=== PATIENT | male | born 1980 | race Caucasian/White ===

== ENCOUNTER 2022-10-13 19:53 | Emergency (ER) | payer MEDICAID, OTHER ==
[2022-10-13 20:06] VITALS: BP 151/95; PULSE 83; RESP 18; TEMP 98
--- NOTE | 2022-10-13 20:46 | XR ---
EXAMINATION TYPE: XR ankle complete RT, XR foot complete RT DATE OF EXAM: 10/13/2022 8:23 PM INDICATION: Patient age:Male; 42 years old; Reason for study: fall; [facility]. COMPARISON: None TECHNIQUE: The right foot and ankle is imaged in frontal, lateral and oblique projections. FINDINGS: Bony fragment off the anterior aspect of the talus best appreciated on lateral. There is soft tissue swelling. Soft tissue swelling. The joint spaces are well-preserved without evidence of subluxation or dislocation. Kager's fat pad i s intact. No radiopaque foreign bodies are identified. IMPRESSION: Osseous fragment off the anterior/dorsal aspect of the right talus. Correlate with point tenderness t o the dorsal aspect of the foot near the ankle joint. No additional fractures identified.
--- NOTE | 2022-10-13 21:39 | ED ---
Lower Extremity Injury HPI - General Chief Complaint: Extremity Injury, Lower Stated Complaint: rt ankle sprain Time Seen by Provider: 10/13/22 20:10 Source: patient Mode of arrival: ambulatory Limitations: no limitations - History of Present Illness Initial Comments: 42-year-old male presents emergency department reporting right ankle pain. States that he was jumping out of his work truck when he rolled his right ankle and began having significant right lateral ankle pain. She did have some associated swelling. He has been able to weight-bear. His work recommended that he be evaluated for his injury. Does admit to previous fracture of this extremity. No additional injuries sustained today. Denies any numbness or tingling into his toes. He does not take any medications prior to coming into the emergency room for pain control. No other alleviating, precipitating or modifying factors - Related Data Previous Rx's Medication Instructions Recorded Erythromycin Ophth Oint [Romycin 1 applic RIGHT EYE TID #1 tube 05/11/15 Ophth Oint] Allergies Allergy/AdvReac Type Severity Reaction Status Date / Time Penicillins Allergy Unknown Verified 10/13/22 20:06 Childhood Review of Systems ROS Statement: Those systems with pertinent positive or pertinent negative responses have been documented in the HPI. ROS Other: All systems not noted in ROS Statement are negative. Past Medical History Past Medical History: No Reported History History of Any Multi-Drug Resistant Organisms: None Reported Past Surgical History: No Surgical Hx Reported Past Psychological History: No Psychological Hx Reported Smoking Status: Never smoker Past Alcohol Use History: Occasional Past Drug Use History: None Reported General Exam Limitations: no limitations General appearance: alert, in no apparent distress Extremities exam: Present: tenderness (right lateral ankle. mild swelling. no dorsal foot tenderness. no obvious deformity), other (2+ DP and PT pulses) Course Vital Signs 10/13/22 20:05 Temperature 98 F Pulse Rate 83 Respiratory 18 Rate Blood Pressure 151/95 O2 Sat by Pulse 99 Oximetry Medical Decision Making - Medical Decision Making Upon arrival patient was placed into room 30. There are history and physical exam was performed. Patient is sent for x-ray of his right foot and ankle. Images are reviewed by myself and read by the radiologist. There is a small bony fragments adjacent to the talus on the anterior/dorsal aspect of the foot. I did correlate this for point tenderness however the patient has not tender over this area. I did discuss diagnosis, treatment options. Patient is placed in a stirrup splint and additionally given an Frankie bandage. Instructed to wear compression to the ankle to prevent any further inversion injury. Alternate taking Motrin, for pain control. Follow-up with the orthopedic office in 7-10 days should his pain persist as he may need repeat imaging and return to the emergency room for any new or worsening symptoms. Patient was agreeable to treatment plan and was discharged home ambulatory in stable condition Disposition Clinical Impression: Right ankle pain, Inversion deformity of right foot Disposition: HOME SELF-CARE Condition: Stable Instructions (If sedation given, give patient instructions): Ankle Sprain (ED) Additional Instructions: Rest, ice and elevate your extremity. Wear the stirrup splint if possible. Wear the Frankie bandage for some stabilization inside your work boot. Follow up with the orthopedic clinic if your pain persists. Is patient prescribed a controlled substance at d/c from ED?: No Referrals: Jalyn Upton MD [Primary Care Provider] - 1-2 days Teresita Vargas DO [Doctor of Osteopathic Medicine] - 1-2 days Time of Disposition: 21:39
== END 2022-10-13 21:45 | disposition home or self-care (01) ==
LOC: SUPCPDRO 19:53 → EC 19:53
DX: M21.6X1 Other acquired deformities of right foot (principal); Z88.0 Allergy status to penicillin
CPT/HCPCS: 73610; 73630; 99283; L4350

== ENCOUNTER 2023-09-24 17:51 | Inpatient (IN) | payer BC ==
[2023-09-24 19:11] LABS: Anisocytosis Slight; MCH 38.3 pg (25.0-35.0); MCHC 35.7 g/dL (31.0-37.0); MCV 107.2 fL (80.0-100.0); Macrocytosis Moderate; Mean Platelet Volume 14.4; RBC 1.47 m/uL (4.30-5.90); RDW 16.6 % (11.5-15.5); WBC 3.1 k/uL (3.8-10.6)
[2023-09-24 19:17] LABS: HCT 15.7 % (39.0-53.0); HGB 5.6 gm/dL (13.0-17.5)
[2023-09-24 19:21] LABS: ALT 15 U/L (4-49); AST 15 U/L (17-59); African American GFR (CKD) >90 (>60 ml/min/1.73 sqM); Albumin 4.5 g/dL (3.5-5.0); Alkaline Phosphatase 52 U/L (38-126); Anion Gap 11 mmol/L; Blood Urea Nitrogen 18 mg/dL (9-20); Calcium 9.4 mg/dL (8.4-10.2); Carbon Dioxide 23 mmol/L (22-30); Chloride 103 mmol/L (98-107); Glucose 126 mg/dL (74-99); Non-African American GFR(CKD) >90 (>60 ml/min/1.73 sqM); Potassium 4.3 mmol/L (3.5-5.1); Sodium 137 mmol/L (137-145); Total Bilirubin 0.4 mg/dL (0.2-1.3); Total Protein 7.7 g/dL (6.3-8.2)
[2023-09-24 19:26] LABS: Partial Thromboplastin Time 22.6 sec (22.0-30.0); Prothrombin Time 11.2 sec (10.0-12.5)
[2023-09-24 20:10] LABS: Neutrophils % (M) 2 %
[2023-09-24 20:19] LABS: Neutrophils # (M) 0.06 k/uL (1.3-7.7); Polychromasia Present
[2023-09-24 20:27] LABS: Platelet Count 35 k/uL (150-450)
[2023-09-24] MEDS ORDERED: ONDANSETRON 4 MG/2 ML VIAL IVP PRN (22:21)
[2023-09-24] MEDS ORDERED: NALOXONE 0.4 MG/ML 1 ML VIAL IV PRN (22:21)
[2023-09-24] MEDS ORDERED: MORPHINE SULFATE 4 MG/ML SYRINGE IV PRN (22:21)
--- NOTE | 2023-09-24 22:30 | ED ---
Recheck HPI - General Chief Complaint: Recheck/Abnormal Lab/Rx Stated Complaint: abnormal labs Time Seen by Provider: 09/24/23 20:31 Source: patient, RN notes reviewed, old records reviewed Mode of arrival: ambulatory Limitations: no limitations - History of Present Illness Initial Comments: This is a 43-year-old male to the ER today. Patient presents today for evaluation. Patient is here for evaluation regards to abnormal lab values low hemoglobin. Patient has been feeling unwell for a few weeks now increasing weakness increasing shortness of breath increasing fatigue and feels like he has been pale. Patient did see his primary care who did lab values and has not sent patient to the emergency department today. He denies any chest pain shortness with abdominal pain no nausea vomiting. No blood in the stool about black stools. Patient has no medical history takes no medication MD Complaint: abnormal lab -: unknown Returns Today for: Called Because of Abnormal Lab/Test, persistent/worsening pain related to initial visit Symptoms Since Prior Visit: worsening pain Context: called for abnormal lab result Associated Symptoms: none - Related Data Home Medications Medication Instructions Recorded Confirmed No Known Home Medications 09/28/23 09/28/23 Allergies Allergy/AdvReac Type Severity Reaction Status Date / Time Penicillins Allergy Unknown Verified 09/24/23 20:59 Childhood Review of Systems ROS Statement: Those systems with pertinent positive or pertinent negative responses have been documented in the HPI. ROS Other: All systems not noted in ROS Statement are negative. Past Medical History Past Medical History: No Reported History History of Any Multi-Drug Resistant Organisms: None Reported Past Surgical History: No Surgical Hx Reported Past Psychological History: No Psychological Hx Reported Smoking Status: Never smoker Past Alcohol Use History: Occasional Past Drug Use History: None Reported - Past Family History Mother Additional Family Medical History / Comment(s): bladder and stomach cancer General Exam Limitations: no limitations General appearance: alert, in no apparent distress Head exam: Present: atraumatic, normocephalic, normal inspection Eye exam: Present: normal appearance, PERRL, EOMI. Absent: scleral icterus, conjunctival injection, periorbital swelling ENT exam: Present: normal exam, mucous membranes moist Neck exam: Present: normal inspection. Absent: tenderness, meningismus, lymph adenopathy Respiratory exam: Present: normal lung sounds bilaterally. Absent: respiratory distress, wheezes, rales, rhonchi, stridor Cardiovascular Exam: Present: regular rate, normal rhythm, normal heart sounds. Absent: systolic murmur, diastolic murmur, rubs, gallop, clicks GI/Abdominal exam: Present: soft, normal bowel sounds. Absent: distended, tenderness, guarding, rebound, rigid Extremities exam: Present: normal inspection, full ROM, normal capillary refill. Absent: tenderness, pedal edema, joint swelling, calf tenderness Back exam: Present: normal inspection Neurological exam: Present: alert, oriented X3, CN II-XII intact Psychiatric exam: Present: normal affect, normal mood Skin exam: Present: warm, dry, intact, normal color. Absent: rash Course Vital Signs 09/24/23 09/24/23 09/24/23 18:41 20:56 23:00 Temperature 98 F Pulse Rate 77 70 74 Respiratory 18 18 20 Rate Blood Pressure 126/66 128/70 119/73 O2 Sat by Pulse 100 100 98 Oximetry 09/25/23 09/25/23 09/25/23 00:00 01:00 02:00 Temperature Pulse Rate 65 63 78 Respiratory 20 16 18 Rate Blood Pressure 130/68 126/64 111/58 O2 Sat by Pulse 98 97 98 Oximetry 09/25/23 09/25/23 09/25/23 03:00 04:00 05:00 Temperature Pulse Rate 82 74 69 Respiratory 20 15 16 Rate Blood Pressure 105/58 109/58 116/56 O2 Sat by Pulse 98 98 99 Oximetry 09/25/23 09/25/23 09/25/23 06:00 07:00 08:00 Temperature Pulse Rate 66 90 85 Respiratory 16 16 18 Rate Blood Pressure 117/61 112/63 120/63 O2 Sat by Pulse 98 98 Oximetry 09/25/23 09/25/23 09/25/23 09:00 10:00 11:00 Temperature Pulse Rate 76 92 71 Respiratory 16 16 18 Rate Blood Pressure 120/62 120/63 122/63 O2 Sat by Pulse 99 99 99 Oximetry 09/25/23 09/25/23 09/25/23 11:30 11:40 12:00 Temperature 98.6 F 98.1 F 98.8 F Pulse Rate 74 71 84 Respiratory 18 18 16 Rate Blood Pressure 117/69 121/65 121/65 O2 Sat by Pulse 99 99 99 Oximetry 09/25/23 09/25/23 09/25/23 12:30 13:00 14:00 Temperature 98.1 F Pulse Rate 76 68 71 Respiratory 18 18 16 Rate Blood Pressure 124/62 115/69 145/64 O2 Sat by Pulse 100 100 98 Oximetry 09/25/23 15:00 Temperature 98.5 F Pulse Rate 78 Respiratory 17 Rate Blood Pressure 119/63 O2 Sat by Pulse 95 Oximetry - Reevaluation(s) Reevaluation #1: 09/24/23 22:25 Medical record is reviewed Reevaluation #2: 09/24/23 22:25 Patient symptoms are unchanged Transfusion be delayed at this time for pathology and oncology to evaluate see and despite treatment Reevaluation #3: 09/24/23 22:25 Patient informed results questions answered Reevaluation #4: 09/24/23 22:25 Was pt. sent in by a medical professional or institution ([facility], [employer], urgent care, hospital, or alf...) When possible be specific @ -no Did you speak to anyone other than the patient for history (EMS, parent, family, police, friend...)? What history was obtained from this source @ -no Did you review nursing and triage notes (agree or disagree)? Why? @ -agree Are old charts reviewed (outside hosp., previous admission, EMS record, old EKG, old radiological studies, urgent care reports/EKG's, alf records)? Report findings @ -yes Differential Diagnosis (chest pain, altered mental status, abdominal pain women, abdominal pain men, vaginal bleeding, weakness, fever, dyspnea, syncope, headache, dizziness, GI bleed, back pain, seizure, CVA, palpatations, mental health, musculoskeletal)? @ -prior EKG interpreted by me (3pts min.). @ -yes X-rays interpreted by me (1pt min.). @ -no CT interpreted by me (1pt min.). @ -no U/S interpreted by me (1pt. min.). @ -no What testing was considered but not performed or refused? (CT, X-rays, U/S, labs)? Why? @ -none What meds were considered but not given or refused? Why? @ -none Did you discuss the management of the patient with other professionals (professionals i.e. [facility], [employer], lab, RT, psych nurse, social media assistant, procedure analyst, teacher, forest officer, case assembler)? Give summary @ -no Was smoking cessation discussed for >3mins.? @ -no Was critical care preformed (if so, how long)? @ -yes31 Were there social determinants of health that impacted care today? How? (Homelessness, low income, unemployed, alcoholism, drug addiction, transportation, low edu. Level, literacy, decrease access to med. care, fci, rehab)? @ -none Was there de-escalation of care discussed even if they declined (Discuss DNR or withdrawal of care, Hospice)? DNR status @ -no What co-morbidities impacted this encounter? (DM, HTN, Smoking, COPD, CAD, Cancer, CVA, ARF, Chemo, Hep., AIDS, mental health diagnosis, sleep apnea, morbid obesity)? @ -none Was patient admitted / discharged? Hospital course, mention meds given and route, prescriptions, significant lab abnormalities, going to OR and other pertinent info. @ - 43 male to the emergency department for evaluation today. Patient presents today for evaluation of low hemoglobin patient found of persistent low hemoglobin although improved from outpatient lab testing. Patient be admitted for pancytopenia evaluation Admitted Undiagnosed new problem with uncertain prognosis? @ -no Drug Therapy requiring intensive monitoring for toxicity (Heparin, Nitro, Insulin, Cardizem)? @ -no Were any procedures done? @ -no Diagnosis/symptom? @ -Pancytopenia, severe anemia Acute, or Chronic, or Acute on Chronic? @ -Acute Uncomplicated (without systemic symptoms) or Complicated (systemic symptoms)? @ -Complicated Side effects of treatment? @ -no Exacerbation, Progression, or Severe Exacerbation? @ -exacerbation Poses a threat to life or bodily function? How? (Chest pain, USA, NE, pneumonia, PE, COPD, DKA, ARF, appy, cholecystitis, CVA, Diverticulitis, Homicidal, Suicidal, threat to staff... and all critical care pts) @ -yes Reevaluation #5: 09/24/23 22:25 Differential Weakness: Hypoglycemia, shock, sepsis, hyponatremia, anemia, infection, NE, ETOH, adverse medicine reaction, overdose, stroke, this is not meant to be an all-inclusive list. - Consultations Consultation #1: Spoke with sound who agrees to admit this patient Medical Decision Making - Medical Decision Making 43 male to the emergency department for evaluation today. Patient presents today for evaluation of low hemoglobin patient found of persistent low hemo globin although improved from outpatient lab testing. Patient be admitted for pancytopenia evaluation - Lab Data Result diagrams: 09/27/23 08:17 09/27/23 08:17 Lab Results 09/24/23 09/24/23 09/24/23 Range/Units 11:05 18:53 18:54 WBC 3.1 L (3.8-10.6) k/uL RBC 1.47 L (4.30-5.90) m/uL Hgb 5.6 L* (13.0-17.5) gm/dL Hct 15.7 L* (39.0-53.0) % MCV 107.2 H (80.0-100.0) fL MCH 38.3 H (25.0-35.0) pg MCHC 35.7 (31.0-37.0) g/dL RDW 16.6 H (11.5-15.5) % Plt Count 35 L (150-450) k/uL MPV 14.4 Neutrophils % (Manual) 2 % Lymphocytes % (Manual) 51 % Monocytes % (Manual) 3 % Blast Cells % 45 H* % Neutrophils # (Manual) 0.06 L* (1.3-7.7) k/uL Lymphocytes # (Manual) 1.58 (1.0-4.8) k/uL Monocytes # (Manual) 0.09 (0-1.0) k/uL Blast Cells # (Man) 1.40 H (0) k/uL Nucleated RBCs 1 H (0-0) /100 WBC Manual Slide Review Performed Pathologist Review See comment A Polychromasia Present Poikilocytosis (manual Present Anisocytosis Slight Macrocytosis Moderate PT (10.0-12.5) sec INR (<1.2) APTT (22.0-30.0) sec Sodium (137-145) mmol/L Potassium (3.5-5.1) mmol/L Chloride (98-107) mmol/L Carbon Dioxide (22-30) mmol/L Anion Gap mmol/L BUN (9-20) mg/dL Creatinine (0.66-1.25) mg/dL Est GFR (CKD-EPI)AfAm (>60 ml/min/1.73 sqM) Est GFR (CKD-EPI)NonAf (>60 ml/min/1.73 sqM) Glucose (74-99) mg/dL Uric Acid (3.5-8.5) mg/dL Calcium (8.4-10.2) mg/dL Iron (65-175) UG/DL TIBC (228-460) UG/DL % Saturation (15.00-50.00) Transferrin (204.0-354.0) mg/dL Ferritin (22.0-322.0) ng/mL Total Bilirubin (0.2-1.3) mg/dL AST (17-59) U/L ALT (4-49) U/L Alkaline Phosphatase (38-126) U/L Lactate Dehydrogenase (120-246) U/L Total Protein (6.3-8.2) g/dL Albumin (3.5-5.0) g/dL Vitamin B12 (200.0-944.0) pg/mL Folate 8.80 (4.40-31.00) ng/mL Stool Occult Blood (Negative) Blood Type A Positive Blood Type Confirm Blood Type Recheck No Previous Record Bld Type Recheck Status CABO Indicated Antibody Screen NEGATIVE Crossmatch See Detail Spec Expiration Date 09/27/2023 - 235209/24/23 09/24/23 09/24/23 Range/Units 18:54 18:54 18:54 WBC (3.8-10.6) k/uL RBC (4.30-5.90) m/uL Hgb (13.0-17.5) gm/dL Hct (39.0-53.0) % MCV (80.0-100.0) fL MCH (25.0-35.0) pg MCHC (31.0-37.0) g/dL RDW (11.5-15.5) % Plt Count (150-450) k/uL MPV Neutrophils % (Manual) % Lymphocytes % (Manual) % Monocytes % (Manual) % Blast Cells % % Neutrophils # (Manual) (1.3-7.7) k/uL Lymphocytes # (Manual) (1.0-4.8) k/uL Monocytes # (Manual) (0-1.0) k/uL Blast Cells # (Man) (0) k/uL Nucleated RBCs (0-0) /100 WBC Manual Slide Review Pathologist Review Polychromasia Poikilocytosis (manual Anisocytosis Macrocytosis PT 11.2 (10.0-12.5) sec INR 1.0 (<1.2) APTT 22.6 (22.0-30.0) sec Sodium 137 (137-145) mmol/L Potassium 4.3 (3.5-5.1) mmol/L Chloride 103 (98-107) mmol/L Carbon Dioxide 23 (22-30) mmol/L Anion Gap 11 mmol/L BUN 18 (9-20) mg/dL Creatinine 0.90 (0.66-1.25) mg/dL Est GFR (CKD-EPI)AfAm >90 (>60 ml/min/1.73 sqM) Est GFR (CKD-EPI)NonAf >90 (>60 ml/min/1.73 sqM) Glucose 126 H (74-99) mg/dL Uric Acid 2.5 L (3.5-8.5) mg/dL Calcium 9.4 (8.4-10.2) mg/dL Iron 213 H (65-175) UG/DL TIBC 246 (228-460) UG/DL % Saturation 86.59 H (15.00-50.00) Transferrin 176.0 L (204.0-354.0) mg/dL Ferritin 1041.0 H (22.0-322.0) ng/mL Total Bilirubin 0.4 (0.2-1.3) mg/dL AST 15 L (17-59) U/L ALT 15 (4-49) U/L Alkaline Phosphatase 52 (38-126) U/L Lactate Dehydrogenase 271 H (120-246) U/L Total Protein 7.7 (6.3-8.2) g/dL Albumin 4.5 (3.5-5.0) g/dL Vitamin B12 502.0 (200.0-944.0) pg/mL Folate (4.40-31.00) ng/mL Stool Occult Blood (Negative) Blood Type Blood Type Confirm Blood Type Recheck Bld Type Recheck Status Antibody Screen Crossmatch Spec Expiration Date 09/24/23 09/24/23 Range/Units 19:33 21:30 WBC (3.8-10.6) k/uL RBC (4.30-5.90) m/uL Hgb (13.0-17.5) gm/dL Hct (39.0-53.0) % MCV (80.0-100.0) fL MCH (25.0-35.0) pg MCHC (31.0-37.0) g/dL RDW (11.5-15.5) % Plt Count (150-450) k/uL MPV Neutrophils % (Manual) % Lymphocytes % (Manual) % Monocytes % (Manual) % Blast Cells % % Neutrophils # (Manual) (1.3-7.7) k/uL Lymphocytes # (Manual) (1.0-4.8) k/uL Monocytes # (Manual) (0-1.0) k/uL Blast Cells # (Man) (0) k/uL Nucleated RBCs (0-0) /100 WBC Manual Slide Review Pathologist Review Polychromasia Poikilocytosis (manual Anisocytosis Macrocytosis PT (10.0-12.5) sec INR (<1.2) APTT (22.0-30.0) sec Sodium (137-145) mmol/L Potassium (3.5-5.1) mmol/L Chloride (98-107) mmol/L Carbon Dioxide (22-30) mmol/L Anion Gap mmol/L BUN (9-20) mg/dL Creatinine (0.66-1.25) mg/dL Est GFR (CKD-EPI)AfAm (>60 ml/min/1.73 sqM) Est GFR (CKD-EPI)NonAf (>60 ml/min/1.73 sqM) Glucose (74-99) mg/dL Uric Acid (3.5-8.5) mg/dL Calcium (8.4-10.2) mg/dL Iron (65-175) UG/DL TIBC (228-460) UG/DL % Saturation (15.00-50.00) Transferrin (204.0-354.0) mg/dL Ferritin (22.0-322.0) ng/mL Total Bilirubin (0.2-1.3) mg/dL AST (17-59) U/L ALT (4-49) U/L Alkaline Phosphatase (38-126) U/L Lactate Dehydrogenase (120-246) U/L Total Protein (6.3-8.2) g/dL Albumin (3.5-5.0) g/dL Vitamin B12 (200.0-944.0) pg/mL Folate (4.40-31.00) ng/mL Stool Occult Blood Negative (Negative) Blood Type Blood Type Confirm A Positive Blood Type Recheck Bld Type Recheck Status Antibody Screen Crossmatch Spec Expiration Date Disposition Clinical Impression: Pancytopenia, Leukopenia, Thrombocytopenia, Anemia Disposition: ADMITTED IP TO THIS HOSP Condition: Stable Is patient prescribed a controlled substance at d/c from ED?: No Time of Disposition: 22:20
[2023-09-24] MEDS: SODIUM CHLORIDE 0.9% 1,000 ML IV SCH (22:52)
--- NOTE | 2023-09-25 06:44 | P.HPIM ---
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 This is completely new to him he has no cardiac history no respiratory illnesses in the past denies any history of COPD or asthma he denies any GI bleeding. He recalls about a month ago he started having some upper respiratory infection symptoms involving his sinuses for which she went to an urgent care he was given some medications 2 weeks later he was not improving went to his primary doctor where he prescribed him some Bactrim and Medrol Dosepak and then started doing some blood work which showed the severe anemia. Patient also has been noticing easy bruising taking longer to heal and fade away, but denies any bleeding tendencies denies any melena or GI bleeding Patient denies any medical issues in the past he denies any family history of hemoglobin disorders. Patient had hepatitis B vaccine done about a month ago which is a job requirement he had 3 doses in his life. Patient denies tobacco smoking illicit drugs or heavy alcohol review of systems Pertinent positives as noted in HPI. All other systems were reviewed and are negative on exam Constitutional: No acute distress, conversant, pleasant Eyes: Anicteric sclerae, moist conjunctiva, Pupils equal round reactive to light ENMT: NC/AT Oropharynx clear, no erythema, or exudates Neck: Supple, no masses, or JVD No carotid bruits No thyromegaly Lungs: Clear to auscultation Clear to percussion Normal respiratory effort, no accessory muscle use Cardiovascular: Heart regular in rate and rhythm, No murmurs, gallops, or rubs No peripheral edema Abdominal: Soft Nontender, no guarding, rebound or rigidity Abdomen moving with respiration Normoactive bowel sounds No hepatomegaly, No splenomegaly No palpable mass No abdominal wall hernia noted Skin: Normal temperature, tone, texture, turgor No induration No subcutaneous nodules No rash, lesions No ulcers Extremities: No digital cyanosis No clubbing Pedal pulses intact and symmetrical Radial pulses intact and symmetrical No calf tenderness Psychiatric: Alert and oriented to person, place and time Appropriate affect fair judgement Neuro Muscles Strength 5/5 in all 4 extremities Sensation to light touch grossly present throughout Cranial nerves II-XII grossly intact Lymphatics: no palpable cervical or supraclavicular lymph nodes Past Medical History Past Medical History: No Reported History History of Any Multi-Drug Resistant Organisms: None Reported Past Surgical History: No Surgical Hx Reported Past Psychological History: No Psychological Hx Reported Smoking Status: Never smoker Past Alcohol Use History: Occasional Past Drug Use History: None Reported Medications and Allergies Home Medications Medication Instructions Recorded Confirmed Type Mupirocin 2% Oint [Bactroban 2% 1 applic TOPICAL TID PRN 09/24/23 09/24/23 History Oint] Sulfamethox-Tmp 800-160Mg [Bactrim 1 tab PO Q12HR 09/24/23 09/24/23 History DS 800-160 mg] methylPREDNISolone [Medrol Dose See Taper PO DIRECTED 09/24/23 09/24/23 H istory Pack] Allergies Allergy/AdvReac Type Severity Reaction Status Date / Time Penicillins Allergy Unknown Verified 09/24/23 20:59 Childhood Physical Exam Vitals: Vital Signs Temp Pulse Resp BP Pulse Ox 09/25/23 06:00 66 16 117/61 98 09/25/23 05:00 69 16 116/56 99 09/25/23 04:00 74 15 109/58 98 09/25/23 03:00 82 20 105/58 98 09/25/23 02:00 78 18 111/58 98 09/25/23 01:00 63 16 126/64 97 09/25/23 00:00 65 20 130/68 98 09/24/23 23:00 74 20 119/73 98 09/24/23 20:56 70 18 128/70 100 09/24/23 18:41 98 F 77 18 126/66 100 Intake and Output 09/24/23 09/24/23 09/25/23 14:59 22:59 06:59 Other: Weight 89.358 kg Results CBC & Chem 7: 09/24/23 18:54 09/24/23 18:54 Labs: Abnormal Lab Results - Last 24 Hours (Table) 09/24/23 09/24/23 Range/Units 18:54 18:54 WBC 3.1 L (3.8-10.6) k/uL RBC 1.47 L (4.30-5.90) m/uL Hgb 5.6 L* (13.0-17.5) gm/dL Hct 15.7 L* (39.0-53.0) % MCV 107.2 H (80.0-100.0) fL MCH 38.3 H (25.0-35.0) pg RDW 16.6 H (11.5-15.5) % Plt Count 35 L (150-450) k/uL Glucose 126 H (74-99) mg/dL AST 15 L (17-59) U/L Assessment and Plan Assessment: 43-year-old male no significant past medical history coming in with one-month history of exertional dyspnea, find doing blood work with his primary care doctor and was found to have severe anemia which prompted to come the hospital for evaluation discussed case with the adductor accepted the admission for pancytopenia suspicious of aplastic anemia for hematology evaluation Pancytopenia suspected aplastic anemia Hematology consult Hemoglobin 5.6, patient currently asymptomatic while resting Blood transfusion was not done waiting for hematology recommendations Check HIV, Parvovirus B19, hepatitis White count is 3.1, platelets 35 Frequent PVCs EKG showed frequent PVCs and T-wave inversion in lead 3 Cardiology consult Renal function unremarkable sodium 137 potassium 4.3 be on 18 creatinine 0.9 full code DVT prophylaxis mechanical secondary to pancytopenia
[2023-09-25 07:54] LABS: Lymphocytes # (M) 1.58 k/uL (1.0-4.8); Monocytes # (M) 0.09 k/uL (0-1.0)
[2023-09-25 07:58] LABS: Nucleated Red Blood Cells 1 /100 WBC (0-0); Total Cells Counted 200
[2023-09-25 08:00] LABS: Poikilocytosis (M) Present
[2023-09-25 09:13] LABS: Anisocytosis Slight; MCH 37.8 pg (25.0-35.0); MCHC 34.8 g/dL (31.0-37.0); MCV 108.7 fL (80.0-100.0); Macrocytosis Marked; Mean Platelet Volume 13.9; RBC 1.39 m/uL (4.30-5.90); WBC 3.4 k/uL (3.8-10.6)
[2023-09-25 09:18] LABS: HCT 15.1 % (39.0-53.0); HGB 5.3 gm/dL (13.0-17.5); Platelet Count 28 k/uL (150-450)
[2023-09-25 09:22] LABS: ALT 16 U/L (4-49); AST 15 U/L (17-59); African American GFR (CKD) >90 (>60 ml/min/1.73 sqM); Alkaline Phosphatase 51 U/L (38-126); Anion Gap 10 mmol/L; Blood Urea Nitrogen 20 mg/dL (9-20); Calcium 8.6 mg/dL (8.4-10.2); Carbon Dioxide 24 mmol/L (22-30); Chloride 105 mmol/L (98-107); Glucose 96 mg/dL (74-99); Non-African American GFR(CKD) >90 (>60 ml/min/1.73 sqM); Phosphorus 4.2 mg/dL (2.5-4.5); Potassium 3.9 mmol/L (3.5-5.1); Sodium 139 mmol/L (137-145); Total Bilirubin 0.3 mg/dL (0.2-1.3); Total Protein 7.2 g/dL (6.3-8.2)
[2023-09-25] MEDS ORDERED: ALPRAZolam 0.5 MG TAB PO PRN (10:06)
[2023-09-25 11:22] LABS: Eosinophils # (M) 0.03 k/uL (0-0.7); Nucleated Red Blood Cells 0 /100 WBC (0-0); Total Cells Counted 200
[2023-09-25 11:26] LABS: Poikilocytosis (M) Present
--- NOTE | 2023-09-25 11:30 | P.CRDCN ---
History of Present Illness History of present illness: HISTORY OF PRESENT ILLNESS: This is a 43-year-old male with no significant past medical history. Patient does not follow with a identity management developer. We have been asked to see the patient in consultation for frequent PVCs and T-wave inversions in lead III. Patient examined at the bedside. Patient has been experiencing shortness of breath for the past 4-6 weeks. He also reports having an upper respiratory infection in which she was placed on doxycycline by urgent care. He states his symptoms were not improving so he went to see his primary care physician who prescribed Bactrim and steroids and ordered blood work. He states he just started this medication on Sunday.Patient was found to be anemic with hemoglobin of 4.6 and he was directed to come to the hospital for further evaluation. He has been seen by oncology with plans for bone marrow biopsy tomorrow. * EKG reveals sinus mechanism with nonspecific ST-T wave changes. PVCs. * Current home cardiac medications include none REVIEW OF SYSTEMS: At the time of my exam: CONSTITUTIONAL: Denies fever or chills. HEENT: Denies blurred vision, vision changes, or eye pain. Denies hemoptysis CARDIOVASCULAR: Denies chest pain. Denies orthopnea. Denies PND. Denies palpitations RESPIRATORY: Denies shortness of breath. GASTROINTESTINAL: Denies abdominal pain. Denies nausea or vomiting. HEMATOLOGIC: Denies bleeding disorders. GENITOURINARY: Denies any blood in urine. SKIN: Denies pruitis. Denies rash. PHYSICAL EXAM: VITAL SIGNS: Reviewed. GENERAL: Well-developed in no acute distress. HEENT: Head is normocephalic. Pupils are equal, round. Sclerae anicteric. Mucous membranes of the mouth are moist. Neck supple. No JVD or thyromegaly LUNGS: Respirations even and unlabored. Lungs essentially clear to auscultation bilaterally. HEART: Regular rate and rhythm. S1 and S2 heard. ABDOMEN: Soft. Nondistended. Nontender. EXTREMITIES: Normal range of motion. No clubbing or cyanosis. Peripheral pulses intact. No lower extremity edema NEUROLOGIC: Awake and alert. Oriented x 3. ASSESSMENT: Pancytopenia Recent upper respiratory infection, started on Bactrim and steroids on Sunday Abnormal EKG with nonspecific ST-T wave changes PLAN: Obtain 2D echo to assess cardiac structure and function Continue telemetry monitoring Patient scheduled for bone marrow biopsy tomorrow with oncology Patient to receive RBC transfusion today Continue to monitor CBC If 2-D echo does not reveal any significant abnormalities, no further inpatient cardiac workup is required Further recommendations pending patient's course Nurse practitioner note has been reviewed by physician. Signing provider agrees with the documented findings, assessment, and plan of care. Past Medical History Past Medical History: No Reported History History of Any Multi-Drug Resistant Organisms: None Reported Past Surgical History: No Surgical Hx Reported Past Psychological History: No Psychological Hx Reported Smoking Status: Never smoker Past Alcohol Use History: Occasional Past Drug Use History: None Reported Medications and Allergies Home Medications Medication Instructions Recorded Confirmed Type Mupirocin 2% Oint [Bactroban 2% 1 applic TOPICAL TID PRN 09/24/23 09/24/23 History Oint] Sulfamethox-Tmp 800-160Mg [Bactrim 1 tab PO Q12HR 09/24/23 09/24/23 History DS 800-160 mg] methylPREDNISolone [Medrol Dose See Taper PO DIRECTED 09/24/23 09/24/23 History Pack] Allergies Allergy/AdvReac Type Severity Reaction Status Date / Time Penicillins Allergy Unknown Verified 09/24/23 20:59 Childhood Physical Exam Vitals: Vital Signs Temp Pulse Resp BP Pulse Ox 09/25/23 06:00 66 16 117/61 98 09/25/23 05:00 69 16 116/56 99 09/25/23 04:00 74 15 109/58 98 09/25/23 03:00 82 20 105/58 98 09/25/23 02:00 78 18 111/58 98 09/25/23 01:00 63 16 126/64 97 09/25/23 00:00 65 20 130/68 98 09/24/23 23:00 74 20 119/73 98 09/24/23 20:56 70 18 128/70 100 09/24/23 18:41 98 F 77 18 126/66 100 Intake and Output 09/24/23 09/25/23 09/25/23 22:59 06:59 14:59 Other: Weight 89.358 kg Results 09/25/23 09:00 09/25/23 09:00 Cardiac Enzymes 09/24/23 Range/Units 18:54 AST 15 L (17-59) U/L Coagulation 10/30/23 Range/Units 18:54 PT 11.2 (10.0-12.5) sec APTT 22.6 (22.0-30.0) sec CBC 09/24/23 Range/Units 18:54 WBC 3.1 L (3.8-10.6) k/uL RBC 1.47 L (4.30-5.90) m/uL Hgb 5.6 L* (13.0-17.5) gm/dL Hct 15.7 L* (39.0-53.0) % Plt Count 35 L (150-450) k/uL Comprehensive Metabolic Panel 09/24/23 Range/Units 18:54 Sodium 137 (137-145) mmol/L Potassium 4.3 (3.5-5.1) mmol/L Chloride 103 (98-107) mmol/L Carbon Dioxide 23 (22-30) mmol/L BUN 18 (9-20) mg/dL Creatinine 0.90 (0.66-1.25) mg/dL Glucose 126 H (74-99) mg/dL Calcium 9.4 (8.4-10.2) mg/dL AST 15 L (17-59) U/L ALT 15 (4-49) U/L Alkaline Phosphatase 52 (38-126) U/L Total Protein 7.7 (6.3-8.2) g/dL Albumin 4.5 (3.5-5.0) g/dL Current Medications Generic Name Dose Route Start Last Admin Trade Name Freq PRN Reason Stop Dose Admin Sodium Chloride 1,000 mls @ 75 mls/hr 09/24/23 22:30 09/24/23 22:52 Saline 0.9% IV 75 mls/hr .[id number] GILLES Administration Morphine Sulfate 4 mg 09/24/23 22:21 Morphine Sulfate 4 Mg/Ml Syringe IV Q4HR PRN Severe Pain (Scale 7 to 10) Naloxone HCl 0.2 mg 09/24/23 22:21 Naloxone 0.4 Mg/Ml 1 Ml Vial IV Q2M PRN Opioid Reversal Ondansetron HCl 4 mg 09/24/23 22:21 Ondansetron 4 Mg/2 Ml Vial IVP Q8HR PRN Nausea And Vomiting Intake and Output 09/24/23 09/25/23 09/25/23 22:59 06:59 14:59 Other: Weight 89.358 kg 09/24/23 18:54 09/24/23 18:54
[2023-09-25 11:42] LABS: Uric Acid 2.5 mg/dL (3.5-8.5)
[2023-09-25 11:56] LABS: Reticulocyte % 1.8 % (0.5-2.0)
--- NOTE | 2023-09-25 13:16 | CA ---
Transthoracic Echo Report Name: Cecilio Rudolph Age: 43 Gender: M : 1980 Exam Date: 09/25/2023 10:41 Exam Location: [facility] Ht (in): 74 Wt (lb): 197 Ordering Physician: April Ho Attending/Referring Phys: [id number], Vic Manager Media Leslie Martin [facility] Procedure CPT: Indications: LV function, BIANCA Cardiac Hx: Technical Quality: Fair Contrast 1: Total Dose (mL): Contrast 2: Total Dose (mL): MEASUREMENTS (Male / Female) Normal Values 2D ECHO LV Diastolic Diameter PLAX 5.3 cm 4.2 - 5.9 / 3.9 - 5.3 cm LV Systolic Diameter PLAX 3.9 cm IVS Diastolic Thickness 0.9 cm 0.6 - 1.0 / 0.6 - 0.9 cm LVPW Diastolic Thickness 0.9 cm 0.6 - 1.0 / 0.6 - 0.9 cm LV Relative Wall Thickness 0.3 LV Diastolic Volume MOD BP 164.7 cm??? 67 - 155 / 56 - 104 cm??? LV Systolic Volume MOD BP 82.7 cm??? 22 - 58 / 19 - 49 cm??? LV Ejection Fraction MOD BP 49.8 % >= 55 % LV Cardiac Index MOD BP 2762.9 cm???/min???m??? LV Diastolic Volume MOD 4C 171.8 cm??? LV Systolic Volume MOD 4C 77.9 cm??? LV Ejection Fraction MOD 4C 54.7 % LV Cardiac Index MOD 4C 3166.2 cm???/min???m??? LV Diastolic Length 4C 10.0 cm LV Systolic Length 4C 8.6 cm LV Diastolic Volume MOD 2C 158.7 cm??? LV Systolic Volume MOD 2C 84.8 cm??? LV Ejection Fraction MOD 2C 46.6 % LV Cardiac Index MOD 2C 2489.6 cm???/min???m??? LV Diastolic Length 2C 10.0 cm LV Systolic Length 2C 9.0 cm Ascending Aorta Diameter 3.2 cm M-MODE Aortic Root Diameter MM 3.0 cm LA Systolic Diameter MM 4.1 cm LA Ao Ratio MM 1.4 AV Cusp Separation MM 2.7 cm DOPPLER AV Peak Velocity 154.0 cm/s AV Peak Gradient 9.5 mmHg AV Mean Velocity 121.1 cm/s AV Mean Gradient 6.4 mmHg AV Velocity Time Integral 30.6 cm LVOT Peak Velocity 152.7 cm/s LVOT Peak Gradient 9.3 mmHg LVOT Velocity Time Integral 30.6 cm Mitral E Point Velocity 111.0 cm/s Mitral A Point Velocity 70.2 cm/s Mitral E to A Ratio 1.6 MV Deceleration Time 174.4 ms LV E' Lateral Velocity 16.0 cm/s Mitral E to LV E' Lateral Ratio 6.9 LV E' Septal Velocity 9.3 cm/s Mitral E to LV E' Septal Ratio 11.9 TR Peak Velocity 246.2 cm/s TR Peak Gradient 24.2 mmHg Right Atrial Pressure 8.0 mmHg Pulmonary Artery Systolic Pressu 32.2 mmHg Right Ventricular Systolic Press 32.2 mmHg FINDINGS Left Ventricle Left ventricular wall thickness normal. Left ventricular cavity size normal. Mildly increased left ventricular diastolic volume. Moderately increased left ventricular systolic volume. Lower normal left ventricular systolic function with no obvious regional wall motion abnormalities. Left ventricular ejection fraction is estimated at 50-55%. Right Ventricle Moderate right ventricular dilatation. Mild pulmonary hypertension. Right Atrium Normal right atrial size. Left Atrium Moderate left atrial dilatation. Mitral Valve Structurally normal mitral valve. Mild mitral regurgitation. Aortic Valve Trileaflet aortic valve. No aortic valve stenosis or regurgitation. Tricuspid Valve Structurally normal tricuspid valve. Trace tricuspid regurgitation. Pulmonic Valve Structurally normal pulmonic valve. Trace to mild pulmonic regurgitation. Pericardium No pericardial effusion. Aorta Normal size aortic root and proximal ascending aorta. CONCLUSIONS 1. Left ventricular systolic function is borderline normal with no segmental wall motion abnormalities 2. Mild mitral regurgitation Previewed by: Dr. Odalys Mackay MD (Electronically Signed) Final Date: 25 September 2023 13:15
[2023-09-25] MEDS: SODIUM CHLORIDE 0.9% 1,000 ML IV SCH ×2 (13:25→22:48)
[2023-09-25 16:19] LABS: % Iron Saturation 86.59 (15.00-50.00)
[2023-09-25 17:15] LABS: INR 1.1 (<1.2); Partial Thromboplastin Time 22.6 sec (22.0-30.0); Prothrombin Time 11.6 sec (10.0-12.5)
[2023-09-25 18:42] LABS: Hepatitis A Antibody IgM Nonreactive; Hepatitis B Core IgM Nonreactive; Hepatitis B Surface Antigen Nonreactive; Hepatitis C IgG Antibody Nonreactive
--- NOTE | 2023-09-25 19:46 | P.CONS ---
History of Present Illness - Reason for Consult Consult date: 09/25/23 pancytopenia Requesting physician: Fabricio Bernal - Chief Complaint abnormal CBC - History of Present Illness Patient is a 43 year old male with no significant medical history. Consult was placed for pancytopenia. Patient was sent to the ER by his PCP for abnormal CBC and hemoglobin of 4.6. Patient reports over the last month he has had mild intermittent shortness of breath. He reports that he has had an a recent sinus infection with and was treated initially with doxycycline and then switched to Bactrim and steroids. Patient is reporting improvement URI symptoms. Patient also received hepatitis B vaccine 1 month ago for work. Otherwise patient has no other reported complaints. Denies unintentional weight loss, but does report approx 30lb weight loss over the last 2 years but states he started a new job that is very physical. Denies night sweats. Denies fever and chills. Denies hx of ETOH abuse and nicotine dependence. Upon admission hemoglobin was noted at 5.6. Platelets 35,000. WBC 3.1. ANC 60. Blast cells 45%. Coags WNL. Stool oc cult negative Review of Systems 10 point ROS is negative except as stated in the HPI Past Medical History Past Medical History: No Reported History History of Any Multi-Drug Resistant Organisms: None Reported Past Surgical History: No Surgical Hx Reported Past Psychological History: No Psychological Hx Reported Smoking Status: Never smoker Past Alcohol Use History: Occasional Past Drug Use History: None Reported - Past Family History Mother Additional Family Medical History / Comment(s): bladder and stomach cancer Medications and Allergies Home Medications Medication Instructions Recorded Confirmed Type Mupirocin 2% Oint [Bactroban 2% 1 applic TOPICAL TID PRN 09/24/23 09/24/23 History Oint] Sulfamethox-Tmp 800-160Mg [Bactrim 1 tab PO Q12HR 09/24/23 09/24/23 History DS 800-160 mg] methylPREDNISolone [Medrol Dose See Taper PO DIRECTED 09/24/23 09/24/23 History Pack] Allergies Allergy/AdvReac Type Severity Reaction Status Date / Time Penicillins Allergy Unknown Verified 09/24/23 20:59 Childhood Physical Exam Vitals: Vital Signs Temp Pulse Resp BP Pulse Ox 09/25/23 08:00 85 18 120/63 09/25/23 07:00 90 16 112/63 98 09/25/23 06:00 66 16 117/61 98 09/25/23 05:00 69 16 116/56 99 09/25/23 04:00 74 15 109/58 98 09/25/23 03:00 82 20 105/58 98 09/25/23 02:00 78 18 111/58 98 09/25/23 01:00 63 16 126/64 97 09/25/23 00:00 65 20 130/68 98 09/24/23 23:00 74 20 119/73 98 09/24/23 20:56 70 18 128/70 100 09/24/23 18:41 98 F 77 18 126/66 100 Intake and Output 09/24/23 09/25/23 09/25/23 22:59 06:59 14:59 Other: Weight 89.358 kg - Constitutional General appearance: average body habitus, no acute distress - EENT Eyes: anicteric sclerae, EOMI ENT: hearing grossly normal - Neck Neck: no lymphadenopathy - Respiratory Respiratory: bilateral: CTA - Cardiovascular Rhythm: regular Heart sounds: normal: S1, S2 Abnormal Heart Sounds: no systolic murmur, no diastolic murmur, no rub, no S3 Gallop, no S4 Gallop, no click, no other leg Peripheral Edema: bilateral: None - Gastrointestinal General gastrointestinal: soft, no tenderness - Integumentary Integumentary: no cyanotic, no jaundiced, no rash - Neurologic grossly intact - Musculoskeletal Musculoskeletal: strength equal bilaterally - Psychiatric Psychiatric: A&O x's 3, appropriate affect Results CBC & Chem 7: 09/25/23 09:00 09/25/23 09:00 Labs: Abnormal Lab Results - Last 24 Hours (Table) 09/24/23 09/24/23 09/24/23 Range/Units 18:53 18:54 18:54 WBC 3.1 L (3.8-10.6) k/uL RBC 1.47 L (4.30-5.90) m/uL Hgb 5.6 L* (13.0-17.5) gm/dL Hct 15.7 L* (39.0-53.0) % MCV 107.2 H (80.0-100.0) fL MCH 38.3 H (25.0-35.0) pg RDW 16.6 H (11.5-15.5) % Plt Count 35 L (150-450) k/uL Blast Cells % 45 H* % Neutrophils # (Manual) 0.06 L* (1.3-7.7) k/uL Blast Cells # (Man) 1.40 H (0) k/uL Nucleated RBCs 1 H (0-0) /100 WBC Pathologist Review See comment A Macrocytosis Glucose 126 H (74-99) mg/dL AST 15 L (17-59) U/L Crossmatch See Detail 09/25/23 09/25/23 Range/Units 09:00 09:00 WBC 3.4 L (3.8-10.6) k/uL RBC 1.39 L (4.30-5.90) m/uL Hgb 5.3 L* (13.0-17.5) gm/dL Hct 15.1 L* (39.0-53.0) % MCV 108.7 H (80.0-100.0) fL MCH 37.8 H (25.0-35.0) pg RDW 17.0 H (11.5-15.5) % Plt Count 28 L (150-450) k/uL Blast Cells % % Neutrophils # (Manual) (1.3-7.7) k/uL Blast Cells # (Man) (0) k/uL Nucleated RBCs (0-0) /100 WBC Pathologist Review Macrocytosis Marked A Glucose (74-99) mg/dL AST 15 L (17-59) U/L Crossmatch Assessment and Plan (1) Pancytopenia Current Visit: Yes Status: Acute Priority: High Code(s): D61.818 - OTHER PANCYTOPENIA SNOMED Code(s): 981858104 Plan: Pancytopenia: -No significant medical history. Was sent to the ER by his PCP for abnormal CBC and hemoglobin of 4.6. -Upon admission hemoglobin was noted at 5.6. Platelets 35,000. WBC 3.1. ANC 60. Blast cells 45%. Coags WNL -Findings are concerning for acute leukemia vs MDS. Differential includes myleo supression from recent illness and current antibiotic treatment - Results and concerns were discussed in detail with patient and spouse. -1 unit PRBCs ordered. Please transfuse for hemoglobin less than 7 or if symptomatic, and transfuse for platelets less than 10,000 or if symptomatic. P lease only use irradiated blood products -HIV, Hepatitis panel ordered -Will obtain further workup for anemia, hemolysis, DIC and tumor lysis syndrome. -CBC daily -Discussed with patient that for confirmative diagnosis a bone marrow biopsy will need to be obtained. Procedure and risks were discussed at bedside today. He was agreeable to proceed with biopsy. Pt will be made NPO at midnight and procedure is scheduled for tomorrow morning with Dr. Marcella Cervantes attests: I have seen and examined patient, performed H&P, developed impression and plan of care. Discussed with dictator. Agree with documentation, dictated as a scribe.
[2023-09-25 20:00] LABS: HIV 2 AB Non-Reactive (Non-Reactive); HIV AB P24 Non-Reactive (Non-Reactive); HIV P24 AG Non-Reactive (Non-Reactive)
[2023-09-26 06:13] LABS: Anisocytosis Slight; MCHC 35.3 g/dL (31.0-37.0); MCV 102.1 fL (80.0-100.0); Macrocytosis Moderate; Mean Platelet Volume 13.2; RBC 1.73 m/uL (4.30-5.90); RDW 19.4 % (11.5-15.5); WBC 3.1 k/uL (3.8-10.6)
[2023-09-26 06:22] LABS: African American GFR (CKD) >90 (>60 ml/min/1.73 sqM); Anion Gap 7 mmol/L; Blood Urea Nitrogen 20 mg/dL (9-20); Calcium 8.8 mg/dL (8.4-10.2); Carbon Dioxide 24 mmol/L (22-30); Chloride 106 mmol/L (98-107); Glucose 104 mg/dL (74-99); Non-African American GFR(CKD) >90 (>60 ml/min/1.73 sqM); Phosphorus 4.2 mg/dL (2.5-4.5); Potassium 4.3 mmol/L (3.5-5.1); Sodium 137 mmol/L (137-145); Uric Acid 2.8 mg/dL (3.5-8.5)
[2023-09-26 06:27] LABS: Prothrombin Time 11.3 sec (10.0-12.5)
[2023-09-26 06:56] LABS: HGB 6.2 gm/dL (13.0-17.5)
[2023-09-26 06:57] LABS: HCT 17.6 % (39.0-53.0); Platelet Count 26 k/uL (150-450)
[2023-09-26] MEDS ORDERED: PROPOFOL 10 MG/ML 20 ML VIAL IV ONE (07:02)
[2023-09-26] MEDS ORDERED: LACTATED RINGERS 1,000 ML IV ONE (07:06)
--- NOTE | 2023-09-26 07:40 | P.PCN ---
Date of Procedure: 09/26/23 Preoperative Diagnosis: Pancytopenia, blasts on peripheral smear Postoperative Diagnosis: Same Procedure(s) Performed: Bone marrow aspiration biopsy Anesthesia: MAC Surgeon: Eusebio Naranjo Computer Forensic Specialist #1: Stated None Pathology: other Condition: stable Disposition: floor Indications for Procedure: Patient presenting with pancytopenia, and blasts on peripheral smear. 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 Informed consent was obtained on the floor. He presented to the outpatient endoscopy suite and was placed in the left lateral decubitus position. Area over both posterior iliac crest was cleaned and prepped with chlorhexidine and sterile draping. IV sedation was then initiated. Local anesthesia was administered with lidocaine to the right posterior iliac crest. A Jamshidi needle was then inserted, and bone marrow aspirate obtained. On the initial status a biopsy sample will not obtain, due to which additional passes were made with adequate biopsy samples being subsequently obtained. On withdrawal of the needle hemostasis was easily achieved. Blood loss was minimal and recovery from sedation was satisfactory. He appeared to have tolerated the procedure well without any obvious, immediate complications.
[2023-09-26] MEDS: SODIUM CHLORIDE 0.9% 1,000 ML IV SCH (08:22)
[2023-09-26 08:24] LABS: Blast Cells # (M) 1.46 k/uL (0); Lymphocytes # (M) 1.64 k/uL (1.0-4.8); Monocytes # (M) 0.03 k/uL (0-1.0); Nucleated Red Blood Cells 0 /100 WBC (0-0); Total Cells Counted 200
--- NOTE | 2023-09-26 11:46 | P.PN ---
Subjective HISTORY OF PRESENT ILLNESS: This is a 43-year-old male with no significant past medical history. 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 We have been asked to see the patient in consultation for frequent PVCs and T-wave inversions in lead III. Patient examined at the bedside. Patient has been experiencing shortness of breath for the past 4-6 weeks. He also reports having an upper respiratory infection in which she was placed on doxycycline by urgent care. He states his symptoms were not improving so he went to see his primary care physician who prescribed Bactrim and steroids and ordered blood work. He states he just started this medication on Sunday.Patient was found to be anemic with hemoglobin of 4.6 and he was directed to come to the hospital for further evaluation. He has been seen by oncology with plans for bone marrow biopsy tomorrow. * EKG reveals sinus mechanism with nonspecific ST-T wave changes. PVCs. * Current home cardiac medications include none 09/26/2023 Patient examined this morning at the bedside. He is status post bone marrow biopsy this morning. Patient denies any chest pain or pressure. He denies any shortness of breath. Echocardiogram completed revealing ejection fraction 50- 55%, mild MR, trace TR PHYSICAL EXAM: VITAL SIGNS: Reviewed. GENERAL: Well-developed in no acute distress. HEENT: Head is normocephalic. Pupils are equal, round. Sclerae anicteric. Mucous membranes of the mouth are moist. Neck supple. No JVD or thyromegaly LUNGS: Respirations even and unlabored. Lungs essentially clear to auscultation bilaterally. HEART: Regular rate and rhythm. S1 and S2 heard. ABDOMEN: Soft. Nondistended. Nontender. EXTREMITIES: Normal range of motion. No clubbing or cyanosis. Peripheral pulses intact. No lower extremity edema NEUROLOGIC: Awake and alert. Oriented x 3. ASSESSMENT: Pancytopenia Recent upper respiratory infection, started on Bactrim and steroids on Sunday Abnormal EKG with nonspecific ST-T wave changes PLAN: Await results of bone marrow biopsy Patient is currently stable from a cardiac standpoint with no further inpatient recommendations We will sign off. Please reconsult if needed. Patient to follow-up in the office with Dr. Guajardo in 6 weeks Nurse practitioner note has been reviewed by physician. Signing provider agrees with the documented findings, assessment, and plan of care. Objective - Vital Signs Vital signs: Vital Signs Temp 98.2 F 09/26/23 10:21 Pulse 76 09/26/23 10:21 Resp 18 09/26/23 10:21 BP 128/69 09/26/23 10:21 Pulse Ox 98 09/26/23 10:01 FiO2 Intake & Output 09/25/23 09/26/23 09/26/23 18:59 06:59 18:59 Intake Total 428 318 Balance 428 318 Weight 89.358 kg Intake: IV 200 Oral 118 118 Blood Product 310 0 Rc Irr As1 Unit 0 [id number] Rc Irr As1 Unit 310 [id number] Other: # Voids 1 - Labs CBC & Chem 7: 09/26/23 05:20 09/26/23 05:20 Labs: Abnormal Lab Results - Last 24 Hours (Table) 09/24/23 09/24/23 09/26/23 Range/Units 18:53 18:54 05:20 WBC 3.1 L (3.8-10.6) k/uL RBC 1.73 L (4.30-5.90) m/uL Hgb 6.2 L* (13.0-17.5) gm/dL Hct 17.6 L* (39.0-53.0) % MCV 102.1 H D (80.0-100.0) fL MCH 36.0 H (25.0-35.0) pg RDW 19.4 H (11.5-15.5) % Plt Count 26 L (150-450) k/uL Blast Cells % 47 H* % Blast Cells # (Man) 1.46 H (0) k/uL Glucose (74-99) mg/dL Uric Acid (3.5-8.5) mg/dL Iron 213 H (65-175) UG/DL % Saturation 86.59 H (15.00-50.00) Transferrin 176.0 L (204.0-354.0) mg/dL Ferritin 1041.0 H (22.0-322.0) ng/mL Crossmatch See Detail 09/26/23 Range/Units 05:20 WBC (3.8-10.6) k/uL RBC (4.30-5.90) m/uL Hgb (13.0-17.5) gm/dL Hct (39.0-53.0) % MCV (80.0-100.0) fL MCH (25.0-35.0) pg RDW (11.5-15.5) % Plt Count (150-450) k/uL Blast Cells % % Blast Cells # (Man) (0) k/uL Glucose 104 H (74-99) mg/dL Uric Acid 2.8 L (3.5-8.5) mg/dL Iron (65-175) UG/DL % Saturation (15.00-50.00) Transferrin (204.0-354.0) mg/dL Ferritin (22.0-322.0) ng/mL Crossmatch
--- NOTE | 2023-09-26 12:09 | P.PN ---
Subjective Progress Note Date: 09/26/23 Principal diagnosis: abnormal CBC At today's visit patient is resting comfortably in bed. S/p bone marrow biopsy this morning, patient tolerated well. Patient is reporting no bleeding or hematoma at site. Patient reports feeling well. Hemoglobin noted at 6.2 today, 1 additional unit of PRBCs was ordered Objective - Vital Signs Vital signs: Vital Signs Temp 98.2 F 09/26/23 10:21 Pulse 76 09/26/23 10:21 Resp 18 09/26/23 10:21 BP 128/69 09/26/23 10:21 Pulse Ox 98 09/26/23 10:01 FiO2 Intake & Output 09/25/23 09/26/23 09/26/23 18:59 06:59 18:59 Intake Total 428 318 Balance 428 318 Weight 89.358 kg Intake: IV 200 Oral 118 118 Blood Product 310 0 Rc Irr As1 Unit 0 [id number] Rc Irr As1 Unit 310 [id number] Other: # Voids 1 - Constitutional General appearance: Present: average body habitus, no acute distress - EENT Eyes: Present: anicteric sclerae, EOMI ENT: Present: hearing grossly normal - Respiratory Details: breathing even and unlabored - Cardiovascular Details: skin warm and dry - Integumentary Integumentary: Absent: cyanotic, jaundiced - Neurologic Neurologic Comment(s): grossly intact - Musculoskeletal Musculoskeletal: Present: strength equal bilaterally - Psychiatric Psychiatric: Present: A&O x's 3, appropriate affect, intact judgment & insight - Labs CBC & Chem 7: 09/26/23 05:20 09/26/23 05:20 Labs: Abnormal Lab Results - Last 24 Hours (Table) 09/24/23 09/24/23 09/26/23 Range/Units 18:53 18:54 05:20 WBC 3.1 L (3.8-10.6) k/uL RBC 1.73 L (4.30-5.90) m/uL Hgb 6.2 L* (13.0-17.5) gm/dL Hct 17.6 L* (39.0-53.0) % MCV 102.1 H D (80.0-100.0) fL MCH 36.0 H (25.0-35.0) pg RDW 19.4 H (11.5-15.5) % Plt Count 26 L (150-450) k/uL Blast Cells % 47 H* % Blast Cells # (Man) 1.46 H (0) k/uL Glucose (74-99) mg/dL Uric Acid (3.5-8.5) mg/dL Iron 213 H (65-175) UG/DL % Saturation 86.59 H (15.00-50.00) Transferrin 176.0 L (204.0-354.0) mg/dL Ferritin 1041.0 H (22.0-322.0) ng/mL Crossmatch See Detail 09/26/23 Range/Units 05:20 WBC (3.8-10.6) k/uL RBC (4.30-5.90) m/uL Hgb (13.0-17.5) gm/dL Hct (39.0-53.0) % MCV (80.0-100.0) fL MCH (25.0-35.0) pg RDW (11.5-15.5) % Plt Count (150-450) k/uL Blast Cells % % Blast Cells # (Man) (0) k/uL Glucose 104 H (74-99) mg/dL Uric Acid 2.8 L (3.5-8.5) mg/dL Iron (65-175) UG/DL % Saturation (15.00-50.00) Transferrin (204.0-354.0) mg/dL Ferritin (22.0-322.0) ng/mL Crossmatch Assessment and Plan (1) Pancytopenia Current Visit: Yes Status: Acute Priority: High Code(s): D61.818 - OTHER PANCYTOPENIA SNOMED Code(s): 369929851 Plan: Pancytopenia: -No significant medical history. Was sent to the ER by his PCP for abnormal CBC and hemoglobin of 4.6. -Upon admission hemoglobin was noted at 5.6. Platelets 35,000. WBC 3.1. ANC 60. Blast cells 45%. Coags WNL -Findings are concerning for acute leukemia vs high grade MDS. Differential includes myleosupression from recent illness and current antibiotic treatment - Results and concerns were discussed in detail with patient and spouse. -S/p 1 unit PRBCs. Hemoglobin today 6.2, additional unit of PRBCs ordered. WBC 3.1, Blast cells 47%, Plt 26,000 - Please transfuse for hemoglobin less than 7 or if symptomatic, and transfuse for platelets less than 10,000 or if symptomatic. Please only use irradiated blood products -HIV, Hepatitis panel negative -Hemolysis, DIC and tumor lysis syndrome workup negative. -CBC daily, will continue to monitor counts closely -S/p bone marrow biopsy this morning. Tolerated procedure well.
[2023-09-26 13:14] LABS: Anisocytosis Moderate; HCT 21.3 % (39.0-53.0); HGB 7.5 gm/dL (13.0-17.5); MCH 34.8 pg (25.0-35.0); MCHC 35.3 g/dL (31.0-37.0); MCV 98.6 fL (80.0-100.0); Macrocytosis Moderate; Mean Platelet Volume 13.4; RBC 2.16 m/uL (4.30-5.90); RDW 20.2 % (11.5-15.5); WBC 3.8 k/uL (3.8-10.6)
[2023-09-26 13:17] LABS: Platelet Count 26 k/uL (150-450)
--- NOTE | 2023-09-26 13:28 | P.PN ---
Subjective Progress Note Date: 09/26/23 Hospital Course: 43-year-old male with no significant past medical history presenting with fatigue and generalized weakness and exertional dyspnea. He presented to his PCP and was found to have hemoglobin of 4.6. Vital signs have been within normal limits. Initial hemoglobin was 5.3, WBC 3.4 with 47% blast cells, CMP unremarkable. EKG concerning for frequent PVCs and T-wave inversions in lead 3. Oncology and Cardiology was also consulted. He had bone marrow biopsy. Echocardiogram showed normal LV systolic function, mild mitral regurgitation. He is status post 2 units of PRBCs. Subjective: She is seen and examined at bedside. No acute events overnight. Pertinent positives and negatives as discussed above, a complete review of systems was performed and all other systems are negative. Vitals Signs Reviewed. General: nontoxic, no distress, appears at stated age Derm: warm, dry Head: atraumatic, normocephalic, symmetric Eyes: EOMI, no lid lag, anicteric sclera Mouth: no lip lesion, mucus membranes moist Cardiovascular: S1S2 reg, no murmur Lungs: CTA bilateral, no rhonchi, no rales , no accessory muscle use Abdominal: soft, nontender to palpation, no guarding, no appreciable organomegaly Ext: no gross muscle atrophy, no edema, no contractures Neuro: CN II-XI grossly intact, no focal neuro deficits Psych: Alert, oriented, appropriate affect Data Reviewed Today: Pertinent Labs: Hemoglobin 6.2, WBC 3.1, 47% blast cells, platelet 26, creatinine 0.74 Imaging: Echocardiogram shows normal LV systolic function, mild mitral regurgitation Assessment and Plan: Pancytopenia with predominantly blast cells status post bone marrow biopsy Symptomatic normocytic anemia status post 2 units of PRBCs T-wave inversion, nonspecific -Hematology oncology note reviewed, findings concerning for acute leukemia versus high-grade MDS -Cardiology note reviewed, stable for discharge from their standpoint, follow-up in 6 weeks -Repeat CBC tomorrow DVT ppx: Not indicated Code status: Full code Anticipated discharge place: Home Anticipated discharge time: Likely tomorrow Objective - Vital Signs Vital signs: Vital Signs Temp 98.2 F 09/26/23 12:06 Pulse 71 09/26/23 12:06 Resp 18 09/26/23 12:25 BP 129/74 09/26/23 12:06 Pulse Ox 98 09/26/23 12:06 FiO2 Intake & Output 09/25/23 09/26/23 09/26/23 18:59 06:59 18:59 Intake Total 428 628 Balance 428 628 Weight 89.358 kg Intake: IV 200 Oral 118 118 Blood Product 310 310 Rc Irr As1 Unit 310 [id number] Rc Irr As1 Unit 310 [id number] Other: # Voids 1 - Labs CBC & Chem 7: 09/26/23 13:01 09/26/23 05:20 Labs: Abnormal Lab Results - Last 24 Hours (Table) 09/24/23 09/24/23 09/26/23 Range/Units 18:53 18:54 05:20 WBC 3.1 L (3.8-10.6) k/uL RBC 1.73 L (4.30-5.90) m/uL Hgb 6.2 L* (13.0-17.5) gm/dL Hct 17.6 L* (39.0-53.0) % MCV 102.1 H D (80.0-100.0) fL MCH 36.0 H (25.0-35.0) pg RDW 19.4 H (11.5-15.5) % Plt Count 26 L (150-450) k/uL Blast Cells % 47 H* % Blast Cells # (Man) 1.46 H (0) k/uL Glucose (74-99) mg/dL Uric Acid (3.5-8.5) mg/dL Iron 213 H (65-175) UG/DL % Saturation 86.59 H (15.00-50.00) Transferrin 176.0 L (204.0-354.0) mg/dL Ferritin 1041.0 H (22.0-322.0) ng/mL Crossmatch See Detail 09/26/23 09/26/23 Range/Units 05:20 13:01 WBC (3.8-10.6) k/uL RBC 2.16 L (4.30-5.90) m/uL Hgb 7.5 L (13.0-17.5) gm/dL Hct 21.3 L (39.0-53.0) % MCV (80.0-100.0) fL MCH (25.0-35.0) pg RDW 20.2 H (11.5-15.5) % Plt Count (150-450) k/uL Blast Cells % % Blast Cells # (Man) (0) k/uL Glucose 104 H (74-99) mg/dL Uric Acid 2.8 L (3.5-8.5) mg/dL Iron (65-175) UG/DL % Saturation (15.00-50.00) Transferrin (204.0-354.0) mg/dL Ferritin (22.0-322.0) ng/mL Crossmatch
[2023-09-26 22:09] LABS: Blast Cells # (M) 1.63 k/uL (0); Lymphocytes # (M) 1.98 k/uL (1.0-4.8); Monocytes # (M) 0.11 k/uL (0-1.0); Neutrophils # (M) 0.08 k/uL (1.3-7.7); Neutrophils % (M) 2 %; Nucleated Red Blood Cells 0 /100 WBC (0-0); Total Cells Counted 200
[2023-09-27 08:34] LABS: Anisocytosis Slight; HGB 7.1 gm/dL (13.0-17.5); MCH 35.5 pg (25.0-35.0); MCHC 35.8 g/dL (31.0-37.0); MCV 99.2 fL (80.0-100.0); Macrocytosis Moderate; Mean Platelet Volume 12.7; RDW 19.7 % (11.5-15.5); WBC 3.2 k/uL (3.8-10.6)
[2023-09-27 08:40] LABS: Partial Thromboplastin Time 23.4 sec (22.0-30.0); Prothrombin Time 11.1 sec (10.0-12.5)
[2023-09-27 08:58] LABS: HCT 19.8 % (39.0-53.0); Platelet Count 27 k/uL (150-450)
[2023-09-27 09:04] LABS: African American GFR (CKD) >90 (>60 ml/min/1.73 sqM); Anion Gap 8 mmol/L; Blood Urea Nitrogen 20 mg/dL (9-20); Calcium 8.6 mg/dL (8.4-10.2); Carbon Dioxide 25 mmol/L (22-30); Chloride 106 mmol/L (98-107); Glucose 140 mg/dL (74-99); Non-African American GFR(CKD) >90 (>60 ml/min/1.73 sqM); Potassium 4.1 mmol/L (3.5-5.1); Sodium 139 mmol/L (137-145); Uric Acid 3.4 mg/dL (3.5-8.5)
[2023-09-27 09:19] LABS: Phosphorus 3.9 mg/dL (2.5-4.5)
[2023-09-27 09:56] VITALS: BP 132/61; PULSE 81; RESP 17; TEMP 97.7
[2023-09-27 10:35] LABS: Band Neutrophils % 1 %; Neutrophils % (M) 2 %
[2023-09-27 10:36] LABS: Nucleated Red Blood Cells 0 /100 WBC (0-0); Promyelocytes # (M) 0.16 k/uL (0); Total Cells Counted 100
[2023-09-27 10:38] LABS: Blast Cells # (M) 1.31 k/uL (0)
[2023-09-27 10:53] LABS: Parvovirus B-19 IgG Antibodies 1.13 INDEX (<=0.90)
--- NOTE | 2023-09-27 11:27 | P.DS ---
Providers Date of admission: 09/24/23 22:21 Expected date of discharge: 09/27/23 Attending physician: Blessing Izquierdo MD Consults: 09/24/23 22:21 Consult Physician Routine Consulting Provider: Eusebio Naranjo Consult Reason/Comments: oncology,pancytopenai Do you want consulting provider notified?: Yes Primary care physician: Caio Vázquez [facility] Course: Discharge Diagnosis: Pancytopenia with predominantly blast cells status post bone marrow biopsy Symptomatic normocytic anemia status post 2 units of PRBCs Hospital Course: 43-year-old male with no significant past medical history presenting with fatigue and generalized weakness and exertional dyspnea. He presented to his PCP and was found to have hemoglobin of 4.6. Vital signs have been within normal limits. Initial hemoglobin was 5.3, WBC 3.4 with 47% blast cells, CMP unremarkable. EKG concerning for frequent PVCs and T-wave inversions in lead 3. Oncology and Cardiology was also consulted. He had bone marrow biopsy. Echocardiogram showed normal LV systolic function, mild mitral regurgitation. He is status post 2 units of PRBCs. Hemoglobin stable at the time of discharge. Follow-up with hematology and cardiology. Patient seen and examined at bedside. Vital signs reviewed and stable. General: nontoxic, no distress, appears at stated age Derm: warm, dry Head: atraumatic, normocephalic, symmetric Eyes: EOMI, no lid lag, anicteric sclera Mouth: no lip lesion, mucus membranes moist Cardiovascular: S1S2 reg, no murmur Lungs: CTA bilateral, no rhonchi, no rales , no accessory muscle use Abdominal: soft, nontender to palpation, no guarding, no appreciable organomegaly Ext: no gross muscle atrophy, no edema, no contractures Neuro: CN II-XI grossly intact, no focal neuro deficits Psych: Alert, oriented, appropriate affect A total of 36 minutes of time were spent preparing this complex discharge summary. Patient was discharged on 09/27/23 at 1110. Patient Condition at Discharge: Stable Plan - Discharge Summary Discharge Rx Participant: No New Discharge Prescriptions: Discontinued Sulfamethox-Tmp 800-160Mg [Bactrim DS 800-160 mg] 1 tab PO Q12HR Mupirocin 2% Oint [Bactroban 2% Oint] 1 applic TOPICAL TID PRN PRN Reason: Skin Irritation methylPREDNISolone [Medrol Dose Pack] See Taper PO DIRECTED Follow up Appointment(s)/Referral(s): Eusebio Naranjo [STAFF PHYSICIAN] - 1 Week Marcelina Guajardo MD [STAFF PHYSICIAN] - 6 Weeks Caio Patel MD [Primary Care Provider] - 1-2 days Patient Instructions/Handouts: Pancytopenia (DC) Activity/Diet/Wound Care/Special Instructions: Please see the oncologist for biopsy results. Please also see cardiology and PCP. Discharge Disposition: HOME SELF-CARE
[2023-09-27 12:55] LABS: Parvovirus B-19 IgM Antibodies 0.39 INDEX (<=0.90)
--- NOTE | 2023-09-27 16:20 | P.PN ---
Subjective Progress Note Date: 09/27/23 Principal diagnosis: abnormal CBC At today's visit patient is resting comfortably in bed. S/p bone marrow biopsy, patient tolerated well. Patient is reporting no bleeding or hematoma at site. Patient reports feeling well. Hemoglobin 7.1 today, S/p 2 units PRBCs. Plts 27,000 Objective - Vital Signs Vital signs: Vital Signs Temp 97.7 F 09/27/23 08:00 Pulse 81 09/27/23 08:00 Resp 17 09/27/23 08:00 BP 132/61 09/27/23 08:00 Pulse Ox 100 09/27/23 08:00 FiO2 Intake & Output 09/26/23 09/27/23 09/27/23 18:59 06:59 18:59 Intake Total 1288 10 Balance 1288 10 Intake: IV 200 10 Invasive Line 1 10 Oral 778 Blood Product 310 Rc Irr As1 Unit 310 [id number] Other: Voiding Method Toilet Toilet # Voids 2 - Constitutional General appearance: Present: no acute distress - EENT Eyes: Present: anicteric sclerae, EOMI ENT: Present: hearing grossly normal - Respiratory Details: breathing is even and unlabored - Cardiovascular Details: skin warm and dry - Integumentary Integumentary: Absent: cyanotic, jaundiced - Neurologic Neurologic: Present: CNII-XII intact - Musculoskeletal Musculoskeletal: Present: strength equal bilaterally - Psychiatric Psychiatric: Present: A&O x's 3, appropriate affect, intact judgment & insight - Labs CBC & Chem 7: 09/27/23 08:17 09/27/23 08:17 Labs: Abnormal Lab Results - Last 24 Hours (Table) 09/25/23 09/26/23 09/27/23 Range/Units 09:00 13:01 08:17 WBC 3.2 L (3.8-10.6) k/uL RBC 2.00 L (4.30-5.90) m/uL Hgb 7.1 L (13.0-17.5) gm/dL Hct 19.8 L* (39.0-53.0) % MCH 35.5 H (25.0-35.0) pg RDW 19.7 H (11.5-15.5) % Plt Count 26 L 27 L (150-450) k/uL Blast Cells % 43 H* 41 H* % Neutrophils # (Manual) 0.08 L* 0.00 L* (1.3-7.7) k/uL Promyelocytes # (Man) 0.16 H (0) k/uL Blast Cells # (Man) 1.63 H 1.31 H (0) k/uL Glucose (74-99) mg/dL Uric Acid (3.5-8.5) mg/dL Parvovirus B19 IgG Ab 1.13 H (<=0.90) INDEX 09/27/23 Range/Units 08:17 WBC (3.8-10.6) k/uL RBC (4.30-5.90) m/uL Hgb (13.0-17.5) gm/dL Hct (39.0-53.0) % MCH (25.0-35.0) pg RDW (11.5-15.5) % Plt Count (150-450) k/uL Blast Cells % % Neutrophils # (Manual) (1.3-7.7) k/uL Promyelocytes # (Man) (0) k/uL Blast Cells # (Man) (0) k/uL Glucose 140 H (74-99) mg/dL Uric Acid 3.4 L (3.5-8.5) mg/dL Parvovirus B19 IgG Ab (<=0.90) INDEX Assessment and Plan (1) Pancytopenia Status: Acute Priority: High Code(s): D61.818 - OTHER PANCYTOPENIA SNOMED Code(s): 605450817 Plan: Pancytopenia: -No significant medical history. Was sent to the ER by his PCP for abnormal CBC and hemoglobin of 4.6. -Upon admission hemoglobin was noted at 5.6. Platelets 35,000. WBC 3.1. ANC 60. Blast cells 45%. Coags WNL -Findings are concerning for acute leukemia vs high grade MDS. Differential includes myleosupression from recent illness and current antibiotic treatment - Results and concerns were discussed in detail with patient and spouse. -S/p 2 unit PRBCs. Hemoglobin today 7.1. WBC 3.2, Blast cells 41%, Plt 26,000 - Please transfuse for hemoglobin less than 7 or if symptomatic, and transfuse for platelets less than 10,000 or if symptomatic. Please only use irradiated blood products -HIV, Hepatitis panel negative -Hemolysis, DIC and tumor lysis syndrome workup negative. -CBC daily, will continue to monitor counts closely -S/p bone marrow biopsy, tolerated procedure well. Results pending -Will schedule clinic f/u for close monitoring of CBC, 3 days a week. Pt has apt for tomorrow morning for repeat CBC. Pt was agreeable with plan Pt is cleared from hem onc standpoint for discharge, once cleared by IM and other consulted medical specialities
== END 2023-09-27 12:15 | disposition home or self-care (01) | DRG 810 ==
LOC: EC 17:51 → 3SCARD 22:21
PROVIDERS: ADMIT Internal Medicine; ATTEND Internal Medicine
PROC: 07DR3ZX Extraction of Iliac Bone Marrow, Percutaneous Approach, Diagnostic (ICD-10-PCS; principal; 2023-09-24)
PROC: 30233N1 Transfusion of Nonautologous Red Blood Cells into Peripheral Vein, Percutaneous Approach (ICD-10-PCS; 2023-09-25)
DX: D61.818 Other pancytopenia (principal); I49.3 Ventricular premature depolarization; R94.31 Abnormal electrocardiogram [ECG] [EKG]; J06.9 Acute upper respiratory infection, unspecified; D69.6 Thrombocytopenia, unspecified; I08.1 Rheumatic disorders of both mitral and tricuspid valves; Z88.0 Allergy status to penicillin
CPT/HCPCS: 36415; 36430; 38222; 80048; 80053; 80074; 82272; 82525; 82607; 82728; 82746; 83010; 83540; 83550; 83615; 83735; 83921; 84100; 84550; 85025; 85045; 85384; 85610; 85730; 86747; 86850; 86900; 86901; 86920; 87390; 93005; 93306; 96360; 96361; 99285

== ENCOUNTER 2023-10-08 08:10 | Inpatient (IN) | payer BC ==
[2023-10-08] MEDS ORDERED: ONDANSETRON 4 MG/2 ML VIAL IVP PRN (09:00)
[2023-10-08 09:45] LABS: ALT 16 U/L (4-49); AST 15 U/L (17-59); African American GFR (CKD) >90 (>60 ml/min/1.73 sqM); Albumin 4.1 g/dL (3.5-5.0); Albumin/Globulin Ratio 1.2; Alkaline Phosphatase 55 U/L (38-126); Anion Gap 10 mmol/L; Blood Urea Nitrogen 13 mg/dL (9-20); Carbon Dioxide 26 mmol/L (22-30); Chloride 102 mmol/L (98-107); Globulin 3.3 g/dL; Glucose 105 mg/dL (74-99); Magnesium 2.1 mg/dL (1.6-2.3); Non-African American GFR(CKD) >90 (>60 ml/min/1.73 sqM); Phosphorus 3.4 mg/dL (2.5-4.5); Potassium 4.2 mmol/L (3.5-5.1); Sodium 138 mmol/L (137-145); Total Bilirubin 0.6 mg/dL (0.2-1.3); Total Protein 7.4 g/dL (6.3-8.2)
[2023-10-08 10:00] LABS: Anisocytosis Slight; HCT 21.6 % (39.0-53.0); HGB 7.7 gm/dL (13.0-17.5); MCH 34.6 pg (25.0-35.0); MCHC 35.7 g/dL (31.0-37.0); MCV 97.1 fL (80.0-100.0); Macrocytosis Slight; Mean Platelet Volume 13.8; RBC 2.22 m/uL (4.30-5.90); RDW 18.1 % (11.5-15.5); WBC 2.8 k/uL (3.8-10.6)
[2023-10-08 10:24] LABS: Neutrophils % (M) 1 %
[2023-10-08 10:27] LABS: Eosinophils # (M) 0.03 k/uL (0-0.7); Lymphocytes # (M) 1.48 k/uL (1.0-4.8); Monocytes # (M) 0.14 k/uL (0-1.0); Neutrophils # (M) 0.03 k/uL (1.3-7.7)
[2023-10-08 10:28] LABS: Blast Cells # (M) 1.18 k/uL (0); Nucleated Red Blood Cells 0 /100 WBC (0-0); Total Cells Counted 200
[2023-10-08 10:30] LABS: Platelet Count 22 k/uL (150-450)
--- NOTE | 2023-10-08 10:37 | CA ---
Transthoracic Echo Report Name: Cecilio Rudolph Age: 43 Gender: M : 1980 Exam Date: 10/08/2023 09:23 Exam Location: [place] [facility] Ht (in): 74 Wt (lb): 195 Ordering Physician: Eusebio Naranjo MD Attending/Referring Phys: Furniture Arranger Tyra Prado RDCS Procedure CPT: Indications: New chemotherapy patient Cardiac Hx: Technical Quality: Good Contrast 1: Total Dose (mL): Contrast 2: Total Dose (mL): MEASUREMENTS (Male / Female) Normal Values 2D ECHO LV Diastolic Diameter PLAX 5.2 cm 4.2 - 5.9 / 3.9 - 5.3 cm LV Systolic Diameter PLAX 4.0 cm IVS Diastolic Thickness 0.9 cm 0.6 - 1.0 / 0.6 - 0.9 cm LVPW Diastolic Thickness 1.0 cm 0.6 - 1.0 / 0.6 - 0.9 cm LV Relative Wall Thickness 0.4 RV Internal Dim ED PLAX 3.5 cm LA Systolic Diameter LX 3.8 cm 3.0 - 4.0 / 2.7 - 3.8 cm LV Diastolic Volume MOD 4C 146.3 cm??? LV Systolic Volume MOD 4C 72.6 cm??? LV Ejection Fraction MOD 4C 50.4 % LV Cardiac Index MOD 4C 2394.4 cm???/min???m??? LV Diastolic Length 4C 8.9 cm LV Systolic Length 4C 7.1 cm LV Diastolic Volume MOD 2C 114.7 cm??? LV Systolic Volume MOD 2C 48.4 cm??? LV Ejection Fraction MOD 2C 57.8 % LV Cardiac Index MOD 2C 2155.0 cm???/min???m??? LV Diastolic Length 2C 9.8 cm LV Systolic Length 2C 7.6 cm LA Volume 70.9 cm??? 18 - 58 / 22 - 52 cm??? LA Volume Index 32.9 cm???/m??? 16 - 28 cm???/m??? M-MODE Aortic Root Diameter MM 3.6 cm MV E Point Septal Separation 0.8 cm AV Cusp Separation MM 2.3 cm DOPPLER AV Peak Velocity 139.6 cm/s AV Peak Gradient 7.8 mmHg MV Area PHT 3.4 cm??? Mitral E Point Velocity 120.5 cm/s Mitral A Point Velocity 90.4 cm/s Mitral E to A Ratio 1.3 MV Deceleration Time 222.6 ms MV E' Velocity 9.0 cm/s Mitral E to MV E' Ratio 13.4 TR Peak Velocity 210.8 cm/s TR Peak Gradient 17.8 mmHg Right Ventricular Systolic Press 21.9 mmHg FINDINGS Left Ventricle Left ventricular ejection fraction is estimated at 55 %. Left ventricular cavity size normal. No obvious regional wall motion abnormalities. Right Ventricle Mild right ventricular dilatation. Right ventricular systolic pressure within normal limits. Right Atrium Normal right atrial size. Left Atrium Mildly increased left atrial volume. Mitral Valve Structurally normal mitral valve. No mitral stenosis, regurgitation or prolapse. Aortic Valve Trileaflet aortic valve. No aortic valve stenosis or regurgitation. Tricuspid Valve Structurally normal tricuspid valve. Mild tricuspid regurgitation. Pulmonic Valve Structurally normal pulmonic valve. Trace pulmonic regurgitation. Pericardium No pericardial effusion. Aorta Normal size aortic root and proximal ascending aorta. CONCLUSIONS Normal LV size and systolic function. Prominent right ventricle, mild mitral and tricuspid regurgitation no significant pulmonary hypertension. No pericardial effusion Previewed by: Dr. Marcelina Guajardo MD (Electronically Signed) Final Date: 08 October 2023 10:36
--- NOTE | 2023-10-08 14:41 | P.HPIM ---
History of Present Illness H&P Date: 10/08/23 Chief Complaint: AML Patient is 43-year-old male, no previous significant past medical history. He was seen at the end of August 2023 for pancytopenia. He was referred by his PCP for an abnormal CBC on routine workup. Hemoglobin was 4.6. Patient noted some mild intermittent shortness of breath when he was active, on reflection he did have a petechial rash on the belt line, at that time thought it was a reaction to a change in laundry detergent. Patient had had a sinus infection and was treated with doxycycline, then Bactrim and steroids. He received hepatitis B vaccine in July for work. Patient had no acute constitutional symptoms, he did have a 30 pound weight loss over 2 years. He received transfusion with stabilization of hemoglobin, platelets 35,000, ANC 60, blast cells 45%, coags were within normal limits, peripheral smear was suspicious. High suspicions for an acute leukemia, bone marrow biopsy done 09/26. He was seen for results 10/[address] Naranjo, unfortunately confirmed acute myeloid leukemia. Prognosis with and without treatment were discussed. Patient and family agreeable to induction chemotherapy. Patient is currently admitted for induction 7+3 regimen. We also reviewed consolidation treatment, versus allogenic stem cell transplant depending on cytogenetics. Cytogenetics are still pending. Patient is admitted to begin treatment. Echo showed LVEF of 55%. Still pending PICC line insertion to begin treatment. Patient denies any fevers, sweats, oral irritation, unusual shortness of breath, chest pain, cough, abdominal pain or cramping, nausea or vomiting, acute changes in bowel or bladder habits, hematuria, hematochezia or melena, swelling in the legs, rashes, pain. WBCs 2.8, hemoglobin 7.7, platelets 22,000. Review of Systems 10 point ROS is neg except as stated in HPI Past Medical History Past Medical History: No Reported History Additional Past Medical History / Comment(s): Acute myeloid leukemia diagnosed in 2022 History of Any Multi-Drug Resistant Organisms: None Reported Past Surgical History: No Surgical Hx Reported Additional Past Surgical History / Comment(s): hernia surgery scheduled with dr solitario in Past Anesthesia/Blood Transfusion Reactions: No Reported Reaction Past Psychological History: No Psychological Hx Reported Smoking Status: Former smoker Past Alcohol Use History: Occasional Past Drug Use History: None Reported - Past Family History Mother Additional Family Medical History / Comment(s): bladder and stomach cancer Medications and Allergies Home Medications Medication Instructions Recorded Confirmed Type No Known Home Medications 09/28/23 10/08/23 History Allergies Allergy/AdvReac Type Severity Reaction Status Date / Time Penicillins Allergy Unknown Verified 10/08/23 10:35 Childhood Physical Exam Vitals: Vital Signs Temp Pulse Resp BP Pulse Ox 10/08/23 08:48 98.8 F 70 17 108/75 97 Intake and Output 10/07/23 10/08/23 10/08/23 22:59 06:59 14:59 Other: Weight 88.723 kg - Constitutional General appearance: average body habitus, cooperative, no acute distress - EENT Eyes: anicteric sclerae, EOMI ENT: hearing grossly normal, normal oropharynx - Neck Neck: no lymphadenopathy - Respiratory Respiratory: bilateral: CTA - Cardiovascular Rhythm: regular Heart sounds: normal: S1, S2 Abnormal Heart Sounds: systolic murmur (Grade 1/6) leg Peripheral Edema: bilateral: None - Gastrointestinal General gastrointestinal: no absent bowel sounds, no decreased bowel sounds, no distended, no hepatomegaly, no hyperactive bowel sounds, normal bowel sounds, no organomegaly, no rigid, no scaphoid, soft, no splenomegaly, no tenderness, no umbilical hernia, no ventral hernia - Integumentary Integumentary: normal - Neurologic Neurologic: CNII-XII intact - Musculoskeletal Musculoskeletal: strength equal bilaterally - Psychiatric Psychiatric: A&O x's 3, appropriate affect, intact judgment & insight Results CBC & Chem 7: 10/08/23 08:59 10/08/23 08:59 Labs: Abnormal Lab Results - Last 24 Hours (Table) 10/08/23 10/08/23 Range/Units 08:59 08:59 WBC 2.8 L (3.8-10.6) k/uL RBC 2.22 L (4.30-5.90) m/uL Hgb 7.7 L (13.0-17.5) gm/dL Hct 21.6 L (39.0-53.0) % RDW 18.1 H (11.5-15.5) % Plt Count 22 L (150-450) k/uL Blast Cells % 42 H* % Neutrophils # (Manual) 0.03 L* (1.3-7.7) k/uL Blast Cells # (Man) 1.18 H (0) k/uL Glucose 105 H (74-99) mg/dL AST 15 L (17-59) U/L Comments: ECHO report reviewed Thrombosis Risk Factor Assmnt - DVT/VTE Prophylaxis DVT/VTE Prophylaxis: Contraindicated - See note (plt <50,000) - Choose All That Apply Any of the Below Risk Factors Present?: Yes Each Factor Represents 1 point: Age 41-60 years, Obesity (BMI >25) Other Risk Factors: Yes Each Risk Factor Represents 2 Points: Malignancy Other congenital or acquired thrombophilia - If yes, enter type in comment: No Thrombosis Risk Factor Assessment Total Risk Factor Score: 4 Thrombosis Risk Factor Assessment Level: Moderate Risk Assessment and Plan (1) Acute myeloid leukemia, without mention of having achieved remission Current Visit: Yes Status: Acute Priority: High Code(s): C92.00 - ACUTE MYELOBLASTIC LEUKEMIA, NOT HAVING ACHIEVED REMISSION SNOMED Code(s): 30304429 (2) Pancytopenia Current Visit: Yes Status: Acute Priority: High Code(s): D61.818 - OTHER PANCYTOPENIA SNOMED Code(s): 109205625 Plan: AML -New diagnosis -Admit for induction chemo 7+3 regimen. Orders reviewed. Proceed with treatment once PICC line is placed -PICC line insertion pending for administration of chemo -Baseline echo for cardiotoxic chemo-LVEF 55% -Supportive meds -Ambulate QID -Vital signs every shift and when necessary -Regular diet -Oral hygiene -TLS labs, CMP, CBC daily -Transfuse with irradiate blood products only. Transfuse for Hgb<7 and plt <10,000 Pancytopenia -Secondary to AML -Transfuse with irradiated blood products only -Transfuse for hemoglobin less than 7 and platelets less than 10,000, unless patient is symptomatic. -No G-CSF, patient is acute leukemic without confirmed remission
[2023-10-08] MEDS: SALT AND SODA MOUTHWASH 1,000 ML PO SCH ×2 (16:22→19:49)
[2023-10-08] MEDS ORDERED: LIDOCAINE 1% INJ 10MG/ML (20 ML MDV) SQ ONE (19:23)
--- NOTE | 2023-10-08 19:41 | P.PCN ---
Date of Procedure: 10/08/23 Preoperative Diagnosis: Acute leukemia Postoperative Diagnosis: Same Procedure(s) Performed: Ultrasound-guided left upper extremity basilic vein dual lumen PICC line placement Anesthesia: local Surgeon: Cachorro Mathew Estimated Blood Loss (ml): 5 Pathology: none sent Disposition: floor Indications for Procedure: 43-year-old gentleman recently diagnosed with acute leukemia requiring a dual- lumen PICC line for his oncologist presents for placement. Description of Procedure: After written and informed consent was obtained the patient and all risks, benefits and competitions were described the patient was brought to the [facility] and laid in a supine position with his left arm outstretched on an armboard. The area of the left arm was prepped and draped in usual sterile fashion. Timeout was performed in normal fashion. Utilizing ultrasound the basilic vein was visualized and shown to be compressible without any visible thrombus. Under ultrasound guidance the basilic vein was then cannulated with a micropuncture needle and wire was placed under direct visualization of fluoroscopy. Introducer sheath was then placed. The catheter was measured and cut to the appropriate length which was 50 cm. The catheter was then guided through the breakaway sheath and the sheath was removed with good positioning was visualized under fluoroscopy. The catheter was pulled and flushed easily. It was then secured in place in normal fashion. Patient tolerated the procedure well was sent back to his room for recovery.
[2023-10-08] MEDS: ONDANSETRON 16 MG in SODIUM CHLORIDE 0.9% 50 ML IVPB SCH (19:47)
[2023-10-08] MEDS: DEXAMETHASONE SOD PHOSPHATE 10 MG/ML 1 ML VIAL IVP SCH (19:48)
[2023-10-08] MEDS: FAMOTIDINE 20 MG/2 ML VIAL IVP SCH (19:49)
[2023-10-08] MEDS: SODIUM CHLORIDE 0.9% 1,000 ML IV SCH ×2 (19:50→20:56)
[2023-10-08] MEDS: IDArubicin HCL 20 MG, IDArubicin HCL 5 MG in EMPTY SYRINGE 1 SYR IV SCH ×2 (20:05)
[2023-10-08] MEDS: SODIUM CHLORIDE 0.9% IV SCH (20:05)
[2023-10-08] MEDS: CYTARABINE IV SCH (20:05)
[2023-10-09] MEDS: SALT AND SODA MOUTHWASH 1,000 ML PO SCH ×5 (00:10→19:26)
[2023-10-09] MEDS: SODIUM CHLORIDE 0.9% 1,000 ML IV SCH ×2 (05:45→23:45)
--- NOTE | 2023-10-09 07:20 | IR ---
EXAMINATION TYPE: IR cvc insert >=5 years DATE OF EXAM: 10/08/2023 COMPARISON: NONE HISTORY: Fluoroscopy time. Fluoroscopy was provided to the referring clinician.
[2023-10-09 07:46] LABS: Anisocytosis Slight; HCT 20.4 % (39.0-53.0); HGB 7.3 gm/dL (13.0-17.5); MCH 34.8 pg (25.0-35.0); MCHC 35.8 g/dL (31.0-37.0); MCV 97.4 fL (80.0-100.0); Macrocytosis Slight; Mean Platelet Volume 15.6; RBC 2.09 m/uL (4.30-5.90); RDW 18.3 % (11.5-15.5)
[2023-10-09 08:04] LABS: ALT 15 U/L (4-49); AST 14 U/L (17-59); African American GFR (CKD) >90 (>60 ml/min/1.73 sqM); Albumin 3.5 g/dL (3.5-5.0); Albumin/Globulin Ratio 1.2; Alkaline Phosphatase 49 U/L (38-126); Anion Gap 8 mmol/L; Blood Urea Nitrogen 13 mg/dL (9-20); Calcium 8.3 mg/dL (8.4-10.2); Carbon Dioxide 25 mmol/L (22-30); Chloride 107 mmol/L (98-107); Globulin 2.9 g/dL; Glucose 178 mg/dL (74-99); Non-African American GFR(CKD) >90 (>60 ml/min/1.73 sqM); Phosphorus 2.9 mg/dL (2.5-4.5); Potassium 4.6 mmol/L (3.5-5.1); Sodium 140 mmol/L (137-145); Total Bilirubin 0.5 mg/dL (0.2-1.3); Total Protein 6.4 g/dL (6.3-8.2)
[2023-10-09 08:25] LABS: Platelet Count 19 k/uL (150-450)
[2023-10-09 10:00] LABS: Neutrophils % (M) 1 %
[2023-10-09 10:01] LABS: Nucleated Red Blood Cells 4 /100 WBC (0-0)
[2023-10-09 10:02] LABS: Lymphocytes # (M) 0.64 k/uL (1.0-4.8)
[2023-10-09 10:04] LABS: Blast Cells # (M) 0.65 k/uL (0); Total Cells Counted 100
[2023-10-09 10:07] LABS: WBC 1.3 k/uL (3.8-10.6)
[2023-10-09 10:09] LABS: Neutrophils # (M) 0.01 k/uL (1.3-7.7)
[2023-10-09] MEDS: FLUCONAZOLE 100 MG TAB PO SCH (11:29)
[2023-10-09] MEDS: CIPROFLOXACIN HCL 500 MG TAB PO SCH ×2 (11:29→20:55)
[2023-10-09] MEDS: ACYCLOVIR 200 MG CAP PO SCH ×2 (11:33→19:24)
--- NOTE | 2023-10-09 14:49 | P.PN ---
Subjective Progress Note Date: 10/09/23 Principal diagnosis: AML Patient seen in follow-up today. Vascular was able to place the PICC line last evening! Patient was started on induction chemotherapy 7+3 regimen last night about 8:30-9:00. Patient is doing well today, denies fevers, chills, sore throat, oral irritation, nausea, vomiting, shortness of breath or cough, abdominal pain or cramping, acute changes in bowel or bladder habits, no swelling, rashes or pain. Patient is ambulatory, he is tolerating oral intake. Objective - Vital Signs Vital signs: Vital Signs Temp 97.9 F 10/09/23 12:00 Pulse 75 10/09/23 12:00 Resp 16 10/09/23 12:00 BP 116/66 10/09/23 12:00 Pulse Ox 100 10/09/23 12:00 FiO2 Intake & Output 10/08/23 10/09/23 10/09/23 18:59 06:59 18:59 Intake Total 1610 Balance 1610 Weight 88.723 kg Intake: Intake, IV Titration 1250 Amount IDArubicin HCL 20 mg 100 IDArubicin HCL 5 mg In Empty Syringe 1 syr @ 100 mls/hr IV DAILY@1500 [facility] Rx#:[id number] Ondansetron 16 mg In 50 Sodium Chloride 0.9% 50 ml @ 232 mls/hr IVPB DAILY@1200 [facility] Rx#: [id number] Sodium Chloride 0.9% 1, 1100 000 ml @ 100 mls/hr IV . Q10H [facility] Rx#:[id number] Oral 360 Other: # Voids 1 2 - Constitutional General appearance: Present: average body habitus, cooperative, no acute distress - EENT Eyes: Present: anicteric sclerae, edentulous ENT: Present: hearing grossly normal, normal oropharynx - Respiratory Respiratory: bilateral: CTA - Cardiovascular Rhythm: regular Heart sounds: normal: S1, S2 Abnormal Heart Sounds: Absent: systolic murmur, diastolic murmur, rub, S3 Gallop, S4 Gallop, click, other - Peripheral edema leg Peripheral Edema: bilateral: None - Gastrointestinal General gastrointestinal: Present: normal bowel sounds, soft - Integumentary Integumentary: Present: normal - Neurologic Neurologic: Present: CNII-XII intact - Musculoskeletal Musculoskeletal: Present: strength equal bilaterally - Psychiatric Psychiatric: Present: A&O x's 3, appropriate affect, intact judgment & insight - Labs CBC & Chem 7: 10/09/23 07:04 10/09/23 07:04 Labs: Abnormal Lab Results - Last 24 Hours (Table) 10/09/23 10/09/23 Range/Units 07:04 07:04 WBC 1.3 L* (3.8-10.6) k/uL RBC 2.09 L (4.30-5.90) m/uL Hgb 7.3 L (13.0-17.5) gm/dL Hct 20.4 L (39.0-53.0) % RDW 18.3 H (11.5-15.5) % Plt Count 19 L* (150-450) k/uL Blast Cells % 50 H* % Neutrophils # (Manual) 0.01 L* (1.3-7.7) k/uL Lymphocytes # (Manual) 0.64 L (1.0-4.8) k/uL Blast Cells # (Man) 0.65 H (0) k/uL Nucleated RBCs 4 H (0-0) /100 WBC Glucose 178 H (74-99) mg/dL Calcium 8.3 L (8.4-10.2) mg/dL AST 14 L (17-59) U/L Assessment and Plan (1) Acute myeloid leukemia, without mention of having achieved remission Current Visit: Yes Status: Acute Priority: High Code(s): C92.00 - ACUTE MYELOBLASTIC LEUKEMIA, NOT HAVING ACHIEVED REMISSION SNOMED Code(s): 57630158 (2) Pancytopenia Current Visit: Yes Status: Acute Priority: High Code(s): D61.818 - OTHER PANCYTOPENIA SNOMED Code(s): 379999128 Plan: AML -New diagnosis -Admit for induction chemo 7+3 regimen. PICC line placed 10/08/23, induction chemotherapy started. Continue as prescribed. -Baseline echo for cardiotoxic chemo-LVEF 55% -Supportive meds ordered -Ambulate QID -Vital signs every shift and when necessary -Regular diet -Oral hygiene -TLS labs, CMP, CBC daily -Transfuse with irradiate blood products only. Transfuse for Hgb<7 and plt <10,000 -Nursing reported irregular Cardiac rhythm, place and placed on telemetry Pancytopenia -Secondary to AML -Transfuse with irradiated blood products only -Transfuse for hemoglobin less than 7 and platelets less than 10,000, unless patient is symptomatic. Hemoglobin 7.3, platelets 19,000. -No G-CSF, patient is acute leukemic without confirmed remission -Patient started on prophylactic antibiotic, antifungal and antiviral for significantly low ANC attests: I have seen and examined patient, performed H&P, developed impression and plan of care. Discussed with dictator. Agree with documentation, dictated as a scribe.
[2023-10-09] MEDS: DEXAMETHASONE SOD PHOSPHATE 10 MG/ML 1 ML VIAL IVP SCH (19:24)
[2023-10-09] MEDS: ONDANSETRON 16 MG in SODIUM CHLORIDE 0.9% 50 ML IVPB SCH (19:24)
[2023-10-09] MEDS: FAMOTIDINE 20 MG/2 ML VIAL IVP SCH (19:24)
[2023-10-09] MEDS: IDArubicin HCL 20 MG, IDArubicin HCL 5 MG in EMPTY SYRINGE 1 SYR IV SCH ×2 (19:25)
[2023-10-09] MEDS: SODIUM CHLORIDE 0.9% IV SCH (19:25)
[2023-10-09] MEDS: CYTARABINE IV SCH (19:25)
[2023-10-10] MEDS: SODIUM CHLORIDE 0.9% 1,000 ML IV SCH ×3 (03:13→21:22)
[2023-10-10] MEDS: SALT AND SODA MOUTHWASH 1,000 ML PO SCH ×5 (03:13→21:21)
[2023-10-10 07:27] LABS: ALT 16 U/L (4-49); AST 15 U/L (17-59); African American GFR (CKD) >90 (>60 ml/min/1.73 sqM); Albumin 3.5 g/dL (3.5-5.0); Albumin/Globulin Ratio 1.2; Alkaline Phosphatase 45 U/L (38-126); Anion Gap 10 mmol/L; Anisocytosis Slight; Blood Urea Nitrogen 13 mg/dL (9-20); Calcium 8.4 mg/dL (8.4-10.2); Carbon Dioxide 22 mmol/L (22-30); Chloride 107 mmol/L (98-107); Glucose 167 mg/dL (74-99); HCT 19.7 % (39.0-53.0); MCH 34.4 pg (25.0-35.0); MCHC 35.3 g/dL (31.0-37.0); MCV 97.5 fL (80.0-100.0); Macrocytosis Slight; Mean Platelet Volume 15.8; Non-African American GFR(CKD) >90 (>60 ml/min/1.73 sqM); Phosphorus 3.9 mg/dL (2.5-4.5); Platelet Count 23 k/uL (150-450); Potassium 4.3 mmol/L (3.5-5.1); RBC 2.02 m/uL (4.30-5.90); Sodium 139 mmol/L (137-145); Total Bilirubin 0.4 mg/dL (0.2-1.3); Total Protein 6.5 g/dL (6.3-8.2); WBC 1.2 k/uL (3.8-10.6)
[2023-10-10] MEDS: CIPROFLOXACIN HCL 500 MG TAB PO SCH ×2 (08:20→21:21)
[2023-10-10] MEDS: FLUCONAZOLE 100 MG TAB PO SCH (08:20)
[2023-10-10] MEDS: ACYCLOVIR 200 MG CAP PO SCH ×2 (08:20→21:21)
[2023-10-10 08:39] LABS: Neutrophils % (M) 1 %
[2023-10-10 08:40] LABS: Blast Cells # (M) 0.64 k/uL (0); Lymphocytes # (M) 0.53 k/uL (1.0-4.8); Monocytes # (M) 0.02 k/uL (0-1.0); Neutrophils # (M) 0.01 k/uL (1.3-7.7); Nucleated Red Blood Cells 1 /100 WBC (0-0); Total Cells Counted 100
--- NOTE | 2023-10-10 16:43 | P.PN ---
Subjective Progress Note Date: 10/10/23 Principal diagnosis: AML, Admit for induction chemotherapy 7+3 regimen Patient was started on induction chemotherapy 7+3 regimen evening of 10/08. Patient reports he is doing well, denies any side effects to this point. No fevers, chills, sore throat, oral irritation, nausea, vomiting, shortness of breath or cough, abdominal pain or cramping, acute changes in bowel or bladder habits, no swelling, rashes or pain. Patient is ambulatory, he is tolerating oral intake. Objective - Vital Signs Vital signs: Vital Signs Temp 98 F 10/10/23 12:45 Pulse 57 L 10/10/23 12:45 Resp 18 10/10/23 12:45 BP 128/75 10/10/23 12:45 Pulse Ox 98 10/10/23 12:45 FiO2 Intake & Output 10/09/23 10/10/23 10/10/23 18:59 06:59 18:59 Intake Total 720 Balance 720 Intake: Oral 720 Other: # Voids 2 - Constitutional General appearance: Present: average body habitus, cooperative, no acute distress - EENT Eyes: Present: anicteric sclerae, EOMI ENT: Present: hearing grossly normal, normal oropharynx - Respiratory Respiratory: bilateral: CTA - Cardiovascular Rhythm: regular Heart sounds: normal: S1, S2 Abnormal Heart Sounds: Present: systolic murmur. Absent: diastolic murmur, rub, S3 Gallop, S4 Gallop, click, other - Peripheral edema leg Peripheral Edema: bilateral: None - Gastrointestinal General gastrointestinal: Present: normal bowel sounds, soft - Integumentary Integumentary: Present: normal - Neurologic Neurologic: Present: CNII-XII intact - Musculoskeletal Musculoskeletal: Present: strength equal bilaterally - Psychiatric Psychiatric: Present: A&O x's 3, appropriate affect, intact judgment & insight - Labs CBC & Chem 7: 10/10/23 06:30 10/10/23 06:30 Labs: Abnormal Lab Results - Last 24 Hours (Table) 10/10/23 10/10/23 Range/Units 06:30 06:30 WBC 1.2 L* (3.8-10.6) k/uL RBC 2.02 L (4.30-5.90) m/uL Hgb 7.0 L (13.0-17.5) gm/dL Hct 19.7 L* (39.0-53.0) % RDW 18.0 H (11.5-15.5) % Plt Count 23 L (150-450) k/uL Blast Cells % 53 H* % Neutrophils # (Manual) 0.01 L* (1.3-7.7) k/uL Lymphocytes # (Manual) 0.53 L (1.0-4.8) k/uL Blast Cells # (Man) 0.64 H (0) k/uL Nucleated RBCs 1 H (0-0) /100 WBC Glucose 167 H (74-99) mg/dL AST 15 L (17-59) U/L Assessment and Plan (1) Acute myeloid leukemia, without mention of having achieved remission Current Visit: Yes Status: Acute Priority: High Code(s): C92.00 - ACUTE MYELOBLASTIC LEUKEMIA, NOT HAVING ACHIEVED REMISSION SNOMED Code(s): 38461946 (2) Pancytopenia Current Visit: Yes Status: Acute Priority: High Code(s): D61.818 - OTHER PANCYTOPENIA SNOMED Code(s): 180871722 Plan: AML -New diagnosis. Pending cytogenetic results-these will impact whether patient goes to transplant immediately or completes treatment with consolidation chemotherapy. -Admit for induction chemo 7+3 regimen. PICC line placed 10/08/23, induction chemotherapy started. Continue as prescribed. -Baseline echo for cardiotoxic chemo-LVEF 55% -Supportive meds -Ambulate QID -Vital signs every shift and when necessary -Regular diet -Oral hygiene -TLS labs, CMP, CBC daily. No evidence of tumor lysis so far. Liver and kidney function stable. Abnormalities in the CBC consistent with disease, treatment of disease, not unexpected. Patient has not required transfusion yet. -Transfuse with irradiate blood products only. Transfuse for Hgb<7 and plt <10,000 -Patient continues on telemetry, no abnormal rhythms reported Pancytopenia -Secondary to AML -Transfuse with irradiated blood products only -Transfuse for hemoglobin less than 7 and platelets less than 10,000, unless patient is symptomatic. Hemoglobin 7, platelets 23,000. -No G-CSF, patient is acute leukemic without confirmed remission -Patient started on prophylactic antibiotic, antifungal and antiviral for significantly low ANC attests: I have seen and examined patient, performed H&P, developed impression and plan of care. Discussed with dictator. Agree with docu mentation, dictated as a scribe.
[2023-10-10] MEDS: ONDANSETRON 16 MG in SODIUM CHLORIDE 0.9% 50 ML IVPB SCH (19:33)
[2023-10-10] MEDS: FAMOTIDINE 20 MG/2 ML VIAL IVP SCH (19:33)
[2023-10-10] MEDS: DEXAMETHASONE SOD PHOSPHATE 10 MG/ML 1 ML VIAL IVP SCH (19:33)
[2023-10-10] MEDS: SODIUM CHLORIDE 0.9% IV SCH (20:08)
[2023-10-10] MEDS: CYTARABINE IV SCH (20:08)
[2023-10-10] MEDS: IDArubicin HCL 20 MG, IDArubicin HCL 5 MG in EMPTY SYRINGE 1 SYR IV SCH ×2 (20:09)
[2023-10-11] MEDS: SALT AND SODA MOUTHWASH 1,000 ML PO SCH ×5 (01:39→20:01)
[2023-10-11] MEDS: SODIUM CHLORIDE 0.9% 1,000 ML IV SCH ×2 (05:10→19:13)
[2023-10-11 08:11] LABS: ALT 15 U/L (4-49); AST 13 U/L (17-59); African American GFR (CKD) >90 (>60 ml/min/1.73 sqM); Albumin 3.3 g/dL (3.5-5.0); Albumin/Globulin Ratio 1.2; Alkaline Phosphatase 41 U/L (38-126); Anion Gap 9 mmol/L; Blood Urea Nitrogen 16 mg/dL (9-20); Calcium 8.5 mg/dL (8.4-10.2); Carbon Dioxide 23 mmol/L (22-30); Chloride 107 mmol/L (98-107); Globulin 2.7 g/dL; Glucose 132 mg/dL (74-99); Non-African American GFR(CKD) >90 (>60 ml/min/1.73 sqM); Potassium 4.2 mmol/L (3.5-5.1); Sodium 139 mmol/L (137-145); Total Bilirubin 0.5 mg/dL (0.2-1.3)
[2023-10-11 08:18] LABS: Anisocytosis Slight; MCH 34.1 pg (25.0-35.0); MCHC 34.8 g/dL (31.0-37.0); MCV 97.8 fL (80.0-100.0); Macrocytosis Slight; Mean Platelet Volume 14.4; RBC 1.89 m/uL (4.30-5.90); RDW 18.3 % (11.5-15.5)
[2023-10-11] MEDS: FLUCONAZOLE 100 MG TAB PO SCH (08:29)
[2023-10-11] MEDS: CIPROFLOXACIN HCL 500 MG TAB PO SCH ×2 (08:29→20:01)
[2023-10-11] MEDS: ACYCLOVIR 200 MG CAP PO SCH ×2 (08:29→20:01)
[2023-10-11 08:43] LABS: Platelet Count 12 k/uL (150-450); WBC 0.7 k/uL (3.8-10.6)
[2023-10-11 08:46] LABS: HCT 18.5 % (39.0-53.0); HGB 6.5 gm/dL (13.0-17.5)
[2023-10-11] MEDS: allopurinoL 300 MG TAB PO SCH (09:38)
--- NOTE | 2023-10-11 12:48 | P.PN ---
Subjective Progress Note Date: 10/11/23 Principal diagnosis: AML, Admit for induction chemotherapy 7+3 regimen Patient was started on induction chemotherapy 7+3 regimen evening of 10/08. Patient reports he cont to do well, denies any side effects to this point. No fevers, chills, sore throat, oral irritation, nausea, vomiting, shortness of breath or cough, abdominal pain or cramping, acute changes in bowel or bladder habits, no swelling, rashes or pain. Patient is ambulatory, he is tolerating oral intake. Objective - Vital Signs Vital signs: Vital Signs Temp 98 F 10/11/23 12:00 Pulse 63 10/11/23 12:00 Resp 16 10/11/23 12:00 BP 120/72 10/11/23 12:00 Pulse Ox 99 10/11/23 12:00 FiO2 Intake & Output 10/10/23 10/11/23 10/11/23 18:59 06:59 18:59 Intake Total 560 Balance 560 Intake: Oral 560 Other: Voiding Method Toilet Toilet # Voids 2 3 - Constitutional General appearance: Present: average body habitus, cooperative, no acute distress - EENT Eyes: Present: anicteric sclerae, EOMI ENT: Present: hearing grossly normal, normal oropharynx - Respiratory Respiratory: bilateral: CTA - Cardiovascular Rhythm: regular Heart sounds: normal: S1, S2 Abnormal Heart Sounds: Absent: systolic murmur, diastolic murmur, rub, S3 Gallop, S4 Gallop, click, other - Peripheral edema leg Peripheral Edema: bilateral: None - Gastrointestinal General gastrointestinal: Present: normal bowel sounds, soft - Integumentary Integumentary: Present: normal - Neurologic Neurologic: Present: CNII-XII intact - Musculoskeletal Musculoskeletal: Present: strength equal bilaterally - Psychiatric Psychiatric: Present: A&O x's 3, appropriate affect, intact judgment & insight - Labs CBC & Chem 7: 10/11/23 06:35 10/11/23 06:35 Labs: Abnormal Lab Results - Last 24 Hours (Table) 10/11/23 10/11/23 10/11/23 Range/Units 06:35 06:35 10:49 WBC 0.7 L* (3.8-10.6) k/uL RBC 1.89 L (4.30-5.90) m/uL Hgb 6.5 L* (13.0-17.5) gm/dL Hct 18.5 L* (39.0-53.0) % RDW 18.3 H (11.5-15.5) % Plt Count 12 L* (150-450) k/uL Glucose 132 H (74-99) mg/dL Uric Acid 3.3 L (3.5-8.5) mg/dL Phosphorus 5.0 H (2.5-4.5) mg/dL AST 13 L (17-59) U/L Total Protein 6.0 L (6.3-8.2) g/dL Albumin 3.3 L (3.5-5.0) g/dL Assessment and Plan (1) Acute myeloid leukemia, without mention of having achieved remission Current Visit: Yes Status: Acute Priority: High Code(s): C92.00 - ACUTE MYELOBLASTIC LEUKEMIA, NOT HAVING ACHIEVED REMISSION SNOMED Code(s): 92802799 (2) Pancytopenia Current Visit: Yes Status: Acute Priority: High Code(s): D61.818 - OTHER PANCYTOPENIA SNOMED Code(s): 041972230 Plan: AML -New diagnosis. Pending cytogenetic results-these will impact whether patient goes to transplant immediately or completes treatment with consolidation chemotherapy. -Admit for induction chemo 7+3 regimen. PICC line placed 10/08/23, induction chemotherapy started. Continue as prescribed. -Baseline echo for cardiotoxic chemo-LVEF 55% -Supportive meds, no changes -Ambulate QID -Vital signs every shift and when necessary -Regular diet -Oral hygiene -TLS labs, CMP, CBC daily. Increased phos level elevated, allopurinol started, stat uric acid came back low. Labs in AM, may adjust dose of allopurinol. Liver and kidney function stable. Abnormalities in the CBC consistent with disease, treatment of disease, not unexpected. -Transfuse with irradiate blood products only. Transfuse for Hgb<7, 1 unit irradiated PRBCs today for Hgb 6.5. Transfuse for plt <10,000 or [place] [id number] today -Patient continues on telemetry, no abnormal rhythms reported Pancytopenia -Secondary to AML -Transfuse with irradiated blood products only -Transfuse for hemoglobin less than 7 and platelets less than 10,000, unless patient is symptomatic. Hemoglobin 6.5, transfuse today. Platelets 12,000. -No G-CSF, patient is acute leukemic without confirmed remission -Patient started on prophylactic antibiotic, antifungal and antiviral for significantly low ANC attests: I have seen and examined patient, performed H&P, developed impre ssion and plan of care. Discussed with dictator. Agree with documentation, dictated as a scribe.
[2023-10-11] MEDS: FAMOTIDINE 20 MG/2 ML VIAL IVP SCH (19:14)
[2023-10-11] MEDS: DEXAMETHASONE SOD PHOSPHATE 10 MG/ML 1 ML VIAL IVP SCH (19:14)
[2023-10-11] MEDS: ONDANSETRON 16 MG in SODIUM CHLORIDE 0.9% 50 ML IVPB SCH (19:22)
[2023-10-11] MEDS: CYTARABINE IV SCH (20:07)
[2023-10-11] MEDS: SODIUM CHLORIDE 0.9% IV SCH (20:07)
[2023-10-12] MEDS: SODIUM CHLORIDE 0.9% 1,000 ML IV SCH ×2 (04:06→21:29)
[2023-10-12] MEDS: SALT AND SODA MOUTHWASH 1,000 ML PO SCH ×5 (05:57→21:13)
[2023-10-12 07:31] LABS: Anisocytosis Slight; HGB 7.3 gm/dL (13.0-17.5); MCHC 36.9 g/dL (31.0-37.0); Macrocytosis Slight; Mean Platelet Volume 9.6; RBC 2.09 m/uL (4.30-5.90); RDW 18.2 % (11.5-15.5)
[2023-10-12 07:32] LABS: HCT 19.9 % (39.0-53.0); WBC 0.7 k/uL (3.8-10.6)
[2023-10-12 07:33] LABS: Platelet Count 10 k/uL (150-450)
[2023-10-12 07:52] LABS: ALT 16 U/L (4-49); AST 12 U/L (17-59); African American GFR (CKD) >90 (>60 ml/min/1.73 sqM); Albumin 3.1 g/dL (3.5-5.0); Albumin/Globulin Ratio 1.1; Alkaline Phosphatase 38 U/L (38-126); Anion Gap 4 mmol/L; Blood Urea Nitrogen 16 mg/dL (9-20); Calcium 8.4 mg/dL (8.4-10.2); Carbon Dioxide 25 mmol/L (22-30); Chloride 107 mmol/L (98-107); Globulin 2.8 g/dL; Glucose 144 mg/dL (74-99); Non-African American GFR(CKD) >90 (>60 ml/min/1.73 sqM); Phosphorus 4.1 mg/dL (2.5-4.5); Potassium 4.1 mmol/L (3.5-5.1); Sodium 136 mmol/L (137-145); Total Bilirubin 0.6 mg/dL (0.2-1.3); Total Protein 5.9 g/dL (6.3-8.2); Uric Acid 2.6 mg/dL (3.5-8.5)
[2023-10-12] MEDS: CIPROFLOXACIN HCL 500 MG TAB PO SCH ×2 (09:32→21:14)
[2023-10-12] MEDS: ACYCLOVIR 200 MG CAP PO SCH ×2 (09:32→21:14)
[2023-10-12] MEDS: allopurinoL 300 MG TAB PO SCH (09:32)
[2023-10-12] MEDS: FLUCONAZOLE 100 MG TAB PO SCH (09:33)
--- NOTE | 2023-10-12 15:28 | P.PN ---
Subjective Progress Note Date: 10/12/23 Principal diagnosis: AML, inpt chemo Patient was started on induction chemotherapy 7+3 regimen evening of 10/08. Patient reports he is continuing to do well, denies any side effects to this point. No fevers, chills, sore throat, oral irritation, nausea, vomiting, shortness of breath or cough, abdominal pain or cramping, acute changes in bowel or bladder habits, no swelling, rashes or pain. Patient is ambulatory, he is tolerating oral intake. Objective - Vital Signs Vital signs: Vital Signs Temp 97.9 F 10/12/23 12:00 Pulse 72 10/12/23 12:00 Resp 16 10/12/23 12:00 BP 135/74 10/12/23 12:00 Pulse Ox 99 10/12/23 12:00 FiO2 Intake & Output 10/11/23 10/12/23 10/12/23 18:59 06:59 18:59 Intake Total 310 2158 Balance 310 2158 Intake: Intake, IV Titration 1440 Amount Cytarabine 420 mg In 240 Sodium Chloride 0.9% 500 ml 500 ml @ 21.708 mls/hr IV Q24H [facility] Rx#: [id number] Sodium Chloride 0.9% 1, 1200 000 ml @ 100 mls/hr IV . Q10H [facility] Rx#:[id number] Oral 718 Blood Product 310 Rc Irr As1 Unit 310 [id number] Other: Voiding Method Toilet Toilet # Voids 3 - Labs CBC & Chem 7: 10/12/23 06:41 10/12/23 06:41 Labs: Abnormal Lab Results - Last 24 Hours (Table) 10/11/23 10/12/23 10/12/23 Range/Units 10:49 06:41 06:41 WBC 0.7 L* (3.8-10.6) k/uL RBC 2.09 L (4.30-5.90) m/uL Hgb 7.3 L (13.0-17.5) gm/dL Hct 19.9 L* (39.0-53.0) % RDW 18.2 H (11.5-15.5) % Plt Count 10 L* (150-450) k/uL Sodium 136 L (137-145) mmol/L Glucose 144 H (74-99) mg/dL Uric Acid 2.6 L (3.5-8.5) mg/dL AST 12 L (17-59) U/L Total Protein 5.9 L (6.3-8.2) g/dL Albumin 3.1 L (3.5-5.0) g/dL Crossmatch See Detail Assessment and Plan (1) Acute myeloid leukemia, without mention of having achieved remission Current Visit: Yes Status: Acute Priority: High Code(s): C92.00 - ACUTE MYELOBLASTIC LEUKEMIA, NOT HAVING ACHIEVED REMISSION SNOMED Code(s): 43111575 (2) Pancytopenia Current Visit: Yes Status: Acute Priority: High Code(s): D61.818 - OTHER PANCYTOPENIA SNOMED Code(s): 516593715 Plan: AML -New diagnosis. Pending cytogenetic results-these will impact whether patient goes to transplant immediately or completes treatment with consolidation deshawn motherapy. -Admit for induction chemo 7+3 regimen. PICC line placed 10/08/23, induction chemotherapy started. Continue as prescribed. -Baseline echo for cardiotoxic chemo-LVEF 55% -Supportive meds, no changes -Ambulate QID -Vital signs every shift and when necessary -Regular diet -Oral hygiene -TLS labs, CMP, CBC daily. TLS labs today negative. Will continue allopurinol. Liver and kidney function stable. Abnormalities in the CBC consistent with disease, treatment of disease, not unexpected. -Transfuse with irradiate blood products only. Transfuse for Hgb<7, and t ransfuse for plt <10,000 or if [place] [id number] today, 1 dose irradiated plts ordered. No acute episodes of bleeding noted -Patient continues on telemetry, no abnormal rhythms reported Pancytopenia -Secondary to AML -Transfuse with irradiated blood products only -Transfuse for hemoglobin less than 7 and platelets less than 10,000, unless patient is symptomatic. Hemoglobin 7.3 today. -No G-CSF, patient is acute leukemic without confirmed remission -Patient started on prophylactic antibiotic, antifungal and antiviral for significantly low ANC *Disability paperwork was reviewed and filled out with patient. Forms will be faxed from clinic Dr. carterests: I have seen and examined patient, performed H&P, developed impression and plan of care. Discussed with dictator. Agree with do cumentation, dictated as a scribe. Time with Patient: Greater than 30
[2023-10-12] MEDS: DEXAMETHASONE SOD PHOSPHATE 10 MG/ML 1 ML VIAL IVP SCH (20:57)
[2023-10-12] MEDS: ONDANSETRON 16 MG in SODIUM CHLORIDE 0.9% 50 ML IVPB SCH (20:58)
[2023-10-12] MEDS: FAMOTIDINE 20 MG/2 ML VIAL IVP SCH (20:58)
[2023-10-12] MEDS: SODIUM CHLORIDE 0.9% IV SCH (21:28)
[2023-10-12] MEDS: CYTARABINE IV SCH (21:28)
[2023-10-13] MEDS: SALT AND SODA MOUTHWASH 1,000 ML PO SCH ×6 (00:18→23:55)
[2023-10-13] MEDS: SODIUM CHLORIDE 0.9% 1,000 ML IV SCH ×3 (00:19→21:25)
[2023-10-13 06:47] LABS: ALT 16 U/L (4-49); AST 12 U/L (17-59); African American GFR (CKD) >90 (>60 ml/min/1.73 sqM); Albumin 3.3 g/dL (3.5-5.0); Albumin/Globulin Ratio 1.2; Alkaline Phosphatase 35 U/L (38-126); Anion Gap 6 mmol/L; Blood Urea Nitrogen 16 mg/dL (9-20); Calcium 8.5 mg/dL (8.4-10.2); Carbon Dioxide 27 mmol/L (22-30); Chloride 105 mmol/L (98-107); Globulin 2.7 g/dL; Glucose 153 mg/dL (74-99); Non-African American GFR(CKD) >90 (>60 ml/min/1.73 sqM); Phosphorus 4.5 mg/dL (2.5-4.5); Potassium 4.7 mmol/L (3.5-5.1); Sodium 138 mmol/L (137-145); Total Bilirubin 0.9 mg/dL (0.2-1.3); Uric Acid 2.4 mg/dL (3.5-8.5)
[2023-10-13 06:58] LABS: Anisocytosis Slight; HCT 20.8 % (39.0-53.0); HGB 7.5 gm/dL (13.0-17.5); MCH 34.6 pg (25.0-35.0); MCHC 36.1 g/dL (31.0-37.0); MCV 95.7 fL (80.0-100.0); Macrocytosis Slight; RBC 2.18 m/uL (4.30-5.90); RDW 17.7 % (11.5-15.5)
[2023-10-13 07:01] LABS: WBC 0.3 k/uL (3.8-10.6)
[2023-10-13 07:02] LABS: Platelet Count 12 k/uL (150-450)
[2023-10-13] MEDS: allopurinoL 300 MG TAB PO SCH (08:41)
[2023-10-13] MEDS: ACYCLOVIR 200 MG CAP PO SCH ×2 (08:41→21:23)
[2023-10-13] MEDS: FLUCONAZOLE 100 MG TAB PO SCH (08:42)
[2023-10-13] MEDS: CIPROFLOXACIN HCL 500 MG TAB PO SCH ×2 (08:42→21:23)
--- NOTE | 2023-10-13 15:32 | P.PN ---
Subjective Progress Note Date: 10/13/23 Principal diagnosis: AML, inpt chemo Patient was started on induction chemotherapy 7+3 regimen evening of 10/08. Patient reports he is continuing to do well, denies any side effects to this point. No fevers, chills, sore throat, oral irritation, nausea, vomiting, shortness of breath or cough, abdominal pain or cramping, acute changes in bowel or bladder habits, no swelling, rashes or pain. Patient is ambulatory, he is tolerating oral intake. Objective - Vital Signs Vital signs: Vital Signs Temp 97.6 F 10/13/23 12:04 Pulse 65 10/13/23 12:04 Resp 20 10/13/23 12:04 BP 124/68 10/13/23 12:04 Pulse Ox 99 10/13/23 12:04 FiO2 Intake & Output 10/12/23 10/13/23 10/13/23 18:59 06:59 18:59 Intake Total 1460.496 783 Balance 1460.496 783 Intake: Intake, IV Titration 1460.496 Amount Cytarabine 420 mg In 260.496 Sodium Chloride 0.9% 500 ml 500 ml @ 21.708 mls/hr IV Q24H [facility] Rx#: [id number] Sodium Chloride 0.9% 1, 1200 000 ml @ 100 mls/hr IV . Q10H [facility] Rx#:[id number] Oral 540 Blood Product 0 243 Platelet Pheresis Pas 0 243 Psoralen Unit [id number] Other: Voiding Method Toilet Toilet # Voids 2 - Constitutional General appearance: Present: no acute distress - EENT Eyes: Present: anicteric sclerae, EOMI ENT: Present: hearing grossly normal - Respiratory Details: breathing is even and unlabored - Cardiovascular Details: skin is warm and dry - Integumentary Integumentary: Absent: cyanotic - Neurologic Neurologic: Present: CNII-XII intact - Musculoskeletal Musculoskeletal: Present: strength equal bilaterally - Psychiatric Psychiatric: Present: A&O x's 3, appropriate affect, intact judgment & insight - Labs CBC & Chem 7: 10/13/23 05:56 10/13/23 05:56 Labs: Abnormal Lab Results - Last 24 Hours (Table) 10/13/23 10/13/23 Range/Units 05:56 05:56 WBC 0.3 L* (3.8-10.6) k/uL RBC 2.18 L (4.30-5.90) m/uL Hgb 7.5 L (13.0-17.5) gm/dL Hct 20.8 L (39.0-53.0) % RDW 17.7 H (11.5-15.5) % Plt Count 12 L* (150-450) k/uL Glucose 153 H (74-99) mg/dL Uric Acid 2.4 L (3.5-8.5) mg/dL AST 12 L (17-59) U/L Alkaline Phosphatase 35 L (38-126) U/L Total Protein 6.0 L (6.3-8.2) g/dL Albumin 3.3 L (3.5-5.0) g/dL Assessment and Plan (1) Acute myeloid leukemia, without mention of having achieved remission Current Visit: Yes Status: Acute Priority: High Code(s): C92.00 - ACUTE MYELOBLASTIC LEUKEMIA, NOT HAVING ACHIEVED REMISSION SNOMED Code(s): 34784943 (2) Pancytopenia Current Visit: Yes Status: Acute Priority: High Code(s): D61.818 - OTHER PANCYTOPENIA SNOMED Code(s): 801763912 Plan: AML -New diagnosis. Pending cytogenetic results-these will impact whether patient goes to transplant immediately or completes treatment with consolidation chemotherapy. -Admit for induction chemo 7+3 regimen. PICC line placed 10/08/23, induction chemotherapy started. Continue as prescribed. -Baseline echo for cardiotoxic chemo-LVEF 55% -Supportive meds, no changes -Ambulate QID -Vital signs every shift and when necessary -Regular diet -Oral hygiene -TLS labs, CMP, CBC daily. TLS labs today negative. Will continue allopurinol. Liver and kidney function stable. Abnormalities in the CBC consistent with disease, treatment of disease, not unexpected. -Transfuse with irradiate blood products only. Transfuse for Hgb<7, and transfuse for plt <10,000 [place] [address] yesterday, 1 dose irradiated plts given, plts 12,000 today. No acute episodes of bleeding noted -Patient continues on telemetry, no abnormal rhythms reported Pancytopenia -Secondary to AML -Transfuse with irradiated blood products only -Transfuse for hemoglobin less than 7 and platelets less than 10,000, unless patient is symptomatic. Hemoglobin 7.5 today. -No G-CSF, patient is acute leukemic without confirmed remission -Patient started on prophylactic antibiotic, antifungal and antiviral for significantly low ANC -Bleeding and neutropenic precautions discussed with patient
[2023-10-13] MEDS: DEXAMETHASONE SOD PHOSPHATE 10 MG/ML 1 ML VIAL IVP SCH (21:02)
[2023-10-13] MEDS: FAMOTIDINE 20 MG/2 ML VIAL IVP SCH (21:02)
[2023-10-13] MEDS: ONDANSETRON 16 MG in SODIUM CHLORIDE 0.9% 50 ML IVPB SCH (21:02)
[2023-10-13] MEDS: SODIUM CHLORIDE 0.9% IV SCH (21:54)
[2023-10-13] MEDS: CYTARABINE IV SCH (21:54)
[2023-10-14] MEDS: SALT AND SODA MOUTHWASH 1,000 ML PO SCH ×5 (04:26→23:59)
[2023-10-14] MEDS: SODIUM CHLORIDE 0.9% 1,000 ML IV SCH ×3 (04:27→23:58)
[2023-10-14] MEDS: FLUCONAZOLE 100 MG TAB PO SCH (08:15)
[2023-10-14] MEDS: CIPROFLOXACIN HCL 500 MG TAB PO SCH ×2 (08:15→21:14)
[2023-10-14] MEDS: allopurinoL 300 MG TAB PO SCH (08:15)
[2023-10-14] MEDS: ACYCLOVIR 200 MG CAP PO SCH ×2 (08:15→21:14)
[2023-10-14 08:20] LABS: Anisocytosis Slight; MCH 34.1 pg (25.0-35.0); MCHC 35.6 g/dL (31.0-37.0); MCV 95.7 fL (80.0-100.0); Macrocytosis Slight; Mean Platelet Volume 12.8; RBC 1.92 m/uL (4.30-5.90); RDW 17.5 % (11.5-15.5)
[2023-10-14 08:31] LABS: ALT 19 U/L (4-49); AST 12 U/L (17-59); African American GFR (CKD) >90 (>60 ml/min/1.73 sqM); Albumin 3.1 g/dL (3.5-5.0); Albumin/Globulin Ratio 1.2; Alkaline Phosphatase 36 U/L (38-126); Anion Gap 5 mmol/L; Blood Urea Nitrogen 16 mg/dL (9-20); Calcium 8.4 mg/dL (8.4-10.2); Carbon Dioxide 25 mmol/L (22-30); Chloride 107 mmol/L (98-107); Globulin 2.6 g/dL; Glucose 144 mg/dL (74-99); Non-African American GFR(CKD) >90 (>60 ml/min/1.73 sqM); Phosphorus 3.9 mg/dL (2.5-4.5); Potassium 4.2 mmol/L (3.5-5.1); Sodium 137 mmol/L (137-145); Total Bilirubin 0.6 mg/dL (0.2-1.3); Total Protein 5.7 g/dL (6.3-8.2); Uric Acid 2.1 mg/dL (3.5-8.5)
[2023-10-14 08:32] LABS: Platelet Count 13 k/uL (150-450)
[2023-10-14 08:33] LABS: HCT 18.4 % (39.0-53.0); HGB 6.5 gm/dL (13.0-17.5)
[2023-10-14 08:34] LABS: WBC 0.3 k/uL (3.8-10.6)
--- NOTE | 2023-10-14 12:42 | P.PN ---
Subjective Progress Note Date: 10/14/23 Principal diagnosis: AML, inpt chemo Patient was started on induction chemotherapy 7+3 regimen evening of 10/08. Patient reports he is continuing to do well, denies any side effects to this point. No fevers, chills, sore throat, oral irritation, nausea, vomiting, shortness of breath or cough, abdominal pain or cramping, acute changes in bowel or bladder habits, no swelling, rashes or pain. Patient is ambulatory, he is tolerating oral intake. Hgb 6.5 today, 1 unit irradiated PRBCs ordered. Plts 13,000, no reported episodes of acute bleeding Objective - Vital Signs Vital signs: Vital Signs Temp 97.4 F L 10/14/23 11:17 Pulse 64 10/14/23 11:17 Resp 20 10/14/23 11:17 BP 113/67 10/14/23 11:17 Pulse Ox 99 10/14/23 11:17 FiO2 Intake & Output 10/13/23 10/14/23 10/14/23 18:59 06:59 18:59 Intake Total 1200 0 Balance 1200 0 Intake: Intake, IV Titration 1200 Amount Sodium Chloride 0.9% 1, 1200 000 ml @ 100 mls/hr IV . Q10H [facility] Rx#:[id number] Blood Product 0 Rc Irr As1 Unit 0 [id number] Other: Voiding Method Toilet Toilet Toilet - Constitutional General appearance: Present: no acute distress - EENT Eyes: Present: anicteric sclerae, EOMI ENT: Present: hearing grossly normal - Respiratory Details: breathing is even and unlabored - Cardiovascular Details: skin warm and dry - Integumentary Integumentary: Present: normal. Absent: cyanotic - Neurologic Neurologic: Present: CNII-XII intact - Musculoskeletal Musculoskeletal: Present: strength equal bilaterally - Psychiatric Psychiatric: Present: A&O x's 3 - Labs CBC & Chem 7: 10/14/23 07:14 10/14/23 07:14 Labs: Abnormal Lab Results - Last 24 Hours (Table) 10/11/23 10/14/23 10/14/23 Range/Units 10:49 07:14 07:14 WBC 0.3 L* (3.8-10.6) k/uL RBC 1.92 L (4.30-5.90) m/uL Hgb 6.5 L* (13.0-17.5) gm/dL Hct 18.4 L* (39.0-53.0) % RDW 17.5 H (11.5-15.5) % Plt Count 13 L* (150-450) k/uL Glucose 144 H (74-99) mg/dL Uric Acid 2.1 L (3.5-8.5) mg/dL AST 12 L (17-59) U/L Alkaline Phosphatase 36 L (38-126) U/L Total Protein 5.7 L (6.3-8.2) g/dL Albumin 3.1 L (3.5-5.0) g/dL Crossmatch See Detail Assessment and Plan (1) Acute myeloid leukemia, without mention of having achieved remission Current Visit: Yes Status: Acute Priority: High Code(s): C92.00 - ACUTE MYELOBLASTIC LEUKEMIA, NOT HAVING ACHIEVED REMISSION SNOMED Code(s): 01466118 (2) Pancytopenia Current Visit: Yes Status: Acute Priority: High Code(s): D61.818 - OTHER PANCYTOPENIA SNOMED Code(s): 194194626 Plan: AML -New diagnosis. Pending cytogenetic results-these will impact whether patient goes to transplant immediately or completes treatment with consolidation chemotherapy. -Admit for induction chemo 7+3 regimen. PICC line placed 10/08/23, induction chemotherapy started. Tolerating treatment well, continue as prescribed. -Baseline echo for cardiotoxic chemo-LVEF 55% -Supportive meds, no changes -Ambulate QID -Vital signs every shift and when necessary -Regular diet -Oral hygiene -TLS labs, CMP, CBC daily. TLS labs negative. Continue allopurinol. Liver and kidney function stable. Abnormalities in the CBC consistent with disease, treatment of disease, not unexpected. -Transfuse with irradiate blood products only. -Patient continues on telemetry, no abnormal rhythms reported Pancytopenia -Secondary to AML -Transfuse with irradiated blood products only -Transfuse for hemoglobin less than 7 and for platelets less than 10,000, or if symptomatic. Plts 13,000, s/p 1 dose platelets. No acute episodes of bleeding noted. Hgb 6.5 today, 1 unit PRBCs ordered -No G-CSF, patient is acute leukemic without confirmed remission -Continues on prophylactic antibiotic, antifungal and antiviral for significantly low ANC -Bleeding and neutropenic precautions discussed with patient
[2023-10-14] MEDS: FAMOTIDINE 20 MG/2 ML VIAL IVP SCH (21:27)
[2023-10-14] MEDS: DEXAMETHASONE SOD PHOSPHATE 10 MG/ML 1 ML VIAL IVP SCH (21:27)
[2023-10-14] MEDS: ONDANSETRON 16 MG in SODIUM CHLORIDE 0.9% 50 ML IVPB SCH (21:28)
[2023-10-14] MEDS: CYTARABINE IV SCH (21:45)
[2023-10-14] MEDS: SODIUM CHLORIDE 0.9% IV SCH (21:45)
[2023-10-15] MEDS: SALT AND SODA MOUTHWASH 1,000 ML PO SCH ×4 (06:02→20:46)
[2023-10-15] MEDS: SODIUM CHLORIDE 0.9% 1,000 ML IV SCH ×2 (06:02→20:46)
[2023-10-15 06:40] LABS: Anisocytosis Slight; HGB 7.1 gm/dL (13.0-17.5); MCH 33.5 pg (25.0-35.0); MCHC 36.6 g/dL (31.0-37.0); MCV 91.6 fL (80.0-100.0); Mean Platelet Volume 8.2; RBC 2.12 m/uL (4.30-5.90)
[2023-10-15 06:42] LABS: ALT 24 U/L (4-49); AST 14 U/L (17-59); African American GFR (CKD) >90 (>60 ml/min/1.73 sqM); Albumin 3.1 g/dL (3.5-5.0); Albumin/Globulin Ratio 1.1; Alkaline Phosphatase 35 U/L (38-126); Anion Gap 7 mmol/L; Blood Urea Nitrogen 17 mg/dL (9-20); Calcium 8.4 mg/dL (8.4-10.2); Carbon Dioxide 24 mmol/L (22-30); Chloride 106 mmol/L (98-107); Globulin 2.7 g/dL; Glucose 150 mg/dL (74-99); Non-African American GFR(CKD) >90 (>60 ml/min/1.73 sqM); Phosphorus 4.5 mg/dL (2.5-4.5); Potassium 4.3 mmol/L (3.5-5.1); Sodium 137 mmol/L (137-145); Total Bilirubin 0.7 mg/dL (0.2-1.3); Total Protein 5.8 g/dL (6.3-8.2); Uric Acid 2.2 mg/dL (3.5-8.5)
[2023-10-15 06:43] LABS: HCT 19.4 % (39.0-53.0); Platelet Count 16 k/uL (150-450); WBC 0.3 k/uL (3.8-10.6)
[2023-10-15] MEDS: allopurinoL 300 MG TAB PO SCH (08:21)
[2023-10-15] MEDS: CIPROFLOXACIN HCL 500 MG TAB PO SCH ×2 (08:21→20:46)
[2023-10-15] MEDS: ACYCLOVIR 200 MG CAP PO SCH ×2 (08:21→20:46)
[2023-10-15] MEDS: FLUCONAZOLE 100 MG TAB PO SCH (08:22)
--- NOTE | 2023-10-15 10:46 | P.PN ---
Subjective Progress Note Date: 10/15/23 Principal diagnosis: AML, Admit for induction chemotherapy 7+3 regimen Patient was started on induction chemotherapy 7+3 regimen evening of 10/08, he will be completing late this evening. Patient cont to do well, denies any side effects to this point. No fevers, chills, sore throat, oral irritation, nausea, vomiting, shortness of breath or cough, abdominal pain or cramping, acute changes in bowel or bladder habits, no swelling, rashes or pain. Patient is ambulatory, he is tolerating oral intake. Objective - Vital Signs Vital signs: Vital Signs Temp 98.1 F 10/15/23 07:27 Pulse 60 10/15/23 07:27 Resp 16 10/15/23 07:27 BP 112/62 10/15/23 07:27 Pulse Ox 98 10/15/23 07:27 FiO2 Intake & Output 10/14/23 10/15/23 10/15/23 18:59 06:59 18:59 Intake Total 1510 2290 Balance 1510 2290 Intake: Intake, IV Titration 1200 1490 Amount Cytarabine 420 mg In 240 Sodium Chloride 0.9% 500 ml 500 ml @ 21.708 mls/hr IV Q24H [facility] Rx#: [id number] Ondansetron 16 mg In 50 Sodium Chloride 0.9% 50 ml @ 232 mls/hr IVPB DAILY@1200 [facility] Rx#: [id number] Sodium Chloride 0.9% 1, 1200 1200 000 ml @ 100 mls/hr IV . Q10H [facility] Rx#:[id number] Oral 800 Blood Product 310 Rc Irr As1 Unit 310 [id number] Other: Voiding Method Toilet Toilet Toilet # Voids 5 - Constitutional General appearance: Present: average body habitus, cooperative, no acute distress - EENT Eyes: Present: anicteric sclerae, EOMI ENT: Present: hearing grossly normal, normal oropharynx - Respiratory Respiratory: bilateral: CTA - Cardiovascular Rhythm: regular Heart sounds: normal: S1, S2 Abnormal Heart Sounds: Absent: systolic murmur, diastolic murmur, rub, S3 Gallop, S4 Gallop, click, other - Peripheral edema leg Peripheral Edema: bilateral: None - Gastrointestinal General gastrointestinal: Present: normal bowel sounds, soft. Absent: absent bowel sounds, decreased bowel sounds, distended, hepatomegaly, hyperactive bowel sounds, organomegaly, rigid, scaphoid, splenomegaly, tenderness, umbilical hernia, ventral hernia - Integumentary Integumentary: Present: normal - Neurologic Neurologic: Present: CNII-XII intact - Musculoskeletal Musculoskeletal: Present: strength equal bilaterally - Psychiatric Psychiatric: Present: A&O x's 3, appropriate affect, intact judgment & insight - Labs CBC & Chem 7: 10/15/23 05:39 10/15/23 05:39 Labs: Abnormal Lab Results - Last 24 Hours (Table) 10/11/23 10/15/23 10/15/23 Range/Units 10:49 05:39 05:39 WBC 0.3 L* (3.8-10.6) k/uL RBC 2.12 L (4.30-5.90) m/uL Hgb 7.1 L (13.0-17.5) gm/dL Hct 19.4 L* (39.0-53.0) % RDW 19.0 H (11.5-15.5) % Plt Count 16 L* (150-450) k/uL Glucose 150 H (74-99) mg/dL Uric Acid 2.2 L (3.5-8.5) mg/dL AST 14 L (17-59) U/L Alkaline Phosphatase 35 L (38-126) U/L Total Protein 5.8 L (6.3-8.2) g/dL Albumin 3.1 L (3.5-5.0) g/dL Crossmatch See Detail Assessment and Plan (1) Acute myeloid leukemia, without mention of having achieved remission Current Visit: Yes Status: Acute Priority: High Code(s): C92.00 - ACUTE MYELOBLASTIC LEUKEMIA, NOT HAVING ACHIEVED REMISSION SNOMED Code(s): 82217222 (2) Pancytopenia Current Visit: Yes Status: Acute Priority: High Code(s): D61.818 - OTHER PANCYTOPENIA SNOMED Code(s): 528919882 Plan: AML -New diagnosis. Pending cytogenetic results-these will impact whether patient goes to transplant immediately or completes treatment with consolidation chemotherapy. -Admit for induction chemo 7+3 regimen. PICC line placed 10/08/23, induction chemotherapy started. Continue as prescribed. Induction treatment should be completing this evening -Baseline echo for cardiotoxic chemo-LVEF 55% -Supportive meds, no changes -Ambulate QID -Vital signs every shift and when necessary -Regular diet -Oral hygiene -TLS labs-uric acid 2.2, phosphorus 4.5, continue on allopurinol for prevention of TLS. -Liver and renal function stable. -CBC showing WBC 0.3, hemoglobin 7.1, hematocrit 19.4, platelets 16,000. No transfusions today. Abnormalities in the CBC consistent with disease, treatment of disease, not unexpected. -Transfuse with irradiate blood products only. Transfuse for Hgb<7. Transfuse for plt <10,000 [place] if [place]t [address] today -Patient continues on telemetry, no abnormal rhythms reported Pancytopenia -Secondary to AML -Transfuse with irradiated blood products only -Transfuse for hemoglobin less than 7 and platelets less than 10,000, unless patient is symptomatic. -No G-CSF, patient is acute leukemic without confirmed remission -Patient started on prophylactic antibiotic, antifungal and antiviral for significantly low ANC, cont. Plans for discharge in the a.m. Prescriptions will be sent to D[facility] Rothman. Orders for lab draws and parameters for transfusion being sent to [facility]. attests: I have seen and examined patient, performed H&P, developed impression and plan of care. Discussed with dictator. Agree with documentation, dictated as a scribe.
[2023-10-15 12:36] VITALS: BMI 25.1
[2023-10-16] MEDS: SALT AND SODA MOUTHWASH 1,000 ML PO SCH ×5 (00:20→20:15)
[2023-10-16] MEDS: allopurinoL 300 MG TAB PO SCH (08:34)
[2023-10-16] MEDS: CIPROFLOXACIN HCL 500 MG TAB PO SCH ×2 (08:35→20:14)
[2023-10-16] MEDS: FLUCONAZOLE 100 MG TAB PO SCH (08:35)
[2023-10-16] MEDS: ACYCLOVIR 200 MG CAP PO SCH ×2 (08:35→20:14)
[2023-10-16 08:55] LABS: Anisocytosis Slight; HCT 22.1 % (39.0-53.0); HGB 7.7 gm/dL (13.0-17.5); MCH 32.3 pg (25.0-35.0); MCV 92.1 fL (80.0-100.0); Mean Platelet Volume 9.2; RDW 18.4 % (11.5-15.5)
[2023-10-16 08:57] LABS: WBC 0.7 k/uL (3.8-10.6)
[2023-10-16 08:58] LABS: ALT 26 U/L (4-49); AST 14 U/L (17-59); African American GFR (CKD) >90 (>60 ml/min/1.73 sqM); Albumin 3.1 g/dL (3.5-5.0); Albumin/Globulin Ratio 1.1; Alkaline Phosphatase 33 U/L (38-126); Anion Gap 6 mmol/L; Blood Urea Nitrogen 20 mg/dL (9-20); Calcium 8.2 mg/dL (8.4-10.2); Carbon Dioxide 24 mmol/L (22-30); Chloride 107 mmol/L (98-107); Globulin 2.8 g/dL; Glucose 95 mg/dL (74-99); Non-African American GFR(CKD) >90 (>60 ml/min/1.73 sqM); Phosphorus 4.2 mg/dL (2.5-4.5); Potassium 3.7 mmol/L (3.5-5.1); Sodium 137 mmol/L (137-145); Total Bilirubin 0.5 mg/dL (0.2-1.3); Total Protein 5.9 g/dL (6.3-8.2); Uric Acid 1.7 mg/dL (3.5-8.5)
[2023-10-16 09:00] LABS: Platelet Count 8 k/uL (150-450)
[2023-10-16] MEDS: SODIUM CHLORIDE 0.9% 1,000 ML IV SCH (11:57)
[2023-10-16] MEDS ORDERED: LOPERAMIDE 2 MG CAP PO STA (12:24)
[2023-10-16 19:10] VITALS: PULSE 82; RESP 18
[2023-10-16 21:16] VITALS: BP 133/68; TEMP 98.6
--- NOTE | 2023-10-16 23:08 | P.DS ---
Providers Date of admission: 10/08/23 08:10 Expected date of discharge: 10/16/23 Attending physician: Eusebio Naranjo Primary care physician: Caio Patel - Discharge Diagnosis(es) (1) Acute myeloid leukemia, without mention of having achieved remission Status: Acute Priority: High (2) Pancytopenia Status: Acute Priority: High Hospital Course: Pt admitted for induction chemotherapy for AML with 7+3 regimen. He tolerated treatment well overall, required 2 units PRBCs and 2 units SDP. He had some diarrhea today but felt might be related to pizza he ate last night. Remained afebrile, no N,V, oral irritation, cough, urine symptoms, rash, swelling, or pain, remained ambulatory and ate overall well. Assessment: WD, WN, NAD, A&Ox4, oral mucosa free of thrush or lesions, BBS CTA, resp effort unlabored, S1S2, abs soft, non-tender, no swelling, neuro deficits. Health Concerns: Reviewed neutropenic precautions, self care, handwashing, temp monitoring Pertinent Studies: none Procedures: PICC line insertion Patient Condition at Discharge: Stable Plan - Discharge Summary Discharge Rx Participant: No New Discharge Prescriptions: New allopurinoL 300 mg PO DAILY #30 tab Ciprofloxacin HCl [Cipro] 500 mg PO Q12HR 1 Days #60 tab Fluconazole [Diflucan] 100 mg PO DAILY #30 tablet Acyclovir [Zovirax] 400 mg PO BID #60 tablet Ondansetron [Ondansetron Odt] 4 mg PO Q4H PRN #45 tab PRN Reason: Nausea Discharge Medication List Acyclovir [Zovirax] 400 mg PO BID #60 tablet 10/15/23 [Rx] Ciprofloxacin HCl [Cipro] 500 mg PO Q12HR 1 Days #60 tab 10/15/23 [Rx] Fluconazole [Diflucan] 100 mg PO DAILY #30 tablet 10/15/23 [Rx] Ondansetron [Ondansetron Odt] 4 mg PO Q4H PRN #45 tab 10/15/23 [Rx] allopurinoL 300 mg PO DAILY #30 tab 10/15/23 [Rx] Follow up Appointment(s)/Referral(s): Eusebio Naranjo [STAFF PHYSICIAN] - 10/17/23 9:00 am (THIS IS FOR CBC. APPT AT THE [facility] ON [facility] ) Patient Instructions/Handouts: Ciprofloxacin (By mouth), Allopurinol (By [facility]), Acyclovir (By mouth), Fluconazole (By mouth), Ondansetron (By mouth), PICC (Peripherally Inserted Central Catheter) (GEN) Activity/Diet/Wound Care/Special Instructions: ACTIVITY TOLERATED DIET TOLERATED. NO UNDERCOOKED MEAT. WASH ALL FRESH FRUITS AND VEG, IF CANNOT WASH ADEQUATELY DO NOT EAT TEMP MONITORING. 100.5F RETURN TO HOSPITAL LIBERAL FLUIDS PICC LINE CARE (DRESSING WILL BE CHANGED AND LINE WILL BE FLUSHED THREE TIMES A WEEK AT [facility]COLOGISTS OFFICE) Discharge Disposition: HOME SELF-CARE Pending Studies Pending Results: none Dr attests: I have seen and examined pt, performed H&P, developed impression and plan of care. Discussed with dictator. Agree with documentation, dictated as a scribe.
== END 2023-10-16 20:50 | disposition home or self-care (01) | DRG 838 ==
LOC: 5NMEDONC 08:10
PROVIDERS: ADMIT Internal Medicine Hematology & Oncology; ATTEND Internal Medicine Hematology & Oncology
PROC: 02HV33Z Insertion of Infusion Device into Superior Vena Cava, Percutaneous Approach (ICD-10-PCS; 2023-10-08)
PROC: 3E04305 Introduction of Other Antineoplastic into Central Vein, Percutaneous Approach (ICD-10-PCS; principal; 2023-10-08 18:00)
PROC: 30243N1 Transfusion of Nonautologous Red Blood Cells into Central Vein, Percutaneous Approach (ICD-10-PCS; 2023-10-11)
PROC: 30243R1 Transfusion of Nonautologous Platelets into Central Vein, Percutaneous Approach (ICD-10-PCS; 2023-10-12)
DX: Z51.11 Encounter for antineoplastic chemotherapy (principal); C92.00 Acute myeloblastic leukemia, not having achieved remission; D61.818 Other pancytopenia; Z80.0 Family history of malignant neoplasm of digestive organs; Z87.891 Personal history of nicotine dependence; Z88.0 Allergy status to penicillin
CPT/HCPCS: 36573; 80053; 83735; 84100; 84550; 85025; 86850; 86900; 86901; 86920; 93306

== ENCOUNTER 2023-10-18 07:09 | Inpatient (IN) | payer BC ==
[2023-10-18] MEDS ORDERED: ACETAMINOPHEN TAB 500 MG TAB PO STA (08:00)
[2023-10-18] MEDS ORDERED: SODIUM CHLORIDE 0.9% 1,000 ML IV STA (08:00)
--- NOTE | 2023-10-18 08:11 | ED ---
General Adult HPI - General Chief complaint: Fever Stated complaint: Fever Time Seen by Provider: 10/18/23 07:44 Source: patient Mode of arrival: ambulatory Limitations: no limitations - History of Present Illness Initial comments: Dictation was produced using [employer] dictation software. please excuse any grammatical, word or spelling errors. Chief Complaint: 43-year-old male presents emergency part for fever History of Present Illness: 43-year-old male with recently diagnosed leukemia presents emergency department for fever since 4 AM this morning. Patient had chemotherapy on Sunday and was instructed to monitor his temperatures. Abdomen is temperature was 101.5. He spoke with his oncologist and was instructed to come to the emergency room. Patient has no localizing symptoms. Otherwise feels at baseline. The ROS documented in this emergency department record has been reviewed and confirmed by me. Those systems with pertinent positive or negative responses have been documented in the HPI. All other systems are other negative and/or noncontributory. - Related Data Previous Rx's Medication Instructions Recorded Acyclovir [Zovirax] 400 mg PO BID #60 tablet 10/15/23 Ciprofloxacin HCl [Cipro] 500 mg PO Q12HR 1 Days #60 tab 10/15/23 Fluconazole [Diflucan] 100 mg PO DAILY #30 tablet 10/15/23 Ondansetron [Ondansetron Odt] 4 mg PO Q4H PRN #45 tab 10/15/23 allopurinoL 300 mg PO DAILY #30 tab 10/15/23 Allergies Allergy/AdvReac Type Severity Reaction Status Date / Time Penicillins Allergy Unknown Verified 10/18/23 07:42 Childhood Review of Systems ROS Statement: Those systems with pertinent positive or pertinent negative responses have been documented in the HPI. ROS Other: All systems not noted in ROS Statement are negative. Past Medical History Past Medical History: No Reported History, Cancer Additional Past Medical History / Comment(s): Acute myeloid leukemia diagnosed in 2022 History of Any Multi-Drug Resistant Organisms: None Reported Past Surgical History: No Surgical Hx Reported Additional Past Surgical History / Comment(s): hernia surgery scheduled with dr solitario in Past Anesthesia/Blood Transfusion Reactions: No Reported Reaction Past Psychological History: No Psychological Hx Reported Smoking Status: Former smoker Past Alcohol Use History: Occasional Past Drug Use History: None Reported - Past Family History Mother Additional Family Medical History / Comment(s): bladder and stomach cancer General Exam - General Exam Comments Initial Comments: PHYSICAL EXAM: General Impression: Alert and oriented x3, not in acute distress HEENT: Normocephalic atraumatic, extra-ocular movements intact, pupils equal and reactive to light bilaterally, mucous membranes moist. Cardiovascular: Heart regular rate and rhythm Chest: Able to complete full sentences, no retractions, no tachypnea Abdomen: abdomen soft, non-tender, non-distended, no organomegaly Musculoskeletal: Pulses present and equal in all extremities, no peripheral edema Motor: no focal deficits noted Neurological: CN II-XII grossly intact, no focal motor or sensory deficits noted Skin: Intact with no visualized rashes, left upper extremity indwelling PICC line Psych: Normal affect and mood Limitations: no limitations Course Vital Signs 10/18/23 10/18/23 10/18/23 07:40 09:33 10:00 Temperature 101 F H 102.6 F H 102.5 F H Pulse Rate 121 H 99 Respiratory 20 18 Rate Blood Pressure 142/70 122/68 O2 Sat by Pulse 100 99 Oximetry EKG Findings - EKG Comments: EKG Findings:: My EKG interpretation: Ventricular rate 87, sinus rhythm,. 148, QRS 84, QTC 373. No MO prolongation, no QTC prolongation, no ST or T-wave changes noted. EKG compared to 09/25/2023 showing no changes. Overall, this EKG is unremarkable Medical Decision Making - Medical Decision Making Was pt. sent in by a medical professional or institution (, PA, RESIDENT MANAGER, urgent care, hospital, or prison...) When possible be specific @ -No Did you speak to anyone other than the patient for history (EMS, parent, family, police, friend...)? What history was obtained from this source @ -No Did you review nursing and triage notes (agree or disagree)? Why? @ -I reviewed and agree with nursing and triage notes Were old charts reviewed (outside hosp., previous admission, EMS record, old EKG, old radiological studies, urgent care reports/EKG's, prison records)? Report findings @ -No old charts were reviewed Differential Diagnosis (chest pain, altered mental status, abdominal pain women, abdominal pain men, vaginal bleeding, musculoskeletal, weakness, fever, dyspnea, syncope, headache, dizziness, GI bleed, back pain, seizure, CVA, palpatations, mental health)? @ -Differential Fever: Pneumonia, viral URI, endocarditis, myocarditis, pericarditis, otitis, sinusitis, peritonsillar Abscess, retropharyngeal Abscess, epiglottitis, peritonitis, appendicitis, Allyson cystitis, diverticulitis, hepatitis, colitis, UTI, PID, TOA, pyelonephritis, prostatitis, epididymitis, meningitis, encephalitis, pulmonary embolism, CVA, thyroid storm, pancreatitis, adrenal crisis, cavernous sinus thrombosis, this is not meant to be an all-inclusive list. EKG interpreted by me (3pts min.). @ -None done X-rays interpreted by me (1pt min.). @ -Chest x-ray is nonacute CT interpreted by me (1pt min.). @ -None done U/S interpreted by me (1pt. min.). @ -None done What testing was considered but not performed or refused? (CT, X-rays, U/S, labs)? Why? @ -None What meds were considered but not given or refused? Why? @ -None Did you discuss the management of the patient with other professionals (pro fessionals i.e. , PA, RESIDENT MANAGER, lab, RT, psych nurse, social work professor, clarity developer, teacher, morale officer, welfare case worker)? Give summary @ -Discussed with hospitalist for admission Was smoking cessation discussed for >3mins.? @ -No Was critical care preformed (if so, how long)? @ -No Were there social determinants of health that impacted care today? How? (Homelessness, low income, unemployed, alcoholism, drug addiction, transportation, low edu. Level, literacy, decrease access to med. care, group home, rehab)? @ -No Was there de-escalation of care discussed even if they declined (Discuss DNR or withdrawal of care, Hospice)? DNR status @ -No What co-morbidities impacted this encounter? (DM, HTN, Smoking, COPD, CAD, Ca ncer, CVA, ARF, Chemo, Hep., AIDS, mental health diagnosis, sleep apnea, morbid obesity)? @ -None Was patient admitted / discharged? Hospital course, mention meds given and route, prescriptions, significant lab abnormalities, going to OR and other pertinent info. @ -3-year-old male presents to the emergency department for fever. 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 Vital signs upon arrival shows temperature 11, heart rate of 121, worse vital signs within acceptable limits. Patient has no localizing symptoms. Patient's leukopenic at 0.1. White count of 9. Metabolic panel is unremarkable. Urinalysis negative. Viral testing negative. Patient admitted breast which metabolic started. Oncology will be consulted. Undiagnosed new problem with uncertain prognosis? @ -No Drug Therapy requiring intensive monitoring for toxicity (Heparin, Nitro, Insulin, Cardizem)? @ -No Were any procedures done? @ -No Diagnosis/symptom? Acute, or Chronic, or Acute on Chronic? Uncomplicated (without systemic symptoms) or Complicated (systemic symptoms)? @ -Neutropenic fever Side effects of treatment? @ -No Exacerbation, Progression, or Severe Exacerbation? @ -No Poses a threat to life or bodily function? How? (Chest pain, [place], [place], pneumonia, PE, COPD, DKA, ARF, appy, cholecystitis, CVA, Diverticulitis, Homicidal, Suicidal, threat to staff... and all critical care pts) @ -yes - Lab Data Result diagrams: 10/18/23 09:11 10/18/23 09:11 Lab Results 10/18/23 10/18/23 10/18/23 Range/Units 09:11 09:11 09:11 WBC 0.1 L* (3.8-10.6) k/uL RBC 2.28 L (4.30-5.90) m/uL Hgb 7.3 L (13.0-17.5) gm/dL Hct 20.7 L (39.0-53.0) % MCV 90.8 (80.0-100.0) fL MCH 31.9 (25.0-35.0) pg MCHC 35.2 (31.0-37.0) g/dL RDW 17.6 H (11.5-15.5) % Plt Count 9 L* (150-450) k/uL MPV 7.9 Neutrophils # RESIDENT MANAGER Differential Comment Manual Slide Review Performed Polychromasia Present Anisocytosis Slight PT 10.7 (10.0-12.5) sec INR 1.0 (<1.2) APTT 24.9 (22.0-30.0) sec Sodium (137-145) mmol/L Potassium (3.5-5.1) mmol/L Chloride (98-107) mmol/L Carbon Dioxide (22-30) mmol/L Anion Gap mmol/L BUN (9-20) mg/dL Creatinine (0.66-1.25) mg/dL Est GFR (CKD-EPI)AfAm (>60 ml/min/1.73 sqM) Est GFR (CKD-EPI)NonAf (>60 ml/min/1.73 sqM) Glucose (74-99) mg/dL Plasma Lactic Acid Antony (0.7-2.0) mmol/L Calcium (8.4-10.2) mg/dL Total Bilirubin (0.2-1.3) mg/dL AST (17-59) U/L ALT (4-49) U/L Alkaline Phosphatase (38-126) U/L Total Protein (6.3-8.2) g/dL Albumin (3.5-5.0) g/dL Urine Color Colorless Urine Appearance Clear (Clear) Urine pH 7.0 (5.0-8.0) Ur Specific [place] 1.018 (1.001-1.035) Urine Protein Negative (Negative) Urine Glucose (UA) Negative (Negative) Urine Ketones Negative (Negative) Urine Blood Negative (Negative) Urine Nitrite Negative (Negative) Urine Bilirubin Negative (Negative) Urine Urobilinogen <2.0 (<2.0) mg/dL Ur Leukocyte Esterase Negative (Negative) Influenza Type A (PCR) (Not Detectd) Influenza Type B (PCR) (Not Detectd) RSV (PCR) (Not Detectd) SARS-CoV-2 (PCR) (Not Detectd) 10/18/23 10/18/23 10/18/23 Range/Units 09:11 09:11 09:11 WBC (3.8-10.6) k/uL RBC (4.30-5.90) m/uL Hgb (13.0-17.5) gm/dL Hct (39.0-53.0) % MCV (80.0-100.0) fL MCH (25.0-35.0) pg MCHC (31.0-37.0) g/dL RDW (11.5-15.5) % Plt Count (150-450) k/uL MPV Neutrophils # Differential Comment Manual Slide Review Polychromasia Anisocytosis PT (10.0-12.5) sec INR (<1.2) APTT (22.0-30.0) sec Sodium 131 L (137-145) mmol/L Potassium 4.1 (3.5-5.1) mmol/L Chloride 98 (98-107) mmol/L Carbon Dioxide 24 (22-30) mmol/L Anion Gap 9 mmol/L BUN 21 H (9-20) mg/dL Creatinine 0.68 (0.66-1.25) mg/dL Est GFR (CKD-EPI)AfAm >90 (>60 ml/min/1.73 sqM) Est GFR (CKD-EPI)NonAf >90 (>60 ml/min/1.73 sqM) Glucose 102 H (74-99) mg/dL Plasma Lactic Acid Antony 0.7 (0.7-2.0) mmol/L Calcium 8.4 (8.4-10.2) mg/dL Total Bilirubin 0.9 (0.2-1.3) mg/dL AST 13 L (17-59) U/L ALT 20 (4-49) U/L Alkaline Phosphatase 38 (38-126) U/L Total Protein 6.1 L (6.3-8.2) g/dL Albumin 3.4 L (3.5-5.0) g/dL Urine Color Urine Appearance (Clear) Urine pH (5.0-8.0) Ur Specific [place] (1.001-1.035) Urine Protein (Negative) Urine Glucose (UA) (Negative) Urine Ketones (Negative) Urine Blood (Negative) Urine Nitrite (Negative) Urine Bilirubin (Negative) Urine Urobilinogen (<2.0) mg/dL Ur Leukocyte Esterase (Negative) Influenza Type A (PCR) Not Detected (Not Detectd) Influenza Type B (PCR) Not Detected (Not Detectd) RSV (PCR) Not Detected (Not Detectd) SARS-CoV-2 (PCR) Not Detected (Not Detectd) Disposition Clinical Impression: Neutropenic fever Disposition: ADMITTED IP TO THIS [facility] Condition: Serious Referrals: Caio Patel MD [Primary Care Provider] - 1-2 days Decision Time: 10:45
[2023-10-18 09:44] LABS: Appearance,Urine Clear (Clear); Bilirubin,Urine Negative (Negative); Blood,Urine Negative (Negative); Color,Urine Colorless; Glucose,Urine (UA) Negative (Negative); Ketones,Urine Negative (Negative); Leukocyte Esterase,Urine Negative (Negative); Nitrite,Urine Negative (Negative); Protein,Urine Negative (Negative); Specific Gravity,Urine 1.018 (1.001-1.035); Urobilinogen,Urine <2.0 mg/dL (<2.0)
[2023-10-18 09:46] LABS: Partial Thromboplastin Time 24.9 sec (22.0-30.0); Prothrombin Time 10.7 sec (10.0-12.5)
[2023-10-18 09:47] LABS: Anisocytosis Slight; HCT 20.7 % (39.0-53.0); HGB 7.3 gm/dL (13.0-17.5); MCH 31.9 pg (25.0-35.0); MCHC 35.2 g/dL (31.0-37.0); MCV 90.8 fL (80.0-100.0); Mean Platelet Volume 7.9; RBC 2.28 m/uL (4.30-5.90); RDW 17.6 % (11.5-15.5)
[2023-10-18 09:52] LABS: WBC 0.1 k/uL (3.8-10.6)
[2023-10-18 09:54] LABS: ALT 20 U/L (4-49); AST 13 U/L (17-59); African American GFR (CKD) >90 (>60 ml/min/1.73 sqM); Albumin 3.4 g/dL (3.5-5.0); Alkaline Phosphatase 38 U/L (38-126); Anion Gap 9 mmol/L; Blood Urea Nitrogen 21 mg/dL (9-20); Calcium 8.4 mg/dL (8.4-10.2); Carbon Dioxide 24 mmol/L (22-30); Chloride 98 mmol/L (98-107); Glucose 102 mg/dL (74-99); Non-African American GFR(CKD) >90 (>60 ml/min/1.73 sqM); Potassium 4.1 mmol/L (3.5-5.1); Sodium 131 mmol/L (137-145); Total Bilirubin 0.9 mg/dL (0.2-1.3); Total Protein 6.1 g/dL (6.3-8.2)
[2023-10-18] MEDS ORDERED: VANCOMYCIN IV PER PHARMACY 1 EACH MISC MISCELLANE PRN (09:56)
[2023-10-18] MEDS ORDERED: CEFEPIME 2 GM in SODIUM CHLORIDE 0.9% 100 ML IVPB STA (09:56)
[2023-10-18] MEDS ORDERED: VANCOMYCIN 1,500 MG in SODIUM CHLORIDE 0.9% 500 ML 500 ML IVPB STA (10:00)
[2023-10-18 10:27] LABS: Polychromasia Present
[2023-10-18] MEDS ORDERED: NALOXONE 0.4 MG/ML 1 ML VIAL IV PRN (10:28)
[2023-10-18 10:29] LABS: Platelet Count 9 k/uL (150-450)
--- NOTE | 2023-10-18 10:30 | XR ---
EXAMINATION TYPE: XR chest 1V portable DATE OF EXAM: 10/18/2023 COMPARISON: NONE HISTORY: Chest pain TECHNIQUE: Single frontal view of the chest is obtained. FINDINGS: There is no focal air space opacity, pleural effusion, or pneumothorax seen. The cardiac silhouette size is within normal limits. The osseous structures are intact. Left-sided PICC line is appropriately placed. IMPRESSION: 1. No acute process.
[2023-10-18] MEDS ORDERED: ACETAMINOPHEN TAB 325 MG TAB PO PRN (10:42)
[2023-10-18] MEDS ORDERED: bisacodyL 5 MG TABLET.DR PO PRN (10:42)
[2023-10-18] MEDS ORDERED: MELATONIN 5 MG TABLET PO PRN (10:42)
[2023-10-18] MEDS: SODIUM CHLORIDE 0.9% 1,000 ML IV SCH ×3 (12:03→21:35)
[2023-10-18] MEDS ORDERED: SODIUM CHLORIDE 0.9% 1,000 ML IV ONE (12:27)
--- NOTE | 2023-10-18 12:39 | P.CONS ---
History of Present Illness - Reason for Consult Consult date: 10/18/23 Neutropenic fever, AML status post induction - History of Present Illness The patient is a 43-year-old otherwise healthy male, with a recent diagnosis of acute myeloid leukemia in 09/17, when he had presented with pancytopenia with blasts on peripheral smear. The patient was admitted to the hospital for induction chemotherapy with the 7+3 regimen on 10/08/23. He tolerated that well, and was discharged home on 10/16/23, on prophylactic antibiotics that his Cipro, Diflucan and acyclovir with scheduling for labs and transfusion support as an outpatient. The patient's called in the early a.m. today, stating that he had a fever of 101+. He was therefore advised to go to the ER. The patient denied any localizing symptoms. In the ER he was again noted to have temperatures in the 101-102 range. He subsequently developed shaking chills. He is therefore being admitted for further management. On admission platelets were 9000, and hemoglobin 7.1. Urine and chest x-ray were negative. Viral serologies were also negative. Review of Systems Constitutional: Reports chills, Reports fatigue, Reports fever Eyes: denies blurred vision, denies pain Ears: deny: decreased hearing, ear discharge, earache, tinnitus Ears, nose, mouth and throat: Denies headache, Denies sore throat Cardiovascular: Reports decreased exercise tolerance Respiratory: Denies cough Gastrointestinal: Denies abdominal pain, Denies diarrhea, Denies nausea, Denies vomiting Genitourinary: Reports as per HPI Musculoskeletal: Denies myalgias Integumentary: Denies pruritus, Denies rash Neurological: Denies numbness, Denies weakness Psychiatric: Denies anxiety, Denies depression Endocrine: Reports fatigue Hematologic/Lymphatic: Reports as per HPI Past Medical History Past Medical History: No Reported History, Cancer Additional Past Medical History / Comment(s): Acute myeloid leukemia diagnosed in 2022 History of Any Multi-Drug Resistant Organisms: None Reported Past Surgical History: No Surgical Hx Reported Additional Past Surgical History / Comment(s): hernia surgery scheduled with dr solitario in Past Anesthesia/Blood Transfusion Reactions: No Reported Reaction Smoking Status: Former smoker - Past Family History Mother Additional Family Medical History / Comment(s): bladder and stomach cancer Medications and Allergies Home Medications Medication Instructions Recorded Confirmed Type Acyclovir [Zovirax] 400 mg PO BID #60 tablet 10/15/23 10/18/23 Rx Ciprofloxacin HCl [Cipro] 500 mg PO Q12HR 1 Days #60 tab 10/15/23 10/18/23 Rx Fluconazole [Diflucan] 100 mg PO DAILY #30 tablet 10/15/23 10/18/23 Rx Ondansetron [Ondansetron Odt] 4 mg PO Q4H PRN #45 tab 10/15/23 10/18/23 Rx allopurinoL 300 mg PO DAILY #30 tab 10/15/23 10/18/23 Rx Allergies Allergy/AdvReac Type Severity Reaction Status Date / Time Penicillins Allergy Unknown Verified 10/18/23 11:31 Childhood Physical Exam Vitals: Vital Signs Temp Pulse Pulse Resp BP BP Pulse Ox 10/18/23 12:25 101.4 F H 120 H 18 93/60 100 10/18/23 11:47 112 H 18 109/43 98 10/18/23 11:24 102.5 F H 10/18/23 10:00 102.5 F H 99 18 122/68 99 10/18/23 09:33 102.6 F H 10/18/23 07:40 101 F H 121 H 20 142/70 100 Intake and Output 10/17/23 10/18/23 10/18/23 22:59 06:59 14:59 Other: Weight 90.718 kg - Constitutional General appearance: no acute distress - EENT Eyes: EOMI, PERRLA ENT: hearing grossly normal, normal oropharynx - Neck Neck: no lymphadenopathy Thyroid: bilateral: normal size - Respiratory Respiratory: bilateral: CTA - Cardiovascular Rhythm: regular Heart sounds: normal: S1, S2 - Gastrointestinal General gastrointestinal: normal bowel sounds, soft - Integumentary Integumentary: normal - Neurologic Neurologic: CNII-XII intact - Musculoskeletal Musculoskeletal: generalized weakness, strength equal bilaterally - Psychiatric Psychiatric: A&O x's 3, appropriate affect Results CBC & Chem 7: 10/18/23 09:11 10/18/23 09:11 Labs: Abnormal Lab Results - Last 24 Hours (Table) 10/18/23 10/18/23 Range/Units 09:11 09:11 WBC 0.1 L* (3.8-10.6) k/uL RBC 2.28 L (4.30-5.90) m/uL Hgb 7.3 L (13.0-17.5) gm/dL Hct 20.7 L (39.0-53.0) % RDW 17.6 H (11.5-15.5) % Plt Count 9 L* (150-450) k/uL Sodium 131 L (137-145) mmol/L BUN 21 H (9-20) mg/dL Glucose 102 H (74-99) mg/dL AST 13 L (17-59) U/L Total Protein 6.1 L (6.3-8.2) g/dL Albumin 3.4 L (3.5-5.0) g/dL Chest x-ray: report reviewed Assessment and Plan (1) Neutropenic fever Narrative/Plan: The patient has just completed induction chemotherapy for acute myeloid leukemia. He is neutropenic, as expected and developed fever with chills. He does not have any localizing signs for infection. - The patient will be admitted with broad-spectrum IV antibiotics. - Chest x-ray and urine were negative. Check blood cultures. - ID consult - Continue Diflucan and acyclovir - Discuss with the patient that in his clinical situation, a definite source of infection can't be localized in 50% of cases. However aggressive treatment for presumed infection in this situation is standard of care. - He also discussed that in most cases such as his, inpatient stay may be required total WBC recovery occurs. Current Visit: Yes Status: Acute Code(s): D70.9 - NEUTROPENIA, UNSPECIFIED; R50.81 - FEVER PRESENTING WITH CONDITIONS CLASSIFIED ELSEWHERE SNOMED Code(s): 224148089 (2) Acute myeloid leukemia, without mention of having achieved remission Narrative/Plan: The patient has just completed induction therapy, and is currently at day 11. Recovery is typically expected to start around day #21. Plan for repeat bone marrow was patient biopsy to evaluate evidence of remission, once marrow recovery occurs and stabilizes - The possibility of severe side effects during the period of performed cytopenias, including progressive sepsis has been discussed with the patient previously, and was again discussed with him and his today. They were advised that in these situations it is very appropriate to utilize the highest levels of aggressive medical care, including intubation and life support, since significant improvement will typically occur even in very critical situations, once marrow starts to recover. - Continue allopurinol while inpatient Current Visit: No Status: Acute Priority: High Code(s): C92.00 - ACUTE MYELOBLASTIC LEUKEMIA, NOT HAVING ACHIEVED REMISSION SNOMED Code(s): 37563301 (3) Pancytopenia Narrative/Plan: Due to AML, and subsequent antineoplastic chemotherapy. Continue to monitor and transfuse to keep hemoglobin greater than 7, and platelets greater than 10. Irradiated blood products only. -1 unit of platelets will be ordered today Current Visit: No Status: Acute Priority: High Code(s): D61.818 - OTHER PANCYTOPENIA SNOMED Code(s): 437895767
[2023-10-18] MEDS: FLUCONAZOLE 100 MG TAB PO SCH ×2 (13:01→13:07)
[2023-10-18] MEDS: allopurinoL 300 MG TAB PO SCH ×2 (13:01→13:07)
[2023-10-18] MEDS: ONDANSETRON 4 MG/2 ML VIAL IVP PRN ×2 (13:01→23:32)
[2023-10-18] MEDS: ACYCLOVIR 200 MG CAP PO SCH ×3 (13:01→20:32)
[2023-10-18] MEDS ORDERED: HYDROcodone/APAP 5-325MG 1 EACH TAB PO PRN (13:16)
[2023-10-18] MEDS ORDERED: CALCIUM CARBONATE 500 MG CHEWABLE PO PRN (13:16)
[2023-10-18] MEDS ORDERED: MELATONIN 3 MG TABLET PO PRN (13:16)
[2023-10-18] MEDS ORDERED: MORPHINE SULFATE 4 MG/ML SYRINGE IVP PRN (13:16)
--- NOTE | 2023-10-18 13:21 | P.HPIM ---
History of Present Illness H&P Date: 10/18/23 (delayed charting seen at 1030) Patient is a 43-year-old male with recently diagnosed AML with hospitalization from 10/08 through 10/16 for induction chemotherapy. He was doing well and had been discharged home on 10/16 with prophylactic Cipro, acyclovir, and Diflucan. He presented to the ER on 10/18 due to fevers up to 101.5 at home. He does report a slight cough. Initial chest x-ray in the ER showed no acute process, initial urinalysis was negative. Blood cultures were obtained. Laboratory analysis included CBC, coags, & CMP which were remarkable for white blood cell count 0.1, hemoglobin 7.3, platelets 9, sodium 131, BUN 21, AST 13, albumin of 3.4. Influenza A/B/RSV/COVID-19 PCR were negative. He was stared on cefepime and vanco and arrangements were made for admission. Patient seen and examined at bedside. He reports that since discharge he did have some cough which she attributed to being dry from the mask. He did have some fatigue and slept a lot. He has no other complaints currently. At home his fever was up to 101.5. He has been taking his Cipro, Diflucan, acyclovir, and allopurinol at home. He called Dr. Naranjo this morning who told him to proceed to the emergency department. He has no other complaints currently. Vital signs reviewed General: nontoxic, no distress, appears at stated age Derm: warm, dry, area around PICC line without warmth or erythema, mild drooping left arm Eyes: EOMI, no lid lag, anicteric sclera, pupils equal round reactive to light ENT: Nose and ears atraumatic, no thrush, no pharyngeal erythema Cardiovascular: S1S2 reg, no murmur, positive posterior tibial pulse bilateral, no edema Lungs: clear to auscultation bilateral, no rhonchi, no rales, no wheeze, no accessory muscle use Abdominal: soft, nontender to palpation, no guarding, no appreciable organomegaly, normal bowel sounds Ext: no gross muscle atrophy, no contractures Neuro: CN II-XII grossly intact, no focal neuro deficits Psych: Alert, oriented, appropriate affect Assessment/Plan: Neutropenic sepsis, chemotherapy induced neutropenia Acute myelogenous leukemia Anemia, chemotherapy induced Thrombocytopenia, chemotherapy induced Hyponatremia - admit as inpatient to oncology floor. -Continue with cefepime 1 g IV piggyback every 8 hours, vancomycin dosing based on trough and weight as well as creatinine clearance. Monitor renal function and vancomycin trough for signs of toxicity -Normal saline at 130 mL/h -Await blood cultures -Resume acyclovir 400 mg twice daily and Diflucan 100 mg daily -Consult oncology - 1 unit Plts - follow CBC and BMP daily Imaging: As per HPI Data Review: per HPI The patient is admitted with an anticipated greater than 2 midnight stay for evaluation of [neutropenic sepsis]. Surrogate decision-maker: CODE STATUS:Full DVT prophylaxis: SCDS Anticipated discharge date: Pen Clinical Course Anticipated discharge place: [facility] Clinical Course This dictation was prepared using [employer] voice recognition software. Though every attempt is made to correct errors during dictation some may still exist. Past Medical History Past Medical History: Cancer Additional Past Medical History / Comment(s): Acute myeloid leukemia diagnosed in 2022 History of Any Multi-Drug Resistant Organisms: None Reported Past Surgical History: No Surgical Hx Reported Past Anesthesia/Blood Transfusion Reactions: No Reported Reaction Smoking Status: Former smoker - Past Family History Mother Additional Family Medical History / Comment(s): bladder and stomach cancer Medications and Allergies Home Medications Medication Instructions Recorded Confirmed Type Acyclovir [Zovirax] 400 mg PO BID #60 tablet 10/15/23 10/18/23 Rx Ciprofloxacin HCl [Cipro] 500 mg PO Q12HR 1 Days #60 tab 10/15/23 10/18/23 Rx Fluconazole [Diflucan] 100 mg PO DAILY #30 tablet 10/15/23 10/18/23 Rx Ondansetron [Ondansetron Odt] 4 mg PO Q4H PRN #45 tab 10/15/23 10/18/23 Rx allopurinoL 300 mg PO DAILY #30 tab 10/15/23 10/18/23 Rx Allergies Allergy/AdvReac Type Severity Reaction Status Date / Time Penicillins Allergy Unknown Verified 10/18/23 11:31 Childhood Physical Exam Osteopathic Statement: *. No significant issues noted on an osteopathic structural exam other than those noted in the History and Physical/Consult. Vitals: Vital Signs Temp Pulse Pulse Resp BP BP Pulse Ox 10/18/23 12:25 101.4 F H 120 H 18 93/60 100 10/18/23 11:47 112 H 18 109/43 98 10/18/23 11:24 102.5 F H 10/18/23 10:00 102.5 F H 99 18 122/68 99 10/18/23 09:33 102.6 F H 10/18/23 07:40 101 F H 121 H 20 142/70 100 Intake and Output 10/17/23 10/18/23 10/18/23 22:59 06:59 14:59 Other: Weight 90.718 kg Results CBC & Chem 7: 10/18/23 09:11 10/18/23 09:11 Labs: Abnormal Lab Results - Last 24 Hours (Table) 10/18/23 10/18/23 Range/Units 09:11 09:11 WBC 0.1 L* (3.8-10.6) k/uL RBC 2.28 L (4.30-5.90) m/uL Hgb 7.3 L (13.0-17.5) gm/dL Hct 20.7 L (39.0-53.0) % RDW 17.6 H (11.5-15.5) % Plt Count 9 L* (150-450) k/uL Sodium 131 L (137-145) mmol/L BUN 21 H (9-20) mg/dL Glucose 102 H (74-99) mg/dL AST 13 L (17-59) U/L Total Protein 6.1 L (6.3-8.2) g/dL Albumin 3.4 L (3.5-5.0) g/dL Thrombosis Risk Factor Assmnt - Choose All That Apply Any of the Below Risk Factors Present?: Yes Each Factor Represents 1 point: Age 41-60 years Other Risk Factors: Yes Each Risk Factor Represents 2 Points: Malignancy Thrombosis Risk Factor Assessment Total Risk Factor Score: 3 Thrombosis Risk Factor Assessment Level: Moderate Risk
[2023-10-18] MEDS ORDERED: ACETAMINOPHEN IV (For NPO) 1,000 MG in EMPTY BAG 1 BAG IVPB STA (14:08)
[2023-10-18] MEDS: VANCOMYCIN 1,500 MG in SODIUM CHLORIDE 0.9% 500 ML 500 ML IVPB SCH (19:42)
[2023-10-18] MEDS: ACETAMINOPHEN TAB 325 MG TAB PO PRN (20:32)
[2023-10-19] MEDS: ACETAMINOPHEN TAB 325 MG TAB PO PRN ×2 (02:32→09:04)
[2023-10-19] MEDS: VANCOMYCIN 1,500 MG in SODIUM CHLORIDE 0.9% 500 ML 500 ML IVPB SCH ×3 (03:48→20:11)
[2023-10-19 04:46] LABS: Anisocytosis Slight; MCH 32.1 pg (25.0-35.0); MCHC 35.6 g/dL (31.0-37.0); MCV 90.3 fL (80.0-100.0); Mean Platelet Volume 8.4; RBC 1.84 m/uL (4.30-5.90); RDW 17.7 % (11.5-15.5)
[2023-10-19 04:56] LABS: HGB 5.9 gm/dL (13.0-17.5)
[2023-10-19 04:57] LABS: HCT 16.6 % (39.0-53.0); Platelet Count 7 k/uL (150-450)
[2023-10-19 05:13] LABS: WBC 0.3 k/uL (3.8-10.6)
[2023-10-19 05:20] LABS: ALT 21 U/L (4-49); AST 20 U/L (17-59); African American GFR (CKD) >90 (>60 ml/min/1.73 sqM); Albumin 2.6 g/dL (3.5-5.0); Alkaline Phosphatase 38 U/L (38-126); Anion Gap 9 mmol/L; Blood Urea Nitrogen 15 mg/dL (9-20); Calcium 7.4 mg/dL (8.4-10.2); Carbon Dioxide 19 mmol/L (22-30); Chloride 100 mmol/L (98-107); Globulin 2.5 g/dL; Glucose 130 mg/dL (74-99); Non-African American GFR(CKD) >90 (>60 ml/min/1.73 sqM); Phosphorus 2.6 mg/dL (2.5-4.5); Potassium 3.5 mmol/L (3.5-5.1); Sodium 128 mmol/L (137-145); Total Bilirubin 0.4 mg/dL (0.2-1.3); Total Protein 5.1 g/dL (6.3-8.2)
[2023-10-19] MEDS: ONDANSETRON 4 MG/2 ML VIAL IVP PRN ×2 (07:06→17:53)
[2023-10-19] MEDS: SODIUM CHLORIDE 0.9% 1,000 ML IV SCH ×4 (07:52→21:37)
[2023-10-19] MEDS: allopurinoL 300 MG TAB PO SCH (08:57)
[2023-10-19] MEDS: FLUCONAZOLE 100 MG TAB PO SCH (08:57)
[2023-10-19] MEDS: ACYCLOVIR 200 MG CAP PO SCH ×2 (08:58→20:10)
[2023-10-19] MEDS: CEFEPIME 2 GM in SODIUM CHLORIDE 0.9% 100 ML IVPB SCH ×2 (12:35→20:11)
[2023-10-19] MEDS: LOPERAMIDE 2 MG CAP PO PRN (14:03)
[2023-10-19] MEDS ORDERED: ACETAMINOPHEN IV (For NPO) 1,000 MG in EMPTY BAG 1 BAG IVPB STA (16:29)
--- NOTE | 2023-10-19 17:21 | P.PN ---
Subjective Progress Note Date: 10/19/23 (delayed charting seen at approx 1030) Patient is a 43-year-old male with recently diagnosed AML with hospitalization from 10/08 through 10/16 for induction chemotherapy. He was doing well and had been discharged home on 10/16 with prophylactic Cipro, acyclovir, and Diflucan. He presented to the ER on 10/18 due to fevers up to 101.5 at home. He does report a slight cough. Initial chest x-ray in the ER showed no acute process, initial urinalysis was negative. Blood cultures were obtained. Laboratory analysis included CBC, coags, & CMP which were remarkable for white blood cell count 0.1, hemoglobin 7.3, platelets 9, sodium 131, BUN 21, AST 13, albumin of 3.4. Influenza A/B/RSV/COVID-19 PCR were negative. He was stared on cefepime and vanco and arrangements were made for admission. He conitnued to spike fevers overnight and was tachycardiac. Patient seen and examined at bedside. He reports feeling better than yesterday. Denies any cough, cold, nausea, vomiting. He had one episode of stools and is requesting Imodium. Discussed with him that we should check his stool for C. diff prior to initiating this therapy. Vital signs reviewed General: nontoxic, no distress, appears at stated age Cardiovascular: S1S2 reg, no murmur, positive posterior tibial pulse bilateral, Lungs: CTA bilateral, no rhonchi, no rales , no accessory muscle use Abdominal: soft, nontender to palpation, no guarding, no appreciable organomegaly Ext: no gross muscle atrophy, no edema b/l lower extremities, no contractures Neuro: CN II-XI grossly intact, no focal neuro deficits Psych: Alert, oriented, appropriate affect Assessment/Plan: Neutropenic sepsis, chemotherapy induced neutropenia Bacteremia-bio fire results show strep Acute myelogenous leukemia Anemia, chemotherapy induced Thrombocytopenia, chemotherapy induced Hyponatremia -Patient is ordered for 2 units of packed red blood cells and 2 units of platelets. repeat CBC 2 hours after transfusion complete. -Case discussed with Dr. Naranjo. We both agreed to continue with cefepime and vancomycin until blood cultures result when necessary and the bio fire given the severity of his fevers. -concern for SIADH given patient's dropping sodium level while on IV fluids. Check serum osmole, urine also, and urine sodium. Given his continued significant fevers will remain on normal saline at this time. Repeat basic metabolic profile this afternoon when repeating CBC -Repeat blood cultures. Patient does have a PICC line in place which may need to be discussed continued pending results. -Continue acyclovir 400 mg twice daily and Diflucan 100 mg daily Imaging: None new Data Review: Labs reviewed from today include CBC, CMP which are remarkable for white blood cell count 0.3, hemoglobin 5.9, platelets 7, sodium 128, carbon dioxide 19, glucose 130 DVT prophylaxis: SCDs Anticipated discharge date: Pending clinical course Anticipated discharge place: Pending clinical course This dictation was prepared using [employer] voice recognition software. Though every attempt is made to correct errors during dictation some may still exist. Objective - Vital Signs Vital signs: Vital Signs Temp 103.3 F H 10/19/23 16:17 Pulse 109 H 10/19/23 16:17 Resp 17 10/19/23 16:17 BP 125/74 10/19/23 16:17 Pulse Ox 94 L 10/19/23 16:17 FiO2 Intake & Output 10/18/23 10/19/23 10/19/23 18:59 06:59 18:59 Intake Total 2891 1828 Balance 2891 1828 Weight 90.718 kg Intake: Intake, IV Titration 1000 Amount Vancomycin 1,500 mg In 1000 Sodium Chloride 0.9% 500 ml 500 ml @ 167 mls/hr IVPB Q8H [facility] Rx#: [id number] Oral 1620 880 Blood Product 271 948 Platelet Pheresis Pas 0 328 Psoralen Unit [id number] Platelet Pheresis Pas 271 Psoralen Unit [id number] Rc Irr As1 Unit 310 [id number] Rc Irr As1 Unit 310 [id number] Other: Voiding Method Toilet # Voids 3 - Labs CBC & Chem 7: 10/19/23 04:27 10/19/23 04:27 Labs: Abnormal Lab Results - Last 24 Hours (Table) 10/18/23 10/19/23 10/19/23 Range/Units 09:11 04:27 04:27 WBC 0.3 L* (3.8-10.6) k/uL RBC 1.84 L (4.30-5.90) m/uL Hgb 5.9 L* (13.0-17.5) gm/dL Hct 16.6 L* (39.0-53.0) % RDW 17.7 H (11.5-15.5) % Plt Count 7 L* (150-450) k/uL Sodium (137-145) mmol/L Carbon Dioxide (22-30) mmol/L Glucose (74-99) mg/dL Osmolality (280-301) mosm/kg Uric Acid 2.1 L (3.5-8.5) mg/dL Calcium (8.4-10.2) mg/dL Total Protein (6.3-8.2) g/dL Albumin (3.5-5.0) g/dL Procalcitonin 0.16 H (0.02-0.09) ng/mL Crossmatch 10/19/23 10/19/23 10/19/23 Range/Units 04:27 05:43 12:55 WBC (3.8-10.6) k/uL RBC (4.30-5.90) m/uL Hgb (13.0-17.5) gm/dL Hct (39.0-53.0) % RDW (11.5-15.5) % Plt Count (150-450) k/uL Sodium 128 L (137-145) mmol/L Carbon Dioxide 19 L (22-30) mmol/L Glucose 130 H (74-99) mg/dL Osmolality 271 L (280-301) mosm/kg Uric Acid (3.5-8.5) mg/dL Calcium 7.4 L (8.4-10.2) mg/dL Total Protein 5.1 L (6.3-8.2) g/dL Albumin 2.6 L (3.5-5.0) g/dL Procalcitonin (0.02-0.09) ng/mL Crossmatch See Detail Microbiology - Last 24 Hours (Table) 10/18/23 09:23 Blood Culture Gram Stain - Preliminary Blood 10/18/23 09:11 Blood Culture Gram Stain - Preliminary Blood
[2023-10-19 18:58] LABS: Anisocytosis Slight; HCT 20.8 % (39.0-53.0); HGB 7.5 gm/dL (13.0-17.5); MCH 32.1 pg (25.0-35.0); MCHC 36.2 g/dL (31.0-37.0); MCV 88.8 fL (80.0-100.0); Mean Platelet Volume 8.3; RBC 2.34 m/uL (4.30-5.90)
[2023-10-19] MEDS ORDERED: VANCOMYCIN TROUGH DUE 1 EACH MISC MISCELLANE ONE (19:00)
[2023-10-19 19:29] LABS: African American GFR (CKD) >90 (>60 ml/min/1.73 sqM); Anion Gap 6 mmol/L; Blood Urea Nitrogen 13 mg/dL (9-20); Calcium 7.4 mg/dL (8.4-10.2); Carbon Dioxide 21 mmol/L (22-30); Chloride 101 mmol/L (98-107); Glucose 126 mg/dL (74-99); Non-African American GFR(CKD) >90 (>60 ml/min/1.73 sqM); Potassium 3.5 mmol/L (3.5-5.1); Sodium 128 mmol/L (137-145)
[2023-10-19 20:15] LABS: Platelet Count 10 k/uL (150-450)
[2023-10-19 20:19] LABS: WBC 0.7 k/uL (3.8-10.6)
--- NOTE | 2023-10-20 00:09 | P.PN ---
Subjective Progress Note Date: 10/19/23 the patient's chills and rigors has subsided. He feels somewhat fatigued but denies any other significant symptoms. No mouth sores, diarrhea, abdominal pain, or change in respiratory status. No obvious bleeding. Objective - Vital Signs Vital signs: Vital Signs Temp 98.9 F 10/19/23 19:05 Pulse 91 10/19/23 19:05 Resp 18 10/19/23 19:05 BP 147/84 10/19/23 19:05 Pulse Ox 97 10/19/23 19:05 FiO2 Intake & Output 10/19/23 10/19/23 10/20/23 06:59 18:59 06:59 Intake Total 2891 2368 Balance 2891 2368 Intake: Intake, IV Titration 1000 Amount Vancomycin 1,500 mg In 1000 Sodium Chloride 0.9% 500 ml 500 ml @ 167 mls/hr IVPB Q8H [facility] Rx#: [id number] Oral 1620 1420 Blood Product 271 948 Platelet Pheresis Pas 0 328 Psoralen Unit [id number] Platelet Pheresis Pas 271 Psoralen Unit [id number] Rc Irr As1 Unit 310 [id number] Rc Irr As1 Unit 310 [id number] Other: Voiding Method Toilet Toilet # Voids 3 2 # Bowel Movements 1 - Constitutional General appearance: Present: no acute distress - EENT Eyes: Present: EOMI ENT: Present: hearing grossly normal, normal oropharynx - Respiratory Respiratory: bilateral: CTA - Cardiovascular Rhythm: regular Heart sounds: normal: S1, S2 - Gastrointestinal General gastrointestinal: Present: normal bowel sounds, soft - Integumentary Integumentary: Present: normal - Neurologic Neurologic: Present: CNII-XII intact - Musculoskeletal Musculoskeletal: Present: generalized weakness, strength equal bilaterally - Psychiatric Psychiatric: Present: A&O x's 3, appropriate affect - Labs CBC & Chem 7: 10/19/23 18:33 10/19/23 18:33 Labs: Abnormal Lab Results - Last 24 Hours (Table) 10/18/23 10/19/23 10/19/23 Range/Units 09:11 04:27 04:27 WBC 0.3 L* (3.8-10.6) k/uL RBC 1.84 L (4.30-5.90) m/uL Hgb 5.9 L* (13.0-17.5) gm/dL Hct 16.6 L* (39.0-53.0) % RDW 17.7 H (11.5-15.5) % Plt Count 7 L* (150-450) k/uL Sodium (137-145) mmol/L Carbon Dioxide (22-30) mmol/L Glucose (74-99) mg/dL Osmolality (280-301) mosm/kg Uric Acid 2.1 L (3.5-8.5) mg/dL Calcium (8.4-10.2) mg/dL Total Protein (6.3-8.2) g/dL Albumin (3.5-5.0) g/dL Procalcitonin 0.16 H (0.02-0.09) ng/mL Crossmatch 10/19/23 10/19/23 10/19/23 Range/Units 04:27 05:43 12:55 WBC (3.8-10.6) k/uL RBC (4.30-5.90) m/uL Hgb (13.0-17.5) gm/dL Hct (39.0-53.0) % RDW (11.5-15.5) % Plt Count (150-450) k/uL Sodium 128 L (137-145) mmol/L Carbon Dioxide 19 L (22-30) mmol/L Glucose 130 H (74-99) mg/dL Osmolality 271 L (280-301) mosm/kg Uric Acid (3.5-8.5) mg/dL Calcium 7.4 L (8.4-10.2) mg/dL Total Protein 5.1 L (6.3-8.2) g/dL Albumin 2.6 L (3.5-5.0) g/dL Procalcitonin (0.02-0.09) ng/mL Crossmatch See Detail 10/19/23 10/19/23 Range/Units 18:33 18:33 WBC 0.7 L* (3.8-10.6) k/uL RBC 2.34 L (4.30-5.90) m/uL Hgb 7.5 L D (13.0-17.5) gm/dL Hct 20.8 L (39.0-53.0) % RDW 17.0 H (11.5-15.5) % Plt Count 10 L* (150-450) k/uL Sodium 128 L (137-145) mmol/L Carbon Dioxide 21 L (22-30) mmol/L Glucose 126 H (74-99) mg/dL Osmolality (280-301) mosm/kg Uric Acid (3.5-8.5) mg/dL Calcium 7.4 L (8.4-10.2) mg/dL Total Protein (6.3-8.2) g/dL Albumin (3.5-5.0) g/dL Procalcitonin (0.02-0.09) ng/mL Crossmatch Microbiology - Last 24 Hours (Table) 10/18/23 09:11 Blood Culture Gram Stain - Preliminary Blood 10/18/23 09:23 Blood Culture Gram Stain - Preliminary Blood Assessment and Plan (1) Neutropenic fever Narrative/Plan: the fever persists, although chills have subsided with ongoing broad-spectrum antibiotics. Blood cultures were positive for Streptococcus preliminarily - Case discussed in detail with the admitting service. For now broad-spectrum antibiotics will be continued, until identification and susceptibility are compl eted. - Was also decided to maintain the current PICC line for now, given the need for good IV access for medication as well as ongoing transfusions. Current Visit: Yes Status: Acute Code(s): D70.9 - NEUTROPENIA, UNSPECIFIED; R50.81 - FEVER PRESENTING WITH CONDITIONS CLASSIFIED ELSEWHERE SNOMED Code(s): 302369793 (2) Acute myeloid leukemia, without mention of having achieved remission Current Visit: No Status: Acute Priority: High Code(s): C92.00 - ACUTE MYELOBLASTIC LEUKEMIA, NOT HAVING ACHIEVED REMISSION SNOMED Code(s): 74836826 (3) Pancytopenia Narrative/Plan: patient received 2 units of PRBC, for hemoglobin of less than 6, and 1 need platelets today. Continue to monitor. Transfuse for hemoglobin less than 7, and platelets less than 10. Current Visit: No Status: Acute Priority: High Code(s): D61.818 - OTHER PANCYTOPENIA SNOMED Code(s): 739452279
[2023-10-20] MEDS: LOPERAMIDE 2 MG CAP PO PRN (00:16)
[2023-10-20] MEDS: ACETAMINOPHEN TAB 325 MG TAB PO PRN ×4 (00:16→20:08)
[2023-10-20] MEDS: CEFEPIME 2 GM in SODIUM CHLORIDE 0.9% 100 ML IVPB SCH ×3 (03:49→20:08)
[2023-10-20] MEDS: VANCOMYCIN 1,500 MG in SODIUM CHLORIDE 0.9% 500 ML 500 ML IVPB SCH (03:49)
[2023-10-20] MEDS: SODIUM CHLORIDE 0.9% 1,000 ML IV SCH ×5 (03:50→21:44)
[2023-10-20 05:08] LABS: Anisocytosis Slight; HCT 21.4 % (39.0-53.0); HGB 7.7 gm/dL (13.0-17.5); MCH 31.6 pg (25.0-35.0); MCHC 35.8 g/dL (31.0-37.0); MCV 88.1 fL (80.0-100.0); Mean Platelet Volume 8.2; RBC 2.42 m/uL (4.30-5.90); RDW 17.6 % (11.5-15.5)
[2023-10-20 05:15] LABS: Platelet Count 6 k/uL (150-450)
[2023-10-20 05:21] LABS: ALT 31 U/L (4-49); AST 26 U/L (17-59); African American GFR (CKD) >90 (>60 ml/min/1.73 sqM); Albumin 2.8 g/dL (3.5-5.0); Alkaline Phosphatase 51 U/L (38-126); Anion Gap 6 mmol/L; Blood Urea Nitrogen 12 mg/dL (9-20); Calcium 7.5 mg/dL (8.4-10.2); Carbon Dioxide 22 mmol/L (22-30); Chloride 103 mmol/L (98-107); Globulin 2.7 g/dL; Glucose 114 mg/dL (74-99); Magnesium 2.1 mg/dL (1.6-2.3); Non-African American GFR(CKD) >90 (>60 ml/min/1.73 sqM); Phosphorus 2.7 mg/dL (2.5-4.5); Potassium 3.5 mmol/L (3.5-5.1); Sodium 131 mmol/L (137-145); Total Bilirubin 0.7 mg/dL (0.2-1.3); Total Protein 5.5 g/dL (6.3-8.2)
[2023-10-20 05:38] LABS: Lymphocytes # (M) 0.34 k/uL (1.0-4.8); Neutrophils # (M) 0.02 k/uL (1.3-7.7); Neutrophils % (M) 2 %
[2023-10-20 05:39] LABS: Blast Cells # (M) 0.64 k/uL (0); Nucleated Red Blood Cells 0 /100 WBC (0-0); Total Cells Counted 100
[2023-10-20] MEDS: allopurinoL 300 MG TAB PO SCH (08:22)
[2023-10-20] MEDS: FLUCONAZOLE 100 MG TAB PO SCH (08:22)
[2023-10-20] MEDS: ONDANSETRON 4 MG/2 ML VIAL IVP PRN ×3 (08:22→22:42)
[2023-10-20] MEDS: ACYCLOVIR 200 MG CAP PO SCH ×2 (08:23→20:08)
--- NOTE | 2023-10-20 14:52 | P.PN ---
Subjective Progress Note Date: 10/20/23 Patient reports some mild diarrhea and fatigue. Overall fever pattern is much improved. Objective - Vital Signs Vital signs: Vital Signs Temp 100.1 F H 10/20/23 14:47 Pulse 104 H 10/20/23 14:47 Resp 18 10/20/23 14:47 BP 126/92 10/20/23 14:47 Pulse Ox 92 L 10/20/23 14:47 FiO2 Intake & Output 10/19/23 10/20/23 10/20/23 18:59 06:59 18:59 Intake Total 2368 266 Balance 2368 266 Intake: Oral 1420 Blood Product 948 266 Platelet Pheresis Pas 328 Psoralen Unit [id number] Platelet Pheresis Pas 266 Psoralen Unit [id number] Rc Irr As1 Unit 310 [id number] Rc Irr As1 Unit 310 [id number] Other: Voiding Method Toilet # Voids 2 1 # Bowel Movements 1 - Constitutional General appearance: Present: no acute distress - EENT Eyes: Present: EOMI ENT: Present: hearing grossly normal, normal oropharynx - Respiratory Respiratory: bilateral: CTA - Cardiovascular Rhythm: regular Heart sounds: normal: S1, S2 - Gastrointestinal General gastrointestinal: Present: normal bowel sounds, soft - Integumentary Integumentary: Present: normal - Neurologic Neurologic: Present: CNII-XII intact - Musculoskeletal Musculoskeletal: Present: generalized weakness, strength equal bilaterally - Labs CBC & Chem 7: 10/20/23 04:34 10/20/23 04:34 Labs: Abnormal Lab Results - Last 24 Hours (Table) 10/19/23 10/19/23 10/19/23 Range/Units 05:43 12:55 18:33 WBC 0.7 L* (3.8-10.6) k/uL RBC 2.34 L (4.30-5.90) m/uL Hgb 7.5 L D (13.0-17.5) gm/dL Hct 20.8 L (39.0-53.0) % RDW 17.0 H (11.5-15.5) % Plt Count 10 L* (150-450) k/uL Blast Cells % % Neutrophils # (Manual) (1.3-7.7) k/uL Lymphocytes # (Manual) (1.0-4.8) k/uL Blast Cells # (Man) (0) k/uL Sodium (137-145) mmol/L Carbon Dioxide (22-30) mmol/L Glucose (74-99) mg/dL Osmolality 271 L (280-301) mosm/kg Calcium (8.4-10.2) mg/dL Total Protein (6.3-8.2) g/dL Albumin (3.5-5.0) g/dL Crossmatch See Detail 10/19/23 10/20/23 10/20/23 Range/Units 18:33 04:34 04:34 WBC 1.0 L* (3.8-10.6) k/uL RBC 2.42 L (4.30-5.90) m/uL Hgb 7.7 L (13.0-17.5) gm/dL Hct 21.4 L (39.0-53.0) % RDW 17.6 H (11.5-15.5) % Plt Count 6 L* (150-450) k/uL Blast Cells % 64 H* % Neutrophils # (Manual) 0.02 L* (1.3-7.7) k/uL Lymphocytes # (Manual) 0.34 L (1.0-4.8) k/uL Blast Cells # (Man) 0.64 H (0) k/uL Sodium 128 L 131 L (137-145) mmol/L Carbon Dioxide 21 L (22-30) mmol/L Glucose 126 H 114 H (74-99) mg/dL Osmolality (280-301) mosm/kg Calcium 7.4 L 7.5 L (8.4-10.2) mg/dL Total Protein 5.5 L (6.3-8.2) g/dL Albumin 2.8 L (3.5-5.0) g/dL Crossmatch Microbiology - Last 24 Hours (Table) 10/18/23 09:11 Blood Culture Gram Stain - Preliminary Blood 10/18/23 09:23 Blood Culture Gram Stain - Preliminary Blood Assessment and Plan (1) Neutropenic fever Narrative/Plan: Your creatinine is much better over the past 24 hours. He actually has been afebrile this a.m. Identification on his blood culture is pending. As noted previously this was positive for streptococci. Continue broad-spectrum antibiotics till ID is complete. We'll also make a decision regarding the PICC removal versus retention based on the same. Current Visit: Yes Status: Acute Code(s): D70.9 - NEUTROPENIA, UNSPECIFIED; R50.81 - FEVER PRESENTING WITH CONDITIONS CLASSIFIED ELSEWHERE SNOMED Code(s): 170699994 (2) Acute myeloid leukemia, without mention of having achieved remission Narrative/Plan: The status post induction, at day number #13 today. Assuming labs are appropriate, DC allopurinol in the next 2-3 days Current Visit: No Status: Acute Priority: High Code(s): C92.00 - ACUTE MYELOBLASTIC LEUKEMIA, NOT HAVING ACHIEVED REMISSION SNOMED Code(s): 94380392 (3) Pancytopenia Narrative/Plan: Currently due to effects of antineoplastic chemotherapy. Hemoglobin is greater than 7 today. 1 unit of platelets were ordered for platelet count of 6000. No obvious bleeding. Current Visit: No Status: Acute Priority: High Code(s): D61.818 - OTHER PANCYTOPENIA SNOMED Code(s): 684444593
--- NOTE | 2023-10-20 16:31 | P.PN ---
Subjective Progress Note Date: 10/20/23 Principal diagnosis: sepsis CC: Fevers Subjective: Mr. Rudolph was seen and examined. Still with intermittent fevers. Did have some blood from his nose yesterday but this has resolved. Platelet count is less than 10,000 today therefore is going to receive platelet transfusion. Plan of care discussed with him and his . Objective: Vitals: Reviewed General: No acute distress HEENT: Mucous membranes moist neck supple Cardiovascular: RRR, S1-S2 Lungs: Breath sounds equal and clear to auscultation bilaterally. No wheezing, rhonchi or rales Abdomen: Soft, nontender, nondistended Extremities: No lower extremity edema Pertinent labs and imaging reviewed Assessment and plan: 1. Febrile neutropenia, sepsis, pancytopenia secondary to chemotherapy Strep bacteremia AML status post chemotherapy Prelim blood cultures with likely strep. On Vanco and cefepime, de-escalate once final cultures return. Check echo. Recheck blood cultures. May need to h ave PICC line removed. Received 1 unit of platelets today, repeat platelets. Also on Diflucan and acyclovir. ID consulted. 2. Hyponatremia Likely secondary to insensible losses from fevers. Stable and asymptomatic. Objective - Vital Signs Vital signs: Vital Signs Temp 100.1 F H 10/20/23 14:47 Pulse 104 H 10/20/23 14:47 Resp 18 10/20/23 14:47 BP 126/92 10/20/23 14:47 Pulse Ox 92 L 10/20/23 14:47 FiO2 Intake & Output 10/19/23 10/20/23 10/20/23 18:59 06:59 18:59 Intake Total 2368 266 Balance 2368 266 Intake: Oral 1420 Blood Product 948 266 Platelet Pheresis Pas 328 Psoralen Unit [id number] Platelet Pheresis Pas 266 Psoralen Unit [id number] Rc Irr As1 Unit 310 [id number] Rc Irr As1 Unit 310 [id number] Other: Voiding Method Toilet # Voids 2 1 # Bowel Movements 1 - Labs CBC & Chem 7: 10/20/23 04:34 10/20/23 04:34 Labs: Abnormal Lab Results - Last 24 Hours (Table) 10/19/23 10/19/23 10/20/23 Range/Units 18:33 18:33 04:34 WBC 0.7 L* 1.0 L* (3.8-10.6) k/uL RBC 2.34 L 2.42 L (4.30-5.90) m/uL Hgb 7.5 L D 7.7 L (13.0-17.5) gm/dL Hct 20.8 L 21.4 L (39.0-53.0) % RDW 17.0 H 17.6 H (11.5-15.5) % Plt Count 10 L* 6 L* (150-450) k/uL Blast Cells % 64 H* % Neutrophils # (Manual) 0.02 L* (1.3-7.7) k/uL Lymphocytes # (Manual) 0.34 L (1.0-4.8) k/uL Blast Cells # (Man) 0.64 H (0) k/uL Sodium 128 L (137-145) mmol/L Carbon Dioxide 21 L (22-30) mmol/L Glucose 126 H (74-99) mg/dL Calcium 7.4 L (8.4-10.2) mg/dL Total Protein (6.3-8.2) g/dL Albumin (3.5-5.0) g/dL 10/20/23 Range/Units 04:34 WBC (3.8-10.6) k/uL RBC (4.30-5.90) m/uL Hgb (13.0-17.5) gm/dL Hct (39.0-53.0) % RDW (11.5-15.5) % Plt Count (150-450) k/uL Blast Cells % % Neutrophils # (Manual) (1.3-7.7) k/uL Lymphocytes # (Manual) (1.0-4.8) k/uL Blast Cells # (Man) (0) k/uL Sodium 131 L (137-145) mmol/L Carbon Dioxide (22-30) mmol/L Glucose 114 H (74-99) mg/dL Calcium 7.5 L (8.4-10.2) mg/dL Total Protein 5.5 L (6.3-8.2) g/dL Albumin 2.8 L (3.5-5.0) g/dL Microbiology - Last 24 Hours (Table) 10/18/23 09:11 Blood Culture Gram Stain - Preliminary Blood 10/18/23 09:23 Blood Culture Gram Stain - Preliminary Blood
[2023-10-20 17:21] LABS: Anisocytosis Slight; HGB 7.6 gm/dL (13.0-17.5); MCH 31.9 pg (25.0-35.0); MCHC 36.1 g/dL (31.0-37.0); MCV 88.3 fL (80.0-100.0); Mean Platelet Volume 7.8; RBC 2.38 m/uL (4.30-5.90); RDW 17.2 % (11.5-15.5)
[2023-10-20 17:24] LABS: Platelet Count 13 k/uL (150-450); WBC 1.4 k/uL (3.8-10.6)
[2023-10-20 18:02] LABS: Blast Cells # (M) 0.97 k/uL (0); Lymphocytes # (M) 0.43 k/uL (1.0-4.8); Nucleated Red Blood Cells 0 /100 WBC (0-0); Total Cells Counted 100
--- NOTE | 2023-10-20 21:12 | P.CONS ---
History of Present Illness - Reason for Consult Consult date: 10/20/23 - History of Present Illness Patient is a 43-year-old male with a past medical history of pain for acute myeloid leukemia diagnosed August 2023, patient did recently have got left arm PICC line for chemotherapy and the patient recently admitted to the hospital from 10/08/2023 until 10/16/2023 for induction chemotherapy patient apparently was discharged home on prophylactic antibiotics in the form of Cipro Diflucan and acyclovir patient has been brought to [facility] per instruction of his oncologist for a fever that apparently started on 10/18/2023, besides a fever the patient has been complaining of some rigors and chills did have some headache but no other URI symptoms denies any chest pain or shortness of breath minimal cough did have some nausea relieved with Zofran but no vomiting no significant abdominal pain did have some diarrhea but no blood or mucus in the stool and no urinary symptoms patient on presentation to the hospital did have a fever of 102 F at the patient has been spiking a fever on a daily basis this morning the patient has been afebrile patient has been tachycar dic but not hypotensive or hypoxic he did have a white count of 0.1 on admission platelet count is 9 creatinine 0.67 levels abs are normal urine has been negative influenza RSV and COVID testing was negative stool for C. difficile is negative patient did have a chest x-ray no acute process patient has been on a combination of vancomycin and cefepime with a blood cultures coming back positive with stopped infectious disease was consulted today after the patient has been in the hospital for more than 72 hours with febrile neutropenia and sepsis Past Medical History Past Medical History: Cancer Additional Past Medical History / Comment(s): Acute myeloid leukemia diagnosed in 2022 History of Any Multi-Drug Resistant Organisms: None Reported Past Surgical History: No Surgical Hx Reported Additional Past Surgical History / Comment(s): hernia surgery scheduled with dr solitario in Past Anesthesia/Blood Transfusion Reactions: No Reported Reaction Smoking Status: Former smoker - Past Family History Mother Additional Family Medical History / Comment(s): bladder and stomach cancer Medications and Allergies Home Medications Medication Instructions Recorded Confirmed Type Acyclovir [Zovirax] 400 mg PO BID #60 tablet 10/15/23 10/18/23 Rx Ciprofloxacin HCl [Cipro] 500 mg PO Q12HR 1 Days #60 tab 10/15/23 10/18/23 Rx Fluconazole [Diflucan] 100 mg PO DAILY #30 tablet 10/15/23 10/18/23 Rx Ondansetron [Ondansetron Odt] 4 mg PO Q4H PRN #45 tab 10/15/23 10/18/23 Rx allopurinoL 300 mg PO DAILY #30 tab 10/15/23 10/18/23 Rx Allergies Allergy/AdvReac Type Severity Reaction Status Date / Time Penicillins Allergy Unknown Verified 10/18/23 11:31 Childhood Physical Exam Vitals: Vital Signs Temp Pulse Pulse Resp BP BP Pulse Ox 10/20/23 07:35 99.6 F 106 H 16 127/74 90 L 10/20/23 01:00 98.7 F 10/20/23 00:12 100.8 F H 105 H 18 141/77 93 L 10/19/23 19:05 98.9 F 91 18 147/84 97 10/19/23 17:50 99.3 F 10/19/23 16:17 103.3 F H 109 H 17 125/74 94 L 10/19/23 14:02 98.4 F 100 18 132/78 99 10/19/23 13:42 98.4 F 98 17 132/78 97 10/19/23 12:45 99.2 F 97 17 119/71 97 10/19/23 12:36 99.8 F H 99 17 125/67 97 Intake and Output 10/19/23 10/20/23 10/20/23 22:59 06:59 14:59 Intake Total 850 Balance 850 Intake: Oral 540 Blood Product 310 Rc Irr As1 Unit 310 [id number] Other: Voiding Method Toilet # Voids 2 1 # Bowel Movements 1 Results CBC & Chem 7: 10/20/23 17:06 10/20/23 04:34 Labs: Abnormal Lab Results - Last 24 Hours (Table) 10/19/23 10/19/23 10/19/23 Range/Units 05:43 12:55 18:33 WBC 0.7 L* (3.8-10.6) k/uL RBC 2.34 L (4.30-5.90) m/uL Hgb 7.5 L D (13.0-17.5) gm/dL Hct 20.8 L (39.0-53.0) % RDW 17.0 H (11.5-15.5) % Plt Count 10 L* (150-450) k/uL Blast Cells % % Neutrophils # (Manual) (1.3-7.7) k/uL Lymphocytes # (Manual) (1.0-4.8) k/uL Blast Cells # (Man) (0) k/uL Sodium (137-145) mmol/L Carbon Dioxide (22-30) mmol/L Glucose (74-99) mg/dL Osmolality 271 L (280-301) mosm/kg Calcium (8.4-10.2) mg/dL Total Protein (6.3-8.2) g/dL Albumin (3.5-5.0) g/dL Crossmatch See Detail 10/19/23 10/20/23 10/20/23 Range/Units 18:33 04:34 04:34 WBC 1.0 L* (3.8-10.6) k/uL RBC 2.42 L (4.30-5.90) m/uL Hgb 7.7 L (13.0-17.5) gm/dL Hct 21.4 L (39.0-53.0) % RDW 17.6 H (11.5-15.5) % Plt Count 6 L* (150-450) k/uL Blast Cells % 64 H* % Neutrophils # (Manual) 0.02 L* (1.3-7.7) k/uL Lymphocytes # (Manual) 0.34 L (1.0-4.8) k/uL Blast Cells # (Man) 0.64 H (0) k/uL Sodium 128 L 131 L (137-145) mmol/L Carbon Dioxide 21 L (22-30) mmol/L Glucose 126 H 114 H (74-99) mg/dL Osmolality (280-301) mosm/kg Calcium 7.4 L 7.5 L (8.4-10.2) mg/dL Total Protein 5.5 L (6.3-8.2) g/dL Albumin 2.8 L (3.5-5.0) g/dL Crossmatch Microbiology - Last 24 Hours (Table) 10/18/23 09:11 Blood Culture Gram Stain - Preliminary Blood 10/18/23 09:23 Blood Culture Gram Stain - Preliminary Blood Assessment and Plan Plan: 1patient presented to hospital with sepsis in this patient who did have a fever tachycardia, leukopenia/neutropenia and now with evidence of bacteremia with a blood culture positive for gram-positive cocci resembling strep awaiting final ID to determine the possibility source could be related to the PICC line however PICC has been recently placed and the patient did have a low platelet count and high risk of bleeding and the type of bacteria is growing in the blood not requiring immediate removal of his PICC line 2-blood cultures will be repeated to document clearance of bacteremia 3-patient to continue cefepime 2 g every 8 hour however discontinue vancomycin Multiple questions concern answered in layman term We will follow on clinical condition and cultures to further adjust medication if needed Thank you for this consultation we will follow the patient along with you Dictation was produced using [employer] dictation software. please excuse any grammatical, word or spelling errors. Time with Patient: Greater than 30
[2023-10-21] MEDS: CEFEPIME 2 GM in SODIUM CHLORIDE 0.9% 100 ML IVPB SCH ×3 (02:56→20:02)
[2023-10-21] MEDS: SODIUM CHLORIDE 0.9% 1,000 ML IV SCH ×2 (03:21→13:09)
[2023-10-21 06:33] LABS: Anisocytosis Slight; HCT 20.2 % (39.0-53.0); HGB 7.4 gm/dL (13.0-17.5); MCH 32.1 pg (25.0-35.0); MCHC 36.5 g/dL (31.0-37.0); MCV 87.9 fL (80.0-100.0); Mean Platelet Volume 8.8; WBC 2.2 k/uL (3.8-10.6)
[2023-10-21 08:00] LABS: ALT 28 U/L (4-49); AST 21 U/L (17-59); African American GFR (CKD) >90 (>60 ml/min/1.73 sqM); Albumin 2.7 g/dL (3.5-5.0); Alkaline Phosphatase 65 U/L (38-126); Anion Gap 6 mmol/L; Blood Urea Nitrogen 12 mg/dL (9-20); Calcium 7.4 mg/dL (8.4-10.2); Carbon Dioxide 21 mmol/L (22-30); Chloride 104 mmol/L (98-107); Globulin 2.6 g/dL; Glucose 110 mg/dL (74-99); Non-African American GFR(CKD) >90 (>60 ml/min/1.73 sqM); Phosphorus 2.3 mg/dL (2.5-4.5); Potassium 3.3 mmol/L (3.5-5.1); Sodium 131 mmol/L (137-145); Total Bilirubin 0.6 mg/dL (0.2-1.3); Total Protein 5.3 g/dL (6.3-8.2); Uric Acid 1.5 mg/dL (3.5-8.5)
[2023-10-21 08:22] LABS: Lymphocytes # (M) 0.48 k/uL (1.0-4.8)
[2023-10-21 08:23] LABS: Blast Cells # (M) 1.72 k/uL (0); Nucleated Red Blood Cells 0 /100 WBC (0-0); Total Cells Counted 200
[2023-10-21 08:27] LABS: Platelet Count 9 k/uL (150-450)
[2023-10-21] MEDS: ACYCLOVIR 200 MG CAP PO SCH ×2 (08:39→20:02)
[2023-10-21] MEDS: allopurinoL 300 MG TAB PO SCH (08:39)
[2023-10-21] MEDS: FLUCONAZOLE 100 MG TAB PO SCH (08:39)
[2023-10-21] MEDS: ACETAMINOPHEN TAB 325 MG TAB PO PRN ×3 (11:27→23:32)
--- NOTE | 2023-10-21 13:50 | P.PN ---
Subjective Progress Note Date: 10/21/23 Patient reports some shortness of breath and drop in oxygen saturation for that. This has improved this a.m. He also had some gastritis type symptoms. Bowel movements are loose, about 2-3 per day. Objective - Vital Signs Vital signs: Vital Signs Temp 99.1 F 10/21/23 12:34 Pulse 98 10/21/23 12:34 Resp 18 10/21/23 12:34 BP 121/66 10/21/23 12:34 Pulse Ox 93 L 10/21/23 12:34 FiO2 Intake & Output 10/20/23 10/21/23 10/21/23 18:59 06:59 18:59 Intake Total 266 3380 366 Balance 266 3380 366 Intake: Intake, IV Titration 1760 Amount Cefepime 2 gm In Sodium 200 Chloride 0.9% 100 ml @ 25 mls/hr IVPB Q8H [facility] Rx#: [id number] Sodium Chloride 0.9% 1, 1560 000 ml @ 130 mls/hr IV . Q7H42M [facility] Rx#:[id number] Oral 1620 Blood Product 266 366 Platelet Pheresis Pas 266 Psoralen Unit [id number] Platelet Pheresis Pas 366 Psoralen Unit [id number] Other: Voiding Method Toilet # Voids 5 4 # Bowel Movements 1 - Constitutional General appearance: Present: no acute distress - EENT Eyes: Present: EOMI ENT: Present: hearing grossly normal, normal oropharynx - Respiratory Respiratory: bilateral: rales - Cardiovascular Rhythm: regular Heart sounds: normal: S1, S2 - Gastrointestinal General gastrointestinal: Present: normal bowel sounds, soft - Integumentary Integumentary: Present: normal - Neurologic Neurologic: Present: CNII-XII intact - Musculoskeletal Musculoskeletal: Present: generalized weakness, strength equal bilaterally - Psychiatric Psychiatric: Present: A&O x's 3, appropriate affect - Labs CBC & Chem 7: 10/21/23 06:11 10/21/23 06:11 Labs: Abnormal Lab Results - Last 24 Hours (Table) 10/20/23 10/21/23 10/21/23 Range/Units 17:06 06:11 06:11 WBC 1.4 L* 2.2 L (3.8-10.6) k/uL RBC 2.38 L 2.30 L (4.30-5.90) m/uL Hgb 7.6 L 7.4 L (13.0-17.5) gm/dL Hct 21.0 L 20.2 L (39.0-53.0) % RDW 17.2 H 17.0 H (11.5-15.5) % Plt Count 13 L* D 9 L* (150-450) k/uL Blast Cells % 69 H* 78 H* % Lymphocytes # (Manual) 0.43 L 0.48 L (1.0-4.8) k/uL Blast Cells # (Man) 0.97 H 1.72 H (0) k/uL Sodium 131 L (137-145) mmol/L Potassium 3.3 L (3.5-5.1) mmol/L Carbon Dioxide 21 L (22-30) mmol/L Glucose 110 H (74-99) mg/dL Uric Acid 1.5 L (3.5-8.5) mg/dL Calcium 7.4 L (8.4-10.2) mg/dL Phosphorus 2.3 L (2.5-4.5) mg/dL Total Protein 5.3 L (6.3-8.2) g/dL Albumin 2.7 L (3.5-5.0) g/dL Microbiology - Last 24 Hours (Table) 10/18/23 09:23 Blood Culture Gram Stain - Final Blood Blood Culture - Final Viridans streptococcus group 10/18/23 09:11 Blood Culture Gram Stain - Final Blood Blood Culture - Final Viridans streptococcus group 10/19/23 12:55 Blood Culture - Preliminary Blood Assessment and Plan (1) Neutropenic fever Narrative/Plan: The patient has been afebrile, since his evaluation yesterday. Cultures are positive for strep viridans, which appears to be a sensitive to all antibiotics tested on the panel. - This situation it is possible that the patient could be switched over to an oral antibiotic, targeting the above pathogen, and continue his other prophylactic antibiotics/antiviral/antifungal. In that case he can potentially be discharged home if otherwise stable. - Will consult ID regarding oral antibiotic and possibility of discharged home on the same, as well as retention versus removal of PICC line. Current Visit: Yes Status: Acute Code(s): D70.9 - NEUTROPENIA, UNSPECIFIED; R50.81 - FEVER PRESENTING WITH CONDITIONS CLASSIFIED ELSEWHERE SNOMED Code(s): 554799886 (2) Acute myeloid leukemia, without mention of having achieved remission Narrative/Plan: The patient's CBC had shown some increase in WBC, with significant percentage of blasts. This was discussed in detail with the patient and his . At this time., Just a week after completion of induction therapy, this is difficult to interpret. This could represent a transient fluctuation vs early bone marrow recovery with the higher apparent percentage of blasts transiently, due to slower maturation and turn over rate than normal. Refractory AML, with early progression is also within the differential, though that would be highly unusual to manifest so soon after completion of induction. - Continue to monitor. If the same pattern remains persistent or progresses, then refractory AML with progression becomes more likely. In that case bone marrow aspiration biopsy will be repeated sooner than planned. Current Visit: No Status: Acute Priority: High Code(s): C92.00 - ACUTE MYELOBLASTIC LEUKEMIA, NOT HAVING ACHIEVED REMISSION SNOMED Code(s): 90252287 (3) Pancytopenia Narrative/Plan: Patient received 1 unit of platelets today, for platelet count of 9000. Continue to monitor with transfusion support as needed Current Visit: No Status: Acute Priority: High Code(s): D61.818 - OTHER PANCYTOPENIA SNOMED Code(s): 189784937 Plan: The patient reported some shortness of breath overnight which has improved. On examination there were basilar crackles. Therefore chest x-ray will be performed. His maintenance IV will be reduced to 75 mL/h. If there is evidence of fluid overload, which is clinically the primary differential, he'll be given a dose of Lasix.
[2023-10-21] MEDS ORDERED: POTASSIUM CHLORIDE ER 20 MEQ TAB.ER PO STA (14:20)
--- NOTE | 2023-10-21 14:31 | P.PN ---
Subjective Progress Note Date: 10/21/23 Principal diagnosis: sepsis CC: Fevers Subjective: Mr. Rudolph was seen and examined. He has been afebrile since last night. He did have an episode where he developed some acid reflux then became short of breath with cough after Tums. Cough was productive of clear sputum with occasional streaks of blood. He is currently not bleeding. On my evaluation, he does not report any shortness of breath. Denies any other symptoms today. Received a transfusion of platelets for platelet count less than 10,000 today. Objective: Vitals: Reviewed General: No acute distress HEENT: Mucous membranes moist neck supple Cardiovascular: RRR, S1-S2 Lungs: Breath sounds equal and clear to auscultation bilaterally. No wheezing, rhonchi or rales Abdomen: Soft, nontender, nondistended Extremities: No lower extremity edema Pertinent labs and imaging reviewed Assessment and plan: 1. Febrile neutropenia, sepsis, pancytopenia secondary to chemotherapy Strep bacteremia AML status post chemotherapy Blood cultures with urine strep likely from PICC line. On cefepime, de-escalate once final cultures return. Echo read pending. Repeat blood cultures negative to date. Discussed with ID, too high risk for bleeding and states pathogen does not warrant PICC line removal at this time. Received 1 unit of platelets today, repeat CBC. Also on Diflucan and acyclovir. ID consulted. Chest x-ray is pending. 2. Hyponatremia Likely secondary to insensible losses from fevers. Stable and asymptomatic. 3. Hypokalemia, hypophosphatemia Replace Objective - Vital Signs Vital signs: Vital Signs Temp 99.1 F 10/21/23 12:34 Pulse 98 10/21/23 12:34 Resp 18 10/21/23 12:34 BP 121/66 10/21/23 12:34 Pulse Ox 93 L 10/21/23 12:34 FiO2 Intake & Output 10/20/23 10/21/23 10/21/23 18:59 06:59 18:59 Intake Total 266 3380 366 Balance 266 3380 366 Intake: Intake, IV Titration 1760 Amount Cefepime 2 gm In Sodium 200 Chloride 0.9% 100 ml @ 25 mls/hr IVPB Q8H [facility] Rx#: [id number] Sodium Chloride 0.9% 1, 1560 000 ml @ 130 mls/hr IV . Q7H42M [facility] Rx#:[id number] Oral 1620 Blood Product 266 366 Platelet Pheresis Pas 266 Psoralen Unit [id number] Platelet Pheresis Pas 366 Psoralen Unit [id number] Other: Voiding Method Toilet # Voids 5 4 # Bowel Movements 1 - Labs CBC & Chem 7: 10/21/23 06:11 10/21/23 06:11 Labs: Abnormal Lab Results - Last 24 Hours (Table) 10/20/23 10/21/23 10/21/23 Range/Units 17:06 06:11 06:11 WBC 1.4 L* 2.2 L (3.8-10.6) k/uL RBC 2.38 L 2.30 L (4.30-5.90) m/uL Hgb 7.6 L 7.4 L (13.0-17.5) gm/dL Hct 21.0 L 20.2 L (39.0-53.0) % RDW 17.2 H 17.0 H (11.5-15.5) % Plt Count 13 L* D 9 L* (150-450) k/uL Blast Cells % 69 H* 78 H* % Lymphocytes # (Manual) 0.43 L 0.48 L (1.0-4.8) k/uL Blast Cells # (Man) 0.97 H 1.72 H (0) k/uL Sodium 131 L (137-145) mmol/L Potassium 3.3 L (3.5-5.1) mmol/L Carbon Dioxide 21 L (22-30) mmol/L Glucose 110 H (74-99) mg/dL Uric Acid 1.5 L (3.5-8.5) mg/dL Calcium 7.4 L (8.4-10.2) mg/dL Phosphorus 2.3 L (2.5-4.5) mg/dL Total Protein 5.3 L (6.3-8.2) g/dL Albumin 2.7 L (3.5-5.0) g/dL Microbiology - Last 24 Hours (Table) 10/18/23 09:23 Blood Culture Gram Stain - Final Blood Blood Culture - Final Viridans streptococcus group 10/18/23 09:11 Blood Culture Gram Stain - Final Blood Blood Culture - Final Viridans streptococcus group 10/19/23 12:55 Blood Culture - Preliminary Blood
[2023-10-21] MEDS: POTASSIUM PHOSPHATE 10 MMOL in SODIUM CHLORIDE 0.9% 250 ML IV SCH ×2 (15:30→17:54)
[2023-10-21 16:33] LABS: Anisocytosis Slight; MCH 32.2 pg (25.0-35.0); MCHC 36.5 g/dL (31.0-37.0); MCV 88.2 fL (80.0-100.0); Mean Platelet Volume 8.3; RBC 2.15 m/uL (4.30-5.90); RDW 17.1 % (11.5-15.5); WBC 2.4 k/uL (3.8-10.6)
[2023-10-21 16:37] LABS: HCT 18.9 % (39.0-53.0); HGB 6.9 gm/dL (13.0-17.5)
[2023-10-21 16:38] LABS: Platelet Count 14 k/uL (150-450)
--- NOTE | 2023-10-21 17:00 | XR ---
EXAMINATION TYPE: XR chest 2V DATE OF EXAM: 10/21/2023 2:11 PM CLINICAL INDICATION:Male, 43 years old with history of SOB, hypoxia, crackles; PHH COMPARISON: Chest radiographs from 10/18/2023 TECHNIQUE: XR chest 2V Frontal and lateral views of the chest. FINDINGS: Lungs/Pleura: There is no evidence of pleural effusion, focal consolidation, or pneumothorax. Pulmonary vascularity: Unremarkable. Heart/mediastinum: Cardiomediastinal silhouette is unremarkable. Musculoskeletal: No acute osseous pathology. Other findings: None Lines/Tubes: Left-sided PICC with distal tip at the superior vena cava/brachiocephalic confluence. IMPRESSION: No acute cardiopulmonary disease/process.
[2023-10-21 17:19] LABS: Nucleated Red Blood Cells 0 /100 WBC (0-0)
[2023-10-21 17:21] LABS: Blast Cells # (M) 1.58 k/uL (0); Lymphocytes # (M) 0.82 k/uL (1.0-4.8); Total Cells Counted 100
[2023-10-21] MEDS ORDERED: VANCOMYCIN TROUGH DUE 1 EACH MISC MISCELLANE ONE (19:00)
[2023-10-21] MEDS: guaiFENesin-DM 100-10MG/5ML 10 ML CUP PO PRN (19:17)
[2023-10-22] MEDS: LOPERAMIDE 2 MG CAP PO PRN ×3 (01:11→22:51)
[2023-10-22] MEDS: CEFEPIME 2 GM in SODIUM CHLORIDE 0.9% 100 ML IVPB SCH ×2 (04:15→11:21)
[2023-10-22] MEDS: ACETAMINOPHEN TAB 325 MG TAB PO PRN ×3 (06:50→20:37)
[2023-10-22] MEDS: guaiFENesin-DM 100-10MG/5ML 10 ML CUP PO PRN (06:51)
[2023-10-22] MEDS: SODIUM CHLORIDE 0.9% 1,000 ML IV SCH ×3 (07:39→11:21)
[2023-10-22] MEDS: ACYCLOVIR 200 MG CAP PO SCH ×2 (07:43→20:34)
[2023-10-22] MEDS: FLUCONAZOLE 100 MG TAB PO SCH (07:43)
[2023-10-22] MEDS: allopurinoL 300 MG TAB PO SCH (07:43)
[2023-10-22 08:59] LABS: Anisocytosis Slight; Basophils % (A) 2 %; Eosinophils % (A) 0 %; HCT 22.7 % (39.0-53.0); Lymphocytes % (A) 67 %; MCHC 35.3 g/dL (31.0-37.0); MCV 87.9 fL (80.0-100.0); Mean Platelet Volume 7.4; Monocytes % (A) 0 %; Neutrophils % (A) 1 %; RBC 2.58 m/uL (4.30-5.90); RDW 16.8 % (11.5-15.5); WBC 4.3 k/uL (3.8-10.6)
[2023-10-22 09:07] LABS: African American GFR (CKD) >90 (>60 ml/min/1.73 sqM); Anion Gap 8 mmol/L; Blood Urea Nitrogen 12 mg/dL (9-20); Calcium 7.7 mg/dL (8.4-10.2); Carbon Dioxide 22 mmol/L (22-30); Chloride 103 mmol/L (98-107); Glucose 112 mg/dL (74-99); Non-African American GFR(CKD) >90 (>60 ml/min/1.73 sqM); Potassium 3.1 mmol/L (3.5-5.1); Sodium 133 mmol/L (137-145); Uric Acid 1.5 mg/dL (3.5-8.5)
[2023-10-22 10:14] LABS: Band Neutrophils % 1 %; Monocytes # (M) 0.04 k/uL (0-1.0); Neutrophils % (M) 5 %
[2023-10-22 10:15] LABS: Nucleated Red Blood Cells 0 /100 WBC (0-0); Total Cells Counted 100
[2023-10-22] MEDS: POTASSIUM CHLORIDE 10 MEQ in WATER FOR INJECTION 1 100ML.BAG IVPB SCH ×4 (11:21→14:57)
[2023-10-22] MEDS: CHOLESTYRAMINE (WITH SUGAR) 4 GM PACKET PO SCH ×2 (13:51→18:25)
--- NOTE | 2023-10-22 14:36 | P.PN ---
Subjective Progress Note Date: 10/22/23 Patient is a 43-year-old male with recently diagnosed AML with hospitalization from 10/08 through 10/16 for induction chemotherapy. He was doing well and had been discharged home on 10/16 with prophylactic Cipro, acyclovir, and Diflucan. He presented to the ER on 10/18 due to fevers up to 101.5 at home. He does report a slight cough. Initial chest x-ray in the ER showed no acute process, initial urinalysis was negative. Blood cultures were obtained. Laboratory analysis included CBC, coags, & CMP which were remarkable for white blood cell count 0.1, hemoglobin 7.3, platelets 9, sodium 131, BUN 21, AST 13, albumin of 3.4. Influenza A/B/RSV/COVID-19 PCR were negative. He was stared on cefepime and vanco and arrangements were made for admission. BCx + viridans streptococcus. Continued on Cefepime 2g IV Q8H. ID on board. ID recommended not removing PICC line due to high risk for bleeding. Echocardiogram is pending to evaluate for endocarditis. He has received 3 units of PRBCS and 4 units of platelets during this hospitalization. 10/22 Patient was seen and examined. CBC Hg 8 and Plt 11. BMP Na 133, K 3.1, glu 112. Uric acid 1.5.Ca 7.7. Phos 2. Continued on Cefepime 2g IV TID. Repeat BCx negative at 24H. General: non toxic, no distress, appears at stated age Derm: warm, dry Head: atraumatic, normocephalic, symmetric Eyes: EOMI, no lid lag, anicteric sclera Cardiovascular: S1S2 reg, no murmur Lungs: CTA bilateral, no rhonchi, no rales , no accessory muscle use Ext: no gross muscle atrophy, no edema, no contractures Neuro: no focal neuro deficits Psych: Alert, oriented, appropriate affect Based on my assessment of this patient, this patient meets a moderate complexity level of care. Patient has an acute diagnosis of strep bacteremia that poses a threat to life or bodily function. Febrile neutropenia Strep bacteremia: Cefepime 2g IV TID. Repeat BCx pending. Echo pending. ID on board. Telemetry monitoring. Pancytopenia secondary to chemotherapy: Transfuse if Hg < 7 and Plt < 10. Hypokalemia: KCl 40 meq IV x 1 ordered. AML: Oncology on board. CODE STATUS: FULL CODE DVT Prophylaxis: SCDs. GI Prophylaxis: Designated medical POA if patient is not able to make medical decisions for themselves: Guardian I have reviewed the following consultant in ergonomics and safety notes: ID, oncology note. I have reviewed the results of the following tests: CBC, BMP, Phos, Uric acid. I have ordered the following tests: Echo pending. Repeat BCx pending. I have discussed the care of this patient with the following independent historian: I have independently interpreted the following test below: I have discussed the management of this patient with the following physician: Objective - Vital Signs Vital signs: Vital Signs Temp 102.3 F H 10/22/23 07:05 Pulse 68 10/22/23 07:05 Resp 16 10/22/23 07:05 BP 123/69 10/22/23 07:05 Pulse Ox 76 L 10/22/23 07:05 FiO2 Intake & Output 10/21/23 10/22/23 10/22/23 18:59 06:59 18:59 Intake Total 366 1630 Output Total 0 Balance 366 1630 Intake: Intake, IV Titration 840 Amount Cefepime 2 gm In Sodium 200 Chloride 0.9% 100 ml @ 25 mls/hr IVPB Q8H [facility] Rx#: [id number] Sodium Chloride 0.9% 1, 40 000 ml @ 20 mls/hr IV . Q24H [facility] Rx#:[id number] Sodium Chloride 0.9% 1, 600 000 ml @ 75 mls/hr IV . [id number] [facility] Rx#:[id number] Oral 480 Blood Product 366 310 Platelet Pheresis Pas 366 Psoralen Unit [id number] Rc Irr As1 Unit 310 [id number] Output: Urine 0 Other: Voiding Method Toilet # Voids 6 2 # Bowel Movements 2 2 - Labs CBC & Chem 7: 10/22/23 07:40 10/22/23 07:40 Labs: Abnormal Lab Results - Last 24 Hours (Table) 10/19/23 10/21/23 10/22/23 Range/Units 05:43 15:51 07:40 WBC 2.4 L (3.8-10.6) k/uL RBC 2.15 L (4.30-5.90) m/uL Hgb 6.9 L* (13.0-17.5) gm/dL Hct 18.9 L* (39.0-53.0) % RDW 17.1 H (11.5-15.5) % Plt Count 14 L* D (150-450) k/uL Blast Cells % 66 H* % Neutrophils # (1.3-7.7) k/uL Neutrophils # (Manual) (1.3-7.7) k/uL Lymphocytes # (Manual) 0.82 L (1.0-4.8) k/uL Blast Cells # (Man) 1.58 H (0) k/uL Plasma Cell # (Manual) 0.10 H (0) k/uL Sodium 133 L (137-145) mmol/L Potassium 3.1 L (3.5-5.1) mmol/L Glucose 112 H (74-99) mg/dL Uric Acid 1.5 L (3.5-8.5) mg/dL Calcium 7.7 L (8.4-10.2) mg/dL Phosphorus 2.0 L (2.5-4.5) mg/dL Crossmatch See Detail 10/22/23 Range/Units 07:40 WBC (3.8-10.6) k/uL RBC 2.58 L (4.30-5.90) m/uL Hgb 8.0 L (13.0-17.5) gm/dL Hct 22.7 L (39.0-53.0) % RDW 16.8 H (11.5-15.5) % Plt Count 11 L* (150-450) k/uL Blast Cells % 28 H* % Neutrophils # 0.0 L* (1.3-7.7) k/uL Neutrophils # (Manual) 0.20 L* (1.3-7.7) k/uL Lymphocytes # (Manual) (1.0-4.8) k/uL Blast Cells # (Man) 1.20 H (0) k/uL Plasma Cell # (Manual) (0) k/uL Sodium (137-145) mmol/L Potassium (3.5-5.1) mmol/L Glucose (74-99) mg/dL Uric Acid (3.5-8.5) mg/dL Calcium (8.4-10.2) mg/dL Phosphorus (2.5-4.5) mg/dL Crossmatch Microbiology - Last 24 Hours (Table) 10/20/23 10:49 Blood Culture - Preliminary Blood 10/19/23 12:55 Blood Culture - Preliminary Blood 10/18/23 09:23 Blood Culture Gram Stain - Final Blood Blood Culture - Final Viridans streptococcus group 10/18/23 09:11 Blood Culture Gram Stain - Final Blood Blood Culture - Final Viridans streptococcus group
--- NOTE | 2023-10-22 14:48 | P.PN ---
Subjective Progress Note Date: 10/22/23 Principal diagnosis: neutropenic fever At today's visit patient is resting comfortably in bed. He reports he is feeling improved today. Reports persisting diarrhea, 4-5 episodes over the last 24 hours. Reports improvement in shortness of breath. Fever noted of 102.3 this morning. Objective - Vital Signs Vital signs: Vital Signs Temp 98.9 F 10/22/23 10:29 Pulse 97 10/22/23 11:17 Resp 16 10/22/23 07:05 BP 123/69 10/22/23 07:05 Pulse Ox 92 L 10/22/23 11:17 FiO2 Intake & Output 10/21/23 10/22/23 10/22/23 18:59 06:59 18:59 Intake Total 366 1630 Output Total 0 Balance 366 1630 Intake: Intake, IV Titration 840 Amount Cefepime 2 gm In Sodium 200 Chloride 0.9% 100 ml @ 25 mls/hr IVPB Q8H [facility] Rx#: [id number] Sodium Chloride 0.9% 1, 40 000 ml @ 20 mls/hr IV . Q24H [facility] Rx#:[id number] Sodium Chloride 0.9% 1, 600 000 ml @ 75 mls/hr IV . [id number] [facility] Rx#:[id number] Oral 480 Blood Product 366 310 Platelet Pheresis Pas 366 Psoralen Unit [id number] Rc Irr As1 Unit 310 [id number] Output: Urine 0 Other: Voiding Method Toilet # Voids 6 2 # Bowel Movements 2 2 - Constitutional General appearance: Present: average body habitus, no acute distress - EENT Eyes: Present: anicteric sclerae, EOMI ENT: Present: hearing grossly normal - Respiratory Respiratory: bilateral: rales (rales bilateral bases ) - Cardiovascular Rhythm: regular Heart sounds: normal: S1, S2 Abnormal Heart Sounds: Absent: systolic murmur, diastolic murmur, rub, S3 Gallop, S4 Gallop, click, other - Peripheral edema leg Peripheral Edema: bilateral: None - Gastrointestinal General gastrointestinal: Present: soft. Absent: tenderness - Integumentary Integumentary: Absent: cyanotic, jaundiced - Neurologic Neurologic: Present: CNII-XII intact - Musculoskeletal Musculoskeletal: Present: strength equal bilaterally - Psychiatric Psychiatric: Present: A&O x's 3, appropriate affect, intact judgment & insight - Labs CBC & Chem 7: 10/22/23 07:40 10/22/23 07:40 Labs: Abnormal Lab Results - Last 24 Hours (Table) 10/19/23 10/21/23 10/22/23 Range/Units 05:43 15:51 07:40 WBC 2.4 L (3.8-10.6) k/uL RBC 2.15 L (4.30-5.90) m/uL Hgb 6.9 L* (13.0-17.5) gm/dL Hct 18.9 L* (39.0-53.0) % RDW 17.1 H (11.5-15.5) % Plt Count 14 L* D (150-450) k/uL Blast Cells % 66 H* % Neutrophils # (1.3-7.7) k/uL Neutrophils # (Manual) (1.3-7.7) k/uL Lymphocytes # (Manual) 0.82 L (1.0-4.8) k/uL Blast Cells # (Man) 1.58 H (0) k/uL Plasma Cell # (Manual) 0.10 H (0) k/uL Sodium 133 L (137-145) mmol/L Potassium 3.1 L (3.5-5.1) mmol/L Glucose 112 H (74-99) mg/dL Uric Acid 1.5 L (3.5-8.5) mg/dL Calcium 7.7 L (8.4-10.2) mg/dL Phosphorus 2.0 L (2.5-4.5) mg/dL Crossmatch See Detail 10/22/23 Range/Units 07:40 WBC (3.8-10.6) k/uL RBC 2.58 L (4.30-5.90) m/uL Hgb 8.0 L (13.0-17.5) gm/dL Hct 22.7 L (39.0-53.0) % RDW 16.8 H (11.5-15.5) % Plt Count 11 L* (150-450) k/uL Blast Cells % 28 H* % Neutrophils # 0.0 L* (1.3-7.7) k/uL Neutrophils # (Manual) 0.20 L* (1.3-7.7) k/uL Lymphocytes # (Manual) (1.0-4.8) k/uL Blast Cells # (Man) 1.20 H (0) k/uL Plasma Cell # (Manual) (0) k/uL Sodium (137-145) mmol/L Potassium (3.5-5.1) mmol/L Glucose (74-99) mg/dL Uric Acid (3.5-8.5) mg/dL Calcium (8.4-10.2) mg/dL Phosphorus (2.5-4.5) mg/dL Crossmatch Microbiology - Last 24 Hours (Table) 10/20/23 10:49 Blood Culture - Preliminary Blood 10/19/23 12:55 Blood Culture - Preliminary Blood 10/18/23 09:23 Blood Culture Gram Stain - Final Blood Blood Culture - Final Viridans streptococcus group 10/18/23 09:11 Blood Culture Gram Stain - Final Blood Blood Culture - Final Viridans streptococcus group - Imaging and Cardiology Chest x-ray: report reviewed Assessment and Plan (1) Neutropenic fever Current Visit: Yes Status: Acute Priority: High Code(s): D70.9 - NEUTROPENIA, UNSPECIFIED; R50.81 - FEVER PRESENTING WITH CONDITIONS CLASSIFIED ELSEWHERE SNOMED Code(s): 114529990 (2) Acute myeloid leukemia, without mention of having achieved remission Current Visit: Yes Status: Acute Priority: High Code(s): C92.00 - ACUTE MYELOBLASTIC LEUKEMIA, NOT HAVING ACHIEVED REMISSION SNOMED Code(s): 21501109 (3) Pancytopenia Current Visit: Yes Status: Acute Priority: High Code(s): D61.818 - OTHER PANCYTOPENIA SNOMED Code(s): 078638025 Plan: Neutropenic fever: -Fever this morning of 102.3. Cultures were positive for strep viridans, which appears to be a sensitive to all antibiotics tested on the panel. Continues on IV abx. Repeat cultures negative thus far -CXR negative for acute cardiopulmonary processes - If repeat cultures remain negative and pt is afebrile, patient could be switched over to an oral antibiotic, targeting the above pathogen, and continue his other prophylactic antibiotics/antiviral/antifungal. - ID consulted for abx recommendation, as well as retention versus removal of PICC line. AML: The patient's CBC had shown some increase in WBC, with significant percentage of blasts. This was discussed in detail with the patient and his . At this time., Just a week after completion of induction therapy, this is difficult to interpret. This could represent a transient fluctuation vs early bone marrow recovery with the higher apparent percentage of blasts transiently, due to slower maturation and turn over rate than normal. Refractory AML, with early progression is also within the differential, though that would be highly unusual to manifest so soon after completion of induction. -White counts improved, WBC 4.3. ANC 200, previously unreportable. Blast cells also showing significant improvement today, 28% from 66% - Continue to monitor. If the same pattern remains persistent or progresses, then refractory AML with progression becomes more likely. In that case bone marrow aspiration biopsy will be repeated sooner than planned. Pancytopenia: -Since admission, patient has received 3 units PRBCS and 4 doses platelets. Today plts 11,000, hgb stable at 8.0 -Continue to monitor with transfusion support as needed -Please transfuse with irradiated blood products only Diarrhea: -C diff negative -Continues on imodium, will add questran for additional support
--- NOTE | 2023-10-22 15:15 | CA ---
Transthoracic Echo Report Name: Cecilio Rudolph Age: 43 Gender: M : 1980 Exam Date: 10/20/2023 15:51 Exam Location: [place] [facility] Ht (in): 75 Wt (lb): 200 Ordering Physician: Luz Bledsoe MD Attending/Referring Phys: Senior Benefits Specialist Tyra Prado RDCS Procedure CPT: Indications: rule out endocarditis Cardiac Hx: limited study Technical Quality: Good Contrast 1: Total Dose (mL): Contrast 2: Total Dose (mL): MEASUREMENTS (Male / Female) Normal Values DOPPLER TR Peak Velocity 280.7 cm/s TR Peak Gradient 31.5 mmHg Right Ventricular Systolic Press 36.1 mmHg FINDINGS Left Ventricle Left ventricular ejection fraction is estimated at 55-60 %. Right Ventricle Normal right ventricular size and function. Mild pulmonary hypertension. Right Atrium Left Atrium Mitral Valve Structurally normal mitral valve. No vegetation. Trace mitral regurgitation Aortic Valve Trileaflet aortic valve. No aortic valve stenosis or regurgitation. No vegetation Tricuspid Valve Structurally normal tricuspid valve. Mild tricuspid regurgitation. Pulmonic Valve Structurally normal pulmonic valve. No vegetation Pericardium Aorta CONCLUSIONS Left ventricular ejection fraction 55-60% RVSP 36 No vegetations noted Trace mitral regurgitation Mild tricuspid regurgitation Previewed by: Dr. Ezra Pitts DO (Electronically Signed) Final Date: 22 October 2023 15:14
--- NOTE | 2023-10-22 18:42 | P.PN ---
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 On today's evaluation that is, 10/21/2023, the patient fever pattern has i mproved with a low-grade fever of 99.8F this morning, the patient is breathing comfortably on room air on 2 L nasal cannula supplemental oxygen, patient denies chest pain shortness of breath and no significant cough or sputum production, patient denies Abdominal pain, no nausea/vomiting and denies having any diarrhea. Patient white count is up to 2.4 creatinine 0.71, blood culture with Streptoc occus viridans oxacillin sensitive Objective - Vital Signs Vital signs: Vital Signs Temp 99.0 F 10/21/23 01:27 Pulse 100 10/21/23 01:27 Resp 17 10/21/23 01:27 BP 137/70 10/21/23 01:27 Pulse Ox 95 10/21/23 01:27 FiO2 Intake & Output 10/20/23 10/21/23 10/21/23 18:59 06:59 18:59 Intake Total 266 3380 Balance 266 3380 Intake: Intake, IV Titration 1760 Amount Cefepime 2 gm In Sodium 200 Chloride 0.9% 100 ml @ 25 mls/hr IVPB Q8H [facility] Rx#: [id number] Sodium Chloride 0.9% 1, 1560 000 ml @ 130 mls/hr IV . [id number] [facility] Rx#:[id number] Oral 1620 Blood Product 266 Platelet Pheresis Pas 266 Psoralen Unit [id number] Other: Voiding Method Toilet # Voids 5 4 # Bowel Movements 1 - Exam GENERAL DESCRIPTION: A middle-aged male lying in bed in no distress RESPIRATORY SYSTEM: Unlabored breathing , clear to auscultation anteriorly HEART: S1 S2 regular rate and rhythm , ABDOMEN: Soft , no tenderness EXTREMITIES: No edema feet - Labs CBC & Chem 7: 10/22/23 07:40 10/22/23 07:40 Labs: Abnormal Lab Results - Last 24 Hours (Table) 10/20/23 10/20/23 10/21/23 Range/Units 04:34 17:06 06:11 WBC 1.4 L* 2.2 L (3.8-10.6) k/uL RBC 2.38 L 2.30 L (4.30-5.90) m/uL Hgb 7.6 L 7.4 L (13.0-17.5) gm/dL Hct 21.0 L 20.2 L (39.0-53.0) % RDW 17.2 H 17.0 H (11.5-15.5) % Plt Count 13 L* D 9 L* (150-450) k/uL Blast Cells % 64 H* 69 H* % Neutrophils # (Manual) 0.02 L* (1.3-7.7) k/uL Lymphocytes # (Manual) 0.34 L 0.43 L (1.0-4.8) k/uL Blast Cells # (Man) 0.64 H 0.97 H (0) k/uL Microbiology - Last 24 Hours (Table) 10/19/23 12:55 Blood Culture - Preliminary Blood Assessment and Plan (1) Bacteremia Current Visit: Yes Status: Acute Code(s): R78.81 - BACTEREMIA SNOMED Code(s): 5891187 (2) Neutropenic fever Current Visit: Yes Status: Acute Priority: High Code(s): D70.9 - NEUTROPENIA, UNSPECIFIED; R50.81 - FEVER PRESENTING WITH CONDITIONS CLASSIFIED ELSEWHERE SNOMED Code(s): 880155107 Plan: 1patient presented to hospital with sepsis in this patient who did have a fever tachycardia, leukopenia/neutropenia and now with evidence of bacteremia with a blood culture positive for gram-positive cocci resembling strep awaiting final ID to determine the possibility source could be related to the PICC line however PICC has been recently placed and the patient did have a low platelet count and high risk of bleeding and the type of bacteria is growing in the blood not requiring immediate removal of his PICC line 2-blood cultures has been repeated to document clearance of bacteremia 3-patient to continue cefepime 2 g every 8 hour and monitor clinical course closely Dictation was produced using [employer] dictation software. please excuse any gra mmatical, word or spelling errors. Time with Patient: Less than 30
--- NOTE | 2023-10-22 18:44 | P.PN ---
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 On today's evaluation that is, 10/22/2023, the patient did spike another fever of 102.3F this morning, the patient is breathing comfortably on room air and denies any shortness of breath, the patient denies any chest pain, no significant cough or sputum production, patient denies nausea/vomiting /diarrhea and no abdominal pain, patient mentioned feeling better Patient white count has normalized to 4.3 creatinine is 0.68, blood culture with Streptococcus viridans oxacillin sensitive, repeat culture so far negative Objective - Vital Signs Vital signs: Vital Signs Temp 98.9 F 10/22/23 10:29 Pulse 97 10/22/23 11:17 Resp 16 10/22/23 07:05 BP 123/69 10/22/23 07:05 Pulse Ox 92 L 10/22/23 11:17 FiO2 Intake & Output 10/21/23 10/22/23 10/22/23 18:59 06:59 18:59 Intake Total 366 1630 Output Total 0 Balance 366 1630 Intake: Intake, IV Titration 840 Amount Cefepime 2 gm In Sodium 200 Chloride 0.9% 100 ml @ 25 mls/hr IVPB Q8H [facility] Rx#: [id number] Sodium Chloride 0.9% 1, 40 000 ml @ 20 mls/hr IV . Q24H [facility] Rx#:[id number] Sodium Chloride 0.9% 1, 600 000 ml @ 75 mls/hr IV . [id number] [facility] Rx#:[id number] Oral 480 Blood Product 366 310 Platelet Pheresis Pas 366 Psoralen Unit [id number] Rc Irr As1 Unit 310 [id number] Output: Urine 0 Other: Voiding Method Toilet # Voids 6 2 # Bowel Movements 2 2 - Exam GENERAL DESCRIPTION: A middle-aged male lying in bed in no distress RESPIRATORY SYSTEM: Unlabored breathing , clear to auscultation anteriorly HEART: S1 S2 regular rate and rhythm , ABDOMEN: Soft , no tenderness EXTREMITIES: No edema feet - Labs CBC & Chem 7: 10/22/23 07:40 10/22/23 07:40 Labs: Abnormal Lab Results - Last 24 Hours (Table) 10/19/23 10/21/23 10/22/23 Range/Units 05:43 15:51 07:40 WBC 2.4 L (3.8-10.6) k/uL RBC 2.15 L (4.30-5.90) m/uL Hgb 6.9 L* (13.0-17.5) gm/dL Hct 18.9 L* (39.0-53.0) % RDW 17.1 H (11.5-15.5) % Plt Count 14 L* D (150-450) k/uL Blast Cells % 66 H* % Neutrophils # (1.3-7.7) k/uL Neutrophils # (Manual) (1.3-7.7) k/uL Lymphocytes # (Manual) 0.82 L (1.0-4.8) k/uL Blast Cells # (Man) 1.58 H (0) k/uL Plasma Cell # (Manual) 0.10 H (0) k/uL Sodium 133 L (137-145) mmol/L Potassium 3.1 L (3.5-5.1) mmol/L Glucose 112 H (74-99) mg/dL Uric Acid 1.5 L (3.5-8.5) mg/dL Calcium 7.7 L (8.4-10.2) mg/dL Phosphorus 2.0 L (2.5-4.5) mg/dL Crossmatch See Detail 10/22/23 Range/Units 07:40 WBC (3.8-10.6) k/uL RBC 2.58 L (4.30-5.90) m/uL Hgb 8.0 L (13.0-17.5) gm/dL Hct 22.7 L (39.0-53.0) % RDW 16.8 H (11.5-15.5) % Plt Count 11 L* (150-450) k/uL Blast Cells % 28 H* % Neutrophils # 0.0 L* (1.3-7.7) k/uL Neutrophils # (Manual) 0.20 L* (1.3-7.7) k/uL Lymphocytes # (Manual) (1.0-4.8) k/uL Blast Cells # (Man) 1.20 H (0) k/uL Plasma Cell # (Manual) (0) k/uL Sodium (137-145) mmol/L Potassium (3.5-5.1) mmol/L Glucose (74-99) mg/dL Uric Acid (3.5-8.5) mg/dL Calcium (8.4-10.2) mg/dL Phosphorus (2.5-4.5) mg/dL Crossmatch Microbiology - Last 24 Hours (Table) 10/20/23 10:49 Blood Culture - Preliminary Blood 10/19/23 12:55 Blood Culture - Preliminary Blood 10/18/23 09:23 Blood Culture Gram Stain - Final Blood Blood Culture - Final Viridans streptococcus group 10/18/23 09:11 Blood Culture Gram Stain - Final Blood Blood Culture - Final Viridans streptococcus group Assessment and Plan (1) Bacteremia Current Visit: Yes Status: Acute Code(s): R78.81 - BACTEREMIA SNOMED Code(s): 4182024 (2) Neutropenic fever Current Visit: Yes Status: Acute Priority: High Code(s): D70.9 - N EUTROPENIA, UNSPECIFIED; R50.81 - FEVER PRESENTING WITH CONDITIONS CLASSIFIED ELSEWHERE SNOMED Code(s): 130222651 Plan: 1patient presented to hospital with sepsis in this patient who did have a fever tachycardia, leukopenia/neutropenia and now with evidence of bacteremia with a blood culture positive for gram-positive cocci resembling strep awaiting final ID to determine the possibility source could be related to the PICC line however PICC has been recently placed and the patient did have a low platelet count and high risk of bleeding and the type of bacteria is growing in the blood not requiring immediate removal of his PICC line 2-blood cultures has been repeated and are negative so far 3-patient did have a another fever slightly concerning however the patient mentioned feeling better, with resolution of his neutropenia antibiotic was adjusted to cefazolin and monitor clinical course closely Dictation was produced using [employer] dictation software. please excuse any grammatical, word or spelling errors. Time with Patient: Less than 30
[2023-10-23] MEDS: guaiFENesin-DM 100-10MG/5ML 10 ML CUP PO PRN (00:02)
[2023-10-23] MEDS ORDERED: SODIUM CHLORIDE 0.65% NASAL SPRAY 44 ML BTL NASAL PRN (03:21)
[2023-10-23] MEDS: SODIUM CHLORIDE 0.9% 1,000 ML IV SCH ×3 (04:59→10:45)
[2023-10-23 06:34] LABS: Anisocytosis Slight; HCT 20.1 % (39.0-53.0); HGB 7.3 gm/dL (13.0-17.5); MCH 31.9 pg (25.0-35.0); MCHC 36.2 g/dL (31.0-37.0); MCV 88.1 fL (80.0-100.0); Mean Platelet Volume 6.7; RBC 2.29 m/uL (4.30-5.90); RDW 16.7 % (11.5-15.5); WBC 4.4 k/uL (3.8-10.6)
[2023-10-23 06:44] LABS: Platelet Count 6 k/uL (150-450)
[2023-10-23 06:47] LABS: African American GFR (CKD) >90 (>60 ml/min/1.73 sqM); Anion Gap 7 mmol/L; Blood Urea Nitrogen 11 mg/dL (9-20); Calcium 7.4 mg/dL (8.4-10.2); Carbon Dioxide 23 mmol/L (22-30); Chloride 100 mmol/L (98-107); Glucose 115 mg/dL (74-99); Non-African American GFR(CKD) >90 (>60 ml/min/1.73 sqM); Potassium 3.3 mmol/L (3.5-5.1); Sodium 130 mmol/L (137-145)
[2023-10-23 07:36] LABS: C Reactive Protein 29.2 mg/dL (<1.0)
[2023-10-23] MEDS: allopurinoL 300 MG TAB PO SCH (08:43)
[2023-10-23] MEDS: FLUCONAZOLE 100 MG TAB PO SCH (08:43)
[2023-10-23] MEDS: ACETAMINOPHEN TAB 325 MG TAB PO PRN ×2 (08:43→17:37)
[2023-10-23] MEDS: ACYCLOVIR 200 MG CAP PO SCH ×2 (08:43→21:06)
[2023-10-23 09:29] LABS: Blast Cells # (M) 1.76 k/uL (0); Lymphocytes # (M) 2.64 k/uL (1.0-4.8); Monocytes # (M) 0.04 k/uL (0-1.0); Nucleated Red Blood Cells 1 /100 WBC (0-0); Total Cells Counted 200
--- NOTE | 2023-10-23 09:58 | CT ---
EXAMINATION TYPE: CT chest angio for PE DATE OF EXAM: 10/23/2023 COMPARISON: HISTORY: shortness of breath CT DLP: 496.20 mGycm CONTRAST: CT chest with contrast and 3D reconstruction with MIP imaging is performed with IV Contrast, patient injected with 129ml mL of Isovue 300. Contrast-enhanced CT of the chest was performed through the course of the pulmonary arteries with kenney g and mediastinal window settings submitted. 3D reconstruction with MIP imaging was also performed. PULMONARY ARTERIES: There are few small filling defects within lower lobe segmental and subsegmental branches compatible with mild pulmonary embolism. There is no evidence for large saddle component or lobar component filling defect at this time. LUNGS: Diffuse mixed airspace and interstitial infiltrates suspicious for atypical pneumonia such as Covid pneumonia. Correlate clinically. Small pleural effusions seen bilaterally. Evidence of remote g ranulomatous disease. MEDIASTINUM: Thoracic aorta is of normal caliber,however, evaluation is limited given timing of the contrast bolus. If there is concern for thoracic aortic pathology consider SELAM. Correlate clinicall y . The heart is not enlarged. No evidence for mediastinal mass. No mediastinal lymph nodes greater than 1cm. HILAR STRUCTURES: No evidence for mass. No hilar lymph nodes greater than 1 cm. UPPER ABDOMEN: No significant abnormality is seen. IMPRESSION: 1. Mild pulmonary embolism as discussed above. No evidence of right heart strain. 2. Mixed alveolar and interstitial infiltrates with tiny effusions. Correlate for pneumonia. A Red level critical message alert has been initiated for [facility] via the [employer] Critical Results System on 10/23/2023 9:56 AM. This message alert has been sent to [facility] via the [employer] tiffanie provided by the clinician for the receipt of Radiology Critical Findings. Message ID [id number].
[2023-10-23] MEDS ORDERED: POTASSIUM CHLORIDE ER 20 MEQ TAB.ER PO STA (10:39)
--- NOTE | 2023-10-23 11:25 | US ---
EXAMINATION TYPE: US venous doppler duplex LE DATE OF EXAM: 10/23/2023 11:14 AM COMPARISON: NONE CLINICAL INDICATION: Male, 43 years old with history of PE, basline dopplers; PE, baseline venous per order SIDE PERFORMED: Bilateral TECHNIQUE: The lower extremity deep venous system is examined utilizing real time linear array sonog denisha with graded compression, doppler sonography and color-flow sonography. VESSELS IMAGED: Common Femoral Vein Deep Femoral Vein Greater Saphenous Vein * Femoral Vein Popliteal Vein Small Saphenous Vein * Proximal Calf Veins (* superficial vessels) Right Leg: Negative for DVT Left Leg: Negative for DVT IMPRESSION: Grayscale, color doppler, spectral doppler imaging performed of the deep veins of the lo wer extremities. There is normal flow, compressibility, vascular waveforms.
--- NOTE | 2023-10-23 14:06 | P.PN ---
Subjective Progress Note Date: 10/23/23 Patient is a 43-year-old male with recently diagnosed AML with hospitalization from 10/08 through 10/16 for induction chemotherapy. He was doing well and had been discharged home on 10/16 with prophylactic Cipro, acyclovir, and Diflucan. He presented to the ER on 10/18 due to fevers up to 101.5 at home. He does report a slight cough. Initial chest x-ray in the ER showed no acute process, initial urinalysis was negative. Blood cultures were obtained. Laboratory analysis included CBC, coags, & CMP which were remarkable for white blood cell count 0.1, hemoglobin 7.3, platelets 9, sodium 131, BUN 21, AST 13, albumin of 3.4. Influenza A/B/RSV/COVID-19 PCR were negative. He was stared on cefepime and vanco and arrangements were made for admission. BCx + viridans streptococcus. Continued on Cefepime 2g IV Q8H. ID on board. ID recommended not removing PICC line due to high risk for bleeding. Echocardiogram is pending to evaluate for endocarditis. He has received 3 units of PRBCS and 4 units of platelets during this hospitalization. 10/22 Patient was seen and examined. CBC Hg 8 and Plt 11. BMP Na 133, K 3.1, glu 112. Uric acid 1.5.Ca 7.7. Phos 2. Continued on Cefepime 2g IV TID. Repeat BCx negative at 24H. 10/23 Patient was seen and examined. Tmax 102.3F over the past 24H. This morn ing, patient became hypoxic and SOB. O2 saturation in the 70's requiring 4L NC. CTA chest was ordered + for PE. Venous doppler negative. COVID negative. CBC Hg 7.3, Plt 6. BMP Na 130, K 3.3., glu 115, Ca 7.4. CRP 29.2. General: non toxic, no distress, appears at stated age Derm: warm, dry Head: atraumatic, normocephalic, symmetric Eyes: EOMI, no lid lag, anicteric sclera Cardiovascular: S1S2 reg, no murmur Lungs: CTA bilateral, no rhonchi, no rales, no accessory muscle use Ext: no gross muscle atrophy, no edema, no contractures Neuro: no focal neuro deficits Psych: Alert, oriented, appropriate affect Based on my assessment of this patient, this patient meets a moderate complexity level of care. Patient has an acute diagnosis of strep bacteremia that poses a threat to life or bodily function. Found to have PE. Acute hypoxic respiratory failure: Supplemental O2 to maintain O2 saturation of 92%. Pulmonary embolus: Unable to AC due to severe thrombocytopenia. Possible IVC filter? Vascular surgery consulted. Febrile neutropenia Strep bacteremia: Cefepime 2g IV TID. Repeat BCx negative so far. Echo no vegetations. ID on board. Telemetry monitoring. Pancytopenia secondary to chemotherapy: Transfuse if Hg < 7 and Plt < 10. Hypokalemia: KCl 40 meq PO x 1 ordered. AML: Oncology on board. CODE STATUS: FULL CODE DVT Prophylaxis: SCDs. GI Prophylaxis: Designated medical POA if patient is not able to make medical decisions for themselves: I have reviewed the following strategic sourcing consultant notes: ID, oncology note. I have reviewed the results of the following tests: CBC, BMP, Echo, BCx, CTA chest, Venous doppler. COVID. I have ordered the following tests: CBC and BMP. I have discussed the care of this patient with the following independent historian: I have independently interpreted the following test below: I have discussed the management of this patient with the following physician: Objective - Vital Signs Vital signs: Vital Signs Temp 100.3 F H 10/23/23 07:01 Pulse 107 H 10/23/23 02:00 Resp 20 10/23/23 07:01 BP 136/68 10/23/23 07:01 Pulse Ox 90 L 10/23/23 07:01 FiO2 Intake & Output 10/22/23 10/23/23 10/23/23 18:59 06:59 18:59 Intake Total 500 1540 Balance 500 1540 Intake: Intake, IV Titration 500 950 Amount Cefepime 2 gm In Sodium 100 Chloride 0.9% 100 ml @ 25 mls/hr IVPB Q8H [facility] Rx#: [id number] Potassium Chloride 10 meq 400 In Water For Injection 1 100ml.bag @ 100 mls/hr IVPB Q1HR [facility] Rx#: [id number] Sodium Chloride 0.9% 1, 900 000 ml @ 75 mls/hr IV . [id number] [facility] Rx#:[id number] ceFAZolin 2 gm In Sodium 50 Chloride 0.9% 50 ml @ 100 mls/hr IVPB Q8HR [facility] Rx# :[id number] Oral 590 Other: Voiding Method Toilet # Voids 2 # Bowel Movements 1 - Labs CBC & Chem 7: 10/23/23 05:56 10/23/23 05:56 Labs: Abnormal Lab Results - Last 24 Hours (Table) 10/23/23 10/23/23 Range/Units 05:56 05:56 RBC 2.29 L (4.30-5.90) m/uL Hgb 7.3 L (13.0-17.5) gm/dL Hct 20.1 L (39.0-53.0) % RDW 16.7 H (11.5-15.5) % Plt Count 6 L* (150-450) k/uL Blast Cells % 40 H* % Blast Cells # (Man) 1.76 H (0) k/uL Nucleated RBCs 1 H (0-0) /100 WBC Sodium 130 L (137-145) mmol/L Potassium 3.3 L (3.5-5.1) mmol/L Glucose 115 H (74-99) mg/dL Calcium 7.4 L (8.4-10.2) mg/dL C-Reactive Protein 29.2 H (<1.0) mg/dL Microbiology - Last 24 Hours (Table) 10/20/23 10:49 Blood Culture - Preliminary Blood 10/19/23 12:55 Blood Culture - Preliminary Blood
--- NOTE | 2023-10-23 15:11 | P.PN ---
Subjective Progress Note Date: 10/23/23 Principal diagnosis: AML, thrombocytopenia, PE When into see patient for consult for possible IVC filter placement. Patient was not available in his room. Will reevaluate tomorrow. Objective - Vital Signs Vital signs: Vital Signs Temp 100.3 F H 10/23/23 07:01 Pulse 107 H 10/23/23 02:00 Resp 20 10/23/23 07:01 BP 136/68 10/23/23 07:01 Pulse Ox 90 L 10/23/23 07:01 FiO2 Intake & Output 10/22/23 10/23/23 10/23/23 18:59 06:59 18:59 Intake Total 500 1540 Balance 500 1540 Intake: Intake, IV Titration 500 950 Amount Cefepime 2 gm In Sodium 100 Chloride 0.9% 100 ml @ 25 mls/hr IVPB Q8H [facility] Rx#: [id number] Potassium Chloride 10 meq 400 In Water For Injection 1 100ml.bag @ 100 mls/hr IVPB Q1HR [facility] Rx#: [id number] Sodium Chloride 0.9% 1, 900 000 ml @ 75 mls/hr IV . [id number] [facility] Rx#:[id number] ceFAZolin 2 gm In Sodium 50 Chloride 0.9% 50 ml @ 100 mls/hr IVPB Q8HR [facility] Rx# :[id number] Oral 590 Other: Voiding Method Toilet # Voids 2 # Bowel Movements 1 - Labs CBC & Chem 7: 10/23/23 05:56 10/23/23 05:56 Labs: Abnormal Lab Results - Last 24 Hours (Table) 10/23/23 10/23/23 Range/Units 05:56 05:56 RBC 2.29 L (4.30-5.90) m/uL Hgb 7.3 L (13.0-17.5) gm/dL Hct 20.1 L (39.0-53.0) % RDW 16.7 H (11.5-15.5) % Plt Count 6 L* (150-450) k/uL Blast Cells % 40 H* % Blast Cells # (Man) 1.76 H (0) k/uL Nucleated RBCs 1 H (0-0) /100 WBC Sodium 130 L (137-145) mmol/L Potassium 3.3 L (3.5-5.1) mmol/L Glucose 115 H (74-99) mg/dL Calcium 7.4 L (8.4-10.2) mg/dL C-Reactive Protein 29.2 H (<1.0) mg/dL Microbiology - Last 24 Hours (Table) 10/20/23 10:49 Blood Culture - Preliminary Blood 10/19/23 12:55 Blood Culture - Preliminary Blood
--- NOTE | 2023-10-23 15:43 | P.CNPUL ---
History of Present Illness Consult date: 10/23/23 Requesting physician: Caio Patel Reason for consult: dyspnea, cough, hypoxemia, pneumonia, pulmonary embolism, abnormal CXR/CT Chief complaint: Shortness of breath, coughing up blood, hypoxemia. History of present illness: Pulmonary consult dated 10/23/2023. 43-year-old male with a recent diagnosis of acute myelocytic leukemia. The patient presented to the emergency department on October 18, at 7:00 in the morning, complaining of fever, and for that reason, his oncologist suggested t hat he come to the emergency room. Apparently at that time, other than the temperature elevation, he did not have any other complaints. This is based on documentation in the ER, by the ER physician. The patient was diagnosed as having acute myeloid leukemia, this year. Other than that, does not appear to have any other major medical problems. We were consulted, because apparently a CT angiogram revealed a small filling defect, suggestive of pulmonary embolism, and, the primary service once know whether or not the patient should have a filter, given the fact that he still thrombocytopenia, and cannot tolerate IV anticoagulation. The patient is seen today in room 516. The patient is on oxygen at 4 L. His most recent lab data includes a white count of 4.4, hemoglobin 7.3, hematocrit 20.1, and 6000 platelet count. Dopplers of the lower extremity were negative. Earlier today, the patient was much more short of breath, but apparently according to family members she's been short of breath for a couple of days. In addition he is coughing and spitting up some blood. Additional laboratory data includes a sodium 1:30, potassium 3.3, chlorides 100, CO2 23, BUN 11, creatinine 0.71. C-reactive protein is 29.2. Testing for payne virus was negative. A chest x-ray on the day of admission, was interpreted as being normal. A subsequent chest x-ray on October 21, was also read as normal. In my opinion, the chest second chest x-ray, could be consistent with mild vascular congestion. The CT angiogram, showed a few small really defects within the lower lobe segmental and subsegmental branches compatible with mild pulmonary embolism. There is no large or central PE. In addition, there is diffuse interstitial changes, consistent with either atypical pneumonia, or interstitial edema. There is also small pleural effusions. Review of Systems REVIEW OF SYSTEMS: CONSTITUTIONAL: Fever. NEUROLOGIC: [ Negative.] HEENT: [ Negative.] CARDIAC: [Negative.] PULMONARY: Shortness of breath, cough, hemoptysis. GI: [Negative.] : [Negative.] RHEUMATOLOGIC: [ Negative.] IMMUNOLOGIC: [ Negative.] ENDOCRINE: [Negative. ] DERMATOLOGIC: [Negative.] Past Medical History Past Medical History: Cancer Additional Past Medical History / Comment(s): Acute myeloid leukemia diagnosed in 2022 History of Any Multi-Drug Resistant Organisms: None Reported Past Surgical History: No Surgical Hx Reported Additional Past Surgical History / Comment(s): hernia surgery scheduled with dr solitario in [facility] Past Anesthesia/Blood Transfusion Reactions: No Reported Reaction Smoking Status: Former smoker - Past Family History Mother Additional Family Medical History / Comment(s): bladder and stomach cancer Medications and Allergies Home Medications Medication Instructions Recorded Confirmed Type Acyclovir [Zovirax] 400 mg PO BID #60 tablet 10/15/23 10/18/23 Rx Ciprofloxacin HCl [Cipro] 500 mg PO Q12HR 1 Days #60 tab 10/15/23 10/18/23 Rx Fluconazole [Diflucan] 100 mg PO DAILY #30 tablet 10/15/23 10/18/23 Rx Ondansetron [Ondansetron Odt] 4 mg PO Q4H PRN #45 tab 10/15/23 10/18/23 Rx allopurinoL 300 mg PO DAILY #30 tab 10/15/23 10/18/23 Rx Allergies Allergy/AdvReac Type Severity Reaction Status Date / Time Penicillins Allergy Unknown Verified 10/18/23 11:31 Childhood Physical Exam Osteopathic Statement: *. No significant issues noted on an osteopathic structural exam other than those noted in the History and Physical/Consult. Vitals: Vital Signs Temp Pulse Pulse Resp BP BP Pulse Ox 10/23/23 15:02 99.8 F H 76 16 126/80 95 10/23/23 14:09 98.8 F 97 16 143/82 91 L 10/23/23 08:45 18 10/23/23 08:24 92 L 10/23/23 07:01 100.3 F H 20 136/68 90 L 10/23/23 02:00 98.7 F 107 H 16 120/62 87 L 10/22/23 20:00 16 10/22/23 19:55 99 F 106 H 16 132/69 91 L 10/22/23 16:09 99.9 F H 72 16 124/76 93 L Intake and Output 10/23/23 10/23/23 10/23/23 06:59 14:59 22:59 Intake Total 1540 0 Balance 1540 0 Intake: Intake, IV Titration 950 Amount Sodium Chloride 0.9% 1, 900 000 ml @ 75 mls/hr IV . [id number] [facility] Rx#:[id number] ceFAZolin 2 gm In Sodium 50 Chloride 0.9% 50 ml @ 100 mls/hr IVPB Q8HR [facility] Rx# :[id number] Oral 590 Blood Product 0 Unit 0 Other: Voiding Method Toilet # Voids 2 # Bowel Movements 1 No acute distress, oriented 3. No conversational dyspnea or use of accessory muscles. The patient's currently on 4 L. HEENT examination is grossly unremarkable. Neck supple. Full range of motion. No adenopathy thyromegaly or neck vein distention. Cardiovascular examination reveals regular rhythm rate. S1-S2 normal. No S3 or S4. No discernible murmur noted. Heart rate 76 bpm. Heart sounds are distant. Lungs reveal fine crackles throughout. Breath sounds are equal. No wheezes. No rhonchi. 4 L saturation is 92%. Abdomen soft bowel sounds are heard. No masses or tenderness. Extremities are intact. No cyanosis or clubbing. Mild pitting edema in the lower extremities. Skin is without rash or lesion. Neurologic examination is brief but nonfocal. Results - Laboratory Findings CBC and BMP: 10/23/23 05:56 10/23/23 05:56 PT/INR, D-dimer PT 10.7 sec (10.0-12.5) 10/18/23 09:11 INR 1.0 (<1.2) 10/18/23 09:11 Abnormal lab findings: Abnormal Labs 10/18/23 10/18/23 10/18/23 09:11 09:11 09:11 WBC 0.1 L* RBC 2.28 L Hgb 7.3 L Hct 20.7 L RDW 17.6 H Plt Count 9 L* Blast Cells % Neutrophils # (Manual) Lymphocytes # (Manual) Blast Cells # (Man) Plasma Cell # (Manual) Nucleated RBCs Sodium 131 L Potassium Carbon Dioxide BUN 21 H Glucose 102 H Osmolality Uric Acid Calcium Phosphorus AST 13 L C-Reactive Protein Total Protein 6.1 L Albumin 3.4 L Procalcitonin 0.16 H Crossmatch 10/19/23 10/19/23 10/19/23 04:27 04:27 04:27 WBC 0.3 L* RBC 1.84 L Hgb 5.9 L* Hct 16.6 L* RDW 17.7 H Plt Count 7 L* Blast Cells % Neutrophils # (Manual) Lymphocytes # (Manual) Blast Cells # (Man) Plasma Cell # (Manual) Nucleated RBCs Sodium 128 L Potassium Carbon Dioxide 19 L BUN Glucose 130 H Osmolality Uric Acid 2.1 L Calcium 7.4 L Phosphorus AST C-Reactive Protein Total Protein 5.1 L Albumin 2.6 L Procalcitonin Crossmatch 10/19/23 10/19/23 10/19/23 05:43 12:55 18:33 WBC 0.7 L* RBC 2.34 L Hgb 7.5 L D Hct 20.8 L RDW 17.0 H Plt Count 10 L* Blast Cells % Neutrophils # (Manual) Lymphocytes # (Manual) Blast Cells # (Man) Plasma Cell # (Manual) Nucleated RBCs Sodium Potassium Carbon Dioxide BUN Glucose Osmolality 271 L Uric Acid Calcium Phosphorus AST C-Reactive Protein Total Protein Albumin Procalcitonin Crossmatch See Detail 10/19/23 10/20/23 10/20/23 18:33 04:34 04:34 WBC 1.0 L* RBC 2.42 L Hgb 7.7 L Hct 21.4 L RDW 17.6 H Plt Count 6 L* Blast Cells % 64 H* Neutrophils # (Manual) 0.02 L* Lymphocytes # (Manual) 0.34 L Blast Cells # (Man) 0.64 H Plasma Cell # (Manual) Nucleated RBCs Sodium 128 L 131 L Potassium Carbon Dioxide 21 L BUN Glucose 126 H 114 H Osmolality Uric Acid Calcium 7.4 L 7.5 L Phosphorus AST C-Reactive Protein Total Protein 5.5 L Albumin 2.8 L Procalcitonin Crossmatch 10/20/23 10/21/23 10/21/23 17:06 06:11 06:11 WBC 1.4 L* 2.2 L RBC 2.38 L 2.30 L Hgb 7.6 L 7.4 L Hct 21.0 L 20.2 L RDW 17.2 H 17.0 H Plt Count 13 L* D 9 L* Blast Cells % 69 H* 78 H* Neutrophils # (Manual) Lymphocytes # (Manual) 0.43 L 0.48 L Blast Cells # (Man) 0.97 H 1.72 H Plasma Cell # (Manual) Nucleated RBCs Sodium 131 L Potassium 3.3 L Carbon Dioxide 21 L BUN Glucose 110 H Osmolality Uric Acid 1.5 L Calcium 7.4 L Phosphorus 2.3 L AST C-Reactive Protein Total Protein 5.3 L Albumin 2.7 L Procalcitonin Crossmatch 10/21/23 10/22/23 10/22/23 15:51 07:40 07:40 WBC 2.4 L RBC 2.15 L 2.58 L Hgb 6.9 L* 8.0 L Hct 18.9 L* 22.7 L RDW 17.1 H 16.8 H Plt Count 14 L* D 11 L* Blast Cells % 66 H* 28 H* Neutrophils # (Manual) 0.20 L* Lymphocytes # (Manual) 0.82 L Blast Cells # (Man) 1.58 H 1.20 H Plasma Cell # (Manual) 0.10 H Nucleated RBCs Sodium 133 L Potassium 3.1 L Carbon Dioxide BUN Glucose 112 H Osmolality Uric Acid 1.5 L Calcium 7.7 L Phosphorus 2.0 L AST C-Reactive Protein Total Protein Albumin Procalcitonin Crossmatch 10/23/23 10/23/23 05:56 05:56 WBC RBC 2.29 L Hgb 7.3 L Hct 20.1 L RDW 16.7 H Plt Count 6 L* Blast Cells % 40 H* Neutrophils # (Manual) Lymphocytes # (Manual) Blast Cells # (Man) 1.76 H Plasma Cell # (Manual) Nucleated RBCs 1 H Sodium 130 L Potassium 3.3 L Carbon Dioxide BUN Glucose 115 H Osmolality Uric Acid Calcium 7.4 L Phosphorus AST C-Reactive Protein 29.2 H Total Protein Albumin Procalcitonin Crossmatch - Diagnostic Findings Chest x-ray: image reviewed CT scan - chest: image reviewed U/S of Legs: image reviewed Assessment and Plan Assessment: Acute hypoxemic respiratory failure, likely multifactorial, in part related to possible fluid overload, possible atypical pneumonia, and small pulmonary emboli. Recent diagnosis of acute myeloid leukemia. Patient had recent chemotherapy. Bicytopenia. Electrolyte disturbance including hyponatremia, and hypokalemia Plan: Plan dated 10/15/2023. The question put to our group was whether or not the patient should have a IVC filter. Bilateral lower extremity Dopplers were negative for DVT. I would not barrera a put one in at this time. The patient does not appear to be overwhelmingly short of breath, despite the fact that he is on 4 L of oxygen. I am concerned about the possibility of mild fluid overload versus atypical pneumonia. In that regard, and N-terminal proBNP is ordered,, as well as a pro- calcitonin level. In addition, we will check a d-dimer level. Currently, the patient's on Ancef, and acyclovir, as well as Diflucan. Additional recommendations and suggestions are forthcoming. We will continue to follow the patient, and make additional recommendations. Time with Patient: Greater than 30
[2023-10-23 16:05] LABS: Platelet Count 11 k/uL (150-450)
--- NOTE | 2023-10-23 16:29 | P.PN ---
Subjective Progress Note Date: 10/23/23 Principal diagnosis: Reason for follow-up is febrile neutropenia and bacteremia Patient is a 43-year-old male with a past medical history of pain for acute myeloid leukemia diagnosed August 2023, patient did recently have got left arm PICC line and received chemotherapy from 10/08/2023 until 10/16/2023, presented to hospital with fever did have a low white count and a positive blood culture. On today's evaluation that is 10/23/2023, the patient did have a low-grade fever 100.3F this morning the patient is afebrile since then, the patient is breathing comfortably however is requiring 6 L nasal cannula supplemental oxygen, patient denies chest pain shortness of breath, the patient has been complaining of occasional cough with minimal sputum production, patient denies Abdominal pain, no nausea/vomiting or diarrhea Patient white count is 4.4 creatinine is 0.71, blood culture with Streptococcus viridans oxacillin sensitive, repeat culture so far negative Objective - Vital Signs Vital signs: Vital Signs Temp 100.3 F H 10/23/23 07:01 Pulse 107 H 10/23/23 02:00 Resp 20 10/23/23 07:01 BP 136/68 10/23/23 07:01 Pulse Ox 90 L 10/23/23 07:01 FiO2 Intake & Output 10/22/23 10/23/23 10/23/23 18:59 06:59 18:59 Intake Total 500 1540 Balance 500 1540 Intake: Intake, IV Titration 500 950 Amount Cefepime 2 gm In Sodium 100 Chloride 0.9% 100 ml @ 25 mls/hr IVPB Q8H [facility] Rx#: [id number] Potassium Chloride 10 meq 400 In Water For Injection 1 100ml.bag @ 100 mls/hr IVPB Q1HR [facility] Rx#: [id number] Sodium Chloride 0.9% 1, 900 000 ml @ 75 mls/hr IV . [id number] [facility] Rx#:[id number] ceFAZolin 2 gm In Sodium 50 Chloride 0.9% 50 ml @ 100 mls/hr IVPB Q8HR [facility] Rx# :[id number] Oral 590 Other: Voiding Method Toilet # Voids 2 # Bowel Movements 1 - Exam GENERAL DESCRIPTION: A middle-aged male lying in bed in no distress RESPIRATORY SYSTEM: Unlabored breathing , clear to auscultation anteriorly HEART: S1 S2 regular rate and rhythm , ABDOMEN: Soft , no tenderness EXTREMITIES: No edema feet - Labs CBC & Chem 7: 10/23/23 05:56 10/23/23 05:56 Labs: Abnormal Lab Results - Last 24 Hours (Table) 10/23/23 10/23/23 Range/Units 05:56 05:56 RBC 2.29 L (4.30-5.90) m/uL Hgb 7.3 L (13.0-17.5) gm/dL Hct 20.1 L (39.0-53.0) % RDW 16.7 H (11.5-15.5) % Plt Count 6 L* (150-450) k/uL Blast Cells % 40 H* % Blast Cells # (Man) 1.76 H (0) k/uL Nucleated RBCs 1 H (0-0) /100 WBC Sodium 130 L (137-145) mmol/L Potassium 3.3 L (3.5-5.1) mmol/L Glucose 115 H (74-99) mg/dL Calcium 7.4 L (8.4-10.2) mg/dL C-Reactive Protein 29.2 H (<1.0) mg/dL Microbiology - Last 24 Hours (Table) 10/20/23 10:49 Blood Culture - Preliminary Blood 10/19/23 12:55 Blood Culture - Preliminary Blood Assessment and Plan (1) Bacteremia Current Visit: Yes Status: Acute Code(s): R78.81 - BACTEREMIA SNOMED Code(s): 5590276 (2) Neutropenic fever Current Visit: Yes Status: Acute Priority: High Code(s): D70.9 - NEUTROPENIA, UNSPECIFIED; R50.81 - FEVER PRESENTING WITH CONDITIONS CLASSIFIED ELSEWHERE SNOMED Code(s): 991541602 Plan: 1patient presented to hospital with sepsis in this patient who did have a fever tachycardia, leukopenia/neutropenia and now with evidence of bacteremia with a blood culture positive for gram-positive cocci resembling strep awaiting final ID to determine the possibility source could be related to the PICC line however PICC has been recently placed and the patient did have a low platelet count and high risk of bleeding and the type of bacteria is growing in the blood not requiring immediate removal of his PICC line 2-blood cultures has been repeated and are negative so far 3-patient did have worsening of his respiratory status did have a CT angiogram of the chest suspicious for PE pulmonary has been consulted sputum cultures will be requested continue with cefazolin for underlying bacteremia Dictation was produced using [employer] dictation software. please excuse any grammatical, word or spelling errors. Time with Patient: Less than 30
--- NOTE | 2023-10-23 17:02 | XR ---
EXAMINATION TYPE: XR KUB DATE OF EXAM: 10/23/2023 COMPARISON: NONE HISTORY: Pain TECHNIQUE: Single supine KUB image of the abdomen is obtained FINDINGS: Small bowel demonstrates no evidence for dilatation or air fluid levels. Gas and fecal material is seen in non-distended colon. No convincing evidence for pneumoperitoneum. No unusual calcifications. The lung bases are clear. The osseous structures are intact. IMPRESSION: 1. Overall nonobstructive bowel gas pattern.
--- NOTE | 2023-10-23 19:14 | P.PN ---
Subjective Progress Note Date: 10/23/23 Principal diagnosis: neutropenic fever At today's visit patient is resting comfortably in bed. He reports worsening SOB that started in the middle of the night. He states upon walking to the bathroom he felt increasing SOB as well as a knot in his stomach, and had increased pain upon inspiration. Denies chest pain and dizziness. Nursing increased O2 to 4L and got pulse ox up to 90-92%. Reports improvement in diarrhea. Fever of 100.3 today. Plts 6,000, 1 dose plts ordered. Potassium 3.3, supplementation ordered Objective - Vital Signs Vital signs: Vital Signs Temp 99.2 F 10/23/23 15:57 Pulse 77 10/23/23 15:57 Resp 18 10/23/23 15:57 BP 138/71 10/23/23 15:57 Pulse Ox 94 L 10/23/23 16:43 FiO2 Intake & Output 10/22/23 10/23/23 10/23/23 18:59 06:59 18:59 Intake Total 500 1540 363 Balance 500 1540 363 Intake: Intake, IV Titration 500 950 Amount Cefepime 2 gm In Sodium 100 Chloride 0.9% 100 ml @ 25 mls/hr IVPB Q8H [facility] Rx#: [id number] Potassium Chloride 10 meq 400 In Water For Injection 1 100ml.bag @ 100 mls/hr IVPB Q1HR [facility] Rx#: [id number] Sodium Chloride 0.9% 1, 900 000 ml @ 75 mls/hr IV . [id number] [facility] Rx#:[id number] ceFAZolin 2 gm In Sodium 50 Chloride 0.9% 50 ml @ 100 mls/hr IVPB Q8HR [facility] Rx# :[id number] Oral 590 Blood Product 363 Platelet Pheresis Pas 363 Psoralen Unit [id number] Other: Voiding Method Toilet Toilet # Voids 2 # Bowel Movements 1 - Constitutional General appearance: Present: average body habitus, no acute distress - EENT Eyes: Present: anicteric sclerae, EOMI ENT: Present: hearing grossly normal - Respiratory Respiratory: bilateral: rales - Cardiovascular Rhythm: regular Heart sounds: normal: S1, S2 Abnormal Heart Sounds: Absent: systolic murmur, diastolic murmur, rub, S3 Gallop, S4 Gallop, click, other - Peripheral edema leg Peripheral Edema: bilateral: None - Gastrointestinal General gastrointestinal: Present: soft. Absent: tenderness - Integumentary Integumentary: Absent: cyanotic - Musculoskeletal Musculoskeletal: Present: strength equal bilaterally - Psychiatric Psychiatric: Present: A&O x's 3 - Labs CBC & Chem 7: 10/23/23 05:56 10/23/23 05:56 Labs: Abnormal Lab Results - Last 24 Hours (Table) 10/22/23 10/23/23 10/23/23 Range/Units 07:40 05:56 05:56 RBC 2.29 L (4.30-5.90) m/uL Hgb 7.3 L (13.0-17.5) gm/dL Hct 20.1 L (39.0-53.0) % RDW 16.7 H (11.5-15.5) % Plt Count 11 L* 6 L* (150-450) k/uL Blast Cells % 40 H* % Blast Cells # (Man) 1.76 H (0) k/uL Nucleated RBCs 1 H (0-0) /100 WBC Sodium 130 L (137-145) mmol/L Potassium 3.3 L (3.5-5.1) mmol/L Glucose 115 H (74-99) mg/dL Calcium 7.4 L (8.4-10.2) mg/dL C-Reactive Protein 29.2 H (<1.0) mg/dL Microbiology - Last 24 Hours (Table) 10/20/23 10:49 Blood Culture - Preliminary Blood 10/19/23 12:55 Blood Culture - Preliminary Blood - Imaging and Cardiology CT scan - chest: report reviewed Assessment and Plan (1) Neutropenic fever Current Visit: Yes Status: Acute Priority: High Code(s): D70.9 - NEUTROPENIA, UNSPECIFIED; R50.81 - FEVER PRESENTING WITH CONDITIONS CLASSIFIED ELSEWHERE SNOMED Code(s): 331792223 (2) Acute myeloid leukemia, without mention of having achieved remission Current Visit: Yes Status: Acute Priority: High Code(s): C92.00 - ACUTE MYELOBLASTIC LEUKEMIA, NOT HAVING ACHIEVED REMISSION SNOMED Code(s): 58454421 (3) Pancytopenia Current Visit: Yes Status: Acute Priority: High Code(s): D61.818 - OTHER PANCYTOPENIA SNOMED Code(s): 472011728 (4) Pulmonary embolism Current Visit: Yes Status: Acute Priority: High Code(s): I26.99 - OTHER PULMONARY EMBOLISM WITHOUT ACUTE COR PULMONALE SNOMED Code(s): 94283777 Plan: Neutropenic fever: -Fever this morning of 100.3. Cultures were positive for strep viridans, which appears to be a sensitive to all antibiotics tested on the panel. Continues on IV abx. Repeat cultures negative thus far -CXR negative for acute cardiopulmonary processes - If repeat cultures remain negative and pt is afebrile, patient could be switched over to an oral antibiotic, targeting the above pathogen, and continue his other prophylactic antibiotics/antiviral/antifungal. - ID consulted for abx recommendation, as well as retention versus removal of PICC line. -Due to persisting cough and increasing SOB, repeat COVID was ordered, which was negative AML: The patient's CBC had shown some increase in WBC, with significant percentage of blasts. This was discussed in detail with the patient and his . At this time., Just a week after completion of induction therapy, this is difficult to interpret. This could represent a transient fluctuation vs early bone marrow recovery with the higher apparent percentage of blasts transiently, due to slower maturation and turn over rate than normal. Refractory AML, with early progression is also within the differential, though that would be highly unusual to manifest so soon after completion of induction. -White counts have improved, WBC 4.4. Blast cells still elevated at 40% - Continue to monitor. If the same pattern remains persistent or progresses, then refractory AML with progression becomes more likely. In that case bone marrow aspiration biopsy will be repeated sooner than planned. Pancytopenia: -Since admission, patient has received 3 units PRBCS and 4 doses platelets. Today plts 6,000, additional dose of plts ordered. Hgb stable at 7.3 -Continue to monitor with transfusion support as needed -Please transfuse with irradiated blood products only PE: -Due to worsening shortness of breath overnight stat CTA xhest was ordered. Study revealed few small filling defects within lower lobe segmental and subsegmental branches compatible with mild pulmonary embolism. No evidence for large saddle component or lobar component filling defect. No evidence of right heart strain. Mixed alveolar and interstitial infiltrates with tiny effusions noted -Baseline Dopplers of bilateral lower extremities was obtained which were negative for DVT. -Due to significant thrombocytopenia anticoagulation is contraindicated. Consult was placed to pulmonology to evaluate CTA study to confirm PE as technical supervisor noted that this was not an optimal study due to issues with contrast bolus. -Consult placed to vascular surgery for evaluation for IVC filter. Will plan to give additional dose of platelets prior to procedure -Will await further recommendations from pulm and vascular surgery Diarrhea: -C diff negative -Continues on imodium prn, questran added with improvement in symptoms. Will hold questran for now and continue to monitor Attests: I have seen and examined pt, performed H&P, developed impression and plan of care. Discussed with dictator. Agree with documentation, dictated as a scribe.
[2023-10-24] MEDS: ACETAMINOPHEN TAB 325 MG TAB PO PRN ×4 (00:39→23:57)
[2023-10-24] MEDS: guaiFENesin-DM 100-10MG/5ML 10 ML CUP PO PRN ×2 (02:19→23:57)
[2023-10-24] MEDS: SODIUM CHLORIDE 0.9% 1,000 ML IV SCH ×2 (07:11→18:50)
[2023-10-24 07:35] LABS: African American GFR (CKD) >90 (>60 ml/min/1.73 sqM); Anion Gap 8 mmol/L; Blood Urea Nitrogen 10 mg/dL (9-20); Calcium 7.8 mg/dL (8.4-10.2); Carbon Dioxide 25 mmol/L (22-30); Chloride 101 mmol/L (98-107); Glucose 109 mg/dL (74-99); Non-African American GFR(CKD) >90 (>60 ml/min/1.73 sqM); Phosphorus 3.1 mg/dL (2.5-4.5); Potassium 3.5 mmol/L (3.5-5.1); Sodium 134 mmol/L (137-145); Uric Acid 1.5 mg/dL (3.5-8.5)
[2023-10-24 08:02] LABS: Anisocytosis Slight; HCT 20.2 % (39.0-53.0); HGB 7.3 gm/dL (13.0-17.5); MCHC 35.9 g/dL (31.0-37.0); MCV 89.3 fL (80.0-100.0); Mean Platelet Volume 8.4; RBC 2.26 m/uL (4.30-5.90); RDW 17.3 % (11.5-15.5); WBC 4.6 k/uL (3.8-10.6)
[2023-10-24 08:08] LABS: Platelet Count 7 k/uL (150-450)
[2023-10-24] MEDS: ACYCLOVIR 200 MG CAP PO SCH ×2 (08:58→20:29)
[2023-10-24] MEDS: FLUCONAZOLE 100 MG TAB PO SCH (08:58)
[2023-10-24] MEDS: allopurinoL 300 MG TAB PO SCH (08:58)
[2023-10-24] MEDS ORDERED: FUROSEMIDE 10 MG/ML 4 ML VIAL IV STA (10:38)
--- NOTE | 2023-10-24 11:24 | US ---
EXAMINATION TYPE: US venous doppler duplex UE BI DATE OF EXAM: 10/24/2023 COMPARISON: NONE CLINICAL INDICATION: Male, 43 years old with history of PE, eval for DVT prior to IVC filter placemen t; Patient history of leukemia with recent chemo treatments. PICC in left antecubital fossa. Brusing and lump right antecubital fossa. SIDE PERFORMED: Bilateral Right Arm: Negative for DVT; superficial clot at lump located within the cephalic vein at elbow. Left Arm: Negative for DVT IMPRESSION: 1. No evidence of acute DVT. 2. Exam is positive for right upper extremity superficial venous thrombosis in the cephalic vein at the level of the elbow.
--- NOTE | 2023-10-24 11:32 | P.GSCN ---
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 He was started on chemotherapy at that time and is being followed by oncology. Patient developed fever and chills at home and was told to come to the emergency department for further evaluation. He was ad mitted to the hospital on 10/20/2023 with bacteremia, neutropenic fever, and severe thrombocytopenia. Max temp this admission 102.3. Patient had positive blood cultures with Viridans streptococcus group. Infectious disease is following and he has been on IV antibiotics. Repeat preliminary blood culture negative at 72 hours. Patient was also seen by pulmonology for pulmonary embolism and diagnosed with possible atypical pneumonia and small pleural effusions. CT angiogram CT angiogram report mild pulmonary embolism within the lower lobe segmental and subsegmental branches compatible with mild pulmonary embolism no evidence of right heart strain. Mixed alveolar and interstitial infiltrate with tiny effusions. Correlate for pneumonia. Vascular surgery was consulted for possible IVC filter placement as patient has had bicytopenia on admission was severe thrombocytopenia and is unable to go on anticoagulation. He had a venous duplex of the lower extremities which was negative for DVT bilaterally. He is currently has 4 L of nasal cannula with oxygen saturation 93-96%. He is sitting comfortably at this time without any acute shortness of breath. Denies any chest pain, abdominal pain, nausea or vomiting. Todays max temp 100.0. He is status post 5 units of platelet transfusion and 3 units of packed RBCs. Today's labs WBC 4.6 hemoglobin 7.3 hematocrit 20.2 platelet count is 7000 d-dimer 6.6 sodium 134 potassium 3.5 10 creatinine 0.67 Review of Systems A 14 point review systems was completed all pertinent positives and negatives as stated in the HPI. Past Medical History Past Medical History: Cancer Additional Past Medical History / Comment(s): Acute myeloid leukemia diagnosed in 2022 History of Any Multi-Drug Resistant Organisms: None Reported Past Surgical History: No Surgical Hx Reported Additional Past Surgical History / Comment(s): hernia surgery scheduled with dr solitario in novem Past Anesthesia/Blood Transfusion Reactions: No Reported Reaction Smoking Status: Former smoker - Past Family History Mother Additional Family Medical History / Comment(s): bladder and stomach cancer Medications and Allergies Home Medications Medication Instructions Recorded Confirmed Type Acyclovir [Zovirax] 400 mg PO BID #60 tablet 10/15/23 10/18/23 Rx Ciprofloxacin HCl [Cipro] 500 mg PO Q12HR 1 Days #60 tab 10/15/23 10/18/23 Rx Fluconazole [Diflucan] 100 mg PO DAILY #30 tablet 10/15/23 10/18/23 Rx Ondansetron [Ondansetron Odt] 4 mg PO Q4H PRN #45 tab 10/15/23 10/18/23 Rx allopurinoL 300 mg PO DAILY #30 tab 10/15/23 10/18/23 Rx Allergies Allergy/AdvReac Type Severity Reaction Status Date / Time Penicillins Allergy Unknown Verified 10/18/23 11:31 Childhood Surgical - Exam Vital Signs Temp Pulse Resp BP Pulse Ox 101 F H 121 H 20 142/70 100 10/18/23 07:40 10/18/23 07:40 10/18/23 07:40 10/18/23 07:40 10/18/23 07:40 General appearance: The patient is alert, oriented, appears in no acute distre ss. HET: Head is normocephalic and atraumatic. Pupils are equal and reactive. Neck: Supple. Heart: Regular. Lungs: Equal expansion, normal respiratory effort. Abdomen: Soft, nontender, nondistended. Extremities: Normal skin color and turgor. Neurological: No focal deficits. Strength and sensation are grossly intact. Results - Labs 10/24/23 07:01 10/24/23 07:01 Abnormal Lab Results - Last 24 Hours (Table) 10/22/23 10/23/23 10/23/23 Range/Units 07:40 05:56 16:15 RBC (4.30-5.90) m/uL Hgb (13.0-17.5) gm/dL Hct (39.0-53.0) % RDW (11.5-15.5) % Plt Count 11 L* (150-450) k/uL Blast Cells % 40 H* % Blast Cells # (Man) 1.76 H (0) k/uL Nucleated RBCs 1 H (0-0) /100 WBC Sodium (137-145) mmol/L Glucose (74-99) mg/dL Uric Acid (3.5-8.5) mg/dL Calcium (8.4-10.2) mg/dL Procalcitonin 3.33 H (0.02-0.09) ng/mL 10/24/23 10/24/23 Range/Units 07:01 07:01 RBC 2.26 L (4.30-5.90) m/uL Hgb 7.3 L (13.0-17.5) gm/dL Hct 20.2 L (39.0-53.0) % RDW 17.3 H (11.5-15.5) % Plt Count 7 L* (150-450) k/uL Blast Cells % % Blast Cells # (Man) (0) k/uL Nucleated RBCs (0-0) /100 WBC Sodium 134 L (137-145) mmol/L Glucose 109 H (74-99) mg/dL Uric Acid 1.5 L (3.5-8.5) mg/dL Calcium 7.8 L (8.4-10.2) mg/dL Procalcitonin (0.02-0.09) ng/mL Microbiology - Last 24 Hours (Table) 10/20/23 10:49 Blood Culture - Preliminary Blood Diabetes panel 10/24/23 Range/Units 07:01 Sodium 134 L (137-145) mmol/L Potassium 3.5 (3.5-5.1) mmol/L Chloride 101 (98-107) mmol/L Carbon Dioxide 25 (22-30) mmol/L BUN 10 (9-20) mg/dL Creatinine 0.67 (0.66-1.25) mg/dL Glucose 109 H (74-99) mg/dL Calcium 7.8 L (8.4-10.2) mg/dL Calcium panel 10/24/23 Range/Units 07:01 Calcium 7.8 L (8.4-10.2) mg/dL Phosphorus 3.1 (2.5-4.5) mg/dL Pituitary panel 10/24/23 Range/Units 07:01 Sodium 134 L (137-145) mmol/L Potassium 3.5 (3.5-5.1) mmol/L Chloride 101 (98-107) mmol/L Carbon Dioxide 25 (22-30) mmol/L BUN 10 (9-20) mg/dL Creatinine 0.67 (0.66-1.25) mg/dL Glucose 109 H (74-99) mg/dL Calcium 7.8 L (8.4-10.2) mg/dL Adrenal panel 10/24/23 Range/Units 07:01 Sodium 134 L (137-145) mmol/L Potassium 3.5 (3.5-5.1) mmol/L Chloride 101 (98-107) mmol/L Carbon Dioxide 25 (22-30) mmol/L BUN 10 (9-20) mg/dL Creatinine 0.67 (0.66-1.25) mg/dL Glucose 109 H (74-99) mg/dL Calcium 7.8 L (8.4-10.2) mg/dL - Imaging Comments: See HPI Assessment and Plan Assessment: 1. Small pulmonary embolism reported per CT angiogram without right heart strain 2. Bicytopenia, severe thrombocytopenia unable to anticoagulate 3. Bacteremia 4. Acute myeloid leukemia, recent chemotherapy 5. Acute hypoxic respiratory failure likely multifactorial and possibly related to pleural effusion, possible atypical pneumonia versus small pulmonary emboli Plan: 1. Keep nothing by mouth 2. Platelets and transfuse during IVC filter placement 3. Patient is tentatively scheduled for IVC filter placement this afternoon Dr. Naranjo from oncology discussed his recommendation for IVC filter placement even though there are no DVTs in bilateral lower extremities for his concern for future thrombosis as patient cannot be on anticoagulation due to his bicytopenia with severe thrombocytopenia. Thank you for this consultation. The impression and plan of care has been dictated as directed. Dr. Eli I performed a history and examination of this patient, discussed the same with the dictator. I agree with the dictator's note ,documented as a scribe. Any additional findings or plans will be noted.
--- NOTE | 2023-10-24 11:41 | P.PN ---
Subjective Progress Note Date: 10/24/23 Principal diagnosis: Pulmonary embolism. Pulmonary consult dated 10/23/2023. 43-year-old male with a recent diagnosis of acute myelocytic leukemia. The patient presented to the emergency department on October 18, at 7:00 in the morning, complaining of fever, and for that reason, his oncologist suggested that he come to the emergency room. Apparently at that time, other than the temperature elevation, he did not have any other complaints. This is based on documentation in the ER, by the ER physician. The patient was diagnosed as having acute myeloid leukemia, this year. Other than that, does not appear to have any other major medical problems. We were consulted, because apparently a CT angiogram revealed a small filling defect, suggestive of pulmonary embolism, and, the primary service once know whether or not the patient should have a filter, given the fact that he still thrombocytopenia, and cannot tolerate IV anticoagulation. The patient is seen today in room 516. The patient is on oxygen at 4 L. His most recent lab data includes a white count of 4.4, hemoglobin 7.3, hematocrit 20.1, and 6000 platelet count. Dopplers of the lower extremity were negative. Earlier today, the patient was much more short of breath, but apparently according to family members she's been short of breath for a couple of days. In addition he is coughing and spitting up some blood. Additional laboratory data includes a sodium 1:30, potassium 3.3, chlorides 100, CO2 23, BUN 11, creatinine 0.71. C-reactive protein is 29.2. Testing for payne virus was negative. A chest x-ray on the day of admission, was interpreted as being normal. A subsequent chest x-ray on October 21, was also read as normal. In my opinion, the chest second chest x-ray, could be consis tent with mild vascular congestion. The CT angiogram, showed a few small really defects within the lower lobe segmental and subsegmental branches compatible with mild pulmonary embolism. There is no large or central PE. In addition, there is diffuse interstitial changes, consistent with either atypical pneumonia, or interstitial edema. There is also small pleural effusions. Progress note dated 10/24/2023. The patient is seen today in room 516. Remains on 4 L of oxygen. His saturations are 96-97%. He is currently not receiving any IV fluids. He continues on Ancef, fluconazole, and acyclovir as per infectious diseases. His N-terminal pro BNP was only 603. His pro-calcitonin level was quite elevated at 3.33. Testing for coronavirus was negative. Current labs include a white count 4.6, heme him some 0.3, hematocrit 20.2, and a 7000 platelet count. His d-dimer is 6.66. Sodium 134, potassium 3.5, chlorides 101, CO2 25, BUN 10, and creatinine 0.67. Pro-calcitonin level was 3.33. Blood cultures were positive for Streptococcus viridans. Objective - Vital Signs Vital signs: Vital Signs Temp 98.5 F 10/24/23 07:10 Pulse 94 10/24/23 07:10 Resp 16 10/24/23 07:10 BP 119/70 10/24/23 07:10 Pulse Ox 96 10/24/23 07:10 FiO2 Intake & Output 10/23/23 10/24/23 10/24/23 18:59 06:59 18:59 Intake Total 363 50 Balance 363 50 Intake: Intake, IV Titration 50 Amount ceFAZolin 2 gm In Sodium 50 Chloride 0.9% 50 ml @ 100 mls/hr IVPB Q8HR [facility] Rx# :[id number] Blood Product 363 Platelet Pheresis Pas 363 Psoralen Unit [id number] Other: Voiding Method Toilet Toilet Toilet - Exam No acute distress, oriented 3. No conversational dyspnea or use of accessory muscles. The patient's currently on 4 L. HEENT examination is grossly unremarkable. Neck supple. Full range of motion. No adenopathy thyromegaly or neck vein distention. Cardiovascular examination reveals regular rhythm rate. S1-S2 normal. No S3 or S4. No discernible murmur noted. Heart rate 94 bpm. Heart sounds are distant. Lungs reveal fine crackles throughout. Breath sounds are equal. No wheezes. No rhonchi. 4 L saturation is 96-97 %. Abdomen soft bowel sounds are heard. No masses or tenderness. Extremities are intact. No cyanosis or clubbing. Mild pitting edema in the lower extremities. Skin is without rash or lesion. - Labs CBC & Chem 7: 10/24/23 07:01 10/24/23 07:01 Labs: Abnormal Lab Results - Last 24 Hours (Table) 10/22/23 10/23/23 10/24/23 Range/Units 07:40 16:15 07:01 RBC (4.30-5.90) m/uL Hgb (13.0-17.5) gm/dL Hct (39.0-53.0) % RDW (11.5-15.5) % Plt Count 11 L* (150-450) k/uL D-Dimer (<0.60) mg/L FEU Sodium 134 L (137-145) mmol/L Glucose 109 H (74-99) mg/dL Uric Acid 1.5 L (3.5-8.5) mg/dL Calcium 7.8 L (8.4-10.2) mg/dL Procalcitonin 3.33 H (0.02-0.09) ng/mL 10/24/23 10/24/23 Range/Units 07:01 08:37 RBC 2.26 L (4.30-5.90) m/uL Hgb 7.3 L (13.0-17.5) gm/dL Hct 20.2 L (39.0-53.0) % RDW 17.3 H (11.5-15.5) % Plt Count 7 L* (150-450) k/uL D-Dimer 6.66 H (<0.60) mg/L FEU Sodium (137-145) mmol/L Glucose (74-99) mg/dL Uric Acid (3.5-8.5) mg/dL Calcium (8.4-10.2) mg/dL Procalcitonin (0.02-0.09) ng/mL Microbiology - Last 24 Hours (Table) 10/23/23 21:10 Gram Stain - Preliminary Sputum 10/20/23 10:49 Blood Culture - Preliminary Blood Assessment and Plan Assessment: Acute hypoxemic respiratory failure, likely multifactorial, in part related to possible fluid overload, possible atypical pneumonia, and small pulmonary emboli. Streptococcus viridans bacteremia. Superficial venous thrombosis, right upper extremity. No evidence of DVT. Recent diagnosis of acute myeloid leukemia. Patient had recent chemotherapy. Bicytopenia. Electrolyte disturbance including hyponatremia, and hypokalemia Plan: Plan dated 10/23/2023. The question put to our group was whether or not the patient should have a IVC filter. Bilateral lower extremity Dopplers were negative for DVT. I would not barrera a put one in at this time. The patient does not appear to be overwhelmingly short of breath, despite the fact that he is on 4 L of oxygen. I am concerned about the possibility of mild fluid overload versus atypical pneumonia. In that regard, and N-terminal proBNP is ordered,, as well as a pro- calcitonin level. In addition, we will check a d-dimer level. Currently, the patient's on Ancef, and acyclovir, as well as Diflucan. Additional recommendations and suggestions are forthcoming. We will continue to follow the patient, and make additional recommendations. Plan dated 10/24/2023. As mentioned above, we do not feel the patient needs a [place] filter at this time. The patient's blood cultures did come back positive for Streptococcus viridans, and ID should be notified, just in case antibiotics should be changed. The patient's pro-calcitonin level was elevated, suggesting infection. We will continue to follow make recommendations along the way. The patient's N-terminal proBNP was in the normal range, therefore the changes on chest x-ray likely do not relate to fluid overload. The patient does have a superficial clot in the right upper extremity, which will need only local treatment, warm compresses, etc. We will continue to follow along. Prognosis is guarded. Time with Patient: Less than 30
[2023-10-24 12:07] VITALS: BMI 25.0
[2023-10-24 12:38] LABS: Blast Cells # (M) 1.66 k/uL (0); Lymphocytes # (M) 2.94 k/uL (1.0-4.8); Monocytes # (M) 0.05 k/uL (0-1.0); Nucleated Red Blood Cells 0 /100 WBC (0-0); Total Cells Counted 200
--- NOTE | 2023-10-24 12:39 | P.PN ---
Subjective Progress Note Date: 10/24/23 Patient is a 43-year-old male with recently diagnosed AML with hospitalization from 10/08 through 10/16 for induction chemotherapy. He was doing well and had been discharged home on 10/16 with prophylactic Cipro, acyclovir, and Diflucan. He presented to the ER on 10/18 due to fevers up to 101.5 at home. He does report a slight cough. Initial chest x-ray in the ER showed no acute process, initial urinalysis was negative. Blood cultures were obtained. Laboratory analysis included CBC, coags, & CMP which were remarkable for white blood cell count 0.1, hemoglobin 7.3, platelets 9, sodium 131, BUN 21, AST 13, albumin of 3.4. Influenza A/B/RSV/COVID-19 PCR were negative. He was stared on cefepime and vanco and arrangements were made for admission. BCx + viridans streptococcus. Continued on Cefepime 2g IV Q8H. ID on board. ID recommended not removing PICC line due to high risk for bleeding. Echocardiogram is pending to evaluate for endocarditis. He has received 3 units of PRBCS and 4 units of platelets during this hospitalization. 10/22 Patient was seen and examined. CBC Hg 8 and Plt 11. BMP Na 133, K 3.1, glu 112. Uric acid 1.5.Ca 7.7. Phos 2. Continued on Cefepime 2g IV TID. Repeat BCx negative at 24H. 10/23 Patient was seen and examined. Tmax 102.3F over the past 24H. This morn ing, patient became hypoxic and SOB. O2 saturation in the 70's requiring 4L NC. CTA chest was ordered + for PE. Venous doppler negative. COVID negative. CBC Hg 7.3, Plt 6. BMP Na 130, K 3.3., glu 115, Ca 7.4. CRP 29.2. 10/24 Patient was seen and examined. Continues to be on 4L NC. Reports improveme nt in his breathing. No abdominal pain. Pulmonology consulted, recommends no Michel filter at this time. However, Oncology feels he should have the filter placed and he is tentatively scheduled for this afternoon. Plans for platelet transfusion during the procedure. CBC Hg 7.3, Plt 7. BMP Na 134, glu 109, Ca 7.8. Procal 3.33. BNP 603. D-Dimer 6.66. General: non toxic, no distress, appears at stated age Derm: warm, dry Head: atraumatic, normocephalic, symmetric Eyes: EOMI, no lid lag, anicteric sclera Cardiovascular: good distal perfusion in all 4 extremities Lungs: breathing comfortably, no accessory muscle use Ext: no gross muscle atrophy, no edema, no contractures Neuro: no focal neuro deficits Psych: Alert, oriented, appropriate affect Based on my assessment of this patient, this patient meets a moderate complexity level of care. Patient has an acute diagnosis of strep bacteremia that poses a threat to life or bodily function. Found to have PE. Acute hypoxic respiratory failure: Supplemental O2 to maintain O2 saturation of 92%. Lasix 40 mg IV x 1 ordered. Pulmonary embolus: Unable to AC due to severe thrombocytopenia. Possible IVC filter scheduled for this afternoon. LE duplex negative. UE duplex + superficial venous thrombosis. Vascular surgery consulted. Febrile neutropenia Strep bacteremia: Cefepime 2g IV TID. Repeat BCx negative so far. Echo no vegetations. ID on board. Telemetry monitoring. Pancytopenia secondary to chemotherapy: Transfuse if Hg < 7 and Plt < 10. Hypokalemia: KCl 40 meq PO x 1 ordered. AML: Oncology on board. CODE STATUS: FULL CODE DVT Prophylaxis: SCDs. GI Prophylaxis: Designated medical POA if patient is not able to make medical decisions for themselves: I have reviewed the following oracle manufacturing consultant notes: ID, Vascular, Pulmonology, oncology note. I have reviewed the results of the following tests: CBC, BMP, BNP, Procal, D-Dimer, Venous doppler. I have ordered the following tests: CBC and BMP. I have discussed the care of this patient with the following independent historian: I have independently interpreted the following test below: I have discussed the management of this patient with the following physician: Objective - Vital Signs Vital signs: Vital Signs Temp 98.5 F 10/24/23 07:10 Pulse 94 10/24/23 07:10 Resp 16 10/24/23 07:10 BP 119/70 10/24/23 07:10 Pulse Ox 96 10/24/23 07:10 FiO2 Intake & Output 10/23/23 10/24/23 10/24/23 18:59 06:59 18:59 Intake Total 363 50 Balance 363 50 Weight 90.718 kg Intake: Intake, IV Titration 50 Amount ceFAZolin 2 gm In Sodium 50 Chloride 0.9% 50 ml @ 100 mls/hr IVPB Q8HR [facility] Rx# :[id number] Blood Product 363 Platelet Pheresis Pas 363 Psoralen Unit [id number] Other: Voiding Method Toilet Toilet Toilet - Labs CBC & Chem 7: 10/24/23 07:01 10/24/23 07:01 Labs: Abnormal Lab Results - Last 24 Hours (Table) 10/22/23 10/23/23 10/24/23 Range/Units 07:40 16:15 07:01 RBC (4.30-5.90) m/uL Hgb (13.0-17.5) gm/dL Hct (39.0-53.0) % RDW (11.5-15.5) % Plt Count 11 L* (150-450) k/uL D-Dimer (<0.60) mg/L FEU Sodium 134 L (137-145) mmol/L Glucose 109 H (74-99) mg/dL Uric Acid 1.5 L (3.5-8.5) mg/dL Calcium 7.8 L (8.4-10.2) mg/dL Procalcitonin 3.33 H (0.02-0.09) ng/mL 10/24/23 10/24/23 Range/Units 07:01 08:37 RBC 2.26 L (4.30-5.90) m/uL Hgb 7.3 L (13.0-17.5) gm/dL Hct 20.2 L (39.0-53.0) % RDW 17.3 H (11.5-15.5) % Plt Count 7 L* (150-450) k/uL D-Dimer 6.66 H (<0.60) mg/L FEU Sodium (137-145) mmol/L Glucose (74-99) mg/dL Uric Acid (3.5-8.5) mg/dL Calcium (8.4-10.2) mg/dL Procalcitonin (0.02-0.09) ng/mL Microbiology - Last 24 Hours (Table) 10/23/23 21:10 Gram Stain - Preliminary Sputum 10/20/23 10:49 Blood Culture - Preliminary Blood
[2023-10-24] MEDS ORDERED: MIDAZOLAM 2 MG/2 ML VIAL IVP ONE (14:37)
[2023-10-24] MEDS ORDERED: fentaNYL (PF) 50 MCG/ML 2 ML AMP IVP ONE (14:38)
[2023-10-24] MEDS ORDERED: IOPAMIDOL-370 100ML BTL INJ ONE (14:44)
[2023-10-24] MEDS ORDERED: IV FLUID CONTINUATION 1,000 ML IV ONE (15:07)
--- NOTE | 2023-10-24 15:15 | P.OP ---
Date of Procedure: 10/24/23 Description of Procedure: Preoperative diagnosis: AML, neutropenic, pancytopenia, thrombocytopenia, small pulmonary embolism, need for further treatments, unable to anticoagulate Postoperative diagnosis: Same Procedure: #1 ultrasound-guided right common femoral vein access #2 right iliofemoral venogram 3. Venacavogram 4. placement of IVC filter with fluoroscopic interpretation 5. Percutaneous closure 6. moderate conscious sedation 21 minutes with personal monitoring of certified RN administration with hemodynamic monitoring Surgeon: Joan Eli D.O. EBL: Less than 5 mL IV fluids: See records Urine output: Not measured Drains: None Complications: None immediately apparent Condition: Stable Operative indication and findings: Patient is a 43-year-old male with recently diagnosed acute myeloid leukemia and pancytopenia who has started undergoing treatment. He came in to the hospital with initial positive cultures for strep. An which was fully sensitive. Repeat cultures thus far are negative 72 hours. He also has significant thrombocytopenia. He was found to have a pulmonary embolism and the concern from the oncology perspective is that this patient will likely continue to have thrombotic events and due to this high risk would recommend IVC filter placement prophylactically as he cannot be anticoagulated. Discussions were had with him on as well as ID who thought it to be appropriate at this time to go forward with placement of a filter. Risks and benefits were discussed. Procedure in detail: Patient was taken to the Voting [employer] Mechanic and placed in supine position. Bilateral groins were prepped and draped in usual sterile fashion. A preprocedure timeout was performed, all parties are in agreement. Using the office on the right common femoral vein was identified. The skin overlying was anesthetized 1% lidocaine plain. The vein was found to be patent and compressible without evidence of visualized thrombus. A permanent image was stored. Under direct ultrasound visualization micropuncture needle was used to access the vein. Solid technique was then used to place a 7-[place] sheath. Right iliofemoral angiogram was performed showing no evidence of iliac thrombus. A venacavogram was performed after placement of a longer femoral sheath for delivery of the [place] t[place]ip filter. The venogram was interpreted in the renal veins were identified. The filter was in place in standard fashion with ablation venogram was performed showing adequate placement. The sheath was then replaced over the wire for a short 7-[place] sheath and due to the patient's significant thrombocytopenia, a closure device vascular MVP was utilized in standard fashion. Pressure was held and hemostasis appeared adequate. Patient was transferred to his room in stable condition having tolerated the procedure well.
--- NOTE | 2023-10-24 15:38 | IR ---
EXAMINATION TYPE: IR IVC filter placement DATE OF EXAM: 10/24/2023 COMPARISON: NONE HISTORY: Fluoroscopy time. Fluoroscopy was provided to the referring clinician.
--- NOTE | 2023-10-24 18:44 | P.PN ---
Subjective Progress Note Date: 10/24/23 Principal diagnosis: neutropenic fever At today's visit patient is resting comfortably in bed. He reports improvement in breathing today. Fever of 100.0 today. SPO2 96% 4L NC. Plts 7,000, 1 dose plts ordered. Objective - Vital Signs Vital signs: Vital Signs Temp 99.9 F H 10/24/23 16:41 Pulse 100 10/24/23 16:41 Resp 18 10/24/23 14:58 BP 125/70 10/24/23 16:41 Pulse Ox 94 L 10/24/23 16:41 FiO2 Intake & Output 10/23/23 10/24/23 10/24/23 18:59 06:59 18:59 Intake Total 363 50 765 Balance 363 50 765 Weight 90.718 kg Intake: Intake, IV Titration 50 200 Amount ceFAZolin 2 gm In Sodium 50 200 Chloride 0.9% 50 ml @ 100 mls/hr IVPB Q8HR [facility] Rx# :[id number] Blood Product 363 565 Platelet Pheresis Pas 315 Psoralen Unit [id number] Platelet Pheresis Pas 363 Psoralen Unit [id number] Platelet Pheresis Pas 250 Psoralen Unit [id number] Other: Voiding Method Toilet Toilet Toilet - Constitutional General appearance: Present: no acute distress - EENT Eyes: Present: anicteric sclerae, EOMI ENT: Present: hearing grossly normal - Respiratory Respiratory: left: rales - Cardiovascular Rhythm: regular Heart sounds: normal: S1, S2 Abnormal Heart Sounds: Absent: systolic murmur, diastolic murmur, rub, S3 Gallop, S4 Gallop, click, other - Integumentary Integumentary: Absent: cyanotic - Neurologic Neurologic: Present: CNII-XII intact - Musculoskeletal Musculoskeletal: Present: strength equal bilaterally - Psychiatric Psychiatric: Present: A&O x's 3 - Labs CBC & Chem 7: 10/24/23 07:01 10/24/23 07:01 Labs: Abnormal Lab Results - Last 24 Hours (Table) 10/23/23 10/24/23 10/24/23 Range/Units 16:15 07:01 07:01 RBC 2.26 L (4.30-5.90) m/uL Hgb 7.3 L (13.0-17.5) gm/dL Hct 20.2 L (39.0-53.0) % RDW 17.3 H (11.5-15.5) % Plt Count 7 L* (150-450) k/uL Blast Cells % 36 H* % Blast Cells # (Man) 1.66 H (0) k/uL D-Dimer (<0.60) mg/L FEU Sodium 134 L (137-145) mmol/L Glucose 109 H (74-99) mg/dL Uric Acid 1.5 L (3.5-8.5) mg/dL Calcium 7.8 L (8.4-10.2) mg/dL Procalcitonin 3.33 H (0.02-0.09) ng/mL 10/24/23 Range/Units 08:37 RBC (4.30-5.90) m/uL Hgb (13.0-17.5) gm/dL Hct (39.0-53.0) % RDW (11.5-15.5) % Plt Count (150-450) k/uL Blast Cells % % Blast Cells # (Man) (0) k/uL D-Dimer 6.66 H (<0.60) mg/L FEU Sodium (137-145) mmol/L Glucose (74-99) mg/dL Uric Acid (3.5-8.5) mg/dL Calcium (8.4-10.2) mg/dL Procalcitonin (0.02-0.09) ng/mL Microbiology - Last 24 Hours (Table) 10/23/23 21:10 Gram Stain - Preliminary Sputum 10/20/23 10:49 Blood Culture - Preliminary Blood Assessment and Plan (1) Neutropenic fever Current Visit: Yes Status: Acute Priority: High Code(s): D70.9 - NEUTROPENIA, UNSPECIFIED; R50.81 - FEVER PRESENTING WITH CONDITIONS CLASSIFIED ELSEWHERE SNOMED Code(s): 304945355 (2) Acute myeloid leukemia, without mention of having achieved remission Current Visit: Yes Status: Acute Priority: High Code(s): C92.00 - ACUTE MYELOBLASTIC LEUKEMIA, NOT HAVING ACHIEVED REMISSION SNOMED Code(s): 83627945 (3) Pancytopenia Current Visit: Yes Status: Acute Priority: High Code(s): D61.818 - OTHER PANCYTOPENIA SNOMED Code(s): 115391712 (4) Pulmonary embolism Current Visit: Yes Status: Acute Priority: High Code(s): I26.99 - OTHER PULMONARY EMBOLISM WITHOUT ACUTE COR PULMONALE SNOMED Code(s): 82007083 Plan: Neutropenic fever: -Cultures were positive for strep viridans, which appears to be a sensitive to all antibiotics tested on the panel. Continues on IV abx. Repeat cultures negative thus far -CXR negative for acute cardiopulmonary processes - If repeat cultures remain negative and pt is afebrile, patient could be switched over to an oral antibiotic, targeting the above pathogen, and continue his other prophylactic antibiotics/antiviral/antifungal. - ID consulted for abx recommendation, as well as retention versus removal of PICC line. -Due to persisting cough and increasing SOB, repeat COVID was ordered, which was negative AML: The patient's CBC had shown some increase in WBC, with significant percentage of blasts. This was discussed in detail with the patient and his . At this time., Just a week after completion of induction therapy, this is difficult to interpret. This could represent a transient fluctuation vs early bone marrow recovery with the higher apparent percentage of blasts transiently, due to slower maturation and turn over rate than normal. Refractory AML, with early progression is also within the differential, though that would be highly unusual to manifest so soon after completion of induction. -White counts have improved, WBC 4.6. Blast cells still elevated at 36% - Continue to monitor. If the same pattern remains persistent or progresses, then refractory AML with progression becomes more likely. In that case bone marrow aspiration biopsy will be repeated sooner than planned. Chemo induced-pancytopenia: - Today plts 7,000, additional dose of plts ordered. 2nd unit ordered to be given prior to IVC procedure. Hgb stable at 7.3 -Continue to monitor with transfusion support as needed -Please transfuse with irradiated blood products only PE: -Due to worsening shortness of breath overnight stat CTA xhest was ordered. Study revealed few small filling defects within lower lobe segmental and subsegmental branches compatible with mild pulmonary embolism. No evidence for large saddle component or lobar component filling defect. No evidence of right heart strain. Mixed alveolar and interstitial infiltrates with tiny effusions noted -Baseline Dopplers of bilateral lower extremities was obtained which were negative for DVT. BUE dopplers negative for DVT, SVT noted to RUE in the cephalic vein at level of the elbow -Due to significant thrombocytopenia anticoagulation is contraindicated. Consult was placed to pulmonology to evaluate CTA study to confirm PE as copier technician noted that this was not an optimal study due to issues with contrast bolus. Per pulm mild PE is suspected -Consult placed to vascular surgery for evaluation for IVC filter. Spoke with Dr. Eli today, plan was to hold off on on IVC filter until blood cultures had final results, but after speaking with ID, and repeat blood cultures negative at 72 hours, they proceeded with procedure today. Pt received 2nd dose of platelets today and per operative note homeostasis was achieved and procedure went successfully. Diarrhea: -C diff negative -Continues on imodium prn, questran added with improvement in symptoms. Will hold questran for now and continue to monitor Dr. Batesests: I have seen and examined pt, performed H&P, developed impression and plan of care. Discussed with dictator. Agree with documentation, dictated as a scribe.
[2023-10-25] MEDS: SODIUM CHLORIDE 0.9% 1,000 ML IV SCH ×2 (06:23→20:06)
[2023-10-25] MEDS: ACETAMINOPHEN TAB 325 MG TAB PO PRN ×2 (07:04→21:53)
[2023-10-25 07:52] LABS: Anisocytosis Slight; MCH 31.4 pg (25.0-35.0); MCHC 35.4 g/dL (31.0-37.0); MCV 88.7 fL (80.0-100.0); Mean Platelet Volume 9.1; RBC 2.14 m/uL (4.30-5.90); RDW 16.7 % (11.5-15.5); WBC 4.7 k/uL (3.8-10.6)
[2023-10-25 07:58] LABS: HGB 6.7 gm/dL (13.0-17.5)
[2023-10-25 07:59] LABS: Platelet Count 12 k/uL (150-450)
--- NOTE | 2023-10-25 09:03 | P.PN ---
Subjective Progress Note Date: 10/25/23 Principal diagnosis: Pulmonary embolism. Pulmonary consult dated 10/23/2023. 43-year-old male with a recent diagnosis of acute myelocytic leukemia. The patient presented to the emergency department on October 18, at 7:00 in the morning, complaining of fever, and for that reason, his oncologist suggested that he come to the emergency room. Apparently at that time, other than the temperature elevation, he did not have any other complaints. This is based on documentation in the ER, by the ER physician. The patient was diagnosed as having acute myeloid leukemia, this year. Other than that, does not appear to have any other major medical problems. We were consulted, because apparently a CT angiogram revealed a small filling defect, suggestive of pulmonary embolism, and, the primary service once know whether or not the patient should have a filter, given the fact that he still thrombocytopenia, and cannot tolerate IV anticoagulation. The patient is seen today in room 516. The patient is on oxygen at 4 L. His most recent lab data includes a white count of 4.4, hemoglobin 7.3, hematocrit 20.1, and 6000 platelet count. Dopplers of the lower extremity were negative. Earlier today, the patient was much more short of breath, but apparently according to family members she's been short of breath for a couple of days. In addition he is coughing and spitting up some blood. Additional laboratory data includes a sodium 1:30, potassium 3.3, chlorides 100, CO2 23, BUN 11, creatinine 0.71. C-reactive protein is 29.2. Testing for payne virus was negative. A chest x-ray on the day of admission, was interpreted as being normal. A subsequent chest x-ray on October 21, was also read as normal. In my opinion, the chest second chest x-ray, could be consis tent with mild vascular congestion. The CT angiogram, showed a few small really defects within the lower lobe segmental and subsegmental branches compatible with mild pulmonary embolism. There is no large or central PE. In addition, there is diffuse interstitial changes, consistent with either atypical pneumonia, or interstitial edema. There is also small pleural effusions. Progress note dated 10/24/2023. The patient is seen today in room 516. Remains on 4 L of oxygen. His saturations are 96-97%. He is currently not receiving any IV fluids. He continues on Ancef, fluconazole, and acyclovir as per infectious diseases. His N-terminal pro BNP was only 603. His pro-calcitonin level was quite elevated at 3.33. Testing for coronavirus was negative. Current labs include a white count 4.6, heme him some 0.3, hematocrit 20.2, and a 7000 platelet count. His d-dimer is 6.66. Sodium 134, potassium 3.5, chlorides 101, CO2 25, BUN 10, and creatinine 0.67. Pro-calcitonin level was 3.33. Blood cultures were positive for Streptococcus viridans. Progress note dated 10/25/2023. The patient is seen today in room 516. He remains on 4 L of oxygen. Yesterday, Dr. Eli, the vascular surgeon, placed a filter in the inferior vena cava. Blood cultures were positive for Streptococcus viridans. The patient's getting saline at 75 mL an hour. He continues on fluconazole, acyclovir, and Ancef. Today's labs include white count 4.7, hemoglobin 6.7, hematocrit 19, platelet count 12,000. No additional labs from today. Objective - Vital Signs Vital signs: Vital Signs Temp 97.9 F 10/25/23 07:16 Pulse 74 10/25/23 07:16 Resp 16 10/25/23 07:16 BP 114/63 10/25/23 07:16 Pulse Ox 93 L 10/25/23 07:16 FiO2 Intake & Output 10/24/23 10/25/23 10/25/23 18:59 06:59 18:59 Intake Total 765 Balance 765 Weight 90.718 kg Intake: Intake, IV Titration 200 Amount ceFAZolin 2 gm In Sodium 200 Chloride 0.9% 50 ml @ 100 mls/hr IVPB Q8HR [facility] Rx# :[id number] Blood Product 565 Platelet Pheresis Pas 315 Psoralen Unit [id number] Platelet Pheresis Pas 250 Psoralen Unit [id number] Other: Voiding Method Toilet Toilet # Voids 1 - Exam No acute distress, oriented 3. No conversational dyspnea or use of accessory muscles. The patient's currently on 4 L. HEENT examination is grossly unremarkable. Neck supple. Full range of motion. No adenopathy thyromegaly or neck vein distention. Cardiovascular examination reveals regular rhythm rate. S1-S2 normal. No S3 or S4. No discernible murmur noted. Heart rate 74 bpm. Heart sounds are distant. Lungs reveal fine crackles throughout. Breath sounds are equal. No wheezes. No rhonchi. 4 L saturation is 94 %. Abdomen soft bowel sounds are heard. No masses or tenderness. Extremities are intact. No cyanosis or clubbing. Mild pitting edema in the lower extremities. Skin is without rash or lesion. - Labs CBC & Chem 7: 10/25/23 06:33 10/24/23 07:01 Labs: Abnormal Lab Results - Last 24 Hours (Table) 10/24/23 10/24/23 10/25/23 Range/Units 07:01 08:37 06:33 RBC 2.14 L (4.30-5.90) m/uL Hgb 6.7 L* (13.0-17.5) gm/dL Hct 19.0 L* (39.0-53.0) % RDW 16.7 H (11.5-15.5) % Plt Count 12 L* D (150-450) k/uL Blast Cells % 36 H* % Blast Cells # (Man) 1.66 H (0) k/uL D-Dimer 6.66 H (<0.60) mg/L FEU Microbiology - Last 24 Hours (Table) 10/19/23 12:55 Blood Culture - Final Blood 10/23/23 21:10 Gram Stain - Preliminary Sputum Assessment and Plan Assessment: Acute hypoxemic respiratory failure, likely multifactorial, in part related to possible fluid overload, possible atypical pneumonia, and small pulmonary emboli. Satin filter placement, 10/24/2023. Streptococcus viridans bacteremia. Superficial venous thrombosis, right upper extremity. No evidence of DVT. Recent diagnosis of acute myeloid leukemia. Patient had recent chemotherapy. Bicytopenia. Electrolyte disturbance including hyponatremia, and hypokalemia Plan: Plan dated 10/23/2023. The question put to our group was whether or not the patient should have a IVC filter. Bilateral lower extremity Dopplers were negative for DVT. I would not barrera a put one in at this time. The patient does not appear to be overw helmingly short of breath, despite the fact that he is on 4 L of oxygen. I am concerned about the possibility of mild fluid overload versus atypical pneumonia. In that regard, and N-terminal proBNP is ordered,, as well as a pro- calcitonin level. In addition, we will check a d-dimer level. Currently, the patient's on Ancef, and acyclovir, as well as Diflucan. Additional recommendations and suggestions are forthcoming. We will continue to follow the patient, and make additional recommendations. Plan dated 10/24/2023. As mentioned above, we do not feel the patient needs a Satin filter at this time. The patient's blood cultures did come back positive for Streptococcus viridans, and ID should be notified, just in case antibiotics should be changed. The patient's pro-calcitonin level was elevated, suggesting infection. We will continue to follow make recommendations along the way. The patient's N-terminal proBNP was in the normal range, therefore the changes on chest x-ray likely do not relate to fluid overload. The patient does have a superficial clot in the right upper extremity, which will need only local treatment, warm compresses, etc. We will continue to follow along. Prognosis is guarded. Plan dated 10/25/2023. The primary service decided to place the refill filter. That was done by Dr. Eli yesterday. Currently, the patient remains on 4 L of oxygen. He continues on fluconazole, acyclovir, and cefazolin. The patient's blood cultures are positive for Streptococcus viridans. The patient's getting saline at 75 mL an hour. Additional recommendations and suggestions are forthcoming. Prognosis is guarded. White count is stable. Platelet count was increased a bit. Hemoglobin is a bit low. We will continue to follow. Prognosis is guarded. Time with Patient: Less than 30
[2023-10-25] MEDS: allopurinoL 300 MG TAB PO SCH (09:15)
[2023-10-25] MEDS: ACYCLOVIR 200 MG CAP PO SCH ×2 (09:15→20:04)
[2023-10-25] MEDS: FLUCONAZOLE 100 MG TAB PO SCH (09:16)
[2023-10-25 09:44] LABS: Blast Cells # (M) 2.12 k/uL (0); Lymphocytes # (M) 2.54 k/uL (1.0-4.8); Monocytes # (M) 0.09 k/uL (0-1.0); Neutrophils # (M) 0.05 k/uL (1.3-7.7); Neutrophils % (M) 1 %; Nucleated Red Blood Cells 1 /100 WBC (0-0); Total Cells Counted 200
[2023-10-25 11:30] LABS: BUN/Creat Ratio 14.43 Ratio (12.00-20.00); Blood Urea Nitrogen 10.1 mg/dL (9.0-27.0); Carbon Dioxide 25.6 mmol/L (21.6-31.8); Chloride 100 mmol/L (96-109); Glucose 112 mg/dL (70-110); Potassium 3.2 mmol/L (3.5-5.5); Sodium 134 mmol/L (135-145)
--- NOTE | 2023-10-25 11:56 | P.PN ---
Subjective Progress Note Date: 10/25/23 Principal diagnosis: AML, thrombocytopenia, PE Patient is seen and examined today as a follow-up. Yesterday he underwent IVC filter placement via right femoral vein. Patient denies any bleeding from access site were pain. He did have a drop in his hemoglobin today to 6.7 and 1 unit of blood has been ordered. Platelets improved to 12,000 today. Objective - Vital Signs Vital signs: Vital Signs Temp 97.9 F 10/25/23 07:16 Pulse 74 10/25/23 07:16 Resp 16 10/25/23 07:16 BP 114/63 10/25/23 07:16 Pulse Ox 93 L 10/25/23 07:16 FiO2 Intake & Output 10/24/23 10/25/23 10/25/23 18:59 06:59 18:59 Intake Total 765 Balance 765 Weight 90.718 kg Intake: Intake, IV Titration 200 Amount ceFAZolin 2 gm In Sodium 200 Chloride 0.9% 50 ml @ 100 mls/hr IVPB Q8HR [facility] Rx# :[id number] Blood Product 565 Platelet Pheresis Pas 315 Psoralen Unit [id number] Platelet Pheresis Pas 250 Psoralen Unit [id number] Other: Voiding Method Toilet Toilet # Voids 1 - Exam General appearance: The patient is alert, oriented, appears in no acute distress. HET: Head is normocephalic and atraumatic. Pupils are equal and reactive. Neck: Supple. Abdomen: Soft, nontender, nondistended. Extremities: Normal skin color and turgor. Right groin access site without any bleeding, bruising or hematoma noted. Neurological: No focal deficits. Strength and sensation are grossly intact. - Labs CBC & Chem 7: 10/25/23 06:33 10/25/23 06:33 Labs: Abnormal Lab Results - Last 24 Hours (Table) 10/24/23 10/25/23 Range/Units 07:01 06:33 RBC 2.14 L (4.30-5.90) m/uL Hgb 6.7 L* (13.0-17.5) gm/dL Hct 19.0 L* (39.0-53.0) % RDW 16.7 H (11.5-15.5) % Plt Count 12 L* D (150-450) k/uL Blast Cells % 36 H* 45 H* % Neutrophils # (Manual) 0.05 L* (1.3-7.7) k/uL Blast Cells # (Man) 1.66 H 2.12 H (0) k/uL Nucleated RBCs 1 H (0-0) /100 WBC Microbiology - Last 24 Hours (Table) 10/19/23 12:55 Blood Culture - Final Blood 10/23/23 21:10 Gram Stain - Preliminary Sputum Assessment and Plan Assessment: 1. Small pulmonary embolism reported per CT angiogram without right heart strain 2. Bicytopenia, severe thrombocytopenia unable to anticoagulate that is post IVC filter placement 3. Bacteremia 4. Acute myeloid leukemia, recent chemotherapy 5. Acute hypoxic respiratory failure likely multifactorial and possibly related to pleural effusion, possible atypical pneumonia versus small pulmonary emboli Plan: Patient is status post IVC filter placement. No further indication for any vascular surgical intervention. We will sign off at this time. Continue with recommendations from oncology. Thank you for this consultation. The impression and plan of care has been dictated as directed. Dr. Bose I performed a history and examination of this patient, discussed the same with the dictator. I agree with the dictator's note ,documented as a scribe. Any additional findings or plans will be noted.
[2023-10-25] MEDS ORDERED: POTASSIUM CHLORIDE ER 20 MEQ TAB.ER PO STA (17:22)
--- NOTE | 2023-10-25 17:23 | P.PN ---
Subjective Progress Note Date: 10/25/23 Patient is a 43-year-old male with recently diagnosed AML with hospitalization from 10/08 through 10/16 for induction chemotherapy. He was doing well and had been discharged home on 10/16 with prophylactic Cipro, acyclovir, and Diflucan. He presented to the ER on 10/18 due to fevers up to 101.5 at home. He does report a slight cough. Initial chest x-ray in the ER showed no acute process, initial urinalysis was negative. Blood cultures were obtained. Laboratory analysis included CBC, coags, & CMP which were remarkable for white blood cell count 0.1, hemoglobin 7.3, platelets 9, sodium 131, BUN 21, AST 13, albumin of 3.4. Influenza A/B/RSV/COVID-19 PCR were negative. He was stared on cefepime and vanco and arrangements were made for admission. BCx + viridans streptococcus. Continued on Cefepime 2g IV Q8H. ID on board. ID recommended not removing PICC line due to high risk for bleeding. Echocardiogram is pending to evaluate for endocarditis. He has received 3 units of PRBCS and 4 units of platelets during this hospitalization. 10/22 Patient was seen and examined. CBC Hg 8 and Plt 11. BMP Na 133, K 3.1, glu 112. Uric acid 1.5.Ca 7.7. Phos 2. Continued on Cefepime 2g IV TID. Repeat BCx negative at 24H. 10/23 Patient was seen and examined. Tmax 102.3F over the past 24H. This morn ing, patient became hypoxic and SOB. O2 saturation in the 70's requiring 4L NC. CTA chest was ordered + for PE. Venous doppler negative. COVID negative. CBC Hg 7.3, Plt 6. BMP Na 130, K 3.3., glu 115, Ca 7.4. CRP 29.2. 10/24 Patient was seen and examined. Continues to be on 4L NC. Reports improveme nt in his breathing. No abdominal pain. Pulmonology consulted, recommends no Michel filter at this time. However, Oncology feels he should have the filter placed and he is tentatively scheduled for this afternoon. Plans for platelet transfusion during the procedure. CBC Hg 7.3, Plt 7. BMP Na 134, glu 109, Ca 7.8. Procal 3.33. BNP 603. D-Dimer 6.66. 10/25 Patient was seen and examined. Generally doing well. Underwent IVC filter yesterday. CBC Hg 6.7, Plt 12. BMP Na 134, K 3.2, glu 112, Ca 8. Plans for 1 unit PRBC today. General: non toxic, no distress, appears at stated age Derm: warm, dry Head: atraumatic, normocephalic, symmetric Eyes: EOMI, no lid lag, anicteric sclera Cardiovascular: good distal perfusion in all 4 extremities Lungs: breathing comfortably, no accessory muscle use Ext: no gross muscle atrophy, no edema, no contractures Neuro: no focal neuro deficits Psych: Alert, oriented, appropriate affect Based on my assessment of this patient, this patient meets a moderate complexity level of care. Patient has an acute diagnosis of strep bacteremia that poses a threat to life or bodily function. Found to have PE. Acute hypoxic respiratory failure: Supplemental O2 to maintain O2 saturation of 92%. Pulmonary embolus: Unable to AC due to severe thrombocytopenia. IVC filter 10/24. LE duplex negative. UE duplex + superficial venous thrombosis. Vascular surgery consulted. Febrile neutropenia Strep bacteremia: Cefepime 2g IV TID. Repeat BCx negative so far. Echo no v egetations. ID on board. Telemetry monitoring. Pancytopenia secondary to chemotherapy: Transfuse if Hg < 7 and Plt < 10. Hypokalemia: KCl 40 meq PO x 1 ordered. AML: Oncology on board. CODE STATUS: FULL CODE DVT Prophylaxis: SCDs. GI Prophylaxis: Designated medical POA if patient is not able to make medical decisions for themselves: I have reviewed the following lead consultant notes: ID, Vascular, Pulmonology, oncology note. I have reviewed the results of the following tests: CBC, BMP. I have ordered the following tests: CBC and BMP. I have discussed the care of this patient with the following independent historian: I have independently interpreted the following test below: I have discussed the management of this patient with the following physician: Objective - Vital Signs Vital signs: Vital Signs Temp 98.7 F 10/25/23 15:33 Pulse 86 10/25/23 15:33 Resp 16 10/25/23 12:46 BP 124/72 10/25/23 15:33 Pulse Ox 95 10/25/23 15:33 FiO2 Intake & Output 10/24/23 10/25/23 10/25/23 18:59 06:59 18:59 Intake Total 765 310 Balance 765 310 Weight 90.718 kg Intake: Intake, IV Titration 200 Amount ceFAZolin 2 gm In Sodium 200 Chloride 0.9% 50 ml @ 100 mls/hr IVPB Q8HR [facility] Rx# :[id number] Blood Product 565 310 Platelet Pheresis Pas 315 Psoralen Unit [id number] Platelet Pheresis Pas 250 Psoralen Unit [id number] Rc Irr As1 Unit 310 [id number] Other: Voiding Method Toilet Toilet Toilet # Voids 1 - Labs CBC & Chem 7: 10/25/23 06:33 10/25/23 06:33 Labs: Abnormal Lab Results - Last 24 Hours (Table) 10/25/23 10/25/23 10/25/23 Range/Units 06:33 06:33 09:02 RBC 2.14 L (4.30-5.90) m/uL Hgb 6.7 L* (13.0-17.5) gm/dL Hct 19.0 L* (39.0-53.0) % RDW 16.7 H (11.5-15.5) % Plt Count 12 L* D (150-450) k/uL Blast Cells % 45 H* % Neutrophils # (Manual) 0.05 L* (1.3-7.7) k/uL Blast Cells # (Man) 2.12 H (0) k/uL Nucleated RBCs 1 H (0-0) /100 WBC Sodium 134 L (135-145) mmol/L Potassium 3.2 L (3.5-5.5) mmol/L Glucose 112 H (70-110) mg/dL Calcium 8.0 L (8.7-10.3) mg/dL Crossmatch See Detail Microbiology - Last 24 Hours (Table) 10/19/23 12:55 Blood Culture - Final Blood
--- NOTE | 2023-10-25 17:27 | P.PN ---
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 On today's evaluation that is 10/24/2023, the patient did have a low-grade fever 100.7F, the patient is breathing comfortably on 4 L nasal cannula oxygen The patient denies having any shortness of breath no chest pain and no worsening cough or sputum production, patient denies Abdominal pain, no nausea/vomiting or diarrhea Patient white count is 4.6 creatinine is 0.67, blood culture with Streptococcus viridans oxacillin sensitive, repeat culture so far negative Objective - Vital Signs Vital signs: Vital Signs Temp 99 F 10/24/23 12:39 Pulse 95 10/24/23 12:39 Resp 18 10/24/23 12:39 BP 124/75 10/24/23 12:39 Pulse Ox 92 L 10/24/23 12:39 FiO2 Intake & Output 10/23/23 10/24/23 10/24/23 18:59 06:59 18:59 Intake Total 363 50 Balance 363 50 Weight 90.718 kg Intake: Intake, IV Titration 50 Amount ceFAZolin 2 gm In Sodium 50 Chloride 0.9% 50 ml @ 100 mls/hr IVPB Q8HR [facility] Rx# :[id number] Blood Product 363 Platelet Pheresis Pas 363 Psoralen Unit [id number] Other: Voiding Method Toilet Toilet Toilet - Exam GENERAL DESCRIPTION: A middle-aged male lying in bed in no distress RESPIRATORY SYSTEM: Unlabored breathing , clear to auscultation anteriorly HEART: S1 S2 regular rate and rhythm , ABDOMEN: Soft , no tenderness EXTREMITIES: No edema feet - Labs CBC & Chem 7: 10/25/23 06:33 10/25/23 06:33 Labs: Abnormal Lab Results - Last 24 Hours (Table) 10/22/23 10/23/23 10/24/23 Range/Units 07:40 16:15 07:01 RBC (4.30-5.90) m/uL Hgb (13.0-17.5) gm/dL Hct (39.0-53.0) % RDW (11.5-15.5) % Plt Count 11 L* (150-450) k/uL Blast Cells % % Blast Cells # (Man) (0) k/uL D-Dimer (<0.60) mg/L FEU Sodium 134 L (137-145) mmol/L Glucose 109 H (74-99) mg/dL Uric Acid 1.5 L (3.5-8.5) mg/dL Calcium 7.8 L (8.4-10.2) mg/dL Procalcitonin 3.33 H (0.02-0.09) ng/mL 10/24/23 10/24/23 Range/Units 07:01 08:37 RBC 2.26 L (4.30-5.90) m/uL Hgb 7.3 L (13.0-17.5) gm/dL Hct 20.2 L (39.0-53.0) % RDW 17.3 H (11.5-15.5) % Plt Count 7 L* (150-450) k/uL Blast Cells % 36 H* % Blast Cells # (Man) 1.66 H (0) k/uL D-Dimer 6.66 H (<0.60) mg/L FEU Sodium (137-145) mmol/L Glucose (74-99) mg/dL Uric Acid (3.5-8.5) mg/dL Calcium (8.4-10.2) mg/dL Procalcitonin (0.02-0.09) ng/mL Microbiology - Last 24 Hours (Table) 10/23/23 21:10 Gram Stain - Preliminary Sputum 10/20/23 10:49 Blood Culture - Preliminary Blood Assessment and Plan (1) Bacteremia Current Visit: Yes Status: Acute Code(s): R78.81 - BACTEREMIA SNOMED Code(s): 9613770 (2) Neutropenic fever Current Visit: Yes Status: Acute Priority: High Code(s): D70.9 - NEUTROPENIA, UNSPECIFIED; R50.81 - FEVER PRESENTING WITH CONDITIONS CLASSIFIED ELSEWHERE SNOMED Code(s): 252674405 Plan: 1patient presented to hospital with sepsis in this patient who did have a fever tachycardia, leukopenia/neutropenia and now with evidence of bacteremia with a blood culture positive for gram-positive cocci resembling strep awaiting final ID to determine the possibility source could be related to the PICC line however PICC has been recently placed and the patient did have a low platelet count and high risk of bleeding and the type of bacteria is growing in the blood not requiring immediate removal of his PICC line 2-blood cultures has been repeated and are negative so far 3-patient did have worsening of his respiratory status did have a CT angiogram of the chest suspicious for PE or muscular surgical consulted for placement of a green field filter scheduled for this afternoon 4we will give the patient was cefazolin and monitor clinical course closely Time with Patient: Less than 30
--- NOTE | 2023-10-25 17:30 | P.PN ---
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 On today's evaluation that is 10/25/2023, the patient is running a low-grade fever 100.7F however overall the patient is feeling better, the patient is breathing comfortably on 2 L nasal cannula oxygen and denies any shortness of breath, the patient denies any chest pain, no cough or sputum production, patient denies nausea/vomiting /diarrhea and no abdominal pain Patient white count is 4.7 creatinine is 0.7, blood culture with Streptococcus viridans oxacillin sensitive, repeat culture so far negative Objective - Vital Signs Vital signs: Vital Signs Temp 99.7 F H 10/25/23 13:16 Pulse 86 10/25/23 13:16 Resp 16 10/25/23 12:46 BP 128/75 10/25/23 13:16 Pulse Ox 95 10/25/23 13:16 FiO2 Intake & Output 10/24/23 10/25/23 10/25/23 18:59 06:59 18:59 Intake Total 765 0 Balance 765 0 Weight 90.718 kg Intake: Intake, IV Titration 200 Amount ceFAZolin 2 gm In Sodium 200 Chloride 0.9% 50 ml @ 100 mls/hr IVPB Q8HR [facility] Rx# :[id number] Blood Product 565 0 Unit 0 Platelet Pheresis Pas 315 Psoralen Unit [id number] Platelet Pheresis Pas 250 Psoralen Unit [id number] Other: Voiding Method Toilet Toilet Toilet # Voids 1 - Exam GENERAL DESCRIPTION: A middle-aged male lying in bed in no distress RESPIRATORY SYSTEM: Unlabored breathing , clear to auscultation anteriorly HEART: S1 S2 regular rate and rhythm , ABDOMEN: Soft , no tenderness EXTREMITIES: No edema feet - Labs CBC & Chem 7: 10/25/23 06:33 10/25/23 06:33 Labs: Abnormal Lab Results - Last 24 Hours (Table) 10/25/23 10/25/2310/25/23 Range/Units 06:33 06:33 09:02 RBC 2.14 L (4.30-5.90) m/uL Hgb 6.7 L* (13.0-17.5) gm/dL Hct 19.0 L* (39.0-53.0) % RDW 16.7 H (11.5-15.5) % Plt Count 12 L* D (150-450) k/uL Blast Cells % 45 H* % Neutrophils # (Manual) 0.05 L* (1.3-7.7) k/uL Blast Cells # (Man) 2.12 H (0) k/uL Nucleated RBCs 1 H (0-0) /100 WBC Sodium 134 L (135-145) mmol/L Potassium 3.2 L (3.5-5.5) mmol/L Glucose 112 H (70-110) mg/dL Calcium 8.0 L (8.7-10.3) mg/dL Crossmatch See Detail Microbiology - Last 24 Hours (Table) 10/19/23 12:55 Blood Culture - Final Blood 10/23/23 21:10 Gram Stain - Preliminary Sputum Assessment and Plan (1) Bacteremia Current Visit: Yes Status: Acute Code(s): R78.81 - BACTEREMIA SNOMED Code(s): 1436286 (2) Neutropenic fever Current Visit: Yes Status: Acute Priority: High Code(s): D70.9 - NEUTROPENIA, UNSPECIFIED; R50.81 - FEVER PRESENTING WITH CONDITIONS CLASSIFIED ELSEWHERE SNOMED Code(s): 595461543 Plan: 1patient presented to hospital with sepsis in this patient who did have a fever tachycardia, leukopenia/neutropenia and now with evidence of bacteremia with a blood culture positive for gram-positive cocci resembling strep awaiting final ID to determine the possibility source could be related to the PICC line however PICC has been recently placed and the patient did have a low platelet count and high risk of bleeding and the type of bacteria is growing in the blood not requiring immediate removal of his PICC line 2-blood cultures has been repeated and are negative so far 3-patient did have worsening of his respiratory status did have a CT angiogram of the chest suspicious for PE patient is status post IVC filter placement on 10/24/2023 4patient to continue with cefazolin , short course of IV Rocephin on discharge Time with Patient: Less than 30
--- NOTE | 2023-10-25 19:37 | CDI ---
Documentation Clarification Form Date: 10/25/2023 06:52:40 PM From: Colleen Tatum RN, CCDS Admit Date: 10/18/2023 10:28:00 AM Patient Name: Cecilio Rudolph Visit Number: [id number] Discharge Date: ATTENTION: The Clinical Documentation Specialists (CDI) and [facility] Coding Staff appreciate your assistance in clarifying documentation. Please respond to the clarification below the line at the bottom and electronically sign. The CDI & [facility] Coding staff will review the response and follow-up if needed. Please note: Queries are made part of the Legal Health Record. If you have any questions, please contact the author of this message via ITS. Dr. Thanh [place] There is documentation of Sepsis in the ID consult and subsequent progress note as possibility source could be related to the PICC line however PICC has been recently placed. Additional clarification is requested for the source of the sepsis and bacteremia. 10/22 ID Progress note: the patient did spike another fever of 102.3F this morning. Patient white count has normalized to 4.3 creatinine is 0.68, blood culture with Streptococcus viridans oxacillin sensitive, repeat culture so far negative. 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 10/18 he complained of some rigors and chills did have URI symptoms. 10/18 VS: 142/70 121 20 101, 102.6 10/18 Labs: WBC 0.1 HGB 7.3 HCT 20.7 PLT 9, NA+ 131, 10/18 Blood Cultures Final: Viridans Streptococcus Group Treatment: Vancomycin 1.500 MG IVPB ONCE (PTD) 10/18 -10/20 Cefepime 2 GM IVPB Q 8 HRS 10/19-10/25 .9 NS 1,000 ML Bolus IV x2 10/18 Diflucan 100MG PO Daily 10/18 -10/25 Can you please clarify source of sepsis with bacteremia? [ x] Related to PICC Line [ ] Not Related to PICC Line [ ] Other, please specify [ ] Unable to determine (Template Last Revised: January 2021) MTDD
--- NOTE | 2023-10-25 19:45 | P.PN ---
Subjective Progress Note Date: 10/25/23 Principal diagnosis: neutropenic fever At today's visit patient is resting comfortably in bed. He reports continued improvement in breathing today. Patient afebrile today. SPO2 97% 4L NC. S/p placement IVC filter yesterday. Plts 12,000, no reported episodes of bleeding. Hgb 6.7, 1 unit PRBCs ordered Objective - Vital Signs Vital signs: Vital Signs Temp 98.7 F 10/25/23 15:33 Pulse 86 10/25/23 15:33 Resp 16 10/25/23 12:46 BP 124/72 10/25/23 15:33 Pulse Ox 95 10/25/23 15:33 FiO2 Intake & Output 10/25/23 10/25/23 10/26/23 06:59 18:59 06:59 Intake Total 720 Balance 720 Intake: Intake, IV Titration 100 Amount ceFAZolin 2 gm In Sodium 100 Chloride 0.9% 50 ml @ 100 mls/hr IVPB Q8HR [facility] Rx# :[id number] Blood Product 620 Rc Irr As1 Unit 310 [id number] Other: Voiding Method Toilet Toilet # Voids 1 - Constitutional General appearance: Present: average body habitus, no acute distress - EENT Eyes: Present: anicteric sclerae, EOMI ENT: Present: hearing grossly normal - Respiratory Details: breathing even and unlabored - Cardiovascular Details: skin warm and dry - Integumentary Integumentary: Present: pale. Absent: cyanotic - Neurologic Neurologic: Present: CNII-XII intact - Musculoskeletal Musculoskeletal: Present: strength equal bilaterally - Psychiatric Psychiatric: Present: A&O x's 3 - Labs CBC & Chem 7: 10/25/23 06:33 10/25/23 06:33 Labs: Abnormal Lab Results - Last 24 Hours (Table) 10/25/23 10/25/23 10/25/23 Range/Units 06:33 06:33 09:02 RBC 2.14 L (4.30-5.90) m/uL Hgb 6.7 L* (13.0-17.5) gm/dL Hct 19.0 L* (39.0-53.0) % RDW 16.7 H (11.5-15.5) % Plt Count 12 L* D (150-450) k/uL Blast Cells % 45 H* % Neutrophils # (Manual) 0.05 L* (1.3-7.7) k/uL Blast Cells # (Man) 2.12 H (0) k/uL Nucleated RBCs 1 H (0-0) /100 WBC Sodium 134 L (135-145) mmol/L Potassium 3.2 L (3.5-5.5) mmol/L Glucose 112 H (70-110) mg/dL Calcium 8.0 L (8.7-10.3) mg/dL Crossmatch See Detail Microbiology - Last 24 Hours (Table) 10/19/23 12:55 Blood Culture - Final Blood Assessment and Plan (1) Neutropenic fever Current Visit: Yes Status: Acute Priority: High Code(s): D70.9 - NEUTROPENIA, UNSPECIFIED; R50.81 - FEVER PRESENTING WITH CONDITIONS CLASSIFIED ELSEWHERE SNOMED Code(s): 410793661 (2) Acute myeloid leukemia, without mention of having achieved remission Current Visit: Yes Status: Acute Priority: High Code(s): C92.00 - ACUTE MYELOBLASTIC LEUKEMIA, NOT HAVING ACHIEVED REMISSION SNOMED Code(s): 89371860 (3) Pancytopenia Current Visit: Yes Status: Acute Priority: High Code(s): D61.818 - OTHER PANCYTOPENIA SNOMED Code(s): 678710818 (4) Pulmonary embolism Current Visit: Yes Status: Acute Priority: High Code(s): I26.99 - OTHER PULMONARY EMBOLISM WITHOUT ACUTE COR PULMONALE SNOMED Code(s): 59196380 Plan: Neutropenic fever: -Cultures were positive for strep viridans, which appears to be a sensitive to all antibiotics tested on the panel. Continues on IV abx. Repeat cultures negative thus far. Sputum culture pending -Repeat COVID testing negative -ID following AML: The patient's CBC had shown some increase in WBC, with significant percentage of blasts. This was discussed in detail with the patient and his . At this ti me., Just a week after completion of induction therapy, this is difficult to interpret. This could represent a transient fluctuation vs early bone marrow recovery with the higher apparent percentage of blasts transiently, due to slower maturation and turn over rate than normal. Refractory AML, with early progression is also within the differential, though that would be highly unusual to manifest so soon after completion of induction. -White counts have improved, WBC 4.7. Blast cells still elevated at 45% - Continue to monitor. If the same pattern remains persistent or progresses, then refractory AML with progression becomes more likely. In that case bone marrow aspiration biopsy will be repeated sooner than planned. Chemo induced-pancytopenia: - Today plts 12,000. No reported episodes of bleeding. Hgb 6.7, 1 unit PRBCs ordered -Continue to monitor with transfusion support as needed. CBC daily -Please transfuse with irradiated blood products only PE: -Due to worsening shortness of breath overnight stat CTA xhest was ordered. Study revealed few small filling defects within lower lobe segmental and subsegmental branches compatible with mild pulmonary embolism. No evidence for large saddle component or lobar component filling defect. No evidence of right heart strain. Mixed alveolar and interstitial infiltrates with tiny effusions noted -Baseline Dopplers of bilateral lower extremities was obtained which were negat sarwat for DVT. BUE dopplers negative for DVT, SVT noted to RUE in the cephalic vein at level of the elbow -Due to significant thrombocytopenia anticoagulation is contraindicated. Consult was placed to pulmonology to evaluate CTA study to confirm PE as agricultural service technician noted that this was not an optimal study due to issues with contrast bolus. Per pulm mild PE is suspected -Consult placed to vascular surgery for evaluation for IVC filter. S/p IVC placement on 10/24. Per operative note homeostasis was achieved and procedure went successfully -Reports continue improvement in breathing Diarrhea: -C diff negative -Diarrhea improved -Continues on imodium prn
[2023-10-26] MEDS: guaiFENesin-DM 100-10MG/5ML 10 ML CUP PO PRN ×2 (00:04→23:50)
[2023-10-26] MEDS: ACETAMINOPHEN TAB 325 MG TAB PO PRN ×3 (05:45→23:15)
[2023-10-26 06:33] LABS: Anisocytosis Slight; HGB 7.8 gm/dL (13.0-17.5); MCH 31.2 pg (25.0-35.0); MCHC 35.7 g/dL (31.0-37.0); MCV 87.5 fL (80.0-100.0); RBC 2.51 m/uL (4.30-5.90); RDW 17.3 % (11.5-15.5); WBC 4.2 k/uL (3.8-10.6)
[2023-10-26 06:40] LABS: African American GFR (CKD) >90 (>60 ml/min/1.73 sqM); Anion Gap 11 mmol/L; Blood Urea Nitrogen 11 mg/dL (9-20); Calcium 8.1 mg/dL (8.4-10.2); Carbon Dioxide 24 mmol/L (22-30); Chloride 101 mmol/L (98-107); Glucose 105 mg/dL (74-99); Non-African American GFR(CKD) >90 (>60 ml/min/1.73 sqM); Phosphorus 3.4 mg/dL (2.5-4.5); Potassium 3.7 mmol/L (3.5-5.1); Sodium 136 mmol/L (137-145); Uric Acid 1.8 mg/dL (3.5-8.5)
[2023-10-26 06:58] LABS: Platelet Count 9 k/uL (150-450)
[2023-10-26] MEDS: ACYCLOVIR 200 MG CAP PO SCH ×2 (09:01→21:28)
[2023-10-26] MEDS: allopurinoL 300 MG TAB PO SCH (09:02)
[2023-10-26] MEDS: FLUCONAZOLE 100 MG TAB PO SCH (09:02)
[2023-10-26] MEDS: SODIUM CHLORIDE 0.9% 1,000 ML IV SCH (09:05)
[2023-10-26 10:20] LABS: Blast Cells # (M) 1.85 k/uL (0); Lymphocytes # (M) 2.39 k/uL (1.0-4.8); Nucleated Red Blood Cells 1 /100 WBC (0-0); Total Cells Counted 200
--- NOTE | 2023-10-26 12:21 | P.PN ---
Subjective Progress Note Date: 10/26/23 Patient is a 43-year-old male with recently diagnosed AML with hospitalization from 10/08 through 10/16 for induction chemotherapy. He was doing well and had been discharged home on 10/16 with prophylactic Cipro, acyclovir, and Diflucan. He presented to the ER on 10/18 due to fevers up to 101.5 at home. He does report a slight cough. Initial chest x-ray in the ER showed no acute process, initial urinalysis was negative. Blood cultures were obtained. Laboratory analysis included CBC, coags, & CMP which were remarkable for white blood cell count 0.1, hemoglobin 7.3, platelets 9, sodium 131, BUN 21, AST 13, albumin of 3.4. Influenza A/B/RSV/COVID-19 PCR were negative. He was stared on cefepime and vanco and arrangements were made for admission. BCx + viridans streptococcus. Continued on Cefepime 2g IV Q8H. ID on board. ID recommended not removing PICC line due to high risk for bleeding. Echocardiogram is pending to evaluate for endocarditis. He has received 3 units of PRBCS and 4 units of platelets during this hospitalization. 10/22 Patient was seen and examined. CBC Hg 8 and Plt 11. BMP Na 133, K 3.1, glu 112. Uric acid 1.5.Ca 7.7. Phos 2. Continued on Cefepime 2g IV TID. Repeat BCx negative at 24H. 10/23 Patient was seen and examined. Tmax 102.3F over the past 24H. This morn ing, patient became hypoxic and SOB. O2 saturation in the 70's requiring 4L NC. CTA chest was ordered + for PE. Venous doppler negative. COVID negative. CBC Hg 7.3, Plt 6. BMP Na 130, K 3.3., glu 115, Ca 7.4. CRP 29.2. 10/24 Patient was seen and examined. Continues to be on 4L NC. Reports improveme nt in his breathing. No abdominal pain. Pulmonology consulted, recommends no Michel filter at this time. However, Oncology feels he should have the filter placed and he is tentatively scheduled for this afternoon. Plans for platelet transfusion during the procedure. CBC Hg 7.3, Plt 7. BMP Na 134, glu 109, Ca 7.8. Procal 3.33. BNP 603. D-Dimer 6.66. 10/25 Patient was seen and examined. Generally doing well. Underwent IVC filter yesterday. CBC Hg 6.7, Plt 12. BMP Na 134, K 3.2, glu 112, Ca 8. Plans for 1 unit PRBC today. 10/26 Patient was seen and examined. No complaints. Saturating mid 90s on RA. CBC Hg 7.8, Plt 9. BMP Na 136, glu 105, Ca 8.1. Uric acid 1.8. Plans for 1 unit of Plt today. General: non toxic, no distress, appears at stated age Derm: warm, dry Head: atraumatic, normocephalic, symmetric Eyes: EOMI, no lid lag, anicteric sclera Cardiovascular: good distal perfusion in all 4 extremities Lungs: breathing comfortably, no accessory muscle use Ext: no gross muscle atrophy, no edema, no contractures Neuro: no focal neuro deficits Psych: Alert, oriented, appropriate affect Based on my assessment of this patient, this patient meets a moderate complexity level of care. Patient has an acute diagnosis of strep bacteremia that poses a threat to life or bodily function. Found to have PE. Acute hypoxic respiratory failure: Supplemental O2 to maintain O2 saturation of 92%. Pulmonary embolus: Unable to AC due to severe thrombocytopenia. IVC filter 10/24. LE duplex negative. UE duplex + superficial venous thrombosis. Vascular surgery consulted. Febrile neutropenia Strep bacteremia: Cefepime 2g IV TID. Repeat BCx negative so far. Echo no vegetations. ID on board. Telemetry monitoring. Pancytopenia secondary to chemotherapy: Transfuse if Hg < 7 and Plt < 10. AML: Oncology on board. CODE STATUS: FULL CODE DVT Prophylaxis: SCDs. GI Prophylaxis: Designated medical POA if patient is not able to make medical decisions for themselves: I have reviewed the following [employer]mw sales consultant notes: ID, Vascular, Pulmonology, oncology note. I have reviewed the results of the following tests: CBC, BMP, Uric acid. I have ordered the following tests: CBC and BMP. I have discussed the care of this patient with the following independent historian: I have independently interpreted the following test below: I have discussed the management of this patient with the following physician: Objective - Vital Signs Vital signs: Vital Signs Temp 98.9 F 10/26/23 12:13 Pulse 87 10/26/23 12:13 Resp 18 10/26/23 12:13 BP 124/78 10/26/23 12:13 Pulse Ox 97 10/26/23 11:53 FiO2 21 10/26/23 11:18 Intake & Output 10/25/23 10/26/23 10/26/23 18:59 06:59 18:59 Intake Total 720 540 0 Balance 720 540 0 Intake: Intake, IV Titration 100 Amount ceFAZolin 2 gm In Sodium 100 Chloride 0.9% 50 ml @ 100 mls/hr IVPB Q8HR [facility] Rx# :[id number] Oral 540 Blood Product 620 0 Platelet Pheresis Pas 0 Psoralen Unit [id number] Rc Irr As1 Unit 310 [id number] Other: Voiding Method Toilet Toilet # Voids 2 - Labs CBC & Chem 7: 10/26/23 05:43 10/26/23 05:43 Labs: Abnormal Lab Results - Last 24 Hours (Table) 10/25/23 10/26/23 10/26/23 Range/Units 09:02 05:43 05:43 RBC 2.51 L (4.30-5.90) m/uL Hgb 7.8 L (13.0-17.5) gm/dL Hct 22.0 L (39.0-53.0) % RDW 17.3 H (11.5-15.5) % Plt Count 9 L* (150-450) k/uL Blast Cells % 44 H* % Blast Cells # (Man) 1.85 H (0) k/uL Nucleated RBCs 1 H (0-0) /100 WBC Sodium 136 L (137-145) mmol/L Glucose 105 H (74-99) mg/dL Uric Acid 1.8 L (3.5-8.5) mg/dL Calcium 8.1 L (8.4-10.2) mg/dL Crossmatch See Detail Microbiology - Last 24 Hours (Table) 10/23/23 21:10 Gram Stain - Final Sputum Sputum Culture - Final 10/20/23 10:49 Blood Culture - Final Blood
--- NOTE | 2023-10-26 15:13 | P.PN ---
Subjective Progress Note Date: 10/26/23 43-year-old male with a recent diagnosis of acute myelocytic leukemia. The patient presented to the emergency department on October 18, at 7:00 in the morning, complaining of fever, and for that reason, his oncologist suggested that he come to the emergency room. Apparently at that time, other than the temperature elevation, he did not have any other complaints. This is based on documentation in the ER, by the ER physician. The patient was diagnosed as having acute myeloid leukemia, this year. Other than that, does not appear to have any other major medical problems. We were consulted, because apparently a CT angiogram revealed a small filling defect, suggestive of pulmonary embolism, and, the primary service once know whether or not the patient should have a filter, given the fact that he still thrombocytopenia, and cannot tolerate IV anticoagulation. The patient is seen today in room 516. The patient is on oxygen at 4 L. His most recent lab data includes a white count of 4.4, hem oglobin 7.3, hematocrit 20.1, and 6000 platelet count. Dopplers of the lower extremity were negative. Earlier today, the patient was much more short of breath, but apparently according to family members she's been short of breath for a couple of days. In addition he is coughing and spitting up some blood. Additional laboratory data includes a sodium 1:30, potassium 3.3, chlorides 100, CO2 23, BUN 11, creatinine 0.71. C-reactive protein is 29.2. Testing for payne virus was negative. A chest x-ray on the day of admission, was interpreted as being normal. A subsequent chest x-ray on October 21, was also read as normal. In my opinion, the chest second chest x-ray, could be consistent with mild vascular congestion. The CT angiogram, showed a few small really defects within the lower lobe segmental and subsegmental branches compatible with mild pulmonary embolism. There is no large or central PE. In addition, there is diffuse interstitial changes, consistent with either atypical pneumonia, or interstitial edema. There is also small pleural effusions. Progress note dated 10/24/2023. The patient is seen today in room 516. Remains on 4 L of oxygen. His saturations are 96-97%. He is currently not receiving any IV fluids. He continues on Ancef, fluconazole, and acyclovir as per infectious diseases. His N-terminal pro BNP was only 603. His pro-calcitonin level was quite elevated at 3.33. Testing for coronavirus was negative. Current labs include a white count 4.6, heme him some 0.3, hematocrit 20.2, and a 7000 platelet count. His d-dimer is 6.66. Sodium 134, potassium 3.5, chlorides 101, CO2 25, BUN 10, and creatinine 0.67. Pro-calcitonin level was 3.33. Blood cultures were positive for Streptococcus viridans. Progress note dated 10/25/2023. The patient is seen today in room 516. He remains on 4 L of oxygen. Yesterday, Dr. Eli, the vascular surgeon, placed a filter in the inferior vena cava. Blood cultures were positive for Streptococcus viridans. The patient's getting saline at 75 mL an hour. He continues on fluconazole, acyclovir, and Ancef. Today's labs include white count 4.7, hemoglobin 6.7, hematocrit 19, platelet count 12,000. No additional labs from today. The patient is seen today 10/26/2023 in follow-up on the regular medical floor. He is resting comfortably in bed. Maintaining good O2 saturations up to 97% on room air. No worsening shortness of breath, cough or congestion. He is status post 4 units of packed red blood cells and 8 units of platelets this admission thus far. Blood cultures were positive for viridans streptococcus group. Sputum culture revealed no growth. Follow-up blood cultures revealed no growth. White count 4.2. Hemoglobin 7.8. Platelets 9000. Blast cells 44. Sodium 136. Potassium 3.7. Bicarb 24. BUN 11. Creatinine 0.71. Glucose 105. He remains on antibiotics in the form of ceftriaxone. Continued on Flagyl. Continued on Diflucan. Objective - Vital Signs Vital signs: Vital Signs Temp 100.1 F H 10/26/23 14:29 Pulse 94 10/26/23 14:29 Resp 18 10/26/23 14:29 BP 115/70 10/26/23 14:29 Pulse Ox 94 L 10/26/23 14:29 FiO2 21 10/26/23 11:18 Intake & Output 10/25/23 10/26/23 10/26/23 18:59 06:59 18:59 Intake Total 720 540 335 Balance 720 540 335 Intake: Intake, IV Titration 100 Amount ceFAZolin 2 gm In Sodium 100 Chloride 0.9% 50 ml @ 100 mls/hr IVPB Q8HR [facility] Rx# :[id number] Oral 540 Blood Product 620 335 Platelet Pheresis Pas 335 Psoralen Unit [id number] Rc Irr As1 Unit 310 [id number] Other: Voiding Method Toilet Toilet Toilet # Voids 2 - Exam GENERAL EXAM: Alert, active, pleasant 43-year-old male, on room air, comfortable in no apparent distress. HEAD: Normocephalic. EYES: Normal reaction of pupils, equal size. NOSE: Clear with pink turbinates. THROAT: No erythema or exudates. NECK: No masses, no JVD. CHEST: No chest wall deformity. LUNGS: Equal air entry with no crackles, wheeze, rhonchi or dullness. CVS: S1 and S2 normal with no audible murmur, regular rhythm. ABDOMEN: No hepatosplenomegaly, normal bowel sounds, no guarding or rigidity. SPINE: No scoliosis or deformity SKIN: No rashes CENTRAL NERVOUS SYSTEM: No focal deficits, tone is normal in all 4 extremities. EXTREMITIES: There is no peripheral edema. No clubbing, no cyanosis. Peripheral pulses are intact. - Labs CBC & Chem 7: 10/26/23 05:43 10/26/23 05:43 Labs: Abnormal Lab Results - Last 24 Hours (Table) 10/25/23 10/26/23 10/26/23 Range/Units 09:02 05:43 05:43 RBC 2.51 L (4.30-5.90) m/uL Hgb 7.8 L (13.0-17.5) gm/dL Hct 22.0 L (39.0-53.0) % RDW 17.3 H (11.5-15.5) % Plt Count 9 L* (150-450) k/uL Blast Cells % 44 H* % Blast Cells # (Man) 1.85 H (0) k/uL Nucleated RBCs 1 H (0-0) /100 WBC Sodium 136 L (137-145) mmol/L Glucose 105 H (74-99) mg/dL Uric Acid 1.8 L (3.5-8.5) mg/dL Calcium 8.1 L (8.4-10.2) mg/dL Crossmatch See Detail Microbiology - Last 24 Hours (Table) 10/23/23 21:10 Gram Stain - Final Sputum Sputum Culture - Final 10/20/23 10:49 Blood Culture - Final Blood Assessment and Plan Assessment: Acute hypoxemic respiratory failure, likely multifactorial, in part related to possible fluid overload, possible atypical pneumonia, and small pulmonary emboli. [place] filter placement, 10/24/2023. Recovered and on room air. Streptococcus viridans bacteremia. Currently on ceftriaxone Superficial venous thrombosis, right upper extremity. No evidence of DVT. Recent diagnosis of acute myeloid leukemia. Patient had recent chemotherapy. Bicytopenia. Status post 4 units of packed red blood cells and 8 units of platelets thus far. Electrolyte disturbance including hyponatremia, and hypokalemia. Improving Plan: The patient was seen and evaluated Labs and medications reviewed Currently stable and on room air Continue transfusions per oncology Antibiotics per infectious disease Increase his activity as tolerated We will continue to follow I have personally seen and examined the patient, performed the documentation and the assessment and plan as written. Number of minutes spent on the visit: 10.
[2023-10-26] MEDS: metroNIDAZOLE 500 MG TAB PO SCH ×2 (16:41→21:28)
--- NOTE | 2023-10-26 17:49 | P.PN ---
Subjective Progress Note Date: 10/26/23 Principal diagnosis: Reason for follow-up is febrile neutropenia and bacteremia Patient is a 43-year-old male with a past medical history of pain for acute myeloid leukemia diagnosed August 2023, patient did recently have got left arm PICC line and received chemotherapy from 10/08/2023 until 10/16/2023, presented to hospital with fever did have a low white count and a positive blood culture. On today's evaluation that is 10/26/2023 the patient remains to be afebrile, the patient is breathing comfortably on room air and no need for oxygen. The patient denies shortness of breath denies any chest pain did have occasional dry cough, patient denies nausea/vomiting or diarrhea and no abdominal pain. Patient is complaining of some pain to the left upper jaw tooth area with the patient previously did have RCT done Patient white count is 4.2 creatinine is 0.71, blood culture with Streptococcus viridans oxacillin sensitive, repeat culture so far negative Objective - Vital Signs Vital signs: Vital Signs Temp 98.4 F 10/26/23 07:25 Pulse 78 10/26/23 07:25 Resp 17 10/26/23 07:25 BP 121/75 10/26/23 07:25 Pulse Ox 98 10/26/23 11:18 FiO2 21 10/26/23 11:18 Intake & Output 10/25/23 10/26/23 10/26/23 18:59 06:59 18:59 Intake Total 720 540 Balance 720 540 Intake: Intake, IV Titration 100 Amount ceFAZolin 2 gm In Sodium 100 Chloride 0.9% 50 ml @ 100 mls/hr IVPB Q8HR [facility] Rx# :[id number] Oral 540 Blood Product 620 Rc Irr As1 Unit 310 [id number] Other: Voiding Method Toilet Toilet # Voids 2 - Exam GENERAL DESCRIPTION: A middle-aged male lying in bed in no distress RESPIRATORY SYSTEM: Unlabored breathing , clear to auscultation anteriorly HEART: S1 S2 regular rate and rhythm , ABDOMEN: Soft , no tenderness EXTREMITIES: No edema feet - Labs CBC & Chem 7: 10/26/23 05:43 10/26/23 05:43 Labs: Abnormal Lab Results - Last 24 Hours (Table) 10/25/23 10/25/23 10/26/23 Range/Units 06:33 09:02 05:43 RBC (4.30-5.90) m/uL Hgb (13.0-17.5) gm/dL Hct (39.0-53.0) % RDW (11.5-15.5) % Plt Count (150-450) k/uL Blast Cells % % Blast Cells # (Man) (0) k/uL Nucleated RBCs (0-0) /100 WBC Sodium 134 L 136 L (135-145) mmol/L Potassium 3.2 L (3.5-5.5) mmol/L Glucose 112 H 105 H (70-110) mg/dL Uric Acid 1.8 L (3.5-8.5) mg/dL Calcium 8.0 L 8.1 L (8.7-10.3) mg/dL Crossmatch See Detail 10/26/23 Range/Units 05:43 RBC 2.51 L (4.30-5.90) m/uL Hgb 7.8 L (13.0-17.5) gm/dL Hct 22.0 L (39.0-53.0) % RDW 17.3 H (11.5-15.5) % Plt Count 9 L* (150-450) k/uL Blast Cells % 44 H* % Blast Cells # (Man) 1.85 H (0) k/uL Nucleated RBCs 1 H (0-0) /100 WBC Sodium (135-145) mmol/L Potassium (3.5-5.5) mmol/L Glucose (70-110) mg/dL Uric Acid (3.5-8.5) mg/dL Calcium (8.7-10.3) mg/dL Crossmatch Microbiology - Last 24 Hours (Table) 10/23/23 21:10 Gram Stain - Final Sputum Sputum Culture - Final 10/20/23 10:49 Blood Culture - Final Blood Assessment and Plan (1) Bacteremia Current Visit: Yes Status: Acute Code(s): R78.81 - BACTEREMIA SNOMED Code(s): 4095876 (2) Neutropenic fever Current Visit: Yes Status: Acute Priority: High Code(s): D70.9 - NEUTROPENIA, UNSPECIFIED; R50.81 - FEVER PRESENTING WITH CONDITIONS CLASSIFIED ELSEWHERE SNOMED Code(s): 822753030 Plan: 1patient presented to hospital with sepsis in this patient who did have a fever tachycardia, leukopenia/neutropenia and now with evidence of bacteremia with a blood culture positive for gram-positive cocci resembling strep awaiting final ID to determine the possibility source could be related to the PICC line however PICC has been recently placed and the patient did have a low platelet count and high risk of bleeding and the type of bacteria is growing in the blood not requiring immediate removal of his PICC line 2-blood cultures has been repeated and are negative so far 3-patient did have worsening of his respiratory status did have a CT angiogram of the chest suspicious for PE patient is status post IVC filter placement on 10/24/2023 4patient antibiotic has been adjusted to Rocephin 2 g daily we will add oral Flagyl to cover for possible oral anaerobes and monitor clinical course closely Time with Patient: Less than 30
--- NOTE | 2023-10-26 21:26 | P.PN ---
Subjective Progress Note Date: 10/26/23 Principal diagnosis: neutropenic fever At today's visit patient is resting comfortably in bed. He reports continued improvement in breathing today. Patient afebrile today. SPO2 97% on room air. S/p placement IVC filter. Plts 9,000, no reported episodes of bleeding. 1 dose plts ordered. Hgb 7.8. Nursing notified team picc line is not flushing. Consult placed to IR for new PICC line placement. Peripheral line has been placed by anesthesia until PICC line can be placed Objective - Vital Signs Vital signs: Vital Signs Temp 100.0 F H 10/26/23 15:32 Pulse 94 10/26/23 14:29 Resp 18 10/26/23 14:29 BP 115/70 10/26/23 14:29 Pulse Ox 94 L 10/26/23 14:29 FiO2 21 10/26/23 11:18 Intake & Output 10/26/23 10/26/23 10/27/23 06:59 18:59 06:59 Intake Total 540 335 Balance 540 335 Intake: Oral 540 Blood Product 335 Platelet Pheresis Pas 335 Psoralen Unit [id number] Other: Voiding Method Toilet Toilet # Voids 2 - Constitutional General appearance: Present: no acute distress - EENT Eyes: Present: anicteric sclerae, EOMI ENT: Present: hearing grossly normal - Respiratory Details: breathing is even and unlabored - Cardiovascular Details: skin warm and dry - Gastrointestinal General gastrointestinal: Present: soft. Absent: tenderness - Integumentary Integumentary: Present: pale - Neurologic Neurologic: Present: CNII-XII intact - Musculoskeletal Musculoskeletal: Present: strength equal bilaterally - Psychiatric Psychiatric: Present: A&O x's 3 - Labs CBC & Chem 7: 10/26/23 05:43 10/26/23 05:43 Labs: Abnormal Lab Results - Last 24 Hours (Table) 10/26/23 10/26/23 Range/Units 05:43 05:43 RBC 2.51 L (4.30-5.90) m/uL Hgb 7.8 L (13.0-17.5) gm/dL Hct 22.0 L (39.0-53.0) % RDW 17.3 H (11.5-15.5) % Plt Count 9 L* (150-450) k/uL Blast Cells % 44 H* % Blast Cells # (Man) 1.85 H (0) k/uL Nucleated RBCs 1 H (0-0) /100 WBC Sodium 136 L (137-145) mmol/L Glucose 105 H (74-99) mg/dL Uric Acid 1.8 L (3.5-8.5) mg/dL Calcium 8.1 L (8.4-10.2) mg/dL Microbiology - Last 24 Hours (Table) 10/23/23 21:10 Gram Stain - Final Sputum Sputum Culture - Final 10/20/23 10:49 Blood Culture - Final Blood Assessment and Plan (1) Neutropenic fever Current Visit: Yes Status: Acute Priority: High Code(s): D70.9 - NEUT ROPENIA, UNSPECIFIED; R50.81 - FEVER PRESENTING WITH CONDITIONS CLASSIFIED ELSEWHERE SNOMED Code(s): 765389045 (2) Acute myeloid leukemia, without mention of having achieved remission Current Visit: Yes Status: Acute Priority: High Code(s): C92.00 - ACUTE MYELOBLASTIC LEUKEMIA, NOT HAVING ACHIEVED REMISSION SNOMED Code(s): 40469381 (3) Pancytopenia Current Visit: Yes Status: Acute Priority: High Code(s): D61.818 - OTHER PANCYTOPENIA SNOMED Code(s): 354000306 (4) Pulmonary embolism Current Visit: Yes Status: Acute Priority: High Code(s): I26.99 - OTHER PULMONARY EMBOLISM WITHOUT ACUTE COR PULMONALE SNOMED Code(s): 72315565 Plan: Neutropenic fever: -Cultures were positive for strep viridans, which appears to be a sensitive to all antibiotics tested on the panel. Continues on IV abx. Repeat cultures negative thus far. Sputum culture negative -Repeat COVID testing negative -ID following AML: The patient's CBC had shown some increase in WBC, with significant percentage of blasts. This was discussed in detail with the patient and his . At this time., Just a week after completion of induction therapy, this is difficult to interpret. This could represent a transient fluctuation vs early bone marrow recovery with the higher apparent percentage of blasts transiently, due to slower maturation and turn over rate than normal. Refractory AML, with early progression is also within the differential, though that would be highly unusual to manifest so soon after completion of induction. -White counts have improved, WBC 4.2. Blast cells still elevated at 44% - Continue to monitor. If the same pattern remains persistent or progresses, t hen refractory AML with progression becomes more likely. In that case bone marrow aspiration biopsy will be repeated sooner than planned. Chemo induced-pancytopenia: - Today plts 9,000. No reported episodes of bleeding. 1 dose plts ordered. Hgb stable 7.8 -Continue to monitor with transfusion support as needed. CBC daily -Please transfuse with irradiated blood products only PE: -Due to worsening shortness of breath overnight stat CTA xhest was ordered. Study revealed few small filling defects within lower lobe segmental and subsegmental branches compatible with mild pulmonary embolism. No evidence for large saddle component or lobar component filling defect. No evidence of right heart strain. Mixed alveolar and interstitial infiltrates with tiny effusions noted -Baseline Dopplers of bilateral lower extremities was obtained which were negative for DVT. BUE dopplers negative for DVT, SVT noted to RUE in the cephalic vein at level of the elbow -Due to significant thrombocytopenia anticoagulation is contraindicated. Consult was placed to pulmonology to evaluate CTA study to confirm PE as senior technical support engineer noted that this was not an optimal study due to issues with contrast bolus. Per pulm mild PE is suspected -Consult placed to vascular surgery for evaluation for IVC filter. S/p IVC placement on 10/24. -Reports continued improvement in breathing Diarrhea: -C diff negative -Diarrhea improved -Continues on imodium prn Attests: I have seen and examined pt, performed H&P, developed impression and plan of care. Discussed with dictator. Agree with documentation, dictated as a scribe.
[2023-10-27] MEDS: ACETAMINOPHEN TAB 325 MG TAB PO PRN ×3 (06:16→23:32)
[2023-10-27] MEDS: FLUCONAZOLE 100 MG TAB PO SCH (09:35)
[2023-10-27] MEDS: metroNIDAZOLE 500 MG TAB PO SCH ×3 (09:35→21:00)
[2023-10-27] MEDS: allopurinoL 300 MG TAB PO SCH (09:35)
[2023-10-27] MEDS: ACYCLOVIR 200 MG CAP PO SCH ×2 (09:35→21:00)
[2023-10-27 09:43] LABS: Anisocytosis Slight; HGB 7.4 gm/dL (13.0-17.5); MCH 30.9 pg (25.0-35.0); MCHC 35.4 g/dL (31.0-37.0); MCV 87.3 fL (80.0-100.0); Mean Platelet Volume 11.9; RBC 2.41 m/uL (4.30-5.90); RDW 16.9 % (11.5-15.5); WBC 2.8 k/uL (3.8-10.6)
[2023-10-27 09:50] LABS: Platelet Count 19 k/uL (150-450)
--- NOTE | 2023-10-27 11:35 | P.PN ---
Subjective Progress Note Date: 10/27/23 43-year-old male with a recent diagnosis of acute myelocytic leukemia. The patient presented to the emergency department on October 18, at 7:00 in the morning, complaining of fever, and for that reason, his oncologist suggested that he come to the emergency room. Apparently at that time, other than the temperature elevation, he did not have any other complaints. This is based on documentation in the ER, by the ER physician. The patient was diagnosed as having acute myeloid leukemia, this year. Other than that, does not appear to have any other major medical problems. We were consulted, because apparently a CT angiogram revealed a small filling defect, suggestive of pulmonary embolism, and, the primary service once know whether or not the patient should have a filter, given the fact that he still thrombocytopenia, and cannot tolerate IV anticoagulation. The patient is seen today in room 516. The patient is on oxygen at 4 L. His most recent lab data includes a white count of 4.4, hem oglobin 7.3, hematocrit 20.1, and 6000 platelet count. Dopplers of the lower extremity were negative. Earlier today, the patient was much more short of breath, but apparently according to family members she's been short of breath for a couple of days. In addition he is coughing and spitting up some blood. Additional laboratory data includes a sodium 1:30, potassium 3.3, chlorides 100, CO2 23, BUN 11, creatinine 0.71. C-reactive protein is 29.2. Testing for payne virus was negative. A chest x-ray on the day of admission, was interpreted as being normal. A subsequent chest x-ray on October 21, was also read as normal. In my opinion, the chest second chest x-ray, could be consistent with mild vascular congestion. The CT angiogram, showed a few small really defects within the lower lobe segmental and subsegmental branches compatible with mild pulmonary embolism. There is no large or central PE. In addition, there is diffuse interstitial changes, consistent with either atypical pneumonia, or interstitial edema. There is also small pleural effusions. Progress note dated 10/24/2023. The patient is seen today in room 516. Remains on 4 L of oxygen. His saturations are 96-97%. He is currently not receiving any IV fluids. He continues on Ancef, fluconazole, and acyclovir as per infectious diseases. His N-terminal pro BNP was only 603. His pro-calcitonin level was quite elevated at 3.33. Testing for coronavirus was negative. Current labs include a white count 4.6, heme him some 0.3, hematocrit 20.2, and a 7000 platelet count. His d-dimer is 6.66. Sodium 134, potassium 3.5, chlorides 101, CO2 25, BUN 10, and creatinine 0.67. Pro-calcitonin level was 3.33. Blood cultures were positive for Streptococcus viridans. Progress note dated 10/25/2023. The patient is seen today in room 516. He remains on 4 L of oxygen. Yesterday, Dr. Eli, the vascular surgeon, placed a filter in the inferior vena cava. Blood cultures were positive for Streptococcus viridans. The patient's getting saline at 75 mL an hour. He continues on fluconazole, acyclovir, and Ancef. Today's labs include white count 4.7, hemoglobin 6.7, hematocrit 19, platelet count 12,000. No additional labs from today. The patient is seen today 10/26/2023 in follow-up on the regular medical floor. He is resting comfortably in bed. Maintaining good O2 saturations up to 97% on room air. No worsening shortness of breath, cough or congestion. He is status post 4 units of packed red blood cells and 8 units of platelets this admission thus far. Blood cultures were positive for viridans streptococcus group. Sputum culture revealed no growth. Follow-up blood cultures revealed no growth. White count 4.2. Hemoglobin 7.8. Platelets 9000. Blast cells 44. Sodium 136. Potassium 3.7. Bicarb 24. BUN 11. Creatinine 0.71. Glucose 105. He remains on antibiotics in the form of ceftriaxone. Continued on Flagyl. Continued on Diflucan. The patient is seen today 10/27/2023 in follow-up on the regular medical floor. He is sitting up in bed. Awake and alert in no acute distress. He is maintaining good O2 saturations in the 90s on room air. He denies any worsening shortness of breath, cough or congestion. He has normal saline at KVO. Pro- calcitonin was 3.33. He remains on Diflucan, ceftriaxone and Flagyl. Blood cultures are positive for viridans streptococcus. Follow up blood cultures revealing no growth. Sputum culture revealed no growth. White count 2.8. Hemoglobin 7.4. Platelets 19,000. Objective - Vital Signs Vital signs: Vital Signs Temp 98.6 F 10/27/23 08:00 Pulse 78 10/27/23 08:00 Resp 17 10/27/23 08:00 BP 128/74 10/27/23 08:00 Pulse Ox 93 L 10/27/23 08:00 FiO2 21 10/26/23 11:18 Intake & Output 10/26/23 10/27/23 10/27/23 18:59 06:59 18:59 Intake Total 335 480 Balance 335 480 Intake: Oral 480 Blood Product 335 Platelet Pheresis Pas 335 Psoralen Unit [id number] Other: Voiding Method Toilet Toilet Toilet # Voids 3 1 # Bowel Movements 1 - Exam GENERAL EXAM: Alert, 43-year-old male, sitting up in bed, on room air, comfortable in no apparent distress. HEAD: Normocephalic. EYES: Normal reaction of pupils, equal size. NOSE: Clear with pink turbinates. THROAT: No erythema or exudates. NECK: No masses, no JVD. CHEST: No chest wall deformity. LUNGS: Equal air entry with no crackles, wheeze, rhonchi or dullness. CVS: S1 and S2 normal with no audible murmur, regular rhythm. ABDOMEN: No hepatosplenomegaly, normal bowel sounds, no guarding or rigidity. SPINE: No scoliosis or deformity SKIN: No rashes CENTRAL NERVOUS SYSTEM: No focal deficits, tone is normal in all 4 extremities. EXTREMITIES: There is no peripheral edema. No clubbing, no cyanosis. Peripheral pulses are intact. - Labs CBC & Chem 7: 10/27/23 06:41 10/26/23 05:43 Labs: Abnormal Lab Results - Last 24 Hours (Table) 10/27/23 Range/Units 06:41 WBC 2.8 L (3.8-10.6) k/uL RBC 2.41 L (4.30-5.90) m/uL Hgb 7.4 L (13.0-17.5) gm/dL Hct 21.0 L (39.0-53.0) % RDW 16.9 H (11.5-15.5) % Plt Count 19 L* D (150-450) k/uL Microbiology - Last 24 Hours (Table) 10/23/23 21:10 Gram Stain - Final Sputum Sputum Culture - Final Assessment and Plan Assessment: Acute hypoxemic respiratory failure, likely multifactorial, in part related to possible fluid overload, possible atypical pneumonia, and small pulmonary emboli. [place] filter placement, 10/24/2023. Recovered and on room air. Streptococcus viridans bacteremia. Currently on ceftriaxone Superficial venous thrombosis, right upper extremity. No evidence of DVT. Recent diagnosis of acute myeloid leukemia. Patient had recent chemotherapy. Bicytopenia. Status post 4 units of packed red blood cells and 8 units of platelets thus far. Electrolyte disturbance including hyponatremia, and hypokalemia. Improving Plan: The patient was seen and evaluated Labs and medications reviewed Currently stable and on room air Increase his activity as tolerated We will continue to follow I have personally seen and examined the patient, performed the documentation and the assessment and plan as written. Number of minutes spent on the visit: 10.
[2023-10-27 12:02] LABS: African American GFR (CKD) >90 (>60 ml/min/1.73 sqM); Anion Gap 10 mmol/L; Blood Urea Nitrogen 10 mg/dL (9-20); Calcium 8.3 mg/dL (8.4-10.2); Carbon Dioxide 23 mmol/L (22-30); Chloride 101 mmol/L (98-107); Glucose 99 mg/dL (74-99); Non-African American GFR(CKD) >90 (>60 ml/min/1.73 sqM); Sodium 134 mmol/L (137-145)
[2023-10-27 13:34] LABS: INR 1.2 (<1.2); Partial Thromboplastin Time 26.7 sec (22.0-30.0); Prothrombin Time 12.4 sec (10.0-12.5)
--- NOTE | 2023-10-27 14:30 | P.PN ---
Subjective Progress Note Date: 10/27/23 Principal diagnosis: Neutropenic fever -Afebrile, no acute events overnight -Feeling well today. Noted loose stool this morning without ashtyn diarrhea -Denies any new signs or symptoms Objective - Vital Signs Vital signs: Vital Signs Temp 98.6 F 10/27/23 08:00 Pulse 78 10/27/23 08:00 Resp 17 10/27/23 08:00 BP 128/74 10/27/23 08:00 Pulse Ox 93 L 10/27/23 08:00 FiO2 21 10/26/23 11:18 Intake & Output 10/26/23 10/27/23 10/27/23 18:59 06:59 18:59 Intake Total 335 480 Balance 335 480 Intake: Oral 480 Blood Product 335 Platelet Pheresis Pas 335 Psoralen Unit [id number] Other: Voiding Method Toilet Toilet Toilet # Voids 3 1 # Bowel Movements 1 - Constitutional General appearance: Present: cooperative, no acute distress - EENT EENT Comment(s): No mucositis or exudate Eyes: Present: EOMI ENT: Present: normal oropharynx. Absent: pharyngeal erythema, thrush - Respiratory Respiratory: bilateral: CTA - Cardiovascular Rhythm: regular Heart sounds: normal: S1, S2 - Gastrointestinal General gastrointestinal: Present: normal bowel sounds, soft. Absent: distended, tenderness - Integumentary Integumentary: Absent: rash - Neurologic Neurologic: Present: CNII-XII intact. Absent: focal deficits - Labs CBC & Chem 7: 10/27/23 06:41 10/27/23 06:41 Labs: Abnormal Lab Results - Last 24 Hours (Table) 10/27/23 10/27/23 Range/Units 06:41 06:41 WBC 2.8 L (3.8-10.6) k/uL RBC 2.41 L (4.30-5.90) m/uL Hgb 7.4 L (13.0-17.5) gm/dL Hct 21.0 L (39.0-53.0) % RDW 16.9 H (11.5-15.5) % Plt Count 19 L* D (150-450) k/uL Sodium 134 L (137-145) mmol/L Creatinine 0.63 L (0.66-1.25) mg/dL Calcium 8.3 L (8.4-10.2) mg/dL Assessment and Plan (1) Acute myeloid leukemia, without mention of having achieved remission Current Visit: Yes Status: Acute Priority: High Code(s): C92.00 - ACUTE MYELOBLASTIC LEUKEMIA, NOT HAVING ACHIEVED REMISSION SNOMED Code(s): 55806653 (2) Bacteremia Current Visit: Yes Status: Acute Code(s): R78.81 - BACTEREMIA SNOMED Code(s): 0687431 (3) Neutropenic fever Current Visit: Yes Status: Acute Priority: High Code(s): D70.9 - NEUTROPENIA, UNSPECIFIED; R50.81 - FEVER PRESENTING WITH CONDITIONS CLASSIFIED ELSEWHERE SNOMED Code(s): 603279092 (4) Pancytopenia Current Visit: Yes Status: Acute Priority: High Code(s): D61.818 - OTHER PANCYTOPENIA SNOMED Code(s): 407249027 Plan: Neutropenic fever: -Cultures were positive for strep viridans, which appears to be a sensitive to all antibiotics tested on the panel. Continues on IV Ceftriaxone. Repeat cultures negative thus far. Sputum culture negative -Repeat COVID testing negative -Started on Flagyl 500 mg 3 times daily in addition to ceftriaxone to cover for oral anaerobes -ID following AML: The patient's CBC had shown some increase in WBC, with significant percentage of blasts. This was discussed in detail with the patient and his . He is currently at day 20 status post induction 7+3 chemotherapy in the setting of bacteremia that is currently being treated. This makes blast elevation difficult to interpret. This could represent a transient fluctuation vs early bone marrow recovery with the higher apparent percentage of blasts transiently, due to slower maturation and turn over rate than normal. Refractory AML, with early progression is also within the differential, though that would be highly unusual to manifest so soon after completion of induction. -WBC 2.8 with differential from today's cell counts pending - Continue to monitor. If the same pattern remains persistent or progresses, then refractory AML with progression becomes more likely. In that case bone marrow aspiration biopsy will be repeated sooner than planned. Chemo induced-pancytopenia: -Today plts 19,000 status post 1 unit of phersed platelets on 10/26/2023. No reported episodes of bleeding. Hgb stable 7.4 -No transfusions required today -DIC labs ordered today were negative for DIC -Continue to monitor with transfusion support as needed. CBC with differential daily -Please transfuse with irradiated blood products only PE: -Due to worsening shortness of breath overnight stat CTA xhest was ordered. Study revealed few small filling defects within lower lobe segmental and subsegmental branches compatible with mild pulmonary embolism. No evidence for large saddle component or lobar component filling defect. No evidence of right heart strain. Mixed alveolar and interstitial infiltrates with tiny effusions noted -Baseline Dopplers of bilateral lower extremities was obtained which were negative for DVT. BUE dopplers negative for DVT, SVT noted to RUE in the cephalic vein at level of the elbow -Due to significant thrombocytopenia anticoagulation is contraindicated. Consult was placed to pulmonology to evaluate CTA study to confirm PE as tree trimming line technician noted that this was not an optimal study due to issues with contrast bolus. Per pulm mild PE is suspected -Consult placed to vascular surgery for evaluation for IVC filter. S/p IVC placement on 10/24. -Reports continued improvement in breathing Diarrhea: -C diff negative -Diarrhea improved -Continues on imodium prn, which has not been required since 10/20/2023
--- NOTE | 2023-10-27 14:32 | P.PN ---
Subjective Progress Note Date: 10/27/23 Patient is a 43-year-old male with recently diagnosed AML with hospitalization from 10/08 through 10/16 for induction chemotherapy. He was doing well and had been discharged home on 10/16 with prophylactic Cipro, acyclovir, and Diflucan. He presented to the ER on 10/18 due to fevers up to 101.5 at home. He does report a slight cough. Initial chest x-ray in the ER showed no acute process, initial urinalysis was negative. Blood cultures were obtained. Laboratory analysis included CBC, coags, & CMP which were remarkable for white blood cell count 0.1, hemoglobin 7.3, platelets 9, sodium 131, BUN 21, AST 13, albumin of 3.4. Influenza A/B/RSV/COVID-19 PCR were negative. He was stared on cefepime and vanco and arrangements were made for admission. BCx + viridans streptococcus. Continued on Cefepime 2g IV Q8H. ID on board. ID recommended not removing PICC line due to high risk for bleeding. Echocardiogram is pending to evaluate for endocarditis. He has received 3 units of PRBCS and 4 units of platelets during this hospitalization. 10/22 Patient was seen and examined. CBC Hg 8 and Plt 11. BMP Na 133, K 3.1, glu 112. Uric acid 1.5.Ca 7.7. Phos 2. Continued on Cefepime 2g IV TID. Repeat BCx negative at 24H. 10/23 Patient was seen and examined. Tmax 102.3F over the past 24H. This morn ing, patient became hypoxic and SOB. O2 saturation in the 70's requiring 4L NC. CTA chest was ordered + for PE. Venous doppler negative. COVID negative. CBC Hg 7.3, Plt 6. BMP Na 130, K 3.3., glu 115, Ca 7.4. CRP 29.2. 10/24 Patient was seen and examined. Continues to be on 4L NC. Reports improveme nt in his breathing. No abdominal pain. Pulmonology consulted, recommends no Michel filter at this time. However, Oncology feels he should have the filter placed and he is tentatively scheduled for this afternoon. Plans for platelet transfusion during the procedure. CBC Hg 7.3, Plt 7. BMP Na 134, glu 109, Ca 7.8. Procal 3.33. BNP 603. D-Dimer 6.66. 10/25 Patient was seen and examined. Generally doing well. Underwent IVC filter yesterday. CBC Hg 6.7, Plt 12. BMP Na 134, K 3.2, glu 112, Ca 8. Plans for 1 unit PRBC today. 10/26 Patient was seen and examined. No complaints. Saturating mid 90s on RA. CBC Hg 7.8, Plt 9. BMP Na 136, glu 105, Ca 8.1. Uric acid 1.8. Plans for 1 unit of Plt today. 10/27 Patient was seen and examined. No complaints. On RA. Seen with Dr. Carpenter. CBC WBC 2.8, Hg 7.4, Plt 19. INR 1.2. Fibrinogen 622. BMP Na 134, Cr 0.63, Ca 8.3. General: non toxic, no distress, appears at stated age Derm: warm, dry Head: atraumatic, normocephalic, symmetric Eyes: EOMI, no lid lag, anicteric sclera Cardiovascular: good distal perfusion in all 4 extremities Lungs: breathing comfortably, no accessory muscle use Ext: no gross muscle atrophy, no edema, no contractures Neuro: no focal neuro deficits Psych: Alert, oriented, appropriate affect Based on my assessment of this patient, this patient meets a moderate complexity level of care. Patient has an acute diagnosis of strep bacteremia that poses a threat to life or bodily function. Found to have PE. Acute hypoxic respiratory failure: Supplemental O2 to maintain O2 saturation of 92%. Pulmonary embolus: Unable to AC due to severe thrombocytopenia. IVC filter 10/24. LE duplex negative. UE duplex + superficial venous thrombosis. Vascular surgery consulted. Febrile neutropenia Strep bacteremia: Cefepime 2g IV TID. Repeat BCx negative so far. Echo no vegetations. ID on board. Telemetry monitoring. Pancytopenia secondary to chemotherapy: Transfuse if Hg < 7 and Plt < 10. AML: Oncology on board. CODE STATUS: FULL CODE DVT Prophylaxis: SCDs. GI Prophylaxis: Designated medical POA if patient is not able to make medical decisions for themselves: I have reviewed the following consultant nurse notes: ID, Vascular, Pulmonology, oncology note. I have reviewed the results of the following tests: CBC, BMP, Coag panel, Fibrinogen. I have ordered the following tests: CBC and BMP. I have discussed the care of this patient with the following independent historian: I have independently interpreted the following test below: I have discussed the management of this patient with the following physician: Discussed with Dr. Carpenter. Objective - Vital Signs Vital signs: Vital Signs Temp 98.6 F 10/27/23 08:00 Pulse 78 10/27/23 08:00 Resp 17 10/27/23 08:00 BP 128/74 10/27/23 08:00 Pulse Ox 93 L 10/27/23 08:00 FiO2 21 10/26/23 11:18 Intake & Output 10/26/23 10/27/23 10/27/23 18:59 06:59 18:59 Intake Total 335 480 Balance 335 480 Intake: Oral 480 Blood Product 335 Platelet Pheresis Pas 335 Psoralen Unit [id number] Other: Voiding Method Toilet Toilet Toilet # Voids 3 1 # Bowel Movements 1 - Labs CBC & Chem 7: 10/27/23 06:41 10/27/23 06:41 Labs: Abnormal Lab Results - Last 24 Hours (Table) 10/27/23 10/27/23 10/27/23 Range/Units 06:41 06:41 12:26 WBC 2.8 L (3.8-10.6) k/uL RBC 2.41 L (4.30-5.90) m/uL Hgb 7.4 L (13.0-17.5) gm/dL Hct 21.0 L (39.0-53.0) % RDW 16.9 H (11.5-15.5) % Plt Count 19 L* D (150-450) k/uL INR 1.2 H (<1.2) Fibrinogen 622 H (200-500) mg/dL Sodium 134 L (137-145) mmol/L Creatinine 0.63 L (0.66-1.25) mg/dL Calcium 8.3 L (8.4-10.2) mg/dL
[2023-10-27 16:24] LABS: Blast Cells # (M) 1.09 k/uL (0); Lymphocytes # (M) 1.68 k/uL (1.0-4.8); Monocytes # (M) 0.03 k/uL (0-1.0); Nucleated Red Blood Cells 0 /100 WBC (0-0); Total Cells Counted 100
[2023-10-27] MEDS: guaiFENesin-DM 100-10MG/5ML 10 ML CUP PO PRN (23:32)
[2023-10-28 07:52] LABS: Anisocytosis Slight; HGB 7.6 gm/dL (13.0-17.5); MCH 30.8 pg (25.0-35.0); MCHC 34.7 g/dL (31.0-37.0); MCV 88.8 fL (80.0-100.0); Mean Platelet Volume 10.3; RBC 2.48 m/uL (4.30-5.90); RDW 16.6 % (11.5-15.5); WBC 2.4 k/uL (3.8-10.6)
[2023-10-28 08:03] LABS: Platelet Count 18 k/uL (150-450)
[2023-10-28] MEDS: metroNIDAZOLE 500 MG TAB PO SCH ×3 (09:06→21:11)
[2023-10-28] MEDS: allopurinoL 300 MG TAB PO SCH (09:06)
[2023-10-28] MEDS: ACYCLOVIR 200 MG CAP PO SCH ×2 (09:06→21:11)
[2023-10-28] MEDS: FLUCONAZOLE 100 MG TAB PO SCH (09:07)
[2023-10-28] MEDS: ACETAMINOPHEN TAB 325 MG TAB PO PRN (09:07)
--- NOTE | 2023-10-28 12:19 | P.PN ---
Subjective Progress Note Date: 10/28/23 43-year-old male with a recent diagnosis of acute myelocytic leukemia. The patient presented to the emergency department on October 18, at 7:00 in the morning, complaining of fever, and for that reason, his oncologist suggested that he come to the emergency room. Apparently at that time, other than the temperature elevation, he did not have any other complaints. This is based on documentation in the ER, by the ER physician. The patient was diagnosed as having acute myeloid leukemia, this year. Other than that, does not appear to have any other major medical problems. We were consulted, because apparently a CT angiogram revealed a small filling defect, suggestive of pulmonary embolism, and, the primary service once know whether or not the patient should have a filter, given the fact that he still thrombocytopenia, and cannot tolerate IV anticoagulation. The patient is seen today in room 516. The patient is on oxygen at 4 L. His most recent lab data includes a white count of 4.4, hem oglobin 7.3, hematocrit 20.1, and 6000 platelet count. Dopplers of the lower extremity were negative. Earlier today, the patient was much more short of breath, but apparently according to family members she's been short of breath for a couple of days. In addition he is coughing and spitting up some blood. Additional laboratory data includes a sodium 1:30, potassium 3.3, chlorides 100, CO2 23, BUN 11, creatinine 0.71. C-reactive protein is 29.2. Testing for payne virus was negative. A chest x-ray on the day of admission, was interpreted as being normal. A subsequent chest x-ray on October 21, was also read as normal. In my opinion, the chest second chest x-ray, could be consistent with mild vascular congestion. The CT angiogram, showed a few small really defects within the lower lobe segmental and subsegmental branches compatible with mild pulmonary embolism. There is no large or central PE. In addition, there is diffuse interstitial changes, consistent with either atypical pneumonia, or interstitial edema. There is also small pleural effusions. Progress note dated 10/24/2023. The patient is seen today in room 516. Remains on 4 L of oxygen. His saturations are 96-97%. He is currently not receiving any IV fluids. He continues on Ancef, fluconazole, and acyclovir as per infectious diseases. His N-terminal pro BNP was only 603. His pro-calcitonin level was quite elevated at 3.33. Testing for coronavirus was negative. Current labs include a white count 4.6, heme him some 0.3, hematocrit 20.2, and a 7000 platelet count. His d-dimer is 6.66. Sodium 134, potassium 3.5, chlorides 101, CO2 25, BUN 10, and creatinine 0.67. Pro-calcitonin level was 3.33. Blood cultures were positive for Streptococcus viridans. Progress note dated 10/25/2023. The patient is seen today in room 516. He remains on 4 L of oxygen. Yesterday, Dr. Eli, the vascular surgeon, placed a filter in the inferior vena cava. Blood cultures were positive for Streptococcus viridans. The patient's getting saline at 75 mL an hour. He continues on fluconazole, acyclovir, and Ancef. Today's labs include white count 4.7, hemoglobin 6.7, hematocrit 19, platelet count 12,000. No additional labs from today. The patient is seen today 10/26/2023 in follow-up on the regular medical floor. He is resting comfortably in bed. Maintaining good O2 saturations up to 97% on room air. No worsening shortness of breath, cough or congestion. He is status post 4 units of packed red blood cells and 8 units of platelets this admission thus far. Blood cultures were positive for viridans streptococcus group. Sputum culture revealed no growth. Follow-up blood cultures revealed no growth. White count 4.2. Hemoglobin 7.8. Platelets 9000. Blast cells 44. Sodium 136. Potassium 3.7. Bicarb 24. BUN 11. Creatinine 0.71. Glucose 105. He remains on antibiotics in the form of ceftriaxone. Continued on Flagyl. Continued on Diflucan. The patient is seen today 10/27/2023 in follow-up on the regular medical floor. He is sitting up in bed. Awake and alert in no acute distress. He is maintaining good O2 saturations in the 90s on room air. He denies any worsening shortness of breath, cough or congestion. He has normal saline at KVO. Pro- calcitonin was 3.33. He remains on Diflucan, ceftriaxone and Flagyl. Blood cultures are positive for viridans streptococcus. Follow up blood cultures revealing no growth. Sputum culture revealed no growth. White count 2.8. Hemoglobin 7.4. Platelets 19,000. The patient is seen today 10/28/2023 in follow-up on the medical floor. He remains awake and alert in no acute distress. Maintaining good O2 saturations in the 90s on room air. Afebrile. Hemodynamically stable. He is continued on Flagyl, Diflucan, acyclovir and ceftriaxone. He is status post 4 units of packed red blood cells, 8 units of platelets. Blood cultures are positive for viridans streptococcus group. Follow blood cultures revealing no growth. S putum culture revealed no growth. White count 2.4. Hemoglobin 7.6. Platelets 18,000. Objective - Vital Signs Vital signs: Vital Signs Temp 97.9 F 10/28/23 08:00 Pulse 76 10/28/23 08:00 Resp 18 10/28/23 08:00 BP 114/68 10/28/23 08:00 Pulse Ox 98 10/28/23 08:00 FiO2 21 10/26/23 11:18 Intake & Output 10/27/23 10/28/23 10/28/23 18:59 06:59 18:59 Intake Total 1560 1070 480 Balance 1560 1070 480 Intake: Oral 1560 1070 480 Other: Voiding Method Toilet Toilet Toilet # Voids 2 3 # Bowel Movements 1 - Exam GENERAL EXAM: Alert, pleasant 43-year-old male, on room air, comfortable in no apparent distress. HEAD: Normocephalic. EYES: Normal reaction of pupils, equal size. NOSE: Clear with pink turbinates. THROAT: No erythema or exudates. NECK: No masses, no JVD. CHEST: No chest wall deformity. LUNGS: Equal air entry with no crackles, wheeze, rhonchi or dullness. CVS: S1 and S2 normal with no audible murmur, regular rhythm. ABDOMEN: No hepatosplenomegaly, normal bowel sounds, no guarding or rigidity. SPINE: No scoliosis or deformity SKIN: No rashes CENTRAL NERVOUS SYSTEM: No focal deficits, tone is normal in all 4 extremities. EXTREMITIES: There is no peripheral edema. No clubbing, no cyanosis. Peripheral pulses are intact. - Labs CBC & Chem 7: 10/28/23 06:36 10/27/23 06:41 Labs: Abnormal Lab Results - Last 24 Hours (Table) 10/27/23 10/27/23 10/28/23 Range/Units 06:41 12:26 06:36 WBC 2.4 L (3.8-10.6) k/uL RBC 2.48 L (4.30-5.90) m/uL Hgb 7.6 L (13.0-17.5) gm/dL Hct 22.0 L (39.0-53.0) % RDW 16.6 H (11.5-15.5) % Plt Count 18 L* (150-450) k/uL Blast Cells % 39 H* % Blast Cells # (Man) 1.09 H (0) k/uL INR 1.2 H (<1.2) Fibrinogen 622 H (200-500) mg/dL Assessment and Plan Assessment: Acute hypoxemic respiratory failure, likely multifactorial, in part related to possible fluid overload, possible atypical pneumonia, and small pulmonary emboli. Michel filter placement, 10/24/2023. Recovered and on room air. Streptococcus viridans bacteremia. Currently on ceftriaxone Superficial venous thrombosis, right upper extremity. No evidence of DVT. Recent diagnosis of acute myeloid leukemia. Patient had recent chemotherapy. Bicytopenia. Status post 4 units of packed red blood cells and 8 units of platelets thus far. Electrolyte disturbance including hyponatremia, and hypokalemia. Improving Plan: The patient was seen and evaluated Labs and medications reviewed Currently stable and on room air Increase his activity as tolerated Home once cleared by oncology I have personally seen and examined the patient, performed the documentation and the assessment and plan as written. Number of minutes spent on the visit: 10.
[2023-10-28 13:16] LABS: African American GFR (CKD) >90 (>60 ml/min/1.73 sqM); Anion Gap 9 mmol/L; Blood Urea Nitrogen 14 mg/dL (9-20); Calcium 8.6 mg/dL (8.4-10.2); Carbon Dioxide 22 mmol/L (22-30); Chloride 107 mmol/L (98-107); Glucose 108 mg/dL (74-99); Non-African American GFR(CKD) >90 (>60 ml/min/1.73 sqM); Potassium 4.4 mmol/L (3.5-5.1); Sodium 138 mmol/L (137-145)
[2023-10-28 13:28] LABS: Blast Cells # (M) 0.89 k/uL (0); Lymphocytes # (M) 1.49 k/uL (1.0-4.8); Monocytes # (M) 0.02 k/uL (0-1.0); Nucleated Red Blood Cells 0 /100 WBC (0-0); Total Cells Counted 100
--- NOTE | 2023-10-28 13:29 | P.PN ---
Subjective Progress Note Date: 10/28/23 Principal diagnosis: Neutropenic fever -Afebrile, no acute events overnight -Area of phlebitis in the right antecubital fossa is slowly resolving -Denies any new signs or symptoms Objective - Vital Signs Vital signs: Vital Signs Temp 97.9 F 10/28/23 08:00 Pulse 76 10/28/23 08:00 Resp 18 10/28/23 08:00 BP 114/68 10/28/23 08:00 Pulse Ox 98 10/28/23 08:00 FiO2 21 10/26/23 11:18 Intake & Output 10/27/23 10/28/23 10/28/23 18:59 06:59 18:59 Intake Total 1560 1070 480 Balance 1560 1070 480 Intake: Oral 1560 1070 480 Other: Voiding Method Toilet Toilet Toilet # Voids 2 3 # Bowel Movements 1 - Constitutional General appearance: Present: cooperative, no acute distress - EENT Eyes: Present: EOMI ENT: Present: normal oropharynx - Respiratory Respiratory: bilateral: CTA - Cardiovascular Rhythm: regular - Gastrointestinal General gastrointestinal: Present: normal bowel sounds, soft. Absent: distended, tenderness - Integumentary Integumentary: Present: pale. Absent: rash - Neurologic Neurologic: Present: CNII-XII intact. Absent: focal deficits - Labs CBC & Chem 7: 10/28/23 06:36 10/28/23 06:36 Labs: Abnormal Lab Results - Last 24 Hours (Table) 10/27/23 10/27/23 10/28/23 Range/Units 06:41 12:26 06:36 WBC 2.4 L (3.8-10.6) k/uL RBC 2.48 L (4.30-5.90) m/uL Hgb 7.6 L (13.0-17.5) gm/dL Hct 22.0 L (39.0-53.0) % RDW 16.6 H (11.5-15.5) % Plt Count 18 L* (150-450) k/uL Blast Cells % 39 H* % Blast Cells # (Man) 1.09 H (0) k/uL INR 1.2 H (<1.2) Fibrinogen 622 H (200-500) mg/dL Creatinine (0.66-1.25) mg/dL Glucose (74-99) mg/dL 10/28/23 Range/Units 06:36 WBC (3.8-10.6) k/uL RBC (4.30-5.90) m/uL Hgb (13.0-17.5) gm/dL Hct (39.0-53.0) % RDW (11.5-15.5) % Plt Count (150-450) k/uL Blast Cells % % Blast Cells # (Man) (0) k/uL INR (<1.2) Fibrinogen (200-500) mg/dL Creatinine 0.61 L (0.66-1.25) mg/dL Glucose 108 H (74-99) mg/dL Assessment and Plan (1) Acute myeloid leukemia, without mention of having achieved remission Current Visit: Yes Status: Acute Priority: High Code(s): C92.00 - ACUTE MYELOBLASTIC LEUKEMIA, NOT HAVING ACHIEVED REMISSION SNOMED Code(s): 29273554 (2) Bacteremia Current Visit: Yes Status: Acute Code(s): R78.81 - BACTEREMIA SNOMED Code(s): 5091109 (3) Neutropenic fever Current Visit: Yes Status: Acute Priority: High Code(s): D70.9 - NEUTROPENIA, UNSPECIFIED; R50.81 - FEVER PRESENTING WITH CONDITIONS CLASSIFIED ELSEWHERE SNOMED Code(s): 527775385 (4) Pancytopenia Current Visit: Yes Status: Acute Priority: High Code(s): D61.818 - OTHER PANCYTOPENIA SNOMED Code(s): 664257252 Plan: Neutropenic fever: -Cultures were positive for strep viridans, which appears to be a sensitive to all antibiotics tested on the panel. Continues on IV Ceftriaxone. Repeat cultu res negative thus far. Sputum culture negative -Repeat COVID testing negative -Started on Flagyl 500 mg 3 times daily in addition to ceftriaxone to cover for oral anaerobes -ID following AML: The patient's CBC had shown some increase in WBC, with significant percentage of blasts. This was discussed in detail with the patient and his . He is currently at day 21 status post induction 7+3 chemotherapy in the setting of bacteremia that is currently being treated. This makes blast elevation difficult to interpret. This could represent a transient fluctuation vs early bone marrow recovery with the higher apparent percentage of blasts transiently, due to slower maturation and turn over rate than normal. Refractory AML, with early progression is also within the differential -WBC 2.4 with differential from today's cell counts pending -Continue to monitor. If the same pattern remains persistent or progresses, then refractory AML with progression becomes more likely. In that case bone marrow aspiration biopsy will be repeated sooner than planned. Chemo induced-pancytopenia: -Today plts 18,000 with no reported episodes of bleeding. Hgb stable 7.6 -No transfusions required today -DIC labs on 10/27/23 were negative for DIC -Continue to monitor with transfusion support as needed. CBC with differential daily -Please transfuse with irradiated blood products only PE: -Due to worsening shortness of breath overnight stat CTA xhest was ordered. Study revealed few small filling defects within lower lobe segmental and subs egmental branches compatible with mild pulmonary embolism. No evidence for large saddle component or lobar component filling defect. No evidence of right heart strain. Mixed alveolar and interstitial infiltrates with tiny effusions noted -Baseline Dopplers of bilateral lower extremities was obtained which were negative for DVT. BUE dopplers negative for DVT, SVT noted to RUE in the cephalic vein at level of the elbow -Due to significant thrombocytopenia anticoagulation is contraindicated. Co nsult was placed to pulmonology to evaluate CTA study to confirm PE as coroner technician noted that this was not an optimal study due to issues with contrast bolus. Per pulm mild PE is suspected -Consult placed to vascular surgery for evaluation for IVC filter. S/p IVC placement on 10/24/23 -Denies dyspnea currently Diarrhea, resolved -C diff negative -Imodium prn, which has not been required since 10/20/2023 Olivia Carpenter MD
--- NOTE | 2023-10-28 13:46 | P.PN ---
Subjective Progress Note Date: 10/28/23 Patient is a 43-year-old male with recently diagnosed AML with hospitalization from 10/08 through 10/16 for induction chemotherapy. He was doing well and had been discharged home on 10/16 with prophylactic Cipro, acyclovir, and Diflucan. He presented to the ER on 10/18 due to fevers up to 101.5 at home. He does report a slight cough. Initial chest x-ray in the ER showed no acute process, initial urinalysis was negative. Blood cultures were obtained. Laboratory analysis included CBC, coags, & CMP which were remarkable for white blood cell count 0.1, hemoglobin 7.3, platelets 9, sodium 131, BUN 21, AST 13, albumin of 3.4. Influenza A/B/RSV/COVID-19 PCR were negative. He was stared on cefepime and vanco and arrangements were made for admission. BCx + viridans streptococcus. Continued on Cefepime 2g IV Q8H. ID on board. ID recommended not removing PICC line due to high risk for bleeding. He has received 3 units of PRBCS and 4 units of platelets during this hospitalization. 10/22 Continued on Cefepime 2g IV TID. Repeat BCx negative at 24H. 10/23 Tmax 102.3F over the past 24H. This morning, patient became hypoxic and SOB. O2 saturation in the 70's requiring 4L NC. CTA chest was ordered + for PE. Venous doppler negative. COVID negative. 10/24 Continues to be on 4L NC. Pulmonology consulted, recommends no [place] filter at this time. However, Oncology feels he should have the filter placed and he is tentatively scheduled for this afternoon. Plans for platelet transfusion during the procedure. Procal 3.33. BNP 603. D-Dimer 6.66. 10/25 Underwent IVC filter yesterday. Plans for 1 unit PRBC today. 10/26 Saturating mid 90s on RA. Plans for 1 unit of Plt today. Cefepime switched to Rocephin 2g IV QD and Flagyl 500 mg PO TID added for anerobic coverage. 10/27 No complaints. Oncology recommends monitoring Hg and Plt count. 10/28 Patient was seen and examined. No complaints. Ambulating without difficulties. Currently on room air. CBC WBC 2.4, Hg 7.6, Plt 18. BMP Cr 0.61, g louisa 108. Plans for PICC line tomorrow. Anticipate discharge soon depending on Oncology plans. General: non toxic, no distress, appears at stated age Derm: warm, dry Head: atraumatic, normocephalic, symmetric Eyes: EOMI, no lid lag, anicteric sclera Cardiovascular: good distal perfusion in all 4 extremities Lungs: breathing comfortably, no accessory muscle use Ext: no gross muscle atrophy, no edema, no contractures Neuro: no focal neuro deficits Psych: Alert, oriented, appropriate affect Based on my assessment of this patient, this patient meets a moderate complexity level of care. Patient has an acute diagnosis of strep bacteremia that poses a threat to life or bodily function. Found to have PE. Acute hypoxic respiratory failure: Supplemental O2 to maintain O2 saturation of 92%. Pulmonary embolus: Unable to AC due to severe thrombocytopenia. IVC filter 10/24. LE duplex negative. UE duplex + superficial venous thrombosis. Vascular surgery on board. Febrile neutropenia: Flagyl 500 mg PO TID added for anerobic coverage on 10/26. Acyclovir 400 mg PO BID. Diflucan 100 mg PO QD. Strep bacteremia: Cefepime 2g IV TID (10/19-10/26) switched to Rocephin 2g IV QD (Day 3). Repeat BCx negative so far. Echo shows no vegetations. ID on board. Telemetry monitoring. Pancytopenia secondary to chemotherapy: Transfuse if Hg < 7 and Plt < 10. AML: Oncology on board. CODE STATUS: FULL CODE DVT Prophylaxis: SCDs. GI Prophylaxis: Designated medical POA if patient is not able to make medical decisions for themselves: I have reviewed the following individual pension consultant notes: ID, Pulmonology, oncology note. I have reviewed the results of the following tests: CBC, BMP. I have ordered the following tests: CBC. I have discussed the care of this patient with the following independent historian: I have independently interpreted the following test below: I have discussed the management of this patient with the following physician: Objective - Vital Signs Vital signs: Vital Signs Temp 97.9 F 10/28/23 08:00 Pulse 76 10/28/23 08:00 Resp 18 10/28/23 08:00 BP 114/68 10/28/23 08:00 Pulse Ox 98 10/28/23 08:00 FiO2 21 10/26/23 11:18 Intake & Output 10/27/23 10/28/23 10/28/23 18:59 06:59 18:59 Intake Total 1560 1070 Balance 1560 1070 Intake: Oral 1560 1070 Other: Voiding Method Toilet Toilet Toilet # Voids 2 3 # Bowel Movements 1 - Labs CBC & Chem 7: 10/28/23 06:36 10/28/23 06:36 Labs: Abnormal Lab Results - Last 24 Hours (Table) 10/27/23 10/27/23 10/27/23 Range/Units 06:41 06:41 12:26 WBC 2.8 L (3.8-10.6) k/uL RBC 2.41 L (4.30-5.90) m/uL Hgb 7.4 L (13.0-17.5) gm/dL Hct 21.0 L (39.0-53.0) % RDW 16.9 H (11.5-15.5) % Plt Count 19 L* D (150-450) k/uL Blast Cells % 39 H* % Blast Cells # (Man) 1.09 H (0) k/uL INR 1.2 H (<1.2) Fibrinogen 622 H (200-500) mg/dL Sodium 134 L (137-145) mmol/L Creatinine 0.63 L (0.66-1.25) mg/dL Calcium 8.3 L (8.4-10.2) mg/dL 10/28/23 Range/Units 06:36 WBC 2.4 L (3.8-10.6) k/uL RBC 2.48 L (4.30-5.90) m/uL Hgb 7.6 L (13.0-17.5) gm/dL Hct 22.0 L (39.0-53.0) % RDW 16.6 H (11.5-15.5) % Plt Count 18 L* (150-450) k/uL Blast Cells % % Blast Cells # (Man) (0) k/uL INR (<1.2) Fibrinogen (200-500) mg/dL Sodium (137-145) mmol/L Creatinine (0.66-1.25) mg/dL Calcium (8.4-10.2) mg/dL
[2023-10-28 15:22] VITALS: RESP 16
--- NOTE | 2023-10-28 15:24 | P.PN ---
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 On today's evaluation that is 10/27/2023 the patient continues to be afebrile, the patient is breathing comfortably on room air and denies any shortness of breath, the patient denies chest pain or cough, patient denies abdominal pain, no nausea/vomiting or diarrhea. Patient did report improvement in the left lower jaw dental pain Patient white count is 2.4 creatinine is 0.61, blood culture with Streptococcus viridans oxacillin sensitive, repeat culture so far negative Objective - Vital Signs Vital signs: Vital Signs Temp 98.6 F 10/27/23 08:00 Pulse 78 10/27/23 08:00 Resp 17 10/27/23 08:00 BP 128/74 10/27/23 08:00 Pulse Ox 93 L 10/27/23 08:00 FiO2 21 10/26/23 11:18 Intake & Output 10/26/23 10/27/23 10/27/23 18:59 06:59 18:59 Intake Total 335 480 Balance 335 480 Intake: Oral 480 Blood Product 335 Platelet Pheresis Pas 335 Psoralen Unit [id number] Other: Voiding Method Toilet Toilet Toilet # Voids 3 1 # Bowel Movements 1 - Exam GENERAL DESCRIPTION: A middle-aged male lying in bed in no distress RESPIRATORY SYSTEM: Unlabored breathing , clear to auscultation anteriorly HEART: S1 S2 regular rate and rhythm , ABDOMEN: Soft , no tenderness EXTREMITIES: No edema feet - Labs CBC & Chem 7: 10/28/23 06:36 10/28/23 06:36 Labs: Abnormal Lab Results - Last 24 Hours (Table) 10/27/23 Range/Units 06:41 WBC 2.8 L (3.8-10.6) k/uL RBC 2.41 L (4.30-5.90) m/uL Hgb 7.4 L (13.0-17.5) gm/dL Hct 21.0 L (39.0-53.0) % RDW 16.9 H (11.5-15.5) % Plt Count 19 L* D (150-450) k/uL Microbiology - Last 24 Hours (Table) 10/23/23 21:10 Gram Stain - Final Sputum Sputum Culture - Final Assessment and Plan (1) Bacteremia Current Visit: Yes Status: Acute Code(s): R78.81 - BACTEREMIA SNOMED Code(s): 2775865 (2) Neutropenic fever Current Visit: Yes Status: Acute Priority: High Code(s): D70.9 - NEUTROPENIA, UNSPECIFIED; R50.81 - FEVER PRESENTING WITH CONDITIONS CLASSIFIED ELSEWHERE SNOMED Code(s): 970957181 Plan: 1patient presented to hospital with sepsis in this patient who did have a fever tachycardia, leukopenia/neutropenia and now with evidence of bacteremia with a blood culture positive for gram-positive cocci resembling strep awaiting final ID to determine the possibility source could be related to the PICC line however PICC has been recently placed and the patient did have a low platelet count and high risk of bleeding and the type of bacteria is growing in the blood not requiring immediate removal of his PICC line 2-blood cultures has been repeated and are negative so far 3-patient did have CT angiogram of the chest suspicious for PE patient is status post IVC filter placement on 10/24/2023, patient did have overall improvement in respiratory status 4patient to continue with Rocephin 2 g daily and oral Flagyl to cover for possible oral anaerobes and monitor clinical course closely Dictation was produced using [email or web address] dictation software. please excuse any grammatical, word or spelling errors. Time with Patient: Less than 30
--- NOTE | 2023-10-28 15:26 | P.PN ---
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 On today's evaluation that is 10/28/2023 the patient denies any fever or any chills, the patient denies shortness of breath chest pain or cough, the patient nausea/vomiting or diarrhea and no abdominal pain., Patient left lower jaw dental pain has decreased in intensity Patient white count is 2.4 creatinine is 0.61 as of 10/28/2023, blood culture with Streptococcus viridans oxacillin sensitive, repeat culture so far negative Objective - Vital Signs Vital signs: Vital Signs Temp 98.5 F 10/28/23 15:18 Pulse 72 10/28/23 15:18 Resp 16 10/28/23 15:18 BP 117/69 10/28/23 15:18 Pulse Ox 98 10/28/23 15:18 FiO2 21 10/26/23 11:18 Intake & Output 10/27/23 10/28/23 10/28/23 18:59 06:59 18:59 Intake Total 1560 1070 1020 Balance 1560 1070 1020 Intake: Oral 1560 1070 1020 Other: Voiding Method Toilet Toilet Toilet # Voids 2 3 # Bowel Movements 1 - Exam GENERAL DESCRIPTION: A middle-aged male lying in bed in no distress RESPIRATORY SYSTEM: Unlabored breathing , clear to auscultation anteriorly HEART: S1 S2 regular rate and rhythm , ABDOMEN: Soft , no tenderness EXTREMITIES: No edema feet - Labs CBC & Chem 7: 10/28/23 06:36 10/28/23 06:36 Labs: Abnormal Lab Results - Last 24 Hours (Table) 10/27/23 10/28/23 10/28/23 Range/Units 06:41 06:36 06:36 WBC 2.4 L (3.8-10.6) k/uL RBC 2.48 L (4.30-5.90) m/uL Hgb 7.6 L (13.0-17.5) gm/dL Hct 22.0 L (39.0-53.0) % RDW 16.6 H (11.5-15.5) % Plt Count 18 L* (150-450) k/uL Blast Cells % 39 H* 37 H* % Blast Cells # (Man) 1.09 H 0.89 H (0) k/uL Creatinine 0.61 L (0.66-1.25) mg/dL Glucose 108 H (74-99) mg/dL Assessment and Plan (1) Bacteremia Current Visit: Yes Status: Acute Code(s): R78.81 - BACTEREMIA SNOMED Code(s): 4625539 (2) Neutropenic fever Current Visit: Yes Status: Acute Priority: High Code(s): D70.9 - NEUTROPENIA, UNSPECIFIED; R50.81 - FEVER PRESENTING WITH CONDITIONS CLASSIFIED ELSEWHERE SNOMED Code(s): 249021961 Plan: 1patient presented to hospital with sepsis in this patient who did have a fever tachycardia, leukopenia/neutropenia and now with evidence of bacteremia with a blood culture positive for gram-positive cocci resembling strep awaiting final ID to determine the possibility source could be related to the PICC line however PICC has been recently placed and the patient did have a low platelet count and high risk of bleeding and the type of bacteria is growing in the blood not requiring immediate removal of his PICC line 2-blood cultures has been repeated and are negative so far 3-patient did have CT angiogram of the chest suspicious for PE patient is s tatus post IVC filter placement on 10/24/2023, patient did have overall improvement in respiratory status 4patient has shown clinical improvement and has received about 10 days of IV antibiotics, for now to continue with Rocephin 2 g daily and oral Flagyl however plan to finish therapy with oral Ceftin and Flagyl Dictation was produced using [employer] dictation software. please excuse any grammatical, word or spelling errors. Time with Patient: Less than 30
[2023-10-29] MEDS: allopurinoL 300 MG TAB PO SCH (09:02)
[2023-10-29] MEDS: ACYCLOVIR 200 MG CAP PO SCH (09:02)
[2023-10-29] MEDS: metroNIDAZOLE 500 MG TAB PO SCH ×2 (09:02→17:31)
[2023-10-29] MEDS ORDERED: LIDOCAINE 1% INJ 10MG/ML (20 ML MDV) SQ ONE (09:26)
[2023-10-29] MEDS: FLUCONAZOLE 100 MG TAB PO SCH (09:51)
[2023-10-29 11:07] LABS: BUN/Creat Ratio 22.71 Ratio (12.00-20.00); Blood Urea Nitrogen 15.9 mg/dL (9.0-27.0); Calcium 8.8 mg/dL (8.7-10.3); Carbon Dioxide 24.1 mmol/L (21.6-31.8); Chloride 103 mmol/L (96-109); Glucose 104 mg/dL (70-110); Potassium 4.5 mmol/L (3.5-5.5); Sodium 136 mmol/L (135-145)
--- NOTE | 2023-10-29 11:07 | IR ---
PICC LINE PLACEMENT: HISTORY: Infection requiring long-term antibiotic therapy PROCEDURE: Ultrasound and fluoroscopic guidance of PICC line placement. COMPLICATIONS: None ANESTHESIA: 1. 1% Lidocaine locally. FINDINGS/TECHNIQUE: The procedure was explained to the patient. The risks, complications, benefits and alternatives were discussed and any questions were answered. Informed consent was obtained. The patient was placed supine on the fluoroscopic table and prepped and draped in the usual sterile fash ion. Utilizing a 21 gauge needle and sonographic and fluoroscopic guidance, access in the left basi lic vein was achieved and there is placement of a 0.018 guidewire. The vein is patent. A 4-F sheath was placed over the guidewire. The guidewire and dilator were removed and a 4-F. PICC line was plac ed through the sheath with the tip at the level of the SVC. The sheath was removed, the catheter was flushed and sutured into position. The patient was stable throughout the procedure and remained sta ble upon discharge from the Department of Radiology. The vein puncture was patent under ultrasound. A lorenzo scale image was obtained to document patency of the vein punctured. All elements of the maximal barrier technique were utilized. FLUOROSCOPY TIME: DAP 0.479Gy cm2 IMPRESSION: Successful PICC line placement under ultrasound and fluoroscopic guidance.
[2023-10-29 11:37] LABS: Basophils # (M) 0 X 10*3/uL (0.00-0.10); Blast Cells # (M) 1.43 k/uL (0); Eosinophils # (M) 0 X 10*3/uL (0.04-0.35); HCT 22.2 % (39.6-50.0); HGB 7.5 g/dL (13.0-17.0); Immature Platelet Fraction 12.8 % (1.1-6.1); Lymphocytes # (M) 0.76 X 10*3/uL (0.90-5.00); MCH 30.1 pg (27.0-32.0); MCHC 33.8 g/dL (32.0-37.0); MCV 89.2 FL (80.0-97.0); Mean Platelet Volume 12.3 FL (9.5-12.2); Myelocytes % 1 % (0-0); NRBC Per 100 WBC 0 X 10*3/uL (0.00-0.01); Neutrophils # (M) 0.05 X 10*3/uL (1.80-7.70); Neutrophils % (M) 2 %; Platelet Count 19 X 10*3/uL (140-440); Promyelocytes # (M) 0.02 k/uL (0); Promyelocytes % 1 %; RBC 2.49 X 10*6/uL (4.40-5.60); RDW 16.1 % (11.5-14.5); WBC 2.38 X 10*3/uL (4.50-10.00)
[2023-10-29 12:48] VITALS: BP 130/75; PULSE 76; TEMP 98
--- NOTE | 2023-10-29 13:19 | IR ---
PICC LINE PLACEMENT: HISTORY: Chemotherapy PROCEDURE: Fluoroscopic guidance of PICC line placement. COMPLICATIONS: None ANESTHESIA: 1. 1% Lidocaine locally. FINDINGS/TECHNIQUE: The procedure was explained to the patient. The risks, complications, benefits and alternatives were discussed and any questions were answered. Informed consent was obtained. The patient was placed supine on the fluoroscopic table and prepped and draped in the usual sterile fash ion. A preexisting PICC line was cut to an 0.018 guidewire was placed through the catheter which was removed and exchanged for a 5-Fr sheath was placed over the guidewire. The guidewire and dilator wer e removed and a 5-F. Double lumen PICC line was placed through the sheath with the tip at the level o f the SVC. The sheath was removed, the catheter was flushed and sutured into position. The patient was stable throughout the procedure and remained stable upon discharge from the Department of Radiolo gy. The vein puncture was patent under ultrasound. A lorenzo scale image was obtained to document patency of the vein punctured. All elements of the maximal barrier technique were utilized. FLUOROSCOPY TIME: DAP 1.1193 IMPRESSION: Successful PICC double lumen line exchange under fluoroscopic guidance.
--- NOTE | 2023-10-29 14:49 | P.PN ---
Subjective Progress Note Date: 10/29/23 Principal diagnosis: neutropenic fever At today's visit patient is resting comfortably in bed. He reports continued improvement in breathing. Patient remains afebrile. Plts 19,000, no reported episodes of bleeding. Hgb 7.5. S/p PICC line placement today. Unfortunately only a single lumen was placed, spoke with battery charger tester in photo lab manager, and they will bring pt back down today to have it swapped for double lumen. Objective - Vital Signs Vital signs: Vital Signs Temp 98.0 F 10/29/23 11:45 Pulse 76 10/29/23 11:45 Resp 16 10/29/23 11:45 BP 130/75 10/29/23 11:45 Pulse Ox 99 10/29/23 11:45 FiO2 21 10/26/23 11:18 Intake & Output 10/28/23 10/29/23 10/29/23 18:59 06:59 18:59 Intake Total 2100 1200 Balance 2100 1200 Intake: Oral 2100 1200 Other: Voiding Method Toilet Toilet # Voids 2 - Constitutional General appearance: Present: average body habitus, no acute distress - EENT Eyes: Present: anicteric sclerae, EOMI ENT: Present: hearing grossly normal - Respiratory Details: breathing is even and unlabored - Cardiovascular Details: skin is warm and dry - Integumentary Integumentary: Present: pale. Absent: cyanotic - Neurologic Neurologic Comment(s): grossly intact - Musculoskeletal Musculoskeletal: Present: strength equal bilaterally - Psychiatric Psychiatric: Present: A&O x's 3 - Labs CBC & Chem 7: 10/29/23 07:14 10/29/23 07:14 Labs: Abnormal Lab Results - Last 24 Hours (Table) 10/28/23 10/29/23 10/29/23 Range/Units 06:36 07:14 07:14 WBC 2.38 L (4.50-10.00) X 10*3/uL RBC 2.49 L (4.40-5.60) X 10*6/uL Hgb 7.5 L (13.0-17.0) g/dL Hct 22.2 L (39.6-50.0) % RDW 16.1 H (11.5-14.5) % Plt Count 19 A* (140-440) X 10*3/uL MPV 12.3 H (9.5-12.2) FL Blast Cells % 37 H* % Lymphocytes # (Manual) 0.76 L (0.90-5.00) X 10*3/uL Monocytes # (Manual) 0.10 L (0.20-1.00) X 10*3/uL Eosinophils # (Manual) 0 L (0.04-0.35) X 10*3/uL Blast Cells # (Man) 0.89 H (0) k/uL Immature Plt Fraction 12.8 H (1.1-6.1) % BUN/Creatinine Ratio 22.71 H (12.00-20.00) Ratio Assessment and Plan (1) Neutropenic fever Current Visit: Yes Status: Acute Priority: High Code(s): D70.9 - NEUTROPENIA, UNSPECIFIED; R50.81 - FEVER PRESENTING WITH CONDITIONS CLASSIFIED ELSEWHERE SNOMED Code(s): 184981069 (2) Acute myeloid leukemia, without mention of having achieved remission Current Visit: Yes Status: Acute Priority: High Code(s): C92.00 - ACUTE MYELOBLASTIC LEUKEMIA, NOT HAVING ACHIEVED REMISSION SNOMED Code(s): 57546768 (3) Pancytopenia Current Visit: Yes Status: Acute Priority: High Code(s): D61.818 - OTHER PANCYTOPENIA SNOMED Code(s): 592477969 (4) Pulmonary embolism Current Visit: Yes Status: Acute Priority: High Code(s): I26.99 - OTHER PULMONARY EMBOLISM WITHOUT ACUTE COR PULMONALE SNOMED Code(s): 99072594 Plan: Neutropenic fever: -Cultures were positive for strep viridans, which appears to be a sensitive to all antibiotics tested on the panel. Continues on IV abx. Repeat cultures negative thus far. Sputum culture negative -Repeat COVID testing negative -ID following. Plan to transition to 10 day course of oral abx AML: The patient's CBC had shown some increase in WBC, with significant percentage of blasts. This was discussed in detail with the patient and his . At this time., Just a week after completion of induction therapy, this is difficult to interpret. This could represent a transient fluctuation vs early bone marrow recovery with the higher apparent percentage of blasts transiently, due to slower maturation and turn over rate than normal. Refractory AML, with early progression is also within the differential -WBC 2.3. Blast cells still elevated at 60% -Continue to monitor. If the same pattern remains persistent or progresses, then refractory AML with progression becomes more likely. -Will plan for repeat biopsy upon discharge, with clinic f/u for CBC rechecks 3 days weekly. Clinic f/u scheduled with Dr. Naranjo on 10/31 to further discuss plan of care and treatment options. Plan was discussed with IM team Pt and family updated on POC Chemo induced-pancytopenia: - Today plts 19,000. No reported episodes of bleeding. Hgb stable 7.5 -Continue to monitor with transfusion support as needed. CBC daily -Please transfuse with irradiated blood products only PE: -Due to worsening shortness of breath overnight stat CTA xhest was ordered. Study revealed few small filling defects within lower lobe segmental and subsegmental branches compatible with mild pulmonary embolism. No evidence for large saddle component or lobar component filling defect. No evidence of right heart strain. Mixed alveolar and interstitial infiltrates with tiny effusions noted -Baseline Dopplers of bilateral lower extremities was obtained which were negative for DVT. BUE dopplers negative for DVT, SVT noted to RUE in the cephalic vein at level of the elbow -Due to significant thrombocytopenia anticoagulation is contraindicated. Consult was placed to pulmonology to evaluate CTA study to confirm PE as tablet technician noted that this was not an optimal study due to issues with contrast bolus. Per pulm mild PE is suspected -Consult placed to vascular surgery for evaluation for IVC filter. S/p IVC placement on 10/24. -Reports continued improvement in breathing Diarrhea: -C diff negative -Diarrhea improved -Continues on imodium prn
--- NOTE | 2023-10-29 14:52 | P.PN ---
Subjective Progress Note Date: 10/29/23 43-year-old male with a recent diagnosis of acute myelocytic leukemia. The patient presented to the emergency department on October 18, at 7:00 in the morning, complaining of fever, and for that reason, his oncologist suggested that he come to the emergency room. Apparently at that time, other than the temperature elevation, he did not have any other complaints. This is based on documentation in the ER, by the ER physician. The patient was diagnosed as having acute myeloid leukemia, this year. Other than that, does not appear to have any other major medical problems. We were consulted, because apparently a CT angiogram revealed a small filling defect, suggestive of pulmonary embolism, and, the primary service once know whether or not the patient should have a filter, given the fact that he still thrombocytopenia, and cannot tolerate IV anticoagulation. The patient is seen today in room 516. The patient is on oxygen at 4 L. His most recent lab data includes a white count of 4.4, h emoglobin 7.3, hematocrit 20.1, and 6000 platelet count. Dopplers of the lower extremity were negative. Earlier today, the patient was much more short of breath, but apparently according to family members she's been short of breath for a couple of days. In addition he is coughing and spitting up some blood. Additional laboratory data includes a sodium 1:30, potassium 3.3, chlorides 100, CO2 23, BUN 11, creatinine 0.71. C-reactive protein is 29.2. Testing for payne virus was negative. A chest x-ray on the day of admission, was interpreted as being normal. A subsequent chest x-ray on October 21, was also read as normal. In my opinion, the chest second chest x-ray, could be consisten t with mild vascular congestion. The CT angiogram, showed a few small really defects within the lower lobe segmental and subsegmental branches compatible with mild pulmonary embolism. There is no large or central PE. In addition, there is diffuse interstitial changes, consistent with either atypical pneumonia, or interstitial edema. There is also small pleural effusions. Progress note dated 10/24/2023. The patient is seen today in room 516. Remains on 4 L of oxygen. His saturations are 96-97%. He is currently not receiving any IV fluids. He continues on Ancef, fluconazole, and acyclovir as per infectious diseases. His N-terminal pro BNP was only 603. His pro-calcitonin level was quite elevated at 3.33. Testing for coronavirus was negative. Current labs include a white count 4.6, heme him some 0.3, hematocrit 20.2, and a 7000 platelet count. His d-dimer is 6.66. Sodium 134, potassium 3.5, chlorides 101, CO2 25, BUN 10, and creatinine 0.67. Pro-calcitonin level was 3.33. Blood cultures were positive for Streptococcus viridans. Progress note dated 10/25/2023. The patient is seen today in room 516. He remains on 4 L of oxygen. Yesterday, Dr. Eli, the vascular surgeon, placed a filter in the inferior vena cava. Blood cultures were positive for Streptococcus viridans. The patient's getting saline at 75 mL an hour. He continues on fluconazole, acyclovir, and Ancef. Today's labs include white count 4.7, hemoglobin 6.7, hematocrit 19, platelet count 12,000. No additional labs from today. The patient is seen today 10/26/2023 in follow-up on the regular medical floor. He is resting comfortably in bed. Maintaining good O2 saturations up to 97% on room air. No worsening shortness of breath, cough or congestion. He is status post 4 units of packed red blood cells and 8 units of platelets this admission thus far. Blood cultures were positive for viridans streptococcus group. Sputum culture revealed no growth. Follow-up blood cultures revealed no growth. White count 4.2. Hemoglobin 7.8. Platelets 9000. Blast cells 44. Sodium 136. Potassium 3.7. Bicarb 24. BUN 11. Creatinine 0.71. Glucose 105. He remains on antibiotics in the form of ceftriaxone. Continued on Flagyl. Continued on Diflucan. The patient is seen today 10/27/2023 in follow-up on the regular medical floor. He is sitting up in bed. Awake and alert in no acute distress. He is maintaining good O2 saturations in the 90s on room air. He denies any worsening shortness of breath, cough or congestion. He has normal saline at KVO. Pro- calcitonin was 3.33. He remains on Diflucan, ceftriaxone and Flagyl. Blood cultures are positive for viridans streptococcus. Follow up blood cultures revealing no growth. Sputum culture revealed no growth. White count 2.8. Hemoglobin 7.4. Platelets 19,000. The patient is seen today 10/28/2023 in follow-up on the medical floor. He remains awake and alert in no acute distress. Maintaining good O2 saturations in the 90s on room air. Afebrile. Hemodynamically stable. He is continued on Flagyl, Diflucan, acyclovir and ceftriaxone. He is status post 4 units of packed red blood cells, 8 units of platelets. Blood cultures are positive for viridans streptococcus group. Follow blood cultures revealing no growth. Sputum culture revealed no growth. White count 2.4. Hemoglobin 7.6. Platelets 18,000. On today's evaluation of 10/29/2023, the patient is on room air oxygen. The patient is, comfortable. The patient denies having any specific complaints. The patient has a mild and the patient was treated for any fever. The patient is currently afebrile and hemodynamically stable.In terms of the labs, the white cycles at 2.3 with a hemoglobin of 7.5 and a platelet count of 19. Sodium level is at 136, Kayce is a 50 with a creatinine of 0.7 and a potassium level is at 4.7. The patient is resting comfortably in bed. The patient is ambulating. He cultures are positive for strep viridans and his blood. He has a PICC line for IV antibiotics at this point. The patient had also small filling defects in the lower segment of the pulmonary artery branches and the patient was given an IVC filter on 10/24/2023. No diarrhea. Objective - Vital Signs Vital signs: Vital Signs Temp 98.0 F 10/29/23 11:45 Pulse 76 10/29/23 11:45 Resp 16 10/29/23 11:45 BP 130/75 10/29/23 11:45 Pulse Ox 99 10/29/23 11:45 FiO2 21 10/26/23 11:18 Intake & Output 10/28/23 10/29/23 10/29/23 18:59 06:59 18:59 Intake Total 2100 1200 Balance 2100 1200 Intake: Oral 2100 1200 Other: Voiding Method Toilet Toilet # Voids 2 - Exam GENERAL EXAM: Alert, pleasant 43-year-old male, on room air, comfortable in no apparent distress. HEAD: Normocephalic. EYES: Normal reaction of pupils, equal size. NOSE: Clear with pink turbinates. THROAT: No erythema or exudates. NECK: No masses, no JVD. CHEST: No chest wall deformity. LUNGS: Equal air entry with no crackles, wheeze, rhonchi or dullness. CVS: S1 and S2 normal with no audible murmur, regular rhythm. ABDOMEN: No hepatosplenomegaly, normal bowel sounds, no guarding or rigidity. SPINE: No scoliosis or deformity SKIN: No rashes CENTRAL NERVOUS SYSTEM: No focal deficits, tone is normal in all 4 extremities. EXTREMITIES: There is no peripheral edema. No clubbing, no cyanosis. Peripheral pulses are intact. - Labs CBC & Chem 7: 10/29/23 07:14 10/29/23 07:14 Labs: Abnormal Lab Results - Last 24 Hours (Table) 10/29/23 10/29/23 Range/Units 07:14 07:14 WBC 2.38 L (4.50-10.00) X 10*3/uL RBC 2.49 L (4.40-5.60) X 10*6/uL Hgb 7.5 L (13.0-17.0) g/dL Hct 22.2 L (39.6-50.0) % RDW 16.1 H (11.5-14.5) % Plt Count 19 A* (140-440) X 10*3/uL MPV 12.3 H (9.5-12.2) FL Lymphocytes # (Manual) 0.76 L (0.90-5.00) X 10*3/uL Monocytes # (Manual) 0.10 L (0.20-1.00) X 10*3/uL Eosinophils # (Manual) 0 L (0.04-0.35) X 10*3/uL Immature Plt Fraction 12.8 H (1.1-6.1) % BUN/Creatinine Ratio 22.71 H (12.00-20.00) Ratio Assessment and Plan Plan: Acute hypoxemic respiratory failure, likely multifactorial, in part related to possible fluid overload, possible atypical pneumonia, and small pulmonary emboli. Michel filter placement, 10/24/2023. Recovered and on room air. Streptococcus viridans bacteremia. Currently on ceftriaxone Superficial venous thrombosis, right upper extremity. No evidence of DVT. Recent diagnosis of acute myeloid leukemia. Patient had recent chemotherapy. Bicytopenia. Status post 4 units of packed red blood cells and 8 units of platelets thus far. Electrolyte disturbance including hyponatremia, and hypokalemia. Improving Plan: Clinically stable Continue antibiotics per ID Currently stable and on room air Increase his activity as tolerated Home once cleared by oncology
--- NOTE | 2023-10-29 15:42 | P.DS ---
Providers Date of admission: 10/18/23 10:28 Expected date of discharge: 10/29/23 Attending physician: Wilmer Quinn MD Consults: 10/18/23 10:28 Consult Physician Routine Consulting Provider: Eusebio Naranjo Consult Reason/Comments: leukemia Do you want consulting provider notified?: Yes 10/20/23 09:19 Consult Physician Routine Consulting Provider: Thanh [place] Consult Reason/Comments: neutropenic fever, positive blood cultures Do you want consulting provider notified?: Yes 10/23/23 10:39 Consult Physician Routine Consulting Provider: Trey Andrade Consult Reason/Comments: PE Do you want consulting provider notified?: Yes Primary care physician: [facility] Course: Acute Hypoxemic Respiratory Failure Pulmonary Embolus s/p IVC Filter Febrile Neutropenia with Strep Bactermia Pancytopenia secondary to Chemotherapy AML Hospital Course: Patient is a 43-year-old male with recently diagnosed AML with hospitalization from 10/08 through 10/16 for induction chemotherapy. He was doing well and had been discharged home on 10/16 with prophylactic Cipro, acyclovir, and Diflucan. He presented to the ER on 10/18 due to fevers up to 101.5 at home. He does report a slight cough. Initial chest x-ray in the ER showed no acute process, initial urinalysis was negative. Blood cultures were obtained. Laboratory analysis included CBC, coags, & CMP which were remarkable for white blood cell count 0.1, hemoglobin 7.3, platelets 9, sodium 131, BUN 21, AST 13, albumin of 3.4. Influenza A/B/RSV/COVID-19 PCR were negative. He was stared on cefepime and vanco and arrangements were made for admission. BCx + viridans streptococcus. Continued on Cefepime 2g IV Q8H. ID on board. ID recommended not removing PICC line due to high risk for bleeding. He has received 3 units of PRBCS and 4 units of platelets during this hospitalization. 10/22 Continued on Cefepime 2g IV TID. Repeat BCx negative at 24H. 10/23 Tmax 102.3F over the past 24H. This morning, patient became hypoxic and SOB. O2 saturation in the 70's requiring 4L NC. CTA chest was ordered + for PE. Venous doppler negative. COVID negative. 10/24 Continues to be on 4L NC. Pulmonology consulted, recommends no [place] filter at this time. However, Oncology feels he should have the filter placed and he is tentatively scheduled for this afternoon. Plans for platelet transfusion during the procedure. Procal 3.33. BNP 603. D-Dimer 6.66. 10/25 Underwent IVC filter yesterday. Plans for 1 unit PRBC today. 10/26 Saturating mid 90s on RA. Plans for 1 unit of Plt today. Cefepime switched to Rocephin 2g IV QD and Flagyl 500 mg PO TID added for anerobic coverage. 10/27 No complaints. Oncology recommends monitoring Hg and Plt count. 10/28 Patient was seen and examined. No complaints. Ambulating without difficulties. Currently on room air. CBC WBC 2.4, Hg 7.6, Plt 18. BMP Cr 0.61, glu 108. Plans for PICC line tomorrow. Anticipate discharge soon depending on Oncology plans. 10/29: Pt rec'd PICC line today, and is stable for dsicharge. Discussed with oncology and ID, patient d/c'd home with additional 7 days of PO anti-biotics. I spent 55 minutes coordinating this discharge on 10/29 Gen: awake, alert HEENT: normocephalic, atraumatic, good hearing acuity, moist mucous membranes Resp: good air exchange, breathing comfortably with no accessory muscle use CVS: good distal perfusion x 4, GI: soft, NTTP, ND : no SPT, no CVAT, green catheter not present MSK: no pitting edema, no clubbing Neuro: non-focal, moving all extremities Psych: cooperative, euthymic mood Patient Condition at Discharge: Good Plan - Discharge Summary Discharge Rx Participant: No New Discharge Prescriptions: New metroNIDAZOLE [Flagyl] 500 mg PO TID #21 tab Acetaminophen Tab [Tylenol] 650 mg PO Q6HR PRN tab PRN Reason: Mild Pain Or Fever > 100.5 cefUROXime axetiL [Ceftin] 500 mg PO BID 10 Days #14 tab Continue allopurinoL 300 mg PO DAILY #30 tab Fluconazole [Diflucan] 100 mg PO DAILY #30 tablet Acyclovir [Zovirax] 400 mg PO BID #60 tablet Ondansetron [Ondansetron Odt] 4 mg PO Q4H PRN #45 tab PRN Reason: Nausea Discontinued Ciprofloxacin HCl [Cipro] 500 mg PO Q12HR 1 Days #60 tab Discharge Medication List Acyclovir [Zovirax] 400 mg PO BID #60 tablet 10/15/23 [Rx] Fluconazole [Diflucan] 100 mg PO DAILY #30 tablet 10/15/23 [Rx] Ondansetron [Ondansetron Odt] 4 mg PO Q4H PRN #45 tab 10/15/23 [Rx] allopurinoL 300 mg PO DAILY #30 tab 10/15/23 [Rx] Acetaminophen Tab [Tylenol] 650 mg PO Q6HR PRN tab 10/29/23 [Rx] cefUROXime axetiL [Ceftin] 500 mg PO BID 10 Days #14 tab 10/29/23 [Rx] metroNIDAZOLE [Flagyl] 500 mg PO TID #21 tab 10/29/23 [Rx] Follow up Appointment(s)/Referral(s): Caio Patel MD [Primary Care Provider] - 1-2 days Discharge Disposition: HOME SELF-CARE
--- NOTE | 2023-10-31 09:47 | CDI ---
Documentation Clarification Form Date: 10/31/2023 09:22:53 AM From: Colleen Tatum RN, CCDS Admit Date: 10/18/2023 10:28:00 AM Patient Name: Cecilio Rudolph Visit Number: [id number] Discharge Date: 10/29/2023 05:45:00 PM ATTENTION: The Clinical Documentation Specialists (CDI) and [facility] Coding Staff appreciate your assistance in clarifying documentation. Please respond to the clarification below the line at the bottom and electronically sign. The CDI & [facility] Coding staff will review the response and follow-up if needed. Please note: Queries are made part of the Legal Health Record. If you have any questions, please contact the author of this message via ITS. Dr. Foster Haider Your patient has Sepsis documented in the ID consult and subsequent progress note as possibility source has been ruled in as related to the PICC line Based on this information and the findings below, is there an additional diagnosis that is clinically appropriate for this patient? Patient history/risk factors: Acute myeloid leukemia diagnosed in Aug 2023 Clinical Indicators: 43-year-old male history of acute myeloid leukemia diagnosed August 2023, patient did recently have got left arm PICC line for chemotherapy and the patient recently admitted to the hospital from 10/08/2023 until 10/16/2023 for induction chemotherapy. 10/18 he complained of some rigors and chills did have URI symptoms. 10/18 VS: 142/70 121 20 101, 102.6 10/18 Labs: WBC 0.1 HGB 7.3 HCT 20.7 PLT 9, NA+ 131, 10/18 Blood Cultures Final: Viridans Streptococcus Group 10/20 ID Consult: Presented to hospital with sepsis in this patient who did have a fever tachycardia, leukopenia/neutropenia and now with evidence of bacteremia with blood culture positive for gram-positive cocci resembling strep awaiting final ID to determine the possibility source could be related to the PICC line however PICC has been recently placed and the patient did have a low platelet count and high risk of bleeding and the type of bacteria is growing in the blood not requiring immediate removal of his PICC line. Treatment: Vancomycin 1.500 MG IVPB ONCE (PTD) 10/18 -10/20 Cefepime 2 GM IVPB Q 8 HRS 10/19-10/25 .9 NS 1,000 ML Bolus IV x2 10/18 Diflucan 100MG PO Daily 10/18 -10/25 Is there an additional diagnosis that is clinically appropriate for this patient? [ ] Sepsis with bacteremia related to PICC Line per ID query response. [x] No additional diagnosis/Not clinically significant [ ] Unable to determine [ ] Other, please specify (Template Last Reviewed: December 2022) MTDD
== END 2023-10-29 17:45 | disposition home or self-care (01) | DRG 314 ==
LOC: EC 07:09 → 5NMEDONC 10:28
PROVIDERS: ADMIT Student in an Organized Health Care Education/Training Program; ATTEND Student in an Organized Health Care Education/Training Program
PROC: 30233R1 Transfusion of Nonautologous Platelets into Peripheral Vein, Percutaneous Approach (ICD-10-PCS; 2023-10-18)
PROC: 30233N1 Transfusion of Nonautologous Red Blood Cells into Peripheral Vein, Percutaneous Approach (ICD-10-PCS; principal; 2023-10-19)
PROC: 06H03DZ Insertion of Intraluminal Device into Inferior Vena Cava, Percutaneous Approach (ICD-10-PCS; 2023-10-24)
PROC: B5191ZZ Fluoroscopy of Inferior Vena Cava using Low Osmolar Contrast (ICD-10-PCS; 2023-10-24 12:00)
PROC: 02HV33Z Insertion of Infusion Device into Superior Vena Cava, Percutaneous Approach (ICD-10-PCS; 2023-10-29)
DX: T80.211A Bloodstream infection due to central venous catheter, initial encounter (principal); A40.8 Other streptococcal sepsis; I26.93 Single subsegmental thrombotic pulmonary embolism without acute cor pulmonale; D61.810 Antineoplastic chemotherapy induced pancytopenia; J96.01 Acute respiratory failure with hypoxia; C92.00 Acute myeloblastic leukemia, not having achieved remission; E87.1 Hypo-osmolality and hyponatremia; Y71.2 Prosthetic and other implants, materials and accessory cardiovascular devices associated with adverse incidents; D70.1 Agranulocytosis secondary to cancer chemotherapy; E83.39 Other disorders of phosphorus metabolism; E87.6 Hypokalemia; D69.59 Other secondary thrombocytopenia; I80.8 Phlebitis and thrombophlebitis of other sites; K21.9 Gastro-esophageal reflux disease without esophagitis; R50.81 Fever presenting with conditions classified elsewhere; T45.1X5A Adverse effect of antineoplastic and immunosuppressive drugs, initial encounter; Z66 Do not resuscitate; Z79.2 Long term (current) use of antibiotics; Z79.899 Other long term (current) drug therapy; Z87.891 Personal history of nicotine dependence
CPT/HCPCS: 36415; 36573; 36584; 37191; 71045; 71046; 71275; 74018; 76937; 80048; 80053; 80202; 81003; 83605; 83735; 83880; 83930; 83935; 84100; 84145; 84300; 84550; 85025; 85379; 85384; 85610; 85730; 86140; 86850; 86900; 86901; 86920; 87040; 87070; 87077; 87186; 87205; 87324; 87635; 87636; 93005; 93308; 93970; 94760; 96361; 96365; 96367; 99285

== ENCOUNTER 2023-10-31 07:46 | Day surgery (SDC) | payer BC ==
[2023-10-31] MEDS ORDERED: LACTATED RINGERS 1,000 ML IV ONE (08:15)
[2023-10-31] MEDS ORDERED: LIDOCAINE 1% INJ 10MG/ML (20 ML MDV) ONE (08:30)
[2023-10-31] MEDS ORDERED: PROPOFOL 10 MG/ML 20 ML VIAL IV ONE (08:30)
[2023-10-31 08:44] VITALS: RESP 16; TEMP 98.6
--- NOTE | 2023-10-31 09:13 | P.PCN ---
Date of Procedure: 10/31/23 Preoperative Diagnosis: Acute myeloid leukemia, status post induction chemotherapy Postoperative Diagnosis: Same Procedure(s) Performed: Bone marrow aspiration and biopsy Anesthesia: MAC Surgeon: Eusebio Naranjo Installation Service Representative #1: Stated None Estimated Blood Loss (ml): 2 Pathology: other Condition: stable Disposition: same day Indications for Procedure: Recent diagnosis of acute myeloid leukemia, status post induction chemotherapy with the 7+3 regimen. Bone marrow aspiration biopsy been done to assess response Operative Findings: Adequate samples Description of Procedure: The procedure was explained in detail with the patient when he was recently admitted on the floor. He presented to the outpatient endoscopy suite where IV access and informed consent was obtained. We will then placed in the left late ral decubitus position. Area over both posterior iliac crest was cleaned and prepped with chlorhexidine and sterile draping. IV sedation was then initiated. Local anesthesia was administered with lidocaine to the right posterior iliac crest. A Jamshidi needle was then inserted and bone marrow aspirate obtained. On the initial biopsy attempt, a sample was not obtained due to which an additional past was made with a biopsy sample obtained this time. On withdrawal of the needle, hemostasis was achieved. Blood loss was minimal. Recovery from sedation was satisfactory. He appeared to have tolerated the procedure well without any obvious, immediate complications.
[2023-10-31] MEDS ORDERED: IV FLUID CONTINUATION 800 ML IV ONE (09:25)
[2023-10-31 09:31] VITALS: BP 104/62; PULSE 89
== END 2023-10-31 10:01 | disposition home or self-care (01) ==
LOC: OR 07:46
PROVIDERS: ATTEND Internal Medicine Hematology & Oncology
DX: C92.00 Acute myeloblastic leukemia, not having achieved remission (principal); Z87.891 Personal history of nicotine dependence; Z88.0 Allergy status to penicillin
CPT/HCPCS: 38222; J2001; J2704

== ENCOUNTER 2023-11-09 23:24 | Inpatient (IN) | payer BC ==
[2023-11-10] MEDS ORDERED: ACETAMINOPHEN TAB 500 MG TAB PO STA (01:10)
[2023-11-10] MEDS ORDERED: SODIUM CHLORIDE 0.9% 1,000 ML IV STA (01:10)
[2023-11-10 01:56] LABS: ALT 20 U/L (4-49); AST 15 U/L (17-59); Albumin 3.2 g/dL (3.5-5.0); Alkaline Phosphatase 73 U/L (38-126); Anion Gap 10 mmol/L; Blood Urea Nitrogen 14 mg/dL (9-20); Calcium 8.5 mg/dL (8.4-10.2); Carbon Dioxide 26 mmol/L (22-30); Chloride 98 mmol/L (98-107); Glucose 123 mg/dL (74-99); Potassium 3.9 mmol/L (3.5-5.1); Sodium 134 mmol/L (137-145); Total Bilirubin 0.3 mg/dL (0.2-1.3); Total Protein 6.7 g/dL (6.3-8.2)
[2023-11-10 01:57] LABS: African American GFR (CKD) >90 (>60 ml/min/1.73 sqM); Non-African American GFR(CKD) >90 (>60 ml/min/1.73 sqM)
[2023-11-10 02:04] LABS: MCH 29.7 pg (25.0-35.0); MCHC 35.6 g/dL (31.0-37.0); Mean Platelet Volume 12.8; RBC 2.18 m/uL (4.30-5.90); RDW 15.2 % (11.5-15.5); WBC 1.6 k/uL (3.8-10.6)
[2023-11-10 02:12] LABS: HCT 18.1 % (39.0-53.0); HGB 6.5 gm/dL (13.0-17.5)
[2023-11-10 02:15] LABS: MCV 83.3 fL (80.0-100.0)
[2023-11-10 02:25] LABS: Appearance,Urine Clear (Clear); Bilirubin,Urine Negative (Negative); Blood,Urine Negative (Negative); Color,Urine Colorless; Glucose,Urine (UA) Negative (Negative); Ketones,Urine Negative (Negative); Leukocyte Esterase,Urine Negative (Negative); Nitrite,Urine Negative (Negative); PH, Urine 6.5 (5.0-8.0); Protein,Urine Negative (Negative); Specific Gravity,Urine 1.013 (1.001-1.035); Urobilinogen,Urine <2.0 mg/dL (<2.0)
[2023-11-10] MEDS ORDERED: CEFEPIME 2 GM in SODIUM CHLORIDE 0.9% 100 ML IVPB STA (03:12)
[2023-11-10] MEDS ORDERED: VANCOMYCIN IV PER PHARMACY 1 EACH MISC MISCELLANE PRN ×2 (03:43→04:44)
[2023-11-10] MEDS ORDERED: NALOXONE 0.4 MG/ML 1 ML VIAL IV PRN (03:46)
--- NOTE | 2023-11-10 03:46 | ED ---
Fever HPI - General Chief Complaint: Fever Stated Complaint: Fever 101.2, Post-Chemo Time Seen by Provider: 11/09/23 23:40 Source: patient Mode of arrival: ambulatory Limitations: no limitations - History of Present Illness Initial Comments: 43-year-old male with past medical history of AML who presents to the emergency department reporting fever. States that around 5 PM today he began having chills. His took his temp and it was 101.2. He does have some nasal congestion and nonproductive cough. He also has bodyaches. Denies any sick contacts with similar symptoms. He received induction chemotherapy in September. States that his last treatment was October 15. He was hospitalized shortly after this for bacteremia. They attributed the infection to staff viridans from his PICC line. States that the PICC line was removed and replaced on October 29. He is currently not taking any antibiotics. He finished them on Sunday. He denies any nausea or vomiting. No diarrhea. No abdominal pain. No changes in his urination. He did take some Tylenol before coming into the emergency department. No other alleviating, precipitating or modifying factors - Related Data Home Medications Medication Instructions Recorded Confirmed Fluconazole [Diflucan] 100 mg PO DAILY 10/30/23 11/07/23 Previous Rx's Medication Instructions Recorded Ondansetron [Ondansetron Odt] 4 mg PO Q4H PRN #45 tab 10/15/23 allopurinoL 300 mg PO DAILY #30 tab 10/15/23 Acetaminophen Tab [Tylenol] 650 mg PO Q6HR PRN tab 10/29/23 Allergies Allergy/AdvReac Type Severity Reaction Status Date / Time Penicillins Allergy Unknown Verified 11/09/23 23:41 Childhood Review of Systems ROS Statement: Those systems with pertinent positive or pertinent negative responses have been documented in the HPI. ROS Other: All systems not noted in ROS Statement are negative. Past Medical History Past Medical History: Cancer Additional Past Medical History / Comment(s): Acute myeloid leukemia diagnosed in 2022, chemo History of Any Multi-Drug Resistant Organisms: None Reported Past Surgical History: No Surgical Hx Reported Additional Past Surgical History / Comment(s): hernia surgery scheduled with dr solitario in Past Anesthesia/Blood Transfusion Reactions: No Reported Reaction Past Psychological History: No Psychological Hx Reported Smoking Status: Former smoker Past Alcohol Use History: None Reported Past Drug Use History: None Reported - Past Family History Mother Additional Family Medical History / Comment(s): bladder and stomach cancer General Exam Limitations: no limitations General appearance: alert, in no apparent distress Head exam: Present: atraumatic, normocephalic, normal inspection Eye exam: Present: normal appearance, PERRL, EOMI. Absent: scleral icterus, conjunctival injection, periorbital swelling ENT exam: Present: normal exam, mucous membranes moist Neck exam: Present: normal inspection. Absent: tenderness, meningismus, lymphadenopathy Respiratory exam: Present: normal lung sounds bilaterally. Absent: respiratory distress, wheezes, rales, rhonchi, stridor Cardiovascular Exam: Present: normal rhythm, tachycardia, normal heart sounds. Absent: systolic murmur, diastolic murmur, rubs, gallop, clicks GI/Abdominal exam: Present: soft, normal bowel sounds, other (Right groin well- healed scar). Absent: distended, tenderness, guarding, rebound, rigid Extremities exam: Present: normal inspection, full ROM, normal capillary refill. Absent: tenderness, pedal edema, joint swelling, calf tenderness Back exam: Present: normal inspection Neurological exam: Present: alert, oriented X3, CN II-XII intact Psychiatric exam: Present: normal affect, normal mood Skin exam: Present: warm, dry, intact, normal color. Absent: rash Course Vital Signs 11/09/23 11/10/23 11/10/23 23:37 01:49 01:50 Temperature 100.2 F H Pulse Rate 117 H Respiratory 20 Rate Blood Pressure 129/83 O2 Sat by Pulse 100 98 99 Oximetry 11/10/23 11/10/23 11/10/23 01:53 02:00 04:15 Temperature 99.5 F 99.2 F Pulse Rate 112 H 99 82 Respiratory 20 18 18 Rate Blood Pressure 133/80 117/71 O2 Sat by Pulse 98 96 Oximetry 11/10/23 04:35 Temperature 99.2 F Pulse Rate 94 Respiratory 18 Rate Blood Pressure 120/74 O2 Sat by Pulse 98 Oximetry Medical Decision Making - Medical Decision Making Was pt. sent in by a medical professional or institution (, PA, PLUMBER, urgent care, hospital, or assisted...) When possible be specific @ -No Did you speak to anyone other than the patient for history (EMS, parent, family, police, friend...)? What history was obtained from this source @ -Spoke with the patient's Did you review nursing and triage notes (agree or disagree)? Why? @ -I reviewed and agree with nursing and triage notes Were old charts reviewed (outside hosp., previous admission, EMS record, old EKG, old radiological studies, urgent care reports/EKG's, assisted records)? Report findings @ -No old charts were reviewed Differential Diagnosis (chest pain, altered mental status, abdominal pain women, abdominal pain men, vaginal bleeding, weakness, fever, dyspnea, syncope, headache, dizziness, GI bleed, back pain, seizure, CVA, palpatations, mental health, musculoskeletal)? @ -Differential Fever: Pneumonia, viral URI, endocarditis, myocarditis, pericarditis, otitis, sinusitis, peritonsillar Abscess, retropharyngeal Abscess, epiglottitis, peritonitis, appendicitis, Allyson cystitis, diverticulitis, hepatitis, colitis, UTI, PID, TOA, pyelonephritis, prostatitis, epididymitis, meningitis, ence phalitis, pulmonary embolism, CVA, thyroid storm, pancreatitis, adrenal crisis, cavernous sinus thrombosis, this is not meant to be an all-inclusive list. EKG interpreted by me (3pts min.). @ -Not done X-rays interpreted by me (1pt min.). @ -Yes and demonstrates no acute intrathoracic process CT interpreted by me (1pt min.). @ -None done U/S interpreted by me (1pt. min.). @ -None done What testing was considered but not performed or refused? (CT, X-rays, U/S, labs)? Why? @ -None What meds were considered but not given or refused? Why? @ -None Did you discuss the management of the patient with other professionals (professionals i.e. , PA, PLUMBER, lab, RT, psych nurse, social services specialist, terminal make up operator, teacher, driver license reviewing officer, case briefer)? Give summary @ -Spoke with Dr. cardozo for admission Was smoking cessation discussed for >3mins.? @ -No Was critical care preformed (if so, how long)? @ -yes, 35 minutes for transfusion of blood products Were there social determinants of health that impacted care today? How? (Homele ssness, low income, unemployed, alcoholism, drug addiction, transportation, low edu. Level, literacy, decrease access to med. care, nursing home, rehab)? @ -No Was there de-escalation of care discussed even if they declined (Discuss DNR or withdrawal of care, Hospice)? DNR status @ -No What co-morbidities impacted this encounter? (DM, HTN, Smoking, COPD, CAD, Cancer, CVA, ARF, Chemo, Hep., AIDS, mental health diagnosis, sleep apnea, morbid obesity)? @ -AML on chemo Was patient admitted / discharged? Hospital course, mention meds given and route, prescriptions, significant lab abnormalities, going to OR and other pertinent info. @ -Admitted. Upon arrival patient was placed into room 3. Thorough history and physical exam was performed. IV access was established and laboratory studies are conducted blood cultures are obtained. Chest x-ray was performed. Results are discussed with the patient. Due to his neutropenia he is started on broad-spectrum antibiotics. I did transfuse the patient a unit of packed red blood cells. he will be admitted to Dr. cardozo who agreed to admission. Oncology placed on consult. Patient transferred to floor in stable condition Undiagnosed new problem with uncertain prognosis? @ -No Drug Therapy requiring intensive monitoring for toxicity (Heparin, Nitro, Insulin, Cardizem)? @ -blood products Were any procedures done? @ -No Diagnosis/symptom? @ -Acute pyrexia, neutropenic fever, acute on chronic anemia Acute, or Chronic, or Acute on Chronic? @ -see above Uncomplicated (without systemic symptoms) or Complicated (systemic symptoms)? @ -complicated Side effects of treatment? @ -No Exacerbation, Progression, or Severe Exacerbation? @ -No Poses a threat to life or bodily function? How? (Chest pain, [place], [place], pneumonia, PE, COPD, DKA, ARF, appy, cholecystitis, CVA, Diverticulitis, Homicidal, Paz cidal, threat to staff... and all critical care pts) @ -yes - patient has neutropenic fever - Lab Data Result diagrams: 11/10/23 01:13 11/10/23 01:13 Lab Results 11/09/23 11/10/23 11/10/23 Range/Units 09:30 01:13 01:13 WBC 1.6 L (3.8-10.6) k/uL RBC 2.18 L (4.30-5.90) m/uL Hgb 6.5 L* (13.0-17.5) gm/dL Hct 18.1 L* (39.0-53.0) % MCV 83.3 D (80.0-100.0) fL MCH 29.7 (25.0-35.0) pg MCHC 35.6 (31.0-37.0) g/dL RDW 15.2 (11.5-15.5) % Plt Count 43 L (150-450) k/uL MPV 12.8 Lymphocytes % (Manual) 100 % Neutrophils # PLUMBER Lymphocytes # (Manual) 1.60 (1.0-4.8) k/uL Nucleated RBCs 0 (0-0) /100 WBC Manual Slide Review Performed Sodium (137-145) mmol/L Potassium (3.5-5.1) mmol/L Chloride (98-107) mmol/L Carbon Dioxide (22-30) mmol/L Anion Gap mmol/L BUN (9-20) mg/dL Creatinine (0.66-1.25) mg/dL Est GFR (CKD-EPI)AfAm (>60 ml/min/1.73 sqM) Est GFR (CKD-EPI)NonAf (>60 ml/min/1.73 sqM) Glucose (74-99) mg/dL Plasma Lactic Acid Antony (0.7-2.0) mmol/L Calcium (8.4-10.2) mg/dL Total Bilirubin (0.2-1.3) mg/dL AST (17-59) U/L ALT (4-49) U/L Alkaline Phosphatase (38-126) U/L Total Protein (6.3-8.2) g/dL Albumin (3.5-5.0) g/dL Urine Color Colorless Urine Appearance Clear (Clear) Urine pH 6.5 (5.0-8.0) Ur Specific [place] 1.013 (1.001-1.035) Urine Protein Negative (Negative) Urine Glucose (UA) Negative (Negative) Urine Ketones Negative (Negative) Urine Blood Negative (Negative) Urine Nitrite Negative (Negative) Urine Bilirubin Negative (Negative) Urine Urobilinogen <2.0 (<2.0) mg/dL Ur Leukocyte Esterase Negative (Negative) Influenza Type A (PCR) (Not Detectd) Influenza Type B (PCR) (Not Detectd) RSV (PCR) (Not Detectd) SARS-CoV-2 (PCR) (Not Detectd) Group A Strep (PCR) (Not Detectd) Blood Type A Positive Blood Type Recheck A Pos Bld Type Recheck Status No Antibody Screen NEGATIVE Crossmatch See Detail Spec Expiration Date 11/12/2023 - 232911/10/23 11/10/23 11/10/23 Range/Units 01:13 01:13 01:13 WBC (3.8-10.6) k/uL RBC (4.30-5.90) m/uL Hgb (13.0-17.5) gm/dL Hct (39.0-53.0) % MCV (80.0-100.0) fL MCH (25.0-35.0) pg MCHC (31.0-37.0) g/dL RDW (11.5-15.5) % Plt Count (150-450) k/uL MPV Lymphocytes % (Manual) % Neutrophils # Lymphocytes # (Manual) (1.0-4.8) k/uL Nucleated RBCs (0-0) /100 WBC Manual Slide Review Sodium 134 L (137-145) mmol/L Potassium 3.9 (3.5-5.1) mmol/L Chloride 98 (98-107) mmol/L Carbon Dioxide 26 (22-30) mmol/L Anion Gap 10 mmol/L BUN 14 (9-20) mg/dL Creatinine 0.60 L (0.66-1.25) mg/dL Est GFR (CKD-EPI)AfAm >90 (>60 ml/min/1.73 sqM) Est GFR (CKD-EPI)NonAf >90 (>60 ml/min/1.73 sqM) Glucose 123 H (74-99) mg/dL Plasma Lactic Acid Antony 1.1 (0.7-2.0) mmol/L Calcium 8.5 (8.4-10.2) mg/dL Total Bilirubin 0.3 (0.2-1.3) mg/dL AST 15 L (17-59) U/L ALT 20 (4-49) U/L Alkaline Phosphatase 73 (38-126) U/L Total Protein 6.7 (6.3-8.2) g/dL Albumin 3.2 L (3.5-5.0) g/dL Urine Color Urine Appearance (Clear) Urine pH (5.0-8.0) Ur Specific [place] (1.001-1.035) Urine Protein (Negative) Urine Glucose (UA) (Negative) Urine Ketones (Negative) Urine Blood (Negative) Urine Nitrite (Negative) Urine Bilirubin (Negative) Urine Urobilinogen (<2.0) mg/dL Ur Leukocyte Esterase (Negative) Influenza Type A (PCR) Not Detected (Not Detectd) Influenza Type B (PCR) Not Detected (Not Detectd) RSV (PCR) Not Detected (Not Detectd) SARS-CoV-2 (PCR) Not Detected (Not Detectd) Group A Strep (PCR) (Not Detectd) Blood Type Blood Type Recheck Bld Type Recheck Status Antibody Screen Crossmatch Spec Expiration Date 11/10/23 Range/Units 02:59 WBC (3.8-10.6) k/uL RBC (4.30-5.90) m/uL Hgb (13.0-17.5) gm/dL Hct (39.0-53.0) % MCV (80.0-100.0) fL MCH (25.0-35.0) pg MCHC (31.0-37.0) g/dL RDW (11.5-15.5) % Plt Count (150-450) k/uL MPV Lymphocytes % (Manual) % Neutrophils # Lymphocytes # (Manual) (1.0-4.8) k/uL Nucleated RBCs (0-0) /100 WBC Manual Slide Review Sodium (137-145) mmol/L Potassium (3.5-5.1) mmol/L Chloride (98-107) mmol/L Carbon Dioxide (22-30) mmol/L Anion Gap mmol/L BUN (9-20) mg/dL Creatinine (0.66-1.25) mg/dL Est GFR (CKD-EPI)AfAm (>60 ml/min/1.73 sqM) Est GFR (CKD-EPI)NonAf (>60 ml/min/1.73 sqM) Glucose (74-99) mg/dL Plasma Lactic Acid Antony (0.7-2.0) mmol/L Calcium (8.4-10.2) mg/dL Total Bilirubin (0.2-1.3) mg/dL AST (17-59) U/L ALT (4-49) U/L Alkaline Phosphatase (38-126) U/L Total Protein (6.3-8.2) g/dL Albumin (3.5-5.0) g/dL Urine Color Urine Appearance (Clear) Urine pH (5.0-8.0) Ur Specific [place] (1.001-1.035) Urine Protein (Negative) Urine Glucose (UA) (Negative) Urine Ketones (Negative) Urine Blood (Negative) Urine Nitrite (Negative) Urine Bilirubin (Negative) Urine Urobilinogen (<2.0) mg/dL Ur Leukocyte Esterase (Negative) Influenza Type A (PCR) (Not Detectd) Influenza Type B (PCR) (Not Detectd) RSV (PCR) (Not Detectd) SARS-CoV-2 (PCR) (Not Detectd) Group A Strep (PCR) NOT DETECTED (Not Detectd) Blood Type Blood Type Recheck Bld Type Recheck Status Antibody Screen Crossmatch Spec Expiration Date Disposition Clinical Impression: Neutropenic fever, Pancytopenia Disposition: ADMITTED IP TO THIS [facility] Condition: Serious Is patient prescribed a controlled substance at d/c from ED?: No Time of Disposition: 03:46 Decision to Admit Reason: Admit from EC Decision Date: 11/10/23 Decision Time: 03:46
[2023-11-10] MEDS ORDERED: VANCOMYCIN 1,500 MG in SODIUM CHLORIDE 0.9% 500 ML 500 ML IVPB STA (03:56)
--- NOTE | 2023-11-10 04:40 | P.HPIM ---
History of Present Illness H&P Date: 11/10/23 Chief Complaint: Fever 43-year-old male with recent diagnosis of AML Patient has just finished a course of antibiotics however he's been monitoring his temperature today he noticed that he has a fever measured at home with some sore throat and coughing otherwise he denies any headache changes in vision or hearing denies any nausea vomiting denies any chest pain or trouble breathing denies any abdominal pain or chest pain denies any shortness of breath denies any changes in bowel or urinary habits He had noticed some coughing and sore throat along with a fever grew concerned and decided to come in for evaluation. Patient was diagnosed with AML back in September where he was admitted for induction therapy then was discharged with empiric antibiotics for prophylaxis Cipro psych Lavere and Diflucan then he presented to the ED about couple days after discharge with fever and coughing he was treated with empiric antibiotics and then later his blood cultures were positive for strep group, his PICC line was replaced he also required blood transfusion and platelet transfusion during that hospital about 10 days ago He then had his PICC line replacement. Discharged home to finish a 7 day course of antibiotics which she has finished this week about 3-4 days ago where he was discharged with Ceftin, Flagyl , acyclovir and diflucan. And now he is returning for fevers and some upper respiratory symptoms Patient denies tobacco smoking illicit drugs or heavy alcohol Patient was supposed to get blood transfusion today by due to unavailability of irradiated packed RBC he did not get transfused Patient also reports some Augmentin on dental pain his dentist is aware he needs some workup however due to low platelets this has been postponed multiple times Patient did experience a pulmonary embolism recently for which he has an IVC filter he started on blood thinners due to low platelet count review of systems Pertinent positives as noted in HPI. All other systems were reviewed and are negative on exam Constitutional: No acute distress, conversant, pleasant Eyes: Anicteric sclerae, moist conjunctiva, Pupils equal round reactive to light ENMT: NC/AT Oropharynx clear, no erythema, or exudates Neck: Supple, no masses, or JVD No carotid bruits No thyromegaly Lungs: Clear to auscultation Clear to percussion Normal respiratory effort, no accessory muscle use Cardiovascular: Heart regular in rate and rhythm, No murmurs, gallops, or rubs No peripheral edema Abdominal: Soft Nontender, no guarding, rebound or rigidity Abdomen moving with respiration Normoactive bowel sounds No hepatomegaly, No splenomegaly No palpable mass No abdominal wall hernia noted Extremities: No digital cyanosis No clubbing Pedal pulses intact and symmetrical Radial pulses intact and symmetrical No calf tenderness Psychiatric: Alert and oriented to person, place and time Appropriate affect fair judgement Neuro Muscles Strength 5/5 in all 4 extremities Sensation to light touch grossly present throughout Cranial nerves II-XII grossly intact Lymphatics: no palpable cervical or supraclavicular lymph nodes Past Medical History Past Medical History: Cancer Additional Past Medical History / Comment(s): Acute myeloid leukemia diagnosed in 2022, chemo History of Any Multi-Drug Resistant Organisms: None Reported Past Surgical History: No Surgical Hx Reported Additional Past Surgical History / Comment(s): hernia surgery scheduled with dr solitario in Past Anesthesia/Blood Transfusion Reactions: No Reported Reaction Past Psychological History: No Psychological Hx Reported Smoking Status: Former smoker Past Alcohol Use History: None Reported Past Drug Use History: None Reported - Past Family History Mother Additional Family Medical History / Comment(s): bladder and stomach cancer Medications and Allergies Home Medications Medication Instructions Recorded Confirmed Type Ondansetron [Ondansetron Odt] 4 mg PO Q4H PRN #45 tab 10/15/23 11/07/23 Rx allopurinoL 300 mg PO DAILY #30 tab 10/15/23 11/07/23 Rx Acetaminophen Tab [Tylenol] 650 mg PO Q6HR PRN tab 10/29/23 11/07/23 Rx Fluconazole [Diflucan] 100 mg PO DAILY 10/30/23 11/07/23 History Allergies Allergy/AdvReac Type Severity Reaction Status Date / Time Penicillins Allergy Unknown Verified 11/09/23 23:41 Childhood Physical Exam Vitals: Vital Signs Temp Pulse Resp BP Pulse Ox 11/10/23 04:15 99.2 F 82 18 117/71 96 11/10/23 02:00 99 18 133/80 98 11/10/23 01:53 99.5 F 112 H 20 11/10/23 01:50 99 11/10/23 01:49 98 11/09/23 23:37 100.2 F H 117 H 20 129/83 100 Intake and Output 11/09/23 11/09/23 11/10/23 14:59 22:59 06:59 Intake Total 0 Balance 0 Intake: Blood Product 0 Unit 0 Other: Weight 83.915 kg Results CBC & Chem 7: 11/10/23 01:13 11/10/23 01:13 Labs: Abnormal Lab Results - Last 24 Hours (Table) 11/09/23 11/10/23 11/10/23 Range/Units 09:30 01:13 01:13 WBC 1.6 L (3.8-10.6) k/uL RBC 2.18 L (4.30-5.90) m/uL Hgb 6.5 L* (13.0-17.5) gm/dL Hct 18.1 L* (39.0-53.0) % Plt Count 43 L (150-450) k/uL Sodium 134 L (137-145) mmol/L Creatinine 0.60 L (0.66-1.25) mg/dL Glucose 123 H (74-99) mg/dL AST 15 L (17-59) U/L Albumin 3.2 L (3.5-5.0) g/dL Crossmatch See Detail Assessment and Plan Assessment: 43-year-old male with recently diagnosed AML recently been treated for bacteremia finished his course of antibiotics about 3-4 days ago (Ceftin, Flagyl, Diflucan, psych Lavere )today he coming in with 48 hours of upper respiratory infection symptoms plus a fever for which she grew concerned and d ecided to come in for evaluation and discuss case with the ED doctor and accepted the admission for fever possibly secondary to upper respiratory airway infection with anticipated length of stay more than 2 midnights Subclinical fever with upper respiratory airway infection Recently treated for strep bacteremia finished antibiotics about 3 days ago Follow-up blood cultures Patient empirically started on vancomycin dosing by pharmacy Cefepime 2 g IV piggyback every 8 hours Acute respiratory viral panel negative for Covid influenza and rsv full code DVT prophylaxis mechanical secondary to severe thrombocytopenia Strep throat pending Chest x-ray no acute pathology Symptomatic control with Tylenol for fever cepacol for sore throat New diagnosis of AML Hematology consultation Pancytopenia secondary to above Platelets 43. Monitor Hemoglobin 6.5, irradiated packed RBC transfusion 1 units White count 1.6 severe leukopenia History of blood clots status post IVC filter Renal function unremarkable sodium 134 potassium 3.9 BUN 14 creatinine 0.6 DVT prophylaxis mechanical secondary to severe thrombocytopenia Full code
[2023-11-10 05:32] LABS: Nucleated Red Blood Cells 0 /100 WBC (0-0); Total Cells Counted 100
[2023-11-10 05:38] LABS: Platelet Count 43 k/uL (150-450)
--- NOTE | 2023-11-10 07:10 | XR ---
EXAMINATION TYPE: XR chest 2V DATE OF EXAM: 11/10/2023 2:08 AM CLINICAL INDICATION:Male, 43 years old with history of fever; [facility] COMPARISON: Chest radiographs from 10/21/2023 TECHNIQUE: XR chest 2V Frontal and lateral views of the chest. FINDINGS: Lungs/Pleura: There is no evidence of pleural effusion, focal consolidation, or pneumothorax. Pulmonary vascularity: Unremarkable. Heart/mediastinum: Cardiomediastinal silhouette is unremarkable. Musculoskeletal: No acute osseous pathology. Left PICC with tip at the superior vena cava. IMPRESSION: 1. No acute cardiopulmonary disease/process. 2. Left PICC with tip in appropriate position.
[2023-11-10 08:33] LABS: HCT 20.1 % (39.0-53.0); HGB 7.1 gm/dL (13.0-17.5); MCH 30.2 pg (25.0-35.0); MCHC 35.5 g/dL (31.0-37.0); Mean Platelet Volume 12.7; RBC 2.36 m/uL (4.30-5.90); RDW 14.8 % (11.5-15.5); WBC 1.8 k/uL (3.8-10.6)
[2023-11-10 08:39] LABS: ALT 18 U/L (4-49); AST 14 U/L (17-59); African American GFR (CKD) >90 (>60 ml/min/1.73 sqM); Albumin/Globulin Ratio 0.9; Alkaline Phosphatase 71 U/L (38-126); Anion Gap 7 mmol/L; Blood Urea Nitrogen 11 mg/dL (9-20); Calcium 8.3 mg/dL (8.4-10.2); Carbon Dioxide 24 mmol/L (22-30); Chloride 103 mmol/L (98-107); Globulin 3.4 g/dL; Glucose 114 mg/dL (74-99); Non-African American GFR(CKD) >90 (>60 ml/min/1.73 sqM); Sodium 134 mmol/L (137-145); Total Bilirubin 0.6 mg/dL (0.2-1.3); Total Protein 6.4 g/dL (6.3-8.2)
[2023-11-10 08:46] LABS: Platelet Count 38 k/uL (150-450)
[2023-11-10 12:05] LABS: Neutrophils % (M) 1 %
[2023-11-10 12:06] LABS: Lymphocytes # (M) 1.73 k/uL (1.0-4.8); Monocytes # (M) 0.05 k/uL (0-1.0); Neutrophils # (M) 0.02 k/uL (1.3-7.7); Nucleated Red Blood Cells 0 /100 WBC (0-0); Total Cells Counted 100
[2023-11-10 12:07] LABS: RBC Morphology Normal
[2023-11-10] MEDS: CEFEPIME 2 GM in SODIUM CHLORIDE 0.9% 100 ML IVPB SCH ×2 (13:23→20:10)
[2023-11-10] MEDS: VANCOMYCIN 1,500 MG in SODIUM CHLORIDE 0.9% 500 ML 500 ML IVPB SCH ×2 (14:30→22:00)
--- NOTE | 2023-11-10 19:20 | P.CONS ---
History of Present Illness - Reason for Consult Consult date: 11/10/23 AML, febrile neutropenia Requesting physician: Blessing Izquierdo - Chief Complaint fevers, AML - History of Present Illness Mr. 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 He did finish his antibiotics for his dental infection and bacteremia about 3 days prior to admission. Work up in the ER with severe neutropenia, ANC 0, WBC 1.6, Hgb 6.5, improved to 7.1 with pRBC, and plt 43. Cr normal. COVID/flu/RSV/strep negative. Blood cutlures and urine culture obtained. UA negative. He was started on vanco and cefepime and admitted. On presentation, temp of 100.2, improved to 99's and this am again up to 100.1. Oncologic History: Last seen in clinic by Dr. Naranjo on 10/31/23... Mr Rudolph the patient white male, initially seen in consult at [facility] on 09/25/23. Your no significant past medical history. Over the past month he had had some intermittent shortness of breath, and then subsequently sinus infection type symptoms. He was treated with doxycycline, and then with Bactrim and steroids. His symptoms actually improved. He had blood work done by his PCP, that showed a markedly abnormal CBC with hemoglobin of 4.6. He was therefore sent in to the hospital. CBC in the hospital showed hemoglobin of 5.6, platelets are 35,000 and of received 3.1, with 45% blasts. The patient's cytopenia workup was negative and he underwent a bone marrow aspiration and biopsy on 09/26/23. This was positive for acute myeloid leukemia, with 80-85% cellularity, with 65-70% replaced with myeloid blasts. The patient received blood transfusions in the hospital, and was then discharged at his request, as he stated he was feeling well. He was monitored as an outpatient and received additional transfusions. He was seen for his first office visit on 10/04/23 the patient's diagnosis was discussed with him, and he was subsequently admitted to the hospital for induction with a 7+3 regimen, with day 1 on 10/08/23. He tolerated treatment well and was subsequently discharged. However he was admitted after a short interval with febrile neutropenia. He had a prolonged hospitalization, due to strep viridans bacteremia. Stay was further complicated by diagnosis of PE for which she had an IVC filter placed. He continued to require transfusions frequently. He was discharged on 10/29/23. Labs during his hospitalization at [facility] persistently elevated blast percentage, due to which he had repeat bone marrow aspiration biopsy on 10/31/23. 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 He feels that his respiratory status and energy level are quite fair. He reports a good appetite. No diarrhea. Plan: the patient has undergone induction, and then hospitalization for febrile neutropenia since his initial office visit. He had a repeat bone marrow aspiration biopsy today - The results of his molecular testing on initial bone marrow and indications were discussed in detail with him. He and his were advised that it is more likely that he will need a transplant for consolidation. However that would be a decision by the BMT team/ hematology at [facility]. Referrals have been made to them. The case was also discussed with Dr. Jacobs. - The main concern in this case is that he has not achieved remission, given persistent blasts presence on peripheral smear over the past week. We will a wait the results of the bone marrow aspiration biopsy done today to evaluate the same. There does appear to be some improvement in his hemoglobin and platelets. Continue CBCs times a week with transfusion support as needed. Continue prophylactic antibiotics and neutropenic precautions. These were again discussed with him and his family. - Regimen for reinduction if required, whether standard chemotherapy such as high-dose cytarabine versus a more targeted regimen, will be decided based on re ports from the [facility] - signs and symptoms of progressive cytopenias discussed BMB fron 11/02/23, pathology with residual leukemia, 60% blasts seen. Scheduled on 11/13/23 at [facility] with SCT team, Dr. Jacobs's team and pt very eager to keep that appointment Patient did experience a pulmonary embolism recently for which he has an IVC filter he started on blood thinners due to low platelet count Past Medical History Past Medical History: Cancer Additional Past Medical History / Comment(s): Acute myeloid leukemia diagnosed in 2022, chemo History of Any Multi-Drug Resistant Organisms: None Reported Past Surgical History: No Surgical Hx Reported Additional Past Surgical History / Comment(s): hernia surgery scheduled with dr solitario in Past Anesthesia/Blood Transfusion Reactions: No Reported Reaction Past Psychological History: No Psychological Hx Reported Smoking Status: Former smoker Past Alcohol Use History: None Reported Past Drug Use History: None Reported - Past Family History Mother Additional Family Medical History / Comment(s): bladder and stomach cancer Medications and Allergies Home Medications Medication Instructions Recorded Confirmed Type Ondansetron [Ondansetron Odt] 4 mg PO Q4H PRN #45 tab 10/15/23 11/10/23 Rx allopurinoL 300 mg PO DAILY #30 tab 10/15/23 11/10/23 Rx Acetaminophen Tab [Tylenol] 650 mg PO Q6HR PRN tab 10/29/23 11/10/23 Rx Fluconazole [Diflucan] 100 mg PO DAILY 10/30/23 11/10/23 History Allergies Allergy/AdvReac Type Severity Reaction Status Date / Time Penicillins Allergy Unknown Verified 11/10/23 10:40 Childhood Physical Exam Vitals: Vital Signs Temp Pulse Pulse Resp BP BP Pulse Ox 11/10/23 07:35 100.1 F H 75 16 140/78 11/10/23 06:41 99.1 F 97 16 137/76 99 11/10/23 05:30 18 11/10/23 05:03 99.0 F 82 18 154/71 99 11/10/23 04:35 99.2 F 94 18 120/74 98 11/10/23 04:15 99.2 F 82 18 117/71 96 11/10/23 02:00 99 18 133/80 98 11/10/23 01:53 99.5 F 112 H 20 11/10/23 01:50 99 11/10/23 01:49 98 11/09/23 23:37 100.2 F H 117 H 20 129/83 100 Intake and Output 11/09/23 11/10/23 11/10/23 22:59 06:59 14:59 Intake Total 1909 Balance 1909 Intake: Intake, IV Titration 1100 Amount Cefepime 2 gm In Sodium 100 Chloride 0.9% 100 ml @ 200 mls/hr IVPB ONCE [facility] Rx#:[id number] Sodium Chloride 0.9% 1, 500 000 ml @ 130 mls/hr IV . Q7H42M [facility] Rx#:[id number] Vancomycin 1,500 mg In 500 Sodium Chloride 0.9% 500 ml 500 ml @ 167 mls/hr IVPB Q8H [facility] Rx#: [id number] Oral 500 Blood Product 310 Rc Irr As1 Unit 310 [id number] Other: Voiding Method Toilet # Voids 1 Weight 83.915 kg Patient appears to be in no acute distress. He does have swelling with an underlying nodule in the left jaw, possible abscess versus mass. This is soft and tender to deep palpation, suggestive of abscess especially since this is side of having dental problems. No respiratory distress and lungs are clear to auscultation. No jaundice. Alert and oriented 3. Results CBC & Chem 7: 11/10/23 07:45 11/10/23 07:45 Labs: Abnormal Lab Results - Last 24 Hours (Table) 11/09/23 11/10/23 11/10/23 Range/Units 09:30 01:13 01:13 WBC 1.6 L (3.8-10.6) k/uL RBC 2.18 L (4.30-5.90) m/uL Hgb 6.5 L* (13.0-17.5) gm/dL Hct 18.1 L* (39.0-53.0) % Plt Count 43 L (150-450) k/uL Sodium 134 L (137-145) mmol/L Creatinine 0.60 L (0.66-1.25) mg/dL Glucose 123 H (74-99) mg/dL Calcium (8.4-10.2) mg/dL AST 15 L (17-59) U/L Albumin 3.2 L (3.5-5.0) g/dL Crossmatch See Detail 11/10/23 11/10/23 Range/Units 07:45 07:45 WBC 1.8 L (3.8-10.6) k/uL RBC 2.36 L (4.30-5.90) m/uL Hgb 7.1 L (13.0-17.5) gm/dL Hct 20.1 L (39.0-53.0) % Plt Count (150-450) k/uL Sodium 134 L (137-145) mmol/L Creatinine 0.57 L (0.66-1.25) mg/dL Glucose 114 H (74-99) mg/dL Calcium 8.3 L (8.4-10.2) mg/dL AST 14 L (17-59) U/L Albumin 3.0 L (3.5-5.0) g/dL Crossmatch Chest x-ray: report reviewed Assessment and Plan Assessment: 1. AML, not in remission 2. Severe neutropenia due to AML 3. Febrile neutropenia 4. Possible dental abscess 5. Pancytopenia due to edema 6. Lower extremity DVT status post IVC filter placement Plan: Mr. Rudolph is a very pleasant 43-year-old gentleman with recent diagnosis of AML, IDH and DNMT1 positive, status post induction chemotherapy, repeat bone marrow biopsy on 11/02/23 reveals residual disease with 60% blasts, who is here for febrile neutropenia. He's been having difficulty with dental infection and recent bacteremia after his induction. -Pancytopenia due to AML and chemotherapy, monitor CBC and transfuse irradiated blood products for hemoglobin less than 7 and platelets less than 15 -Febrile neutropenia, concern for dental infection and possible abscess based on development of a nodule in his jaw on exam today -Broad-spectrum antibiotics, vancomycin and cefepime, and will add Flagyl -ID consult -He may need ultrasound of the jaw especially if this swelling continues to increase in size, and possible drainage -He is scheduled to see transplant team at [facility] on 11/13/23, and patient very eager to keep that appointment -If he is not ready for discharge by 11/12/23, we may need to discuss this case with [facility] team and consider reinduction chemotherapy prior to discharge versus transfer to [facility] for escalation of care there Discussed with patient as well as appetite and they're agreeable to the plan. All of their questions were answered. Discussed with nursing staff.
[2023-11-10] MEDS: metroNIDAZOLE-NS PMX 500 MG in SALINE 1 100ML.BAG IVPB SCH (20:09)
[2023-11-11] MEDS: ACETAMINOPHEN TAB 325 MG TAB PO PRN ×3 (01:30→19:18)
[2023-11-11] MEDS: metroNIDAZOLE-NS PMX 500 MG in SALINE 1 100ML.BAG IVPB SCH ×2 (04:07→13:17)
[2023-11-11] MEDS: CEFEPIME 2 GM in SODIUM CHLORIDE 0.9% 100 ML IVPB SCH ×2 (04:09→15:35)
[2023-11-11] MEDS ORDERED: VANCOMYCIN TROUGH DUE 1 EACH MISC MISCELLANE ONE (05:00)
[2023-11-11] MEDS: VANCOMYCIN 1,500 MG in SODIUM CHLORIDE 0.9% 500 ML 500 ML IVPB SCH ×2 (05:50→15:36)
[2023-11-11 06:40] LABS: MCH 30.7 pg (25.0-35.0); MCHC 35.9 g/dL (31.0-37.0); MCV 85.5 fL (80.0-100.0); Mean Platelet Volume 12.1; Platelet Count 28 k/uL (150-450); RBC 2.14 m/uL (4.30-5.90); RDW 14.9 % (11.5-15.5); WBC 1.9 k/uL (3.8-10.6)
[2023-11-11 06:43] LABS: HCT 18.3 % (39.0-53.0); HGB 6.6 gm/dL (13.0-17.5)
[2023-11-11 06:55] LABS: African American GFR (CKD) >90 (>60 ml/min/1.73 sqM); Anion Gap 6 mmol/L; Blood Urea Nitrogen 9 mg/dL (9-20); Calcium 8.3 mg/dL (8.4-10.2); Carbon Dioxide 26 mmol/L (22-30); Chloride 103 mmol/L (98-107); Glucose 109 mg/dL (74-99); Non-African American GFR(CKD) >90 (>60 ml/min/1.73 sqM); Sodium 135 mmol/L (137-145)
[2023-11-11] MEDS: FLUCONAZOLE 100 MG TAB PO SCH (08:07)
[2023-11-11] MEDS: allopurinoL 300 MG TAB PO SCH (08:07)
[2023-11-11 10:05] LABS: Lymphocytes # (M) 1.84 k/uL (1.0-4.8); Monocytes # (M) 0.04 k/uL (0-1.0); Neutrophils # (M) 0.02 k/uL (1.3-7.7); Neutrophils % (M) 1 %; Nucleated Red Blood Cells 0 /100 WBC (0-0); RBC Morphology Normal; Total Cells Counted 100
--- NOTE | 2023-11-11 10:20 | CT ---
EXAMINATION TYPE: CT facial bones wo/w con CT DLP: 1341 mGycm, Automated exposure control for dose reduction was used. DATE OF EXAM: 11/11/2023 9:37 AM COMPARISON: None. CLINICAL INDICATION:Male, 43 years old with history of neutropenic fever, cavities vs sinusitis, feve r, cavity TECHNIQUE: Multiple unenhanced axial CT images were obtained of the facial bones soft tissue and bone windows. Coronal, axial and sagittal reformatted images were also provided in soft tissue and bone windows and submitted for interpretation. . Contrast used:100 mL of Isovue 300 with IV Contrast, (none if empty) Oral contrast used: (none if empty) FINDINGS: Soft tissue swelling over the bridge of the nose. There is deformity to the bilateral nasal bones. Mucosal thickening of the bilateral maxillary sinuses and ethmoid air cells anteriorly. There is hypoplastic right frontal sinus. The left frontal sinus and sphenoid sinuses are relatively clear . There is fat stranding changes along the left cheek and face. No organizing fluid collections. Stre ak artifact limits evaluation at T2 to dental work. There is no evidence of fracture, subluxation, dislocation, or significant soft tissue swelling. The orbital contents are unremarkable.The temporal-mandibular joints appear symmetric. The visualized por tion of the paranasal sinuses appear clear. IMPRESSION: 1. Left cheek/face subcutaneous edema. Correlate for cellulitis. Findings could be secondary to melany odontal disease. No organizing fluid collections. 2. Paranasal sinus disease. 3. Bilateral nasal bone deformities correlate for fracture with tenderness.
[2023-11-11] MEDS ORDERED: AMOXIC-POT CLAV 875-125MG 1 EACH TAB PO STA (14:17)
--- NOTE | 2023-11-11 15:43 | P.PN ---
Subjective Progress Note Date: 11/11/23 Hospital Course: 43-year-old male with recent diagnosis of AML on induction chemotherapy presenting with fevers. On initial presentation, patient was febrile and tachycardic. He was also pancytopenic. Required 2 units of PRBCs. He was started on broad-spectrum antibiotics. Face CT shows left cheek cellulitis. ID and oncology following, patient currently on IV Unasyn. Subjective: Seen and examined at bedside. He was febrile overnight, has been noticing some swelling of the left cheek. Pertinent positives and negatives as discussed above, a complete review of systems was performed and all other systems are negative. Vitals Signs Reviewed. General: nontoxic, no distress, appears at stated age Derm: warm, dry Head: atraumatic, normocephalic, symmetric Eyes: EOMI, no lid lag, anicteric sclera Mouth: no lip lesion, mucus membranes moist, left cheek edema Cardiovascular: S1S2 reg, no murmur Lungs: CTA bilateral, no rhonchi, no rales , no accessory muscle use Abdominal: soft, nontender to palpation, no guarding, no appreciable organomegaly Ext: no gross muscle atrophy, no edema, no contractures Neuro: CN II-XI grossly intact, no focal neuro deficits Psych: Alert, oriented, appropriate affect Data Reviewed Today: Pertinent Labs: WBC 1.9, Hgb 6.6, Plt 28, Na 135, Cr 135 Imaging: Face CT left cheek subq edema, possible cellulitis Assessment and Plan: Sepsis secondary to facial cellulitis Febrile neutropenia Pancytopenia AML status post induction chemotherapy Lower extremity DVT status post IVC filter -Discussed management with ID, patient switched to IV Unasyn 3 g every 6 hours as needed -Oncology following, patient is status post 2 units of PRBCs -Repeat CBC tomorrow -Blood cultures pending -continue allupurinol 300 daily, diflucan 100 daily DVT ppx: SCDs Code status: Full code Anticipated discharge place: Home Anticipated discharge time: Pending clinical course Objective - Vital Signs Vital signs: Vital Signs Temp 98.6 F 11/11/23 12:42 Pulse 99 11/11/23 12:42 Resp 18 11/11/23 12:42 BP 125/76 11/11/23 12:42 Pulse Ox 100 11/11/23 12:42 FiO2 Intake & Output 1211/11/23 11/11/23 18:59 06:59 18:59 Intake Total 2200 310 Balance 2200 310 Intake: Intake, IV Titration 1400 Amount Cefepime 2 gm In Sodium 200 Chloride 0.9% 100 ml @ 25 mls/hr IVPB Q8H [facility] Rx#: [id number] Vancomycin 1,500 mg In 1000 Sodium Chloride 0.9% 500 ml 500 ml @ 167 mls/hr IVPB Q8H [facility] Rx#: [id number] metroNIDAZOLE-NS PMX 500 200 mg In Saline 1 100ml.bag @ 100 mls/hr IVPB Q8H [facility] Rx#:[id number] Oral 800 Blood Product 310 Rc Irr As1 Unit 310 [id number] Other: Voiding Method Toilet # Voids 4 1 - Labs CBC & Chem 7: 11/11/23 05:37 11/11/23 05:37 Labs: Abnormal Lab Results - Last 24 Hours (Table) 11/09/23 11/11/23 11/11/23 Range/Units 09:30 05:37 05:37 WBC 1.9 L (3.8-10.6) k/uL RBC 2.14 L (4.30-5.90) m/uL Hgb 6.6 L* (13.0-17.5) gm/dL Hct 18.3 L* (39.0-53.0) % Plt Count 28 L (150-450) k/uL Neutrophils # (Manual) 0.02 L* (1.3-7.7) k/uL Sodium 135 L (137-145) mmol/L Glucose 109 H (74-99) mg/dL Calcium 8.3 L (8.4-10.2) mg/dL Crossmatch See Detail Microbiology - Last 24 Hours (Table) 11/10/23 01:00 Blood Culture - Preliminary Blood 11/10/23 01:13 Blood Culture - Preliminary Blood
[2023-11-11] MEDS: AMPICILLIN-SULBACTAM 3 GM in SODIUM CHLORIDE 0.9% 100 ML IVPB SCH ×2 (18:20→23:41)
[2023-11-12] MEDS: ACETAMINOPHEN TAB 325 MG TAB PO PRN ×2 (02:08→08:32)
[2023-11-12] MEDS: AMPICILLIN-SULBACTAM 3 GM in SODIUM CHLORIDE 0.9% 100 ML IVPB SCH ×2 (05:36→13:25)
[2023-11-12 06:23] LABS: HGB 7.1 gm/dL (13.0-17.5); MCH 31.2 pg (25.0-35.0); MCHC 36.7 g/dL (31.0-37.0); MCV 85.1 fL (80.0-100.0); Mean Platelet Volume 13.7; RBC 2.27 m/uL (4.30-5.90); RDW 14.6 % (11.5-15.5); WBC 2.7 k/uL (3.8-10.6)
[2023-11-12 06:24] LABS: HCT 19.3 % (39.0-53.0)
[2023-11-12 07:09] LABS: Lymphocytes # (M) 2.62 k/uL (1.0-4.8); Monocytes # (M) 0.08 k/uL (0-1.0); Nucleated Red Blood Cells 0 /100 WBC (0-0); Total Cells Counted 100
[2023-11-12 07:11] LABS: Platelet Count 23 k/uL (150-450)
[2023-11-12] MEDS: FLUCONAZOLE 100 MG TAB PO SCH (08:04)
[2023-11-12] MEDS: allopurinoL 300 MG TAB PO SCH (08:04)
[2023-11-12 11:53] VITALS: RESP 16
--- NOTE | 2023-11-12 12:48 | P.PN ---
Subjective Progress Note Date: 11/12/23 Principal diagnosis: Fever likely secondary left lower jaw dental infection Patient is a 43-year-old male with a past medical history significant for acute myeloid leukemia in this patient with recent admission to the hospital did have strep bacteremia PICC line was discontinued also have left lower jaw dental infection for the patient completed oral Ceftin and Flagyl for now presenting back to the hospital with worsening symptoms and fever CT was negative for any abscess On today's evaluation that is 11/12/2023, the patient fever pattern has improved and the patient is afebrile this morning patient did tolerated Unasyn without any problem and left lower jaw swelling and redness has decreased patient denies any difficulty swallowing no nausea no vomiting no abdominal pain or diarrhea Patient white count of 2.7 creatinine 0.6 his blood culture so far negative Objective - Vital Signs Vital signs: Vital Signs Temp 98.0 F 11/12/23 10:20 Pulse 96 11/12/23 10:20 Resp 18 11/12/23 10:20 BP 134/74 11/12/23 10:20 Pulse Ox 99 11/12/23 10:20 FiO2 Intake & Output 11/11/23 11/12/23 11/12/23 18:59 06:59 18:59 Intake Total 310 1200 0 Balance 310 1200 0 Intake: Intake, IV Titration 200 Amount Ampicillin-Sulbactam 3 gm 200 In Sodium Chloride 0.9% 100 ml @ 200 mls/hr IVPB Q6HR [facility] Rx#:[id number] Oral 1000 Blood Product 310 0 Unit 0 Rc Irr As1 Unit 310 [id number] Other: Voiding Method Toilet # Voids 1 3 - Exam GENERAL DESCRIPTION: Middle-age male lying in bed in no distress HEENT : Left lower jaw swelling has decreased in intensity RESPIRATORY SYSTEM: Unlabored breathing , clear to auscultation anteriorly HEART: S1 S2 regular rate and rhythm , ABDOMEN: Soft , no tenderness EXTREMITIES: No edema feet - Labs CBC & Chem 7: 11/12/23 05:27 11/11/23 05:37 Labs: Abnormal Lab Results - Last 24 Hours (Table) 11/09/23 11/12/23 Range/Units 09:30 05:27 WBC 2.7 L (3.8-10.6) k/uL RBC 2.27 L (4.30-5.90) m/uL Hgb 7.1 L (13.0-17.5) gm/dL Hct 19.3 L* (39.0-53.0) % Plt Count 23 L (150-450) k/uL Neutrophils # (Manual) 0.00 L* (1.3-7.7) k/uL Crossmatch See Detail Microbiology - Last 24 Hours (Table) 11/10/23 01:00 Blood Culture - Preliminary Blood 11/10/23 01:13 Blood Culture - Preliminary Blood Assessment and Plan (1) Dental infection Current Visit: Yes Status: Acute Code(s): K04.7 - PERIAPICAL ABSCESS WITHOUT SINUS SNOMED Code(s): 924784174 (2) Facial cellulitis Current Visit: No Status: Acute Code(s): L03.211 - CELLULITIS OF FACE SNOMED Code(s): 339322952 Plan: 1patient presented to hospital with fever in this patient also with a left lower jaw swelling likely secondary to infected lower jaw teeth CT was negative for any abscess addition of significant inflammation patient has tolerated Unasyn and seemed to have shown clinical improvement patient really needs to get discharged today as the patient to have a follow-up at [facility] for his acute myeloid leukemia patient already has a PICC line and blood cultures negative we will arrange outpatient IV Unasyn 3 g every 6 hours for 2 weeks patient will receive a dose of Invanz 1 g daily this evening before discharge to bridge him till he starts his IV Unasyn tomorrow at home, this has been discussed in detail with the admitting physician on the floor Time with Patient: Greater than 30
[2023-11-12 14:01] VITALS: BP 144/65; PULSE 89; TEMP 98.6
--- NOTE | 2023-11-12 15:03 | P.DS ---
Providers Date of admission: 11/10/23 03:46 Expected date of discharge: 11/12/23 Attending physician: Blessing Izquierdo MD Consults: 11/10/23 03:46 Consult Physician Urgent Consulting Provider: Eusebio Naranjo Consult Reason/Comments: neutropenic fever Do you want consulting provider notified?: Yes 11/10/23 18:20 Consult Physician Routine Consulting Provider: Thanh Montana Consult Reason/Comments: neutropenic fever, dental infection Do you want consulting provider notified?: Yes Primary care physician: Caio [facility] Course: Discharge Diagnosis: Left facial cellulitis complicated by neutropenic sepsis Possible dental caries AML Recent strep viridian bacteremia Pancytopenia Recent DVT s/p IVC filter. Only 1 of 2 lumens functioning on PICC. Hospital Course: Patient is a 43-year-old male with recently diagnosed with AML in September 2023 status post induction chemo therapy. Patient has had a recent complicated course including a repeat admission for febrile neutropenia and was found to have strep bacteremia and developed a DVT despite being thrombocytopenic and required IVC filter placement. His last discharge was on 10/29 for the above complicated course. He underwent repeat bone marrow biopsy on 10/31 which confirmed in adequate response to the prior chemotherapy. He was subsequently referred for possible bone marrow transplant due to his multiple mutations. Patient re-presented to the hospital on do to recurrent fevers. He was found to have symptoms of left sided facial swelling and on admission was febrile to 100.2. Initial blood work was remarkable for white blood cell count 1.6 and hemoglobin 6.5. Influenza, RSV, covert, and group B strep testing was negative. CT face showed left cheek subcutaneous edema without organizing fluid collection. He initially was started on metronidazole, vancomycin, and cefepime. Infectious disease was consulted with the escalated to Unasyn and Diflucan. He had significant improvement in his facial symptoms and swelling. He had a temperature of less than 100.4 for greater than 24 hours, and had an appointment with the bone marrow transplant teen on 11/13. He was determined stable for discharge home with outpatient IV antibiotics. This was arranged with infectious disease and the patient will be on Unasyn at home. She was given 1 additional unit of packed red blood cells on 11/12/23. One port of his dual lumen picc did stop functioning during this hospital stay and oncology was made palafox. He will follow-up with oncology on 11/14/23 for repeat labs. Follow-up: Unasyn X 14 days, he will remain on Diflucan, he'll follow-up with Dr. Naranjo on 11/14. He'll establish with the bone marrow transplant team on 11/13. Patient seen and examined at bedside. Doing well. Swelling is much improved on the left side of his face. He is able to open his jaw more fully. He is afebrile. He is requesting discharge so he can meet with the bone marrow transplant team tomorrow. Vital signs reviewed and stable. General: nontoxic, no distress, appears at stated age HEENT: Left-sided submandibular and lower cheek swelling without erythema or warmth, no area of fluctuance, able to open jaw fully and protrude tongue fully Cardiovascular: S1S2 reg, no murmur, positive posterior tibial pulse bilateral, Lungs: CTA bilateral, no rhonchi, no rales , no accessory muscle use Abdominal: soft, nontender to palpation, no guarding, no appreciable organomegaly Ext: no gross muscle atrophy, no edema b/l lower extremities, no contractures Neuro: CN II-XI grossly intact, no focal neuro deficits Psych: Alert, oriented, appropriate affect A total of 42 minutes of time were spent preparing this complex discharge summary. Patient was discharged on 11/12/2023. This dictation was prepared using [employer] voice recognition software. Though every attempt is made to correct errors during dictation some may still exist. Patient Condition at Discharge: Serious Plan - Discharge Summary Discharge Rx Participant: No New Discharge Prescriptions: New Ampicillin-Sulbactam [Unasyn 3 gm vial] 3 gm IVPB Q6HR 14 Days each Continue allopurinoL 300 mg PO DAILY #30 tab Acetaminophen Tab [Tylenol] 650 mg PO Q6HR PRN tab PRN Reason: Mild Pain Or Fever > 100.5 Ondansetron [Ondansetron Odt] 4 mg PO Q4H PRN #45 tab PRN Reason: Nausea Fluconazole [Diflucan] 100 mg PO DAILY Discharge Medication List Ondansetron [Ondansetron Odt] 4 mg PO Q4H PRN #45 tab 10/15/23 [Rx] allopurinoL 300 mg PO DAILY #30 tab 10/15/23 [Rx] Acetaminophen Tab [Tylenol] 650 mg PO Q6HR PRN tab 10/29/23 [Rx] Fluconazole [Diflucan] 100 mg PO DAILY 10/30/23 [History] Ampicillin-Sulbactam [Unasyn 3 gm vial] 3 gm IVPB Q6HR 14 Days each 11/12/23 [Rx] Follow up Appointment(s)/Referral(s): Eusebio Naranjo [STAFF PHYSICIAN] - 1 Week (on 11/14 for scheduled lab draw) Caio Patel MD [Primary Care Provider] - 1-2 days Thanh Montana MD [STAFF PHYSICIAN] - 1 Week Activity/Diet/Wound Care/Special Instructions: Activity: As tolerated Diet: Regular Special Instructions: Return with fever greater than 100.4 Discharge Disposition: HOME SELF-CARE
[2023-11-12] MEDS ORDERED: ERTAPENEM 1 GM in SODIUM CHLORIDE 0.9% 50 ML IVPB ONE (16:00)
--- NOTE | 2023-11-12 16:13 | P.PN ---
Subjective Progress Note Date: 11/12/23 Principal diagnosis: febrile neutropenia In follow-up today no fevers since yesterday, patient continues on antibiotics. He is being followed by Infectious Disease. Patient denies any headaches, dizziness, nausea or vomiting, he is able to tolerate oral intake, no cough, abdominal pain or cramping, dysuria, hematuria, hematochezia or melena. No swelling in the legs. His right jaw is slightly tender, no drainage. Objective - Vital Signs Vital signs: Vital Signs Temp 98.0 F 11/12/23 10:20 Pulse 96 11/12/23 10:20 Resp 18 11/12/23 10:20 BP 134/74 11/12/23 10:20 Pulse Ox 99 11/12/23 10:20 FiO2 Intake & Output 11/11/23 11/12/23 11/12/23 18:59 06:59 18:59 Intake Total 310 1200 0 Balance 310 1200 0 Intake: Intake, IV Titration 200 Amount Ampicillin-Sulbactam 3 gm 200 In Sodium Chloride 0.9% 100 ml @ 200 mls/hr IVPB Q6HR [facility] Rx#:[id number] Oral 1000 Blood Product 310 0 Unit 0 Rc Irr As1 Unit 310 [id number] Other: Voiding Method Toilet # Voids 1 3 - Constitutional General appearance: Present: average body habitus, cooperative, no acute distress - EENT EENT Comment(s): left jaw swelling, not red or hot to touch, Mild tenderness Eyes: Present: anicteric sclerae, EOMI ENT: Present: hearing grossly normal - Respiratory Respiratory: bilateral: CTA - Cardiovascular Rhythm: regular Heart sounds: normal: S1, S2 Abnormal Heart Sounds: Absent: systolic murmur, diastolic murmur, rub, S3 Leyva p, S4 Gallop, click, other - Peripheral edema leg Peripheral Edema: bilateral: None - Gastrointestinal General gastrointestinal: Present: normal bowel sounds - Neurologic Neurologic: Present: CNII-XII intact - Musculoskeletal Musculoskeletal: Present: strength equal bilaterally - Psychiatric Psychiatric: Present: A&O x's 3, appropriate affect, intact judgment & insight - Labs CBC & Chem 7: 11/12/23 05:27 11/11/23 05:37 Labs: Abnormal Lab Results - Last 24 Hours (Table) 11/09/23 11/12/23 Range/Units 09:30 05:27 WBC 2.7 L (3.8-10.6) k/uL RBC 2.27 L (4.30-5.90) m/uL Hgb 7.1 L (13.0-17.5) gm/dL Hct 19.3 L* (39.0-53.0) % Plt Count 23 L (150-450) k/uL Neutrophils # (Manual) 0.00 L* (1.3-7.7) k/uL Crossmatch See Detail Microbiology - Last 24 Hours (Table) 11/10/23 01:00 Blood Culture - Preliminary Blood 11/10/23 01:13 Blood Culture - Preliminary Blood Assessment and Plan (1) Neutropenic fever Current Visit: Yes Status: Acute Priority: High Code(s): D70.9 - NEUTROPENIA, UNSPECIFIED; R50.81 - FEVER PRESENTING WITH CONDITIONS CLASSIFIED ELSEWHERE SNOMED Code(s): 444931957 (2) Pancytopenia Current Visit: Yes Status: Acute Priority: High Code(s): D61.818 - OTHER PANCYTOPENIA SNOMED Code(s): 638040128 (3) Acute myeloid leukemia, without mention of having achieved remission Current Visit: No Status: Acute Priority: High Code(s): C92.00 - ACUTE MYELOBLASTIC LEUKEMIA, NOT HAVING ACHIEVED REMISSION SNOMED Code(s): 97653741 (4) Pulmonary embolism Current Visit: No Status: Acute Priority: High Code(s): I26.99 - OTHER PULMONARY EMBOLISM WITHOUT ACUTE COR PULMONALE SNOMED Code(s): 09072873 Plan: AML, not in remission -Status post induction treatment, unfortunately patient has persistent blasts, greater than the 5%, which is the blast percentage that is considered remission for AML after induction -Consult with BMT into treatment tomorrow. Patient is very anxious to keep this appointment. We are also very anxious for him as well to keep this appointment. Next steps will be planned (another induction, different regimen...) Neutropenic fever, infected tooth -No fever for just over 24 hours. -Case discussed with IM. IM going to discuss with ID. Patient needs antibiotic coverage. Patient needs tooth extracted. He is certainly at increased risk of seeding bacteria with tooth extraction with no ANC, abx are likely just keeping the infection controlled at this time. Trying to workup the safest plan possible for the patient to be able to cont to be treated for infection but, be discharged so he makes appt with BMT. Going to continue IV antibiotics ou tpatient. -Patient and understand any fevers patient is to return to the hospital immediately -1 unit of irradiated blood is being given for hemoglobin of 7.1 today -Lab orders with transfusion parameters are being written for over the holidays. Patient will be given a copy of these orders when he is in the office on Sunday. This was discussed with RN. attests: I have seen and examined pt, performed H&P, developed impression and plan of care. Discussed with dictator. Agree with documentation, dictated as a scribe.
== END 2023-11-12 17:27 | disposition home or self-care (01) | DRG 872 ==
LOC: EC 23:24 → 5NMEDONC 11-10 03:46
PROVIDERS: ADMIT Internal Medicine; ATTEND Internal Medicine
DX: A41.9 Sepsis, unspecified organism (principal); D61.818 Other pancytopenia; C92.00 Acute myeloblastic leukemia, not having achieved remission; L03.211 Cellulitis of face; K04.7 Periapical abscess without sinus; Z20.822 Contact with and (suspected) exposure to COVID-19; Z86.718 Personal history of other venous thrombosis and embolism; Z86.711 Personal history of pulmonary embolism; Z80.0 Family history of malignant neoplasm of digestive organs; D70.9 Neutropenia, unspecified; R50.81 Fever presenting with conditions classified elsewhere; Z79.899 Other long term (current) drug therapy; Z92.21 Personal history of antineoplastic chemotherapy; Z95.828 Presence of other vascular implants and grafts; Z87.19 Personal history of other diseases of the digestive system; Z88.0 Allergy status to penicillin
CPT/HCPCS: 36415; 36430; 70488; 71046; 80048; 80053; 80202; 81003; 83605; 85025; 86850; 86900; 86901; 86920; 87040; 87636; 87651; 96360; 96361; 99285

== ENCOUNTER 2023-11-20 09:10 | Inpatient (IN) | payer BC ==
[~2023-11-20 09:10] MED LIST: ONDANSETRON 4 MG/2 ML VIAL IVP PRN; SALT AND SODA MOUTHWASH 1,000 ML PO PRN
[2023-11-20] MEDS ORDERED: ACETAMINOPHEN TAB 325 MG TAB PO PRN (11:44)
[2023-11-20] MEDS ORDERED: DOCUSATE 100 MG CAP PO PRN (11:51)
[2023-11-20] MEDS ORDERED: LOPERAMIDE 2 MG CAP PO PRN (11:51)
[2023-11-20] MEDS ORDERED: MAGNESIUM HYDROXIDE 2,400 MG/30 ML CUP PO PRN (11:51)
[2023-11-20] MEDS ORDERED: SENNOSIDES 8.6 MG TAB PO PRN (11:51)
[2023-11-20] MEDS ORDERED: AMPICILLIN-SULBACTAM 3 GM VIAL IVPB SCH (12:00)
[2023-11-20] MEDS: prednisoLONE ACETATE 1% OPHTH DROPS 5 ML BTL BOTH EYES SCH ×4 (12:15→20:48)
[2023-11-20] MEDS: CIPROFLOXACIN HCL 500 MG TAB PO SCH (12:19)
[2023-11-20] MEDS: FLUCONAZOLE 100 MG TAB PO SCH (12:19)
[2023-11-20] MEDS: AMPICILLIN-SULBACTAM 3 GM in SODIUM CHLORIDE 0.9% 100 ML IVPB SCH ×3 (12:19→23:56)
[2023-11-20] MEDS: SODIUM CHLORIDE 0.9% 1,000 ML IV SCH ×2 (12:20→23:07)
[2023-11-20 12:50] LABS: ALT 33 U/L (4-49); AST 21 U/L (17-59); African American GFR (CKD) >90 (>60 ml/min/1.73 sqM); Albumin 3.4 g/dL (3.5-5.0); Albumin/Globulin Ratio 0.9; Alkaline Phosphatase 67 U/L (38-126); Anion Gap 11 mmol/L; Blood Urea Nitrogen 8 mg/dL (9-20); Calcium 8.6 mg/dL (8.4-10.2); Carbon Dioxide 26 mmol/L (22-30); Chloride 99 mmol/L (98-107); Globulin 3.6 g/dL; Glucose 129 mg/dL (74-99); Non-African American GFR(CKD) >90 (>60 ml/min/1.73 sqM); Phosphorus 3.5 mg/dL (2.5-4.5); Sodium 136 mmol/L (137-145); Total Bilirubin 0.3 mg/dL (0.2-1.3); Uric Acid 1.8 mg/dL (3.5-8.5)
[2023-11-20 12:53] LABS: HCT 21.3 % (39.0-53.0); HGB 7.4 gm/dL (13.0-17.5); MCH 29.5 pg (25.0-35.0); MCHC 34.5 g/dL (31.0-37.0); MCV 85.7 fL (80.0-100.0); RBC 2.49 m/uL (4.30-5.90)
[2023-11-20 12:54] LABS: Mean Platelet Volume 14.8; RDW 14.5 % (11.5-15.5)
[2023-11-20 12:56] LABS: Platelet Count 19 k/uL (150-450)
[2023-11-20] MEDS: FAMOTIDINE 20 MG/2 ML VIAL IV SCH (14:11)
[2023-11-20] MEDS: ONDANSETRON 16 MG in SODIUM CHLORIDE 0.9% 50 ML IVPB SCH (14:11)
[2023-11-20] MEDS: DEXAMETHASONE SOD PHOSPHATE 10 MG/ML 1 ML VIAL IV SCH (14:11)
[2023-11-20] MEDS: FILGRASTIM-SNDZ 480 MCG/0.8 ML SYRINGE SQ SCH (14:11)
[2023-11-20] MEDS: SALT AND SODA MOUTHWASH 1,000 ML PO SCH ×2 (14:12→18:00)
[2023-11-20 14:18] LABS: Blast Cells # (M) 1.13 k/uL (0); Lymphocytes # (M) 5.17 k/uL (1.0-4.8); Neutrophils # (M) 0.06 k/uL (1.3-7.7); Neutrophils % (M) 1 %; Nucleated Red Blood Cells 1 /100 WBC (0-0); Total Cells Counted 200; WBC 6.3 k/uL (3.8-10.6)
[2023-11-20] MEDS: SODIUM CHLORIDE 0.9% IV SCH ×2 (14:41→18:40)
[2023-11-20] MEDS: FLUDARABINE PHOSPHATE IV SCH (14:41)
--- NOTE | 2023-11-20 15:09 | P.HPIM ---
History of Present Illness H&P Date: 11/20/23 Patient is a 43-year-old male with recently diagnosed with AML presents to [facility] for chemotherapy with Cytarabine, Idarubicin and Fludarabine. [facility] [place] [facility] has been consulted for medical management of this patient. He reports no complaints today. Doing well since his previous discharge on 10/18 and 11/10. Vital signs are stable. CBC RBC 2.49, Hg 7.4, Hct 21.3, Plt 19. CMP Na 136, BUN 8, Cr 0.58, glu 129, albumin 3.4. Uric acid 1.8. General: non toxic, no distress, appears at stated age Derm: warm, dry Head: atraumatic, normocephalic, symmetric Eyes: EOMI, no lid lag, anicteric sclera Mouth: no lip lesion, mucus membranes moist Cardiovascular: S1S2 reg, no murmur Lungs: CTA bilateral, no rhonchi, no rales , no accessory muscle use Ext: no gross muscle atrophy, no edema, no contractures Neuro: no focal neuro deficits Psych: Alert, oriented, appropriate affect Based on my assessment of this patient, this patient meets a moderate complexity level of care. Patient has a history of AML presenting to [facility] for chemotherapy which poses a threat to life or bodily function. History of left facial cellulitis complicated by neutropenic sepsis: Unasyn 3g IV TID for 4 more days. Pancytopenia secondary to chemotherapy: Transfuse if Hg < 7 and Plt < 10. AML: Oncology on board. History of DVT: Status post IVC filter. CODE STATUS: FULL CODE DVT Prophylaxis: SCDs GI Prophylaxis: Designated medical POA if patient is not able to make medical decisions for emselves: I have reviewed the following web consultant notes: I have reviewed the results of the following tests: CBC, BMP, Uric acid. I have ordered the following tests: Agree with CBC, CMP, Phos, Uric acid daily. I have discussed the care of this patient with the following independent historian: RN at bedside. I have independently interpreted the following test below: I have discussed the management of this patient with the following physician: Past Medical History Past Medical History: Cancer, Pulmonary Embolus (PE) Additional Past Medical History / Comment(s): Acute myeloid leukemia diagnosed in 2022 History of Any Multi-Drug Resistant Organisms: None Reported Past Surgical History: No Surgical Hx Reported Additional Past Surgical History / Comment(s): tooth extraction 11/15/23 Past Anesthesia/Blood Transfusion Reactions: No Reported Reaction Past Psychological History: No Psychological Hx Reported Smoking Status: Former smoker Past Alcohol Use History: None Reported Past Drug Use History: None Reported - Past Family History Mother Additional Family Medical History / Comment(s): bladder and stomach cancer Medications and Allergies Home Medications Medication Instructions Recorded Confirmed Type Ondansetron [Ondansetron Odt] 4 mg PO Q4H PRN #45 tab 10/15/23 11/20/23 Rx allopurinoL 300 mg PO DAILY #30 tab 10/15/23 11/20/23 Rx Acetaminophen Tab [Tylenol] 650 mg PO Q6HR PRN tab 10/29/23 11/20/23 Rx Fluconazole [Diflucan] 100 mg PO DAILY 10/30/23 11/20/23 History Ampicillin-Sulbactam [Unasyn 3 gm 3 gm IVPB Q6HR 14 Days each 11/12/23 11/20/23 Rx vial] Acyclovir [Zovirax] 400 mg PO BID 11/20/23 11/20/23 History Ciprofloxacin HCl [Cipro] 500 mg PO BID 11/20/23 11/20/23 History Allergies Allergy/AdvReac Type Severity Reaction Status Date / Time No Known Allergies Allergy Verified 11/20/23 11:48 Physical Exam Vitals: Vital Signs Temp Pulse Resp BP Pulse Ox 11/20/23 12:52 98.4 F 89 18 129/72 98 11/20/23 09:54 98.2 F 105 H 18 125/70 100 Intake and Output 11/20/23 11/20/23 11/20/23 06:59 14:59 22:59 Intake Total 540 Balance 540 Intake: Oral 540 Other: Weight 84.09 kg Results CBC & Chem 7: 11/20/23 11:39 11/20/23 11:39 Labs: Abnormal Lab Results - Last 24 Hours (Table) 11/20/23 11/20/23 Range/Units 11:39 11:39 RBC 2.49 L (4.30-5.90) m/uL Hgb 7.4 L (13.0-17.5) gm/dL Hct 21.3 L (39.0-53.0) % Plt Count 19 L* (150-450) k/uL Blast Cells % 18 H* % Neutrophils # (Manual) 0.06 L* (1.3-7.7) k/uL Lymphocytes # (Manual) 5.17 H (1.0-4.8) k/uL Blast Cells # (Man) 1.13 H (0) k/uL Nucleated RBCs 1 H (0-0) /100 WBC Sodium 136 L (137-145) mmol/L BUN 8 L (9-20) mg/dL Creatinine 0.58 L (0.66-1.25) mg/dL Glucose 129 H (74-99) mg/dL Uric Acid 1.8 L (3.5-8.5) mg/dL Albumin 3.4 L (3.5-5.0) g/dL Thrombosis Risk Factor Assmnt - Choose All That Apply Any of the Below Risk Factors Present?: Yes Each Factor Represents 1 point: Age 41-60 years Other Risk Factors: Yes Each Risk Factor Represents 3 Points: History of DVT/PE Other congenital or acquired thrombophilia - If yes, enter type in comment: No Thrombosis Risk Factor Assessment Total Risk Factor Score: 4 Thrombosis Risk Factor Assessment Level: Moderate Risk
--- NOTE | 2023-11-20 15:52 | P.HPIM ---
History of Present Illness H&P Date: 11/20/23 Chief Complaint: inpt chemo, FLAG-SANCHEZ Patient is 43-year-old male, no previous significant past medical history. He was seen at the end of August 2023 for pancytopenia. He was referred by his PCP for an abnormal CBC on routine workup. Hemoglobin was 4.6. Patient noted s ome mild intermittent shortness of breath when he was active, on reflection he did have a petechial rash on the belt line, at that time thought it was a reaction to a change in laundry detergent. Patient had had a sinus infection and was treated with doxycycline, then Bactrim and steroids. He received hepatitis B vaccine in July for work. Patient had no acute constitutional symptoms, he did have a 30 pound weight loss over 2 years. He received transfusion with stabilization of hemoglobin, platelets 35,000, ANC 60, blast cells 45%, coags were within normal limits, peripheral smear was suspicious. High suspicions for an acute leukemia, bone marrow biopsy done 09/26. He was seen for results 10/[address] Naranjo, unfortunately confirmed acute myeloid leukemia. Patient received for induction 7+3 regimen on 10/08/23. Unfortunately disease is refractory and repeat biopsy on 10/31/23 showed residual AML with approx 60-65% total cellularity replaced by blasts. He was referred to the transplant team at [facility], and the case was discussed with Dr. Naranjo and it was recommended to start salvage therapy with Flag-SANCHEZ and then plans for bone marrow transplant. Patient has had two admits since completion of induction for neutropenic favor. He continues on Unasyn for abscessed tooth which was extracted last week. Continues on prophylactic antiviral, antifungal and abx. Patient is admitted to begin treatment with Flag-Sanchez. Patient reports feeling well. He denies any fevers, sweats, oral irritation, unusual shortness of breath, chest pain, cough, abdominal pain or cramping, nausea or vomiting, acute changes in bowel or bladder habits, hematuria, hematochezia or melena, swelling in the legs, rashes, pain. WBCs 6.3, ANC 60, hemoglobin 7.4, platelets 19,000. Review of Systems 10 point ROS is negative except as stated in the HPI Past Medical History Past Medical History: Cancer, Pulmonary Embolus (PE) Additional Past Medical History / Comment(s): Acute myeloid leukemia diagnosed in 2022 History of Any Multi-Drug Resistant Organisms: None Reported Past Surgical History: No Surgical Hx Reported Additional Past Surgical History / Comment(s): tooth extraction 11/15/23 Past Anesthesia/Blood Transfusion Reactions: No Reported Reaction Past Psychological History: No Psychological Hx Reported Smoking Status: Former smoker Past Alcohol Use History: None Reported Past Drug Use History: None Reported - Past Family History Mother Additional Family Medical History / Comment(s): bladder and stomach cancer Medications and Allergies Home Medications Medication Instructions Recorded Confirmed Type Ondansetron [Ondansetron Odt] 4 mg PO Q4H PRN #45 tab 10/15/23 11/20/23 Rx allopurinoL 300 mg PO DAILY #30 tab 10/15/23 11/20/23 Rx Acetaminophen Tab [Tylenol] 650 mg PO Q6HR PRN tab 10/29/23 11/20/23 Rx Fluconazole [Diflucan] 100 mg PO DAILY 10/30/23 11/20/23 History Ampicillin-Sulbactam [Unasyn 3 gm 3 gm IVPB Q6HR 14 Days each 11/12/23 11/20/23 Rx vial] Acyclovir [Zovirax] 400 mg PO BID 11/20/23 11/20/23 History Ciprofloxacin HCl [Cipro] 500 mg PO BID 11/20/23 11/20/23 History Allergies Allergy/AdvReac Type Severity Reaction Status Date / Time No Known Allergies Allergy Verified 11/20/23 11:48 Physical Exam Vitals: Vital Signs Temp Pulse Resp BP Pulse Ox 11/20/23 12:52 98.4 F 89 18 129/72 98 11/20/23 09:54 98.2 F 105 H 18 125/70 100 Intake and Output 11/19/23 11/20/23 11/20/23 22:59 06:59 14:59 Other: Weight 84.09 kg - Constitutional General appearance: average body habitus, no acute distress - EENT Eyes: anicteric sclerae ENT: hearing grossly normal - Respiratory Respiratory: bilateral: CTA - Cardiovascular skin warm and dry, well perfused - Gastrointestinal General gastrointestinal: soft, no tenderness - Integumentary Integumentary: no cyanotic, pale - Neurologic Neurologic: CNII-XII intact - Musculoskeletal Musculoskeletal: strength equal bilaterally - Psychiatric Psychiatric: A&O x's 3 Results CBC & Chem 7: 11/20/23 11:39 11/20/23 11:39 Labs: Abnormal Lab Results - Last 24 Hours (Table) 11/20/23 11/20/23 Range/Units 11:39 11:39 RBC 2.49 L (4.30-5.90) m/uL Hgb 7.4 L (13.0-17.5) gm/dL Hct 21.3 L (39.0-53.0) % Plt Count 19 L* (150-450) k/uL Sodium 136 L (137-145) mmol/L BUN 8 L (9-20) mg/dL Creatinine 0.58 L (0.66-1.25) mg/dL Glucose 129 H (74-99) mg/dL Uric Acid 1.8 L (3.5-8.5) mg/dL Albumin 3.4 L (3.5-5.0) g/dL Thrombosis Risk Factor Assmnt - DVT/VTE Prophylaxis DVT/VTE Prophylaxis: Contraindicated - See note (sever thrombocytopenia, pt ambulatory, encourage daily ambulation ) - Choose All That Apply Any of the Below Risk Factors Present?: Yes Each Factor Represents 1 point: Age 41-60 years Other Risk Factors: Yes Each Risk Factor Represents 3 Points: History of DVT/PE Other congenital or acquired thrombophilia - If yes, enter type in comment: No Thrombosis Risk Factor Assessment Total Risk Factor Score: 4 Thrombosis Risk Factor Assessment Level: Moderate Risk Assessment and Plan (1) Acute myeloid leukemia, without mention of having achieved remission Current Visit: Yes Status: Acute Priority: High Code(s): C92.00 - ACUTE MYELOBLASTIC LEUKEMIA, NOT HAVING ACHIEVED REMISSION SNOMED Code(s): 10985183 (2) Pancytopenia Current Visit: Yes Status: Acute Priority: High Code(s): D61.818 - OTHER PANCYTOPENIA SNOMED Code(s): 807846314 Plan: AML -Refractory disease on repeat bone marrow biopsy, after receiving induction chemo 7+3 regimen. Admitted for salvage treatment with Flag-Sanchez. -Orders reviewed. Continue prophylactic abx, antiviral and antifungal. Spoke with Dr. Montana, will continue with Unasyn for 14 days, abx will be completed in 5 days -Supportive meds -Ambulate QID -Vital signs every shift and when necessary -Regular diet -Oral hygiene -TLS labs, CMP, CBC daily Pancytopenia -Secondary to AML -Transfuse with irradiated blood products only -Transfuse for hemoglobin less than 7 and platelets less than 10,000, unless patient is symptomatic. -No G-CSF, patient is acute leukemic without confirmed remission
[2023-11-20] MEDS: CYTARABINE IV SCH (18:40)
[2023-11-20] MEDS: ACYCLOVIR 200 MG CAP PO SCH (20:47)
[2023-11-20] MEDS: IDARUBICIN HCL IV SCH (23:07)
[2023-11-21] MEDS: AMPICILLIN-SULBACTAM 3 GM in SODIUM CHLORIDE 0.9% 100 ML IVPB SCH ×4 (05:19→23:19)
[2023-11-21] MEDS: SODIUM CHLORIDE 0.9% 1,000 ML IV SCH ×2 (05:23→18:10)
[2023-11-21 08:01] LABS: HCT 20.2 % (39.0-53.0); MCH 29.6 pg (25.0-35.0); MCHC 34.4 g/dL (31.0-37.0); MCV 85.8 fL (80.0-100.0); Mean Platelet Volume 14.2; RBC 2.35 m/uL (4.30-5.90); WBC 4.2 k/uL (3.8-10.6)
[2023-11-21 08:25] LABS: Platelet Count 14 k/uL (150-450)
[2023-11-21 08:48] LABS: Neutrophils % (M) 4 %
[2023-11-21 08:49] LABS: Blast Cells # (M) 1.22 k/uL (0); Lymphocytes # (M) 2.81 k/uL (1.0-4.8); Monocytes # (M) 0.04 k/uL (0-1.0); Neutrophils # (M) 0.17 k/uL (1.3-7.7); Nucleated Red Blood Cells 0 /100 WBC (0-0); Total Cells Counted 200
[2023-11-21] MEDS: prednisoLONE ACETATE 1% OPHTH DROPS 5 ML BTL BOTH EYES SCH ×4 (08:50→21:21)
[2023-11-21] MEDS: CIPROFLOXACIN HCL 500 MG TAB PO SCH (08:50)
[2023-11-21] MEDS: SALT AND SODA MOUTHWASH 1,000 ML PO SCH ×3 (08:50→17:55)
[2023-11-21] MEDS: FLUCONAZOLE 100 MG TAB PO SCH (08:50)
[2023-11-21] MEDS: allopurinoL 300 MG TAB PO SCH (08:50)
[2023-11-21] MEDS: ACYCLOVIR 200 MG CAP PO SCH ×2 (08:50→21:17)
[2023-11-21 08:52] LABS: Poikilocytosis (M) Present
[2023-11-21 08:57] LABS: ALT 31 U/L (4-49); AST 18 U/L (17-59); African American GFR (CKD) >90 (>60 ml/min/1.73 sqM); Albumin 2.9 g/dL (3.5-5.0); Albumin/Globulin Ratio 0.8; Alkaline Phosphatase 65 U/L (38-126); Anion Gap 11 mmol/L; Blood Urea Nitrogen 8 mg/dL (9-20); Calcium 8.7 mg/dL (8.4-10.2); Carbon Dioxide 23 mmol/L (22-30); Chloride 107 mmol/L (98-107); Globulin 3.5 g/dL; Glucose 125 mg/dL (74-99); Non-African American GFR(CKD) >90 (>60 ml/min/1.73 sqM); Phosphorus 4.5 mg/dL (2.5-4.5); Potassium 4.2 mmol/L (3.5-5.1); Sodium 141 mmol/L (137-145); Total Bilirubin 0.3 mg/dL (0.2-1.3); Total Protein 6.4 g/dL (6.3-8.2); Uric Acid 2.4 mg/dL (3.5-8.5)
--- NOTE | 2023-11-21 11:57 | P.PN ---
Subjective Progress Note Date: 11/21/23 Patient is a 43-year-old male with recently diagnosed with AML presents to [facility] for chemotherapy with Cytarabine, Idarubicin and Fludarabine. [facility] has been consulted for medical management of this patient. Vital signs are stable. CBC RBC 2.49, Hg 7.4, Hct 21.3, Plt 19. CMP Na 136, BUN 8, Cr 0.58, glu 129, albumin 3.4. Uric acid 1.8. 11/21 Patient was seen and examined. No complaints. CBC Hg 7, Hct 20.2, Plt 14. CMP BUN 8, Cr 0.55, glu 125, albumin 2.9. Uric acid 2.4. General: non toxic, no distress, appears at stated age Derm: warm, dry Head: atraumatic, normocephalic, symmetric Eyes: EOMI, no lid lag, anicteric sclera Mouth: no lip lesion, mucus membranes moist Cardiovascular: Good distal perfusion in all 4 extremities Lungs: Breathing comfortably, no accessory muscle use Ext: no gross muscle atrophy, no edema, no contractures Neuro: no focal neuro deficits Psych: Alert, oriented, appropriate affect Based on my assessment of this patient, this patient meets a moderate complexity level of care. Patient has a history of AML presenting to [facility] for chemotherapy which poses a threat to life or bodily function. History of left facial cellulitis complicated by neutropenic sepsis: Unasyn 3g IV TID for 3 more days. Pancytopenia secondary to chemotherapy: Transfuse if Hg < 7 and Plt < 10. AML: Oncology on board. History of DVT: Status post IVC filter. CODE STATUS: FULL CODE DVT Prophylaxis: SCDs GI Prophylaxis: Designated medical POA if patient is not able to make medical decisions for themselves: I have reviewed the following websphere consultant notes: I have reviewed the results of the following tests: CBC, BMP, Uric acid. I have ordered the following tests: Agree with CBC, CMP, Phos, Uric acid daily. I have discussed the care of this patient with the following independent historian: I have independently interpreted the following test below: I have discussed the management of this patient with the following physician: Objective - Vital Signs Vital signs: Vital Signs Temp 98.0 F 11/21/23 08:00 Pulse 83 11/21/23 08:00 Resp 18 11/21/23 04:00 BP 129/75 11/21/23 08:00 Pulse Ox 98 11/21/23 08:00 FiO2 Intake & Output 11/20/23 11/21/23 11/21/23 18:59 06:59 18:59 Intake Total 1620 480 Balance 1620 480 Weight 84.09 kg Intake: Oral 1620 480 Other: # Voids 2 3 - Labs CBC & Chem 7: 11/21/23 07:01 11/21/23 07:01 Labs: Abnormal Lab Results - Last 24 Hours (Table) 11/20/23 11/20/23 11/21/23 Range/Units 11:39 11:39 07:01 RBC 2.49 L 2.35 L (4.30-5.90) m/uL Hgb 7.4 L 7.0 L (13.0-17.5) gm/dL Hct 21.3 L 20.2 L (39.0-53.0) % Plt Count 19 L* 14 L* (150-450) k/uL Blast Cells % 18 H* 29 H* % Neutrophils # (Manual) 0.06 L* 0.17 L* (1.3-7.7) k/uL Lymphocytes # (Manual) 5.17 H (1.0-4.8) k/uL Blast Cells # (Man) 1.13 H 1.22 H (0) k/uL Nucleated RBCs 1 H (0-0) /100 WBC Sodium 136 L (137-145) mmol/L BUN 8 L (9-20) mg/dL Creatinine 0.58 L (0.66-1.25) mg/dL Glucose 129 H (74-99) mg/dL Uric Acid 1.8 L (3.5-8.5) mg/dL Albumin 3.4 L (3.5-5.0) g/dL 11/21/23 Range/Units 07:01 RBC (4.30-5.90) m/uL Hgb (13.0-17.5) gm/dL Hct (39.0-53.0) % Plt Count (150-450) k/uL Blast Cells % % Neutrophils # (Manual) (1.3-7.7) k/uL Lymphocytes # (Manual) (1.0-4.8) k/uL Blast Cells # (Man) (0) k/uL Nucleated RBCs (0-0) /100 WBC Sodium (137-145) mmol/L BUN 8 L (9-20) mg/dL Creatinine 0.55 L (0.66-1.25) mg/dL Glucose 125 H (74-99) mg/dL Uric Acid 2.4 L (3.5-8.5) mg/dL Albumin 2.9 L (3.5-5.0) g/dL
--- NOTE | 2023-11-21 13:45 | P.PN ---
Subjective Progress Note Date: 11/21/23 No acute events. Reports feeling well. Pt afebrile. Denies SOB, chest pain, n/v/d. Tolerating oral intake. Objective - Vital Signs Vital signs: Vital Signs Temp 97.9 F 11/21/23 12:04 Pulse 81 11/21/23 12:04 Resp 20 11/21/23 12:04 BP 136/67 11/21/23 12:04 Pulse Ox 99 11/21/23 12:04 FiO2 Intake & Output 11/20/23 11/21/23 11/21/23 18:59 06:59 18:59 Intake Total 1620 480 Balance 1620 480 Weight 84.09 kg Intake: Oral 1620 480 Other: # Voids 2 3 - Constitutional General appearance: Present: average body habitus, no acute distress - EENT Eyes: Present: anicteric sclerae, EOMI ENT: Present: hearing grossly normal - Respiratory Details: breathing is even and unlabored - Cardiovascular Details: skin warm and dry, well-perfused - Integumentary Integumentary: Present: pale. Absent: cyanotic - Musculoskeletal Musculoskeletal: Present: strength equal bilaterally - Psychiatric Psychiatric: Present: A&O x's 3 - Labs CBC & Chem 7: 11/21/23 07:01 11/21/23 07:01 Labs: Abnormal Lab Results - Last 24 Hours (Table) 11/20/23 11/21/23 11/21/23 Range/Units 11:39 07:01 07:01 RBC 2.35 L (4.30-5.90) m/uL Hgb 7.0 L (13.0-17.5) gm/dL Hct 20.2 L (39.0-53.0) % Plt Count 14 L* (150-450) k/uL Blast Cells % 18 H* 29 H* % Neutrophils # (Manual) 0.06 L* 0.17 L* (1.3-7.7) k/uL Lymphocytes # (Manual) 5.17 H (1.0-4.8) k/uL Blast Cells # (Man) 1.13 H 1.22 H (0) k/uL Nucleated RBCs 1 H (0-0) /100 WBC BUN 8 L (9-20) mg/dL Creatinine 0.55 L (0.66-1.25) mg/dL Glucose 125 H (74-99) mg/dL Uric Acid 2.4 L (3.5-8.5) mg/dL Albumin 2.9 L (3.5-5.0) g/dL Assessment and Plan (1) Acute myeloid leukemia, without mention of having achieved remission Current Visit: Yes Status: Acute Priority: High Code(s): C92.00 - ACUTE MYELOBLASTIC LEUKEMIA, NOT HAVING ACHIEVED REMISSION SNOMED Code(s): 55769543 (2) Pancytopenia Current Visit: Yes Status: Acute Priority: High Code(s): D61.818 - OTHER PANCYTOPENIA SNOMED Code(s): 496571157 Plan: AML -Refractory disease on repeat bone marrow biopsy, after receiving induction chemo 7+3 regimen. Admitted for salvage treatment with Flag-Martina. -Orders reviewed. Continue prophylactic abx, antiviral and antifungal. Spoke with Dr. Montana, will continue with Unasyn for 14 days, abx will be completed in 5 days -Supportive meds -Ambulate QID, SCDs ordered -Vital signs every shift and when necessary -Regular diet -Oral hygiene -TLS labs, CMP, CBC daily. No transfusion needed today -Tolerating well, no reported side effects today Pancytopenia -Secondary to AML -Transfuse with irradiated blood products only -Transfuse for hemoglobin less than 7 and platelets less than 10,000, unless patient is symptomatic.
[2023-11-21] MEDS: DEXAMETHASONE SOD PHOSPHATE 10 MG/ML 1 ML VIAL IV SCH (14:07)
[2023-11-21] MEDS: ONDANSETRON 16 MG in SODIUM CHLORIDE 0.9% 50 ML IVPB SCH (14:07)
[2023-11-21] MEDS: FAMOTIDINE 20 MG/2 ML VIAL IV SCH (14:07)
[2023-11-21] MEDS: FILGRASTIM-SNDZ 480 MCG/0.8 ML SYRINGE SQ SCH (14:07)
[2023-11-21] MEDS: FLUDARABINE PHOSPHATE IV SCH (14:33)
[2023-11-21] MEDS: SODIUM CHLORIDE 0.9% IV SCH ×2 (14:33→18:40)
[2023-11-21] MEDS: CYTARABINE IV SCH (18:40)
[2023-11-21] MEDS: IDARUBICIN HCL IV SCH (23:01)
[2023-11-22] MEDS: SODIUM CHLORIDE 0.9% 1,000 ML IV SCH ×3 (03:02→23:09)
[2023-11-22] MEDS: AMPICILLIN-SULBACTAM 3 GM in SODIUM CHLORIDE 0.9% 100 ML IVPB SCH ×3 (06:16→17:55)
[2023-11-22] MEDS: allopurinoL 300 MG TAB PO SCH (08:25)
[2023-11-22] MEDS: CIPROFLOXACIN HCL 500 MG TAB PO SCH (08:25)
[2023-11-22] MEDS: ACYCLOVIR 200 MG CAP PO SCH ×2 (08:25→21:01)
[2023-11-22] MEDS: FLUCONAZOLE 100 MG TAB PO SCH (08:25)
[2023-11-22] MEDS: SALT AND SODA MOUTHWASH 1,000 ML PO SCH ×3 (08:26→17:52)
[2023-11-22] MEDS: prednisoLONE ACETATE 1% OPHTH DROPS 5 ML BTL BOTH EYES SCH ×4 (08:26→21:01)
[2023-11-22 08:42] LABS: ALT 33 U/L (10-49); AST 9 U/L (14-35); Albumin 3.1 g/dL (3.8-4.9); Albumin/Globulin Ratio 1.07 Ratio (1.60-3.17); Alkaline Phosphatase 52 U/L (41-126); BUN/Creat Ratio 16.14 Ratio (12.00-20.00); Blood Urea Nitrogen 11.3 mg/dL (9.0-27.0); Calcium 8.6 mg/dL (8.7-10.3); Carbon Dioxide 24.7 mmol/L (21.6-31.8); Chloride 107 mmol/L (96-109); Globulin 2.9 g/dL (1.6-3.3); Glucose 125 mg/dL (70-110); Phosphorus 4.6 mg/dL (2.4-5.1); Potassium 4.6 mmol/L (3.5-5.5); Sodium 141 mmol/L (135-145); Total Bilirubin <0.2 mg/dL (0.3-1.2)
[2023-11-22 10:15] LABS: Basophils # (A) 0.01 X 10*3/uL (0.00-0.10); Basophils % (A) 0.2 %; Eosinophils # (A) 0 X 10*3/uL (0.04-0.35); Eosinophils % (A) 0 %; HCT 19.5 % (39.6-50.0); HGB 6.6 g/dL (13.0-17.0); Immature Grans, Automated 0 %; Immature Platelet Fraction 24.1 % (1.1-6.1); Lymphocytes # (A) 3.61 X 10*3/uL (0.90-5.00); Lymphocytes % (A) 74.6 %; MCH 29.3 pg (27.0-32.0); MCHC 33.8 g/dL (32.0-37.0); MCV 86.7 FL (80.0-97.0); Mean Platelet Volume 15.5 FL (9.5-12.2); Microcytosis (M) 2+; Monocytes % (A) 22.7 %; NRBC Per 100 WBC 0.02 X 10*3/uL (0.00-0.01); Neutrophils # (A) 0.12 X 10*3/uL (1.80-7.70); Neutrophils % (A) 2.5 %; Platelet Count 13 X 10*3/uL (140-440); RBC 2.25 X 10*6/uL (4.40-5.60); RDW 13.6 % (11.5-14.5); WBC 4.84 X 10*3/uL (4.50-10.00)
--- NOTE | 2023-11-22 11:58 | P.PN ---
Subjective Progress Note Date: 11/22/23 No acute events. Reports feeling well. Pt afebrile. Denies SOB, chest pain, n/v/d. Tolerating oral intake. Hgb 6.6, 1 unit irradiated PRBCs ordered Objective - Vital Signs Vital signs: Vital Signs Temp 97.8 F 11/22/23 07:42 Pulse 87 11/22/23 07:42 Resp 19 11/22/23 07:42 BP 154/94 11/22/23 07:42 Pulse Ox 98 11/22/23 07:42 FiO2 Intake & Output 11/21/23 11/22/23 11/22/23 18:59 06:59 18:59 Intake Total 480 480 Balance 480 480 Intake: Oral 480 480 Other: # Voids 2 3 - Constitutional General appearance: Present: average body habitus, no acute distress - EENT Eyes: Present: anicteric sclerae, EOMI ENT: Present: hearing grossly normal - Respiratory Details: breathing is even and unlabored - Cardiovascular Details: skin warm and dry, well perfused - Integumentary Integumentary: Present: pale. Absent: cyanotic, rash - Neurologic Neurologic: Present: CNII-XII intact - Musculoskeletal Musculoskeletal: Present: strength equal bilaterally - Psychiatric Psychiatric: Present: A&O x's 3 - Labs CBC & Chem 7: 11/22/23 05:40 11/22/23 05:40 Labs: Abnormal Lab Results - Last 24 Hours (Table) 11/22/23 11/22/23 Range/Units 05:40 05:40 RBC 2.25 L (4.40-5.60) X 10*6/uL Hgb 6.6 A* (13.0-17.0) g/dL Hct 19.5 A* (39.6-50.0) % Plt Count 13 A* (140-440) X 10*3/uL MPV 15.5 H (9.5-12.2) FL Neutrophils # 0.12 A* (1.80-7.70) X 10*3/uL Monocytes # 1.10 H (0.20-1.00) X 10*3/uL Eosinophils # 0 L (0.04-0.35) X 10*3/uL NRBC/100 WBC Diff 0.02 H (0.00-0.01) X 10*3/uL Immature Plt Fraction 24.1 H (1.1-6.1) % Microcytosis (manual) 2+ A Glucose 125 H (70-110) mg/dL Uric Acid 3.0 L (3.7-8.7) mg/dL Calcium 8.6 L (8.7-10.3) mg/dL Total Bilirubin <0.2 L (0.3-1.2) mg/dL AST 9 L (14-35) U/L Total Protein 6.0 L (6.2-8.2) g/dL Albumin 3.1 L (3.8-4.9) g/dL Albumin/Globulin Ratio 1.07 L (1.60-3.17) Ratio Assessment and Plan (1) Acute myeloid leukemia, without mention of having achieved remission Current Visit: Yes Status: Acute Priority: High Code(s): C92.00 - ACUTE MYELOBLASTIC LEUKEMIA, NOT HAVING ACHIEVED REMISSION SNOMED Code(s): 93965645 (2) Pancytopenia Current Visit: Yes Status: Acute Priority: High Code(s): D61.818 - OTHER PANCYTOPENIA SNOMED Code(s): 828413625 Plan: AML -Refractory disease on repeat bone marrow biopsy, after receiving induction chemo 7+3 regimen. Admitted for salvage treatment with Flag-Martina. -Orders reviewed. Continue prophylactic abx, antiviral and antifungal. Spoke w ith Dr. Montana, will continue with Unasyn for 14 days, abx will be completed on 11/24. -Supportive meds -Ambulate QID, SCDs ordered -Vital signs every shift and when necessary -Regular diet -Oral hygiene -TLS labs, CMP, CBC daily. -Tolerating treatment well, no reported side effects today Pancytopenia -Secondary to AML -Transfuse with irradiated blood products only -Hgb 6.6, 1 unit PRBCs ordered -Transfuse for hemoglobin less than 7 and platelets less than 10,000, unless patient is symptomatic.
[2023-11-22] MEDS: FILGRASTIM-SNDZ 480 MCG/0.8 ML SYRINGE SQ SCH (14:05)
[2023-11-22] MEDS: ONDANSETRON 16 MG in SODIUM CHLORIDE 0.9% 50 ML IVPB SCH (14:05)
--- NOTE | 2023-11-22 14:05 | P.PN ---
Subjective Progress Note Date: 11/22/23 Patient is a 43-year-old male with recently diagnosed with AML presents to [facility] for chemotherapy with Cytarabine, Idarubicin and Fludarabine. [facility] has been consulted for medical management of this patient. Vital signs are stable. CBC RBC 2.49, Hg 7.4, Hct 21.3, Plt 19. CMP Na 136, BUN 8, Cr 0.58, glu 129, albumin 3.4. Uric acid 1.8. 11/21 Patient was seen and examined. No complaints. CBC Hg 7, Hct 20.2, Plt 14. CMP BUN 8, Cr 0.55, glu 125, albumin 2.9. Uric acid 2.4. 11/22 Patient was seen and examined. No complaints. CBC Hg 6.6 Hct 19.5 Plt 13. CMP glu 125, Ca 8.6, T. Bili < 0.2, AST 9, alb 3.1, total protein 6. Uric acid 3.0. General: non toxic, no distress, appears at stated age Derm: warm, dry Head: atraumatic, normocephalic, symmetric Eyes: EOMI, no lid lag, anicteric sclera Mouth: no lip lesion, mucus membranes moist Cardiovascular: Good distal perfusion in all 4 extremities, Normal S1 S2 Lungs: Breathing comfortably, no accessory muscle use, CTA BL Ext: no gross muscle atrophy, no edema, no contractures Neuro: no focal neuro deficits Psych: Alert, oriented, appropriate affect Based on my assessment of this patient, this patient meets a moderate complexity level of care. Patient has a history of AML presenting to [facility] for chemotherapy which poses a threat to life or bodily function. History of left facial cellulitis complicated by neutropenic sepsis: Unasyn 3g IV TID for 2 more days. Pancytopenia secondary to chemotherapy: Plans to transfuse 1 unit PRBC. Transfuse if Hg < 7 and Plt < 10. AML: Oncology on board. History of DVT: Status post IVC filter. CODE STATUS: FULL CODE DVT Prophylaxis: SCDs GI Prophylaxis: Designated medical POA if patient is not able to make medical decisions for themselves: I have reviewed the following product safety consultant notes: Oncology note. I have reviewed the results of the following tests: CBC, BMP, Uric acid. I have ordered the following tests: Agree with CBC, CMP, Phos, Uric acid daily. I have discussed the care of this patient with the following independent historian: I have independently interpreted the following test below: I have discussed the management of this patient with the following physician: Objective - Vital Signs Vital signs: Vital Signs Temp 98.2 F 11/22/23 12:04 Pulse 66 11/22/23 12:04 Resp 18 11/22/23 12:04 BP 128/71 11/22/23 12:04 Pulse Ox 99 11/22/23 12:04 FiO2 Intake & Output 11/21/23 11/22/23 11/22/23 18:59 06:59 18:59 Intake Total 480 480 Balance 480 480 Intake: Oral 480 480 Other: # Voids 2 3 - Labs CBC & Chem 7: 11/22/23 05:40 11/22/23 05:40 Labs: Abnormal Lab Results - Last 24 Hours (Table) 11/22/23 11/22/23 11/22/23 Range/Units 05:40 05:40 12:08 RBC 2.25 L (4.40-5.60) X 10*6/uL Hgb 6.6 A* (13.0-17.0) g/dL Hct 19.5 A* (39.6-50.0) % Plt Count 13 A* (140-440) X 10*3/uL MPV 15.5 H (9.5-12.2) FL Neutrophils # 0.12 A* (1.80-7.70) X 10*3/uL Monocytes # 1.10 H (0.20-1.00) X 10*3/uL Eosinophils # 0 L (0.04-0.35) X 10*3/uL NRBC/100 WBC Diff 0.02 H (0.00-0.01) X 10*3/uL Immature Plt Fraction 24.1 H (1.1-6.1) % Microcytosis (manual) 2+ A Glucose 125 H (70-110) mg/dL Uric Acid 3.0 L (3.7-8.7) mg/dL Calcium 8.6 L (8.7-10.3) mg/dL Total Bilirubin <0.2 L (0.3-1.2) mg/dL AST 9 L (14-35) U/L Total Protein 6.0 L (6.2-8.2) g/dL Albumin 3.1 L (3.8-4.9) g/dL Albumin/Globulin Ratio 1.07 L (1.60-3.17) Ratio Crossmatch See Detail
[2023-11-22] MEDS: FAMOTIDINE 20 MG/2 ML VIAL IV SCH (14:06)
[2023-11-22] MEDS: DEXAMETHASONE SOD PHOSPHATE 10 MG/ML 1 ML VIAL IV SCH (14:06)
[2023-11-22] MEDS: FLUDARABINE PHOSPHATE IV SCH (14:34)
[2023-11-22] MEDS: SODIUM CHLORIDE 0.9% IV SCH ×2 (14:34→18:46)
[2023-11-22] MEDS: CYTARABINE IV SCH (18:46)
[2023-11-22] MEDS: IDARUBICIN HCL IV SCH (23:09)
[2023-11-23] MEDS: AMPICILLIN-SULBACTAM 3 GM in SODIUM CHLORIDE 0.9% 100 ML IVPB SCH ×5 (00:06→23:48)
[2023-11-23 07:07] LABS: HGB 7.5 gm/dL (13.0-17.5); MCH 30.2 pg (25.0-35.0); MCHC 35.6 g/dL (31.0-37.0); MCV 84.9 fL (80.0-100.0); Mean Platelet Volume 14.1; RBC 2.47 m/uL (4.30-5.90); RDW 14.2 % (11.5-15.5); WBC 1.7 k/uL (3.8-10.6)
[2023-11-23 07:08] LABS: Platelet Count 13 k/uL (150-450)
[2023-11-23 07:30] LABS: ALT 27 U/L (4-49); AST 12 U/L (17-59); African American GFR (CKD) >90 (>60 ml/min/1.73 sqM); Albumin 2.9 g/dL (3.5-5.0); Albumin/Globulin Ratio 0.9; Alkaline Phosphatase 56 U/L (38-126); Anion Gap 8 mmol/L; Blood Urea Nitrogen 15 mg/dL (9-20); Calcium 8.4 mg/dL (8.4-10.2); Carbon Dioxide 26 mmol/L (22-30); Chloride 106 mmol/L (98-107); Globulin 3.1 g/dL; Glucose 113 mg/dL (74-99); Non-African American GFR(CKD) >90 (>60 ml/min/1.73 sqM); Phosphorus 4.3 mg/dL (2.5-4.5); Potassium 4.3 mmol/L (3.5-5.1); Sodium 140 mmol/L (137-145); Total Bilirubin 0.3 mg/dL (0.2-1.3); Uric Acid 2.9 mg/dL (3.5-8.5)
[2023-11-23 08:01] LABS: Blast Cells # (M) 0.46 k/uL (0); Lymphocytes # (M) 1.17 k/uL (1.0-4.8); Neutrophils # (M) 0.07 k/uL (1.3-7.7); Neutrophils % (M) 4 %; Nucleated Red Blood Cells 0 /100 WBC (0-0); Total Cells Counted 100
[2023-11-23] MEDS: allopurinoL 300 MG TAB PO SCH (08:59)
[2023-11-23] MEDS: CIPROFLOXACIN HCL 500 MG TAB PO SCH (08:59)
[2023-11-23] MEDS: ACYCLOVIR 200 MG CAP PO SCH ×2 (08:59→21:28)
[2023-11-23] MEDS: FLUCONAZOLE 100 MG TAB PO SCH (08:59)
[2023-11-23] MEDS: SALT AND SODA MOUTHWASH 1,000 ML PO SCH ×3 (09:00→18:04)
[2023-11-23] MEDS: prednisoLONE ACETATE 1% OPHTH DROPS 5 ML BTL BOTH EYES SCH ×4 (09:00→21:29)
[2023-11-23] MEDS: SODIUM CHLORIDE 0.9% 1,000 ML IV SCH ×2 (11:25→18:05)
--- NOTE | 2023-11-23 12:07 | P.PN ---
Subjective Progress Note Date: 11/23/23 No acute events. Reports feeling well. Pt afebrile. Reports intermittent left lower tooth pain s/p extraction, no drainage from site. Tooth pulled one week, would expect some discomfort as it heals, will continue to monitor for s/s of infection. Continues on Unasyn. Denies SOB, chest pain, n/v/d. Tolerating oral intake. Objective - Vital Signs Vital signs: Vital Signs Temp 98.1 F 11/23/23 07:46 Pulse 76 11/23/23 07:46 Resp 18 11/23/23 07:46 BP 129/74 11/23/23 07:46 Pulse Ox 98 11/23/23 07:46 FiO2 Intake & Output 11/22/23 11/23/23 11/23/23 18:59 06:59 18:59 Intake Total 2142 Balance 2142 Intake: Intake, IV Titration 1352 Amount Ampicillin-Sulbactam 3 gm 200 In Sodium Chloride 0.9% 100 ml @ 200 mls/hr IVPB Q6HR [facility] Rx#:[id number] Fludarabine Phosphate 62. 102 5 mg In Sodium Chloride 0 .9% 100 ml @ 205 mls/hr IV Q24H IGLLES Rx#:[id number] Ondansetron 16 mg In 50 Sodium Chloride 0.9% 50 ml @ 232 mls/hr IVPB Q24H [facility] Rx#:[id number] Sodium Chloride 0.9% 1, 1000 000 ml @ 100 mls/hr IV . Q10H [facility] Rx#:[id number] Oral 480 Blood Product 310 Rc Irr As1 Unit 310 [id number] Other: # Voids 2 1 - Constitutional General appearance: Present: average body habitus, no acute distress - EENT Eyes: Present: anicteric sclerae, EOMI ENT: Present: hearing grossly normal - Respiratory Details: breathing is even and unlabored - Cardiovascular Details: well perfused - Integumentary Integumentary: Absent: cyanotic - Neurologic Neurologic: Present: CNII-XII intact - Musculoskeletal Musculoskeletal: Present: strength equal bilaterally - Psychiatric Psychiatric: Present: A&O x's 3 - Labs CBC & Chem 7: 11/23/23 06:34 11/23/23 06:34 Labs: Abnormal Lab Results - Last 24 Hours (Table) 1211/23/23 11/23/23 Range/Units 12:08 06:34 06:34 WBC 1.7 L (3.8-10.6) k/uL RBC 2.47 L (4.30-5.90) m/uL Hgb 7.5 L (13.0-17.5) gm/dL Hct 21.0 L (39.0-53.0) % Plt Count 13 L* (150-450) k/uL Blast Cells % 27 H* % Neutrophils # (Manual) 0.07 L* (1.3-7.7) k/uL Blast Cells # (Man) 0.46 H (0) k/uL Creatinine 0.62 L (0.66-1.25) mg/dL Glucose 113 H (74-99) mg/dL Uric Acid 2.9 L (3.5-8.5) mg/dL AST 12 L (17-59) U/L Total Protein 6.0 L (6.3-8.2) g/dL Albumin 2.9 L (3.5-5.0) g/dL Crossmatch See Detail Assessment and Plan (1) Acute myeloid leukemia, without mention of having achieved remission Current Visit: Yes Status: Acute Priority: High Code(s): C92.00 - ACUTE MYELOBLASTIC LEUKEMIA, NOT HAVING ACHIEVED REMISSION SNOMED Code(s): 35886586 (2) Pancytopenia Current Visit: Yes Status: Acute Priority: High Code(s): D61.818 - OTHER PANCYTOPENIA SNOMED Code(s): 475099784 Plan: AML -Refractory disease on repeat bone marrow biopsy, after receiving induction ch emo 7+3 regimen. Admitted for salvage treatment with Flag-Martina. -Orders reviewed. Continue prophylactic abx, antiviral and antifungal. Spoke with Dr. Montana, will continue with Unasyn for 14 days, abx will be completed on 11/24. -Supportive meds -Ambulate QID, SCDs ordered -Vital signs every shift and when necessary -Regular diet -Oral hygiene -TLS labs, CMP, CBC daily. -Tolerating treatment well, no reported side effects today Pancytopenia -Secondary to AML -Transfuse with irradiated blood products only -Hgb 7.5, s/p 1 unit PRBCs. Plts 13,000, no reported episodes of bleeding -Transfuse for hemoglobin less than 7 and platelets less than 10,000, unless patient is symptomatic.
[2023-11-23] MEDS: FILGRASTIM-SNDZ 480 MCG/0.8 ML SYRINGE SQ SCH (13:29)
[2023-11-23] MEDS: ONDANSETRON 16 MG in SODIUM CHLORIDE 0.9% 50 ML IVPB SCH (13:29)
[2023-11-23] MEDS: FAMOTIDINE 20 MG/2 ML VIAL IV SCH (13:30)
[2023-11-23] MEDS: DEXAMETHASONE SOD PHOSPHATE 10 MG/ML 1 ML VIAL IV SCH (13:30)
[2023-11-23] MEDS: SODIUM CHLORIDE 0.9% IV SCH ×2 (13:56→18:28)
[2023-11-23] MEDS: FLUDARABINE PHOSPHATE IV SCH (13:56)
--- NOTE | 2023-11-23 15:48 | P.PN ---
Subjective Progress Note Date: 11/23/23 (delayed charting seen at 0930) Patient is a 43-year-old male with recently diagnosed AML who presented for salvage treatment with plans for bone marrow transplant. Patient seen and examined at bedside. He continues to have some tooth pain. He otherwise denies any nausea, vomiting, mouth sores, diarrhea, or constipation. He does feel slightly fatigued. Vital signs reviewed General: nontoxic, no distress, appears at stated age Cardiovascular: S1S2 reg, no murmur, positive posterior tibial pulse bilateral, Lungs: CTA bilateral, no rhonchi, no rales , no accessory muscle use Abdominal: soft, nontender to palpation, no guarding, no appreciable organomegaly Ext: no gross muscle atrophy, no edema b/l lower extremities, no contractures Neuro: CN II-XI grossly intact, no focal neuro deficits Psych: Alert, oriented, appropriate affect Assessment/Plan: AML with resultant pancytopenia Recent dental infection with facial cellulitis s/p extraction. -Status post 1 unit of packed red blood cells on 11/22/23 If an continue with Unasyn 3 g IV every 6 hours -On prophylactic acyclovir, Cipro, and Diflucan orally due to impending neutrop enia -Filgastrim dose #4 of 5, 480 g Hx DVT - s/p IVC filter Imaging: None new Data Review: Reviewed today include CBC and CMP which are remarkable for white blood cell count 1.7, hemoglobin 7.5, platelets 13 Thank you for allowing us to participate in the care of this pleasant patient. Do not hesitate to contact us with questions. Someone can be reached from the [facility] hospitalist group all hours of the day at [phone] or via perfect serve. This dictation was prepared using Differential voice recognition software. Though every attempt is made to correct errors during dictation some may still exist. Objective - Vital Signs Vital signs: Vital Signs Temp 98.1 F 11/23/23 12:03 Pulse 65 11/23/23 12:03 Resp 18 11/23/23 12:03 BP 134/73 11/23/23 12:03 Pulse Ox 100 11/23/23 12:03 FiO2 Intake & Output 11/22/23 11/23/23 11/23/23 18:59 06:59 18:59 Intake Total 2142 Balance 2142 Intake: Intake, IV Titration 1352 Amount Ampicillin-Sulbactam 3 gm 200 In Sodium Chloride 0.9% 100 ml @ 200 mls/hr IVPB Q6HR [facility] Rx#:[id number] Fludarabine Phosphate 62. 102 5 mg In Sodium Chloride 0 .9% 100 ml @ 205 mls/hr IV Q24H [facility] Rx#:[id number] Ondansetron 16 mg In 50 Sodium Chloride 0.9% 50 ml @ 232 mls/hr IVPB Q24H [facility] Rx#:[id number] Sodium Chloride 0.9% 1, 1000 000 ml @ 100 mls/hr IV . Q10H [facility] Rx#:[id number] Oral 480 Blood Product 310 Rc Irr As1 Unit 310 [id number] Other: # Voids 2 1 - Labs CBC & Chem 7: 11/23/23 06:34 11/23/23 06:34 Labs: Abnormal Lab Results - Last 24 Hours (Table) 11/22/23 11/23/23 11/23/23 Range/Units 12:08 06:34 06:34 WBC 1.7 L (3.8-10.6) k/uL RBC 2.47 L (4.30-5.90) m/uL Hgb 7.5 L (13.0-17.5) gm/dL Hct 21.0 L (39.0-53.0) % Plt Count 13 L* (150-450) k/uL Blast Cells % 27 H* % Neutrophils # (Manual) 0.07 L* (1.3-7.7) k/uL Blast Cells # (Man) 0.46 H (0) k/uL Creatinine 0.62 L (0.66-1.25) mg/dL Glucose 113 H (74-99) mg/dL Uric Acid 2.9 L (3.5-8.5) mg/dL AST 12 L (17-59) U/L Total Protein 6.0 L (6.3-8.2) g/dL Albumin 2.9 L (3.5-5.0) g/dL Crossmatch See Detail
[2023-11-23] MEDS: CYTARABINE IV SCH (18:28)
[2023-11-24 05:26] LABS: HCT 20.6 % (39.0-53.0); MCHC 34.2 g/dL (31.0-37.0); MCV 84.7 fL (80.0-100.0); Mean Platelet Volume 15.4; RBC 2.43 m/uL (4.30-5.90); RDW 14.3 % (11.5-15.5)
[2023-11-24 05:58] LABS: ALT 23 U/L (4-49); AST 10 U/L (17-59); African American GFR (CKD) >90 (>60 ml/min/1.73 sqM); Albumin 2.9 g/dL (3.5-5.0); Albumin/Globulin Ratio 0.9; Alkaline Phosphatase 54 U/L (38-126); Anion Gap 9 mmol/L; Blood Urea Nitrogen 14 mg/dL (9-20); Calcium 8.5 mg/dL (8.4-10.2); Carbon Dioxide 25 mmol/L (22-30); Chloride 105 mmol/L (98-107); Globulin 3.1 g/dL; Glucose 124 mg/dL (74-99); Non-African American GFR(CKD) >90 (>60 ml/min/1.73 sqM); Phosphorus 4.7 mg/dL (2.5-4.5); Potassium 4.2 mmol/L (3.5-5.1); Sodium 139 mmol/L (137-145); Total Bilirubin 0.5 mg/dL (0.2-1.3); Uric Acid 2.9 mg/dL (3.5-8.5)
[2023-11-24] MEDS: AMPICILLIN-SULBACTAM 3 GM in SODIUM CHLORIDE 0.9% 100 ML IVPB SCH ×3 (05:58→18:24)
[2023-11-24] MEDS: SODIUM CHLORIDE 0.9% 1,000 ML IV SCH ×2 (06:02→11:53)
[2023-11-24 06:17] LABS: RBC Morphology Normal
[2023-11-24 06:21] LABS: Platelet Count 11 k/uL (150-450); WBC 0.8 k/uL (3.8-10.6)
[2023-11-24] MEDS: SALT AND SODA MOUTHWASH 1,000 ML PO SCH ×3 (08:44→18:18)
[2023-11-24] MEDS: FLUCONAZOLE 100 MG TAB PO SCH (08:45)
[2023-11-24] MEDS: ACYCLOVIR 200 MG CAP PO SCH ×2 (08:45→21:43)
[2023-11-24] MEDS: prednisoLONE ACETATE 1% OPHTH DROPS 5 ML BTL BOTH EYES SCH ×4 (08:45→21:45)
[2023-11-24] MEDS: CIPROFLOXACIN HCL 500 MG TAB PO SCH (08:45)
[2023-11-24] MEDS: allopurinoL 300 MG TAB PO SCH (08:45)
[2023-11-24] MEDS: FILGRASTIM-SNDZ 480 MCG/0.8 ML SYRINGE SQ SCH (13:14)
[2023-11-24] MEDS: DEXAMETHASONE SOD PHOSPHATE 10 MG/ML 1 ML VIAL IV SCH (13:14)
[2023-11-24] MEDS: FAMOTIDINE 20 MG/2 ML VIAL IV SCH (13:14)
[2023-11-24] MEDS: ONDANSETRON 16 MG in SODIUM CHLORIDE 0.9% 50 ML IVPB SCH (13:15)
[2023-11-24] MEDS: FLUDARABINE PHOSPHATE IV SCH (14:41)
[2023-11-24] MEDS: SODIUM CHLORIDE 0.9% IV SCH ×2 (14:41→19:38)
--- NOTE | 2023-11-24 15:20 | P.PN ---
Subjective Progress Note Date: 11/24/23 (delayed charting seen at 0830) Patient is a 43-year-old male with recently diagnosed AML who presented for salvage treatment with plans for bone marrow transplant. Patient seen and examined at bedside. He has no complaints at this time. He has no shortness of breath, nasuea, dizziness, chest pain, or nausea. He has no mouth sore Vital signs reviewed General: nontoxic, no distress, appears at stated age Cardiovascular: S1S2 reg, no murmur, positive posterior tibial pulse bilateral, Lungs: Decreased bs bilateral, no rhonchi, no rales , no accessory muscle use Abdominal: soft, nontender to palpation, no guarding, no appreciable organomegaly Ext: no gross muscle atrophy, no edema b/l lower extremities, no contractures Neuro: CN II-XI grossly intact, no focal neuro deficits Psych: Alert, oriented, appropriate affect Assessment/Plan: AML with resultant pancytopenia Recent dental infection with facial cellulitis s/p extraction. -Status post 1 unit of packed red blood cells on 11/22/23 -continue with Unasyn 3 g IV every 6 hours, ABX will be completed on 11/26/23 after 1800 dose. -- has meds at home to complete this regiment as he is hoping to discharge tomorrow. -On prophylactic acyclovir, Cipro, and Diflucan orally due to current chemo regiment -Filgastrim dose #5 of 5, 480 g Hx DVT - s/p IVC filter Imaging: None new Data Review: Labs reviewed from today include CBC, CMP, and uric acid which are remarkable for WBC 0.8, hgb 7, or plt 11. Thank you for allowing us to participate in the care of this pleasant patient. Do not hesitate to contact us with questions. Someone can be reached from the [facility] hospitalist group all hours of the day at [phone] or via Typemock. This dictation was prepared using Ridejoy voice recognition software. Though every attempt is made to correct errors during dictation some may still exist. Objective - Vital Signs Vital signs: Vital Signs Temp 98.4 F 11/24/23 11:54 Pulse 81 11/24/23 11:54 Resp 16 11/24/23 11:54 BP 127/69 11/24/23 11:54 Pulse Ox 98 11/24/23 11:54 FiO2 Intake & Output 11/23/23 11/24/23 11/24/23 18:59 06:59 18:59 Intake Total 2094 Balance 2094 Intake: Intake, IV Titration 2094 Amount Ampicillin-Sulbactam 3 gm 200 In Sodium Chloride 0.9% 100 ml @ 200 mls/hr IVPB Q6HR [facility] Rx#:[id number] Cytarabine/Pf 4,200 mg In 542 Sodium Chloride 0.9% 500 ml 500 ml @ 135.5 mls/hr IV Q24H [facility] Rx#: [id number] Fludarabine Phosphate 62. 103 5 mg In Sodium Chloride 0 .9% 100 ml @ 205 mls/hr IV Q24H [facility] Rx#:[id number] Ondansetron 16 mg In 50 Sodium Chloride 0.9% 50 ml @ 232 mls/hr IVPB Q24H [facility] Rx#:[id number] Sodium Chloride 0.9% 1, 1200 000 ml @ 100 mls/hr IV . Q10H [facility] Rx#:[id number] Other: # Voids 2 1 - Labs CBC & Chem 7: 11/24/23 04:59 11/24/23 04:59 Labs: Abnormal Lab Results - Last 24 Hours (Table) 11/22/23 11/24/23 11/24/23 Range/Units 12:08 04:59 04:59 WBC 0.8 L* (3.8-10.6) k/uL RBC 2.43 L (4.30-5.90) m/uL Hgb 7.0 L (13.0-17.5) gm/dL Hct 20.6 L (39.0-53.0) % Plt Count 11 L* (150-450) k/uL Creatinine 0.52 L (0.66-1.25) mg/dL Glucose 124 H (74-99) mg/dL Uric Acid 2.9 L (3.5-8.5) mg/dL Phosphorus 4.7 H (2.5-4.5) mg/dL AST 10 L (17-59) U/L Total Protein 6.0 L (6.3-8.2) g/dL Albumin 2.9 L (3.5-5.0) g/dL Crossmatch See Detail
[2023-11-24] MEDS: CYTARABINE IV SCH (19:38)
[2023-11-25] MEDS: AMPICILLIN-SULBACTAM 3 GM in SODIUM CHLORIDE 0.9% 100 ML IVPB SCH ×3 (00:03→11:54)
[2023-11-25] MEDS: SODIUM CHLORIDE 0.9% 1,000 ML IV SCH ×2 (05:32→09:16)
[2023-11-25 08:00] LABS: MCH 29.9 pg (25.0-35.0); MCHC 35.6 g/dL (31.0-37.0); MCV 83.9 fL (80.0-100.0); Mean Platelet Volume 10.7; RBC 2.21 m/uL (4.30-5.90); RDW 14.1 % (11.5-15.5)
[2023-11-25 08:16] LABS: ALT 21 U/L (4-49); AST 10 U/L (17-59); African American GFR (CKD) >90 (>60 ml/min/1.73 sqM); Albumin 2.7 g/dL (3.5-5.0); Albumin/Globulin Ratio 0.9; Alkaline Phosphatase 50 U/L (38-126); Anion Gap 9 mmol/L; Blood Urea Nitrogen 15 mg/dL (9-20); Calcium 8.2 mg/dL (8.4-10.2); Carbon Dioxide 25 mmol/L (22-30); Chloride 104 mmol/L (98-107); Globulin 3.1 g/dL; Glucose 110 mg/dL (74-99); HGB 6.6 gm/dL (13.0-17.5); Non-African American GFR(CKD) >90 (>60 ml/min/1.73 sqM); Phosphorus 4.3 mg/dL (2.5-4.5); Sodium 138 mmol/L (137-145); Total Bilirubin 0.7 mg/dL (0.2-1.3); Total Protein 5.8 g/dL (6.3-8.2); Uric Acid 2.5 mg/dL (3.5-8.5)
[2023-11-25 08:17] LABS: HCT 18.5 % (39.0-53.0); Platelet Count 5 k/uL (150-450)
[2023-11-25 08:21] LABS: WBC 0.2 k/uL (3.8-10.6)
[2023-11-25] MEDS: allopurinoL 300 MG TAB PO SCH (09:15)
[2023-11-25] MEDS: CIPROFLOXACIN HCL 500 MG TAB PO SCH (09:15)
[2023-11-25] MEDS: SALT AND SODA MOUTHWASH 1,000 ML PO SCH ×2 (09:16→11:54)
[2023-11-25] MEDS: ACYCLOVIR 200 MG CAP PO SCH (09:16)
[2023-11-25] MEDS: prednisoLONE ACETATE 1% OPHTH DROPS 5 ML BTL BOTH EYES SCH ×2 (09:16→13:15)
[2023-11-25] MEDS: FLUCONAZOLE 100 MG TAB PO SCH (09:16)
[2023-11-25 09:43] LABS: RBC Morphology Normal
[2023-11-25] MEDS ORDERED: FILGRASTIM-SNDZ 480 MCG/0.8 ML SYRINGE SQ ONE (10:00)
[2023-11-25 13:15] VITALS: RESP 18
--- NOTE | 2023-11-25 13:17 | P.PN ---
Subjective Progress Note Date: 11/25/23 (delayed charting seen at 0820) Patient is a 43-year-old male with recently diagnosed AML who presented for salvage treatment with plans for bone marrow transplant. Patient seen and examined at bedside. Denies any chest pain or shortness of breath. Had mild nasal bleeding just with blowing his nose. Multiple questions answered. Vital signs reviewed General: nontoxic, no distress, appears at stated age Cardiovascular: S1S2 reg, no murmur, positive posterior tibial pulse bilateral, Lungs: Decreased bs bilateral, no rhonchi, no rales , no accessory muscle use Abdominal: soft, nontender to palpation, no guarding, no appreciable organomegaly Ext: no gross muscle atrophy, no edema b/l lower extremities, no contractures Neuro: CN II-XI grossly intact, no focal neuro deficits Psych: Alert, oriented, appropriate affect Assessment/Plan: AML with resultant pancytopenia Recent dental infection with facial cellulitis s/p extraction. -Status post 1 unit of packed red blood cells on 11/22/23 - 1 unit pRB and 1 unit plt today. -continue with Unasyn 3 g IV every 6 hours, ABX will be completed on 11/26/23 after 1800 dose. -- has meds at home to complete this regiment he is hoping for discharge today -On prophylactic acyclovir, Cipro, and Diflucan orally due to current chemo regiment -Filgastrim completed -Discussed with patient to monitor his temperature twice daily given his low white blood cell count. He also discussed with him avoiding any type of nasal spray at this time but he couldn't use it appears that appointment for disc comfort. I discussed that should he develop any significant fever at home, worsening cough, Betty's or chills that he should check his temperature. Hx DVT - s/p IVC filter Imaging: None new Data Review: Labs reviewed form today include CBC and CMP which are remarkable for WBC 0.2, HgB .6., Plt 5 Thank you for allowing us to participate in the care of this pleasant patient. Do not hesitate to contact us with questions. Someone can be reached from the [facility] hospitalist group all hours of the day at [phone] or via Mobissimo. This dictation was prepared using Gentronix voice recognition software. Though every attempt is made to correct errors during dictation some may still exist. Objective - Vital Signs Vital signs: Vital Signs Temp 98.4 F 11/25/23 12:56 Pulse 74 11/25/23 12:56 Resp 18 11/25/23 12:56 BP 140/69 11/25/23 12:56 Pulse Ox 100 11/25/23 12:56 FiO2 Intake & Output 11/24/23 11/25/23 11/25/23 18:59 06:59 18:59 Intake Total 1255 518 Balance 1255 518 Intake: Intake, IV Titration 1255 Amount Ampicillin-Sulbactam 3 gm 200 In Sodium Chloride 0.9% 100 ml @ 200 mls/hr IVPB Q6HR [facility] Rx#:[id number] Fludarabine Phosphate 62. 205 5 mg In Sodium Chloride 0 .9% 100 ml @ 205 mls/hr IV Q24H [facility] Rx#:[id number] Ondansetron 16 mg In 50 Sodium Chloride 0.9% 50 ml @ 232 mls/hr IVPB Q24H [facility] Rx#:[id number] Sodium Chloride 0.9% 1, 800 000 ml @ 100 mls/hr IV . Q10H [facility] Rx#:[id number] Oral 240 Blood Product 278 Platelet Pheresis Pas 278 Psoralen Unit [id number] Rc Irr As1 Unit 0 [id number] Other: # Voids 1 - Labs CBC & Chem 7: 11/25/23 06:52 11/25/23 06:52 Labs: Abnormal Lab Results - Last 24 Hours (Table) 11/22/23 11/25/23 11/25/23 Range/Units 12:08 06:52 06:52 WBC 0.2 L* (3.8-10.6) k/uL RBC 2.21 L (4.30-5.90) m/uL Hgb 6.6 L* (13.0-17.5) gm/dL Hct 18.5 L* (39.0-53.0) % Plt Count 5 L* D (150-450) k/uL Creatinine 0.51 L (0.66-1.25) mg/dL Glucose 110 H (74-99) mg/dL Uric Acid 2.5 L (3.5-8.5) mg/dL Calcium 8.2 L (8.4-10.2) mg/dL AST 10 L (17-59) U/L Total Protein 5.8 L (6.3-8.2) g/dL Albumin 2.7 L (3.5-5.0) g/dL Crossmatch See Detail
--- NOTE | 2023-11-25 14:17 | P.DS ---
Providers Date of admission: 11/20/23 09:10 Expected date of discharge: 11/25/23 Attending physician: Eusebio Naranjo Consults: 11/20/23 12:59 Consult Physician Routine Consulting Provider: Nathan Merritt Consult Reason/Comments: inpt chemo, medical management Do you want consulting provider notified?: Yes Primary care physician: Caio Patel - Discharge Diagnosis(es) (1) Acute myeloid leukemia, without mention of having achieved remission Current Visit: Yes Status: Acute Priority: High (2) Pancytopenia Current Visit: Yes Status: Acute Priority: High Patient Condition at Discharge: Good Plan - Discharge Summary Discharge Rx Participant: No New Discharge Prescriptions: Continue RX: allopurinoL 300 mg PO DAILY #30 tab RX: Acetaminophen Tab [Tylenol] 650 mg PO Q6HR PRN tab PRN Reason: Mild Pain Or Fever > 100.5 RX: Ampicillin-Sulbactam [Unasyn 3 gm vial] 3 gm IVPB Q6HR 14 Days each RX: Ciprofloxacin HCl [Cipro] 500 mg PO BID RX: Ondansetron [Ondansetron Odt] 4 mg PO Q4H PRN #45 tab PRN Reason: Nausea RX: Fluconazole [Diflucan] 100 mg PO DAILY RX: Acyclovir [Zovirax] 400 mg PO BID Discharge Medication List RX: Ondansetron [Ondansetron Odt] 4 mg PO Q4H PRN #45 tab 10/15/23 [Rx] RX: allopurinoL 300 mg PO DAILY #30 tab 10/15/23 [Rx] RX: Acetaminophen Tab [Tylenol] 650 mg PO Q6HR PRN tab 10/29/23 [Rx] RX: Fluconazole [Diflucan] 100 mg PO DAILY 10/30/23 [History] RX: Ampicillin-Sulbactam [Unasyn 3 gm vial] 3 gm IVPB Q6HR 14 Days each 11/12/23 [Rx] RX: Acyclovir [Zovirax] 400 mg PO BID 11/20/23 [History] RX: Ciprofloxacin HCl [Cipro] 500 mg PO BID 11/20/23 [History] Follow up Appointment(s)/Referral(s): Eusebio Naranjo [STAFF PHYSICIAN] - 11/27/23 9:00 am (Lab encounter. [facility]) Patient Instructions/Handouts: Intravenous Chemotherapy (DC) Activity/Diet/Wound Care/Special Instructions: Ambulate daily, encourage increasing oral intake/fluids Bleeding precautions in place Check your temperature twice daily or if you develop signs of infection, such as cough, congestion, or diarrhea. Last dose of your antibiotic is 11/26/23 at 1800 Discharge Disposition: HOME SELF-CARE Plan of Treatment: Completed Flag-SANCHEZ chemo regimen. Hgb 6.6 today, plts 5,000. Will give 1 unit irradiated PRBCs and 2 doses irradiated PLTs prior to discharge 3 times weekly lab draws scheduled in clinic, f/u in d/c plan Continue Unasyn as prescribed by ID through 11/26/23, to complete 14 day regimen. Continue prophylactic abx, antifungal and antiviral as prescribed F/u with Dr. Naranjo scheduled, with pending bone marrow biopsy pending CBC and blast counts over the next 2-3 weeks, with f/u with bone marrow transplant team at [facility] Neutropenic and bleeding precautions in place and discussed. Please call clinic or go to the hospital with any episodes of acute bleeding or fever >100.4
[2023-11-25 15:50] VITALS: TEMP 98.6
[2023-11-25 16:55] VITALS: BP 129/81; PULSE 80
== END 2023-11-25 16:48 | disposition home or self-care (01) | DRG 837 ==
LOC: 5NMEDONC 09:10
PROVIDERS: ADMIT Internal Medicine Hematology & Oncology; ATTEND Internal Medicine Hematology & Oncology
PROC: XW043B3 Introduction of Cytarabine and Daunorubicin Liposome Antineoplastic into Central Vein, Percutaneous Approach, New Technology Group 3 (ICD-10-PCS; principal; 2023-11-20)
DX: Z51.11 Encounter for antineoplastic chemotherapy (principal); D61.810 Antineoplastic chemotherapy induced pancytopenia; C92.00 Acute myeloblastic leukemia, not having achieved remission; K04.7 Periapical abscess without sinus; R04.0 Epistaxis; T45.1X5A Adverse effect of antineoplastic and immunosuppressive drugs, initial encounter; Z79.899 Other long term (current) drug therapy; Z86.711 Personal history of pulmonary embolism; Z86.718 Personal history of other venous thrombosis and embolism; Z87.891 Personal history of nicotine dependence; Z95.828 Presence of other vascular implants and grafts; Z28.310 Unvaccinated for COVID-19; Z28.9 Immunization not carried out for unspecified reason
CPT/HCPCS: 80053; 84100; 84550; 85025; 86850; 86900; 86901; 86920

== ENCOUNTER 2023-12-06 01:01 | Inpatient (IN) | payer BC ==
[2023-12-06] MEDS ORDERED: SODIUM CHLORIDE 0.9% 500 ML 500 ML IV STA (01:17)
[2023-12-06 01:45] LABS: MCHC 36.6 g/dL (31.0-37.0); MCV 81.8 fL (80.0-100.0); Mean Platelet Volume 8.5; RDW 12.7 % (11.5-15.5)
[2023-12-06 01:51] LABS: WBC 0.1 k/uL (3.8-10.6)
[2023-12-06 01:52] LABS: HCT 17.2 % (39.0-53.0); HGB 6.3 gm/dL (13.0-17.5)
[2023-12-06] MEDS ORDERED: ACETAMINOPHEN TAB 325 MG TAB PO STA (02:07)
[2023-12-06 02:08] LABS: RBC Morphology Normal
[2023-12-06 02:10] LABS: Platelet Count 3 k/uL (150-450)
[2023-12-06 02:43] LABS: ALT 222 U/L (4-49); AST 73 U/L (17-59); African American GFR (CKD) >90 (>60 ml/min/1.73 sqM); Albumin 2.9 g/dL (3.5-5.0); Alkaline Phosphatase 233 U/L (38-126); Anion Gap 11 mmol/L; Blood Urea Nitrogen 14 mg/dL (9-20); Calcium 8.5 mg/dL (8.4-10.2); Carbon Dioxide 23 mmol/L (22-30); Chloride 97 mmol/L (98-107); Glucose 116 mg/dL (74-99); Non-African American GFR(CKD) >90 (>60 ml/min/1.73 sqM); Potassium 4.3 mmol/L (3.5-5.1); Sodium 131 mmol/L (137-145); Total Bilirubin 0.5 mg/dL (0.2-1.3)
[2023-12-06] MEDS ORDERED: DESMOPRESSIN ACETATE 20 MCG in SODIUM CHLORIDE 0.9% 50 ML IVPB ONE (06:14)
--- NOTE | 2023-12-06 06:43 | ED ---
ENT HPI - General Chief complaint: ENT Stated complaint: Abnormal labs, bloody nose Time Seen by Provider: 12/06/23 01:25 Source: patient Mode of arrival: ambulatory Limitations: no limitations - History of Present Illness Initial comments: This patient is a 43-year-old man being treated for AML, who presents with complaint of having left-sided epistaxis going on for 90 minutes now. Patient states that he has been informed that his platelets are low. He was to come in in the morning to receive platelet transfusion. He denies symptoms suggestive o f infection, no fever or chills. No cough. No sinus pain. MD complaint: epistaxis -: hour(s) Location: nose Severity scale (1-10): 0 Consistency: constant Improves with: none Worsens with: none Context-Epistaxis: other (AML) - Related Data Home Medications Medication Instructions Recorded Confirmed Fluconazole [Diflucan] 100 mg PO DAILY 10/30/23 12/06/23 Acyclovir [Zovirax] 400 mg PO BID 11/20/23 12/06/23 Ciprofloxacin HCl [Cipro] 500 mg PO BID 11/20/23 12/06/23 Previous Rx's Medication Instructions Recorded allopurinoL 300 mg PO DAILY #30 tab 10/15/23 Acetaminophen Tab [Tylenol] 650 mg PO Q6HR PRN tab 10/29/23 Allergies Allergy/AdvReac Type Severity Reaction Status Date / Time amoxicillin [From Augmentin] Allergy Rash/Hives Verified 12/14/23 09:28 clavulanic acid Allergy Rash/Hives Verified 12/14/23 09:28 [From Augmentin] Review of Systems ROS Statement: Those systems with pertinent positive or pertinent negative responses have been documented in the HPI. ROS Other: All systems not noted in ROS Statement are negative. Constitutional: Denies: fever, chills, weakness ENT: Reports: epistaxis. Denies: throat pain, congestion Respiratory: Denies: cough, dyspnea Cardiovascular: Denies: chest pain, palpitations, syncope Gastrointestinal: Denies: abdominal pain, vomiting, diarrhea Genitourinary: Denies: dysuria, hematuria Musculoskeletal: Denies: back pain Skin: Denies: rash Neurological: Denies: headache, weakness Hematological/Lymphatic: Denies: easy bleeding Past Medical History Past Medical History: Cancer, Pulmonary Embolus (PE) Additional Past Medical History / Comment(s): Acute myeloid leukemia diagnosed in 2022 History of Any Multi-Drug Resistant Organisms: None Reported Past Surgical History: No Surgical Hx Reported Additional Past Surgical History / Comment(s): tooth extraction 11/15/23 Past Anesthesia/Blood Transfusion Reactions: No Reported Reaction Past Psychological History: No Psychological Hx Reported Smoking Status: Former smoker Past Alcohol Use History: None Reported Past Drug Use History: None Reported - Past Family History Mother Additional Family Medical History / Comment(s): bladder and stomach cancer General Exam Limitations: no limitations General appearance: alert, in no apparent distress Head exam: Present: atraumatic, normocephalic Eye exam: Present: normal appearance. Absent: scleral icterus, conjunctival injection ENT exam: Present: normal oropharynx Neck exam: Present: normal inspection Respiratory exam: Present: normal lung sounds bilaterally. Absent: respiratory distress, wheezes, rales, rhonchi, stridor Cardiovascular Exam: Present: regular rate, normal rhythm, normal heart sounds. Absent: systolic murmur, diastolic murmur, rubs, gallop GI/Abdominal exam: Present: soft. Absent: distended, tenderness, guarding, r ebound, rigid, mass Extremities exam: Present: normal inspection, normal capillary refill. Absent: pedal edema, calf tenderness Back exam: Present: normal inspection. Absent: CVA tenderness (R), CVA tenderness (L) Neurological exam: Present: alert Skin exam: Present: warm, dry, intact, normal color. Absent: rash Course Vital Signs 12/06/23 12/06/23 12/06/23 01:05 02:50 03:00 Temperature 98.9 F 98.9 F 98.7 F Pulse Rate 106 H 92 87 Respiratory 20 16 16 Rate Blood Pressure 126/5 141/83 128/79 O2 Sat by Pulse 99 97 Oximetry 12/06/23 12/06/23 12/06/23 03:20 04:27 05:22 Temperature 97.9 F 97.8 F 99.2 F Pulse Rate 91 100 84 Respiratory 18 16 16 Rate Blood Pressure 135/85 137/77 134/75 O2 Sat by Pulse 99 98 98 Oximetry 12/06/23 12/06/23 12/06/23 05:35 05:38 05:55 Temperature 99.2 F 99.2 F 99.2 F Pulse Rate 93 93 85 Respiratory 18 18 18 Rate Blood Pressure 130/79 130/79 137/76 O2 Sat by Pulse 98 98 98 Oximetry 12/06/23 12/06/23 12/06/23 06:44 07:06 10:04 Temperature 98.5 F Pulse Rate 87 98 98 Respiratory 16 18 18 Rate Blood Pressure 132/78 134/58 141/86 O2 Sat by Pulse 98 98 100 Oximetry 12/06/23 12/06/23 12/06/23 10:19 10:39 11:44 Temperature 99.0 F 99.5 F Pulse Rate 96 91 97 Respiratory 18 18 Rate Blood Pressure 146/77 127/77 132/72 O2 Sat by Pulse 98 97 98 Oximetry 12/06/23 12/06/23 12/06/23 11:45 12:00 12:15 Temperature Pulse Rate Respiratory 18 Rate Blood Pressure 132/72 136/83 126/77 O2 Sat by Pulse 98 98 98 Oximetry 12/06/23 12/06/23 12/06/23 12:30 12:40 12:45 Temperature Pulse Rate 99 99 Respiratory 18 18 Rate Blood Pressure 136/87 140/87 140/87 O2 Sat by Pulse 98 98 98 Oximetry 12/06/23 12/06/23 12/06/23 13:15 13:30 13:45 Temperature Pulse Rate Respiratory Rate Blood Pressure 135/86 131/78 129/78 O2 Sat by Pulse 100 100 100 Oximetry 12/06/23 12/06/23 12/06/23 14:00 14:15 14:30 Temperature Pulse Rate Respiratory Rate Blood Pressure 134/82 128/80 129/78 O2 Sat by Pulse 86 L Oximetry 12/06/23 12/06/23 12/06/23 14:45 15:00 15:15 Temperature Pulse Rate Respiratory Rate Blood Pressure 135/87 135/89 119/74 O2 Sat by Pulse 100 99 Oximetry 12/06/23 12/06/23 15:30 15:45 Temperature Pulse Rate Respiratory Rate Blood Pressure 128/77 133/79 O2 Sat by Pulse 99 99 Oximetry Medical Decision Making - Medical Decision Making Patient is 43-year-old man receiving treatment forAML. The patient developed epistaxis this morning. Given that his platelets are ready to be transfused morning we requested those from blood Bank. Also transfusion of red cells. The case is discussed with Dr. Naranjo, who requested that the patient receive dose of DDAVP and that we should avoid nasal packing if at all possible. I states that following the transfusion patient probably will be stable to follow in the clinic. Was pt. sent in by a medical professional or institution (, [facility], [employer] E[employer]IPMENT OPERATOR, urgent care, hospital, or [place] health care facility...) When possible be specific @ -Patient advised to come in by physician Did you speak to anyone other than the patient for history (EMS, parent, family, police, friend...)? What history was obtained from this source @ -[Patient's spouse did contribute history Did you review nursing and triage notes (agree or disagree)? Why? @ -[I reviewed and agree with nursing and triage notes] Were old charts reviewed (outside hosp., previous admission, EMS record, old EKG, old radiological studies, urgent care reports/EKG's, [place] health care facility records)? Report findings @ -[Yes old charts were reviewed] Differential Diagnosis (chest pain, altered mental status, abdominal pain women, abdominal pain men, vaginal bleeding, weakness, fever, dyspnea, syncope, headache, dizziness, GI bleed, back pain, seizure, CVA, palpatations, mental health, musculoskeletal)? @ -[The differential diagnosis for epistaxis includes, but not limited to: Trauma, hematologic abnormality, medication related, inflammatory conditions, infection related, AV malformation, environmental induced. EKG interpreted by me (3pts min.). @ -[As above] X-rays interpreted by me (1pt min.). @ -[None done] CT interpreted by me (1pt min.). @ -[None done] U/S interpreted by me (1pt. min.). @ -[None done] What testing was considered but not performed or refused? (CT, X-rays, U/S, lab s)? Why? @ -[None] What meds were considered but not given or refused? Why? @ -[None] Did you discuss the management of the patient with other professionals (professionals i.e. [facility] Cervantes, [employer] EQUIPMENT OPERATOR, lab, RT, psych nurse, manager social responsibility, managing manager, teacher, pharmaceutical officer, case planner)? Give summary @ -[Case discussed with admitting physician also discussed with senior software engineer and treatment recommendations incorporated. Was smoking cessation discussed for >3mins.? @ -[No] Was critical care preformed (if so, how long)? @ -[yes 30 minutes Were there social determinants of health that impacted care today? How? (Homele ssness, low income, unemployed, alcoholism, drug addiction, transportation, low edu. Level, literacy, decrease access to med. care, mcc, rehab)? @ -[No] Was there de-escalation of care discussed even if they declined (Discuss DNR or withdrawal of care, Hospice)? DNR status @ -[No] What co-morbidities impacted this encounter? (DM, HTN, Smoking, COPD, CAD, Cancer, CVA, ARF, Chemo, Hep., AIDS, mental health diagnosis, sleep apnea, morbid obesity)? @ -[None] Was patient admitted / discharged? Hospital course, mention meds given and route, prescriptions, significant lab abnormalities, going to OR and other pertinent info. @ -[As above, note that the patient did have recurrence of epistaxis though at a much lower rate and therefore admitted to have repeat laboratories and to ensure that the epistaxis does completely resolve Undiagnosed new problem with uncertain prognosis? @ -[No] Drug Therapy requiring intensive monitoring for toxicity (Heparin, Nitro, Insulin, Cardizem)? @ -[No] Were any procedures done? @ -[No] Diagnosis/symptom? @ -[Acute epistaxis Acute on chronic pancytopenia Acute, or Chronic, or Acute on Chronic? @ -[ Uncomplicated (without systemic symptoms) or Complicated (systemic symptoms)? @ -[Uncomplicated Side effects of treatment? @ -[No] Exacerbation, Progression, or Severe Exacerbation? @ -[No] Poses a threat to life or bodily function? How? (Chest pain, [place], [place], pneumonia, PE, COPD, DKA, ARF, appy, cholecystitis, CVA, Diverticulitis, Homicidal, Suicidal, threat to staff... and all critical care pts) @ -[Yes there is threat to life associated with pancytopenia, risks include infection, hemorrhage, exsanguination. - Lab Data Result diagrams: 12/07/23 05:38 12/07/23 05:38 Lab Results 12/05/23 12/06/23 12/06/23 Range/Units 09:15 01:32 01:52 WBC 0.1 L* (3.8-10.6) k/uL RBC 2.10 L (4.30-5.90) m/uL Hgb 6.3 L* (13.0-17.5) gm/dL Hct 17.2 L* (39.0-53.0) % MCV 81.8 (80.0-100.0) fL MCH 30.0 (25.0-35.0) pg MCHC 36.6 (31.0-37.0) g/dL RDW 12.7 (11.5-15.5) % Plt Count 3 L* (150-450) k/uL MPV 8.5 Neutrophils # [employer] OPERATOR Differential Comment P Manual Slide Review Performed RBC Morphology Normal Sodium 131 L (137-145) mmol/L Potassium 4.3 (3.5-5.1) mmol/L Chloride 97 L (98-107) mmol/L Carbon Dioxide 23 (22-30) mmol/L Anion Gap 11 mmol/L BUN 14 (9-20) mg/dL Creatinine 0.56 L (0.66-1.25) mg/dL Est GFR (CKD-EPI)AfAm >90 (>60 ml/min/1.73 sqM) Est GFR (CKD-EPI)NonAf >90 (>60 ml/min/1.73 sqM) Glucose 116 H (74-99) mg/dL Calcium 8.5 (8.4-10.2) mg/dL Total Bilirubin 0.5 (0.2-1.3) mg/dL AST 73 H (17-59) U/L ALT 222 H (4-49) U/L Alkaline Phosphatase 233 H (38-126) U/L Total Protein 6.0 L (6.3-8.2) g/dL Albumin 2.9 L (3.5-5.0) g/dL Blood Type A Positive Blood Type Recheck A Pos Bld Type Recheck Status No Antibody Screen NEGATIVE Crossmatch See Detail Transfuse Platelets Spec Expiration Date 12/08/2023 - 231412/06/23 Range/Units 02:16 WBC (3.8-10.6) k/uL RBC (4.30-5.90) m/uL Hgb (13.0-17.5) gm/dL Hct (39.0-53.0) % MCV (80.0-100.0) fL MCH (25.0-35.0) pg MCHC (31.0-37.0) g/dL RDW (11.5-15.5) % Plt Count (150-450) k/uL MPV Neutrophils # Differential Comment Manual Slide Review RBC Morphology Sodium (137-145) mmol/L Potassium (3.5-5.1) mmol/L Chloride (98-107) mmol/L Carbon Dioxide (22-30) mmol/L Anion Gap mmol/L BUN (9-20) mg/dL Creatinine (0.66-1.25) mg/dL Est GFR (CKD-EPI)AfAm (>60 ml/min/1.73 sqM) Est GFR (CKD-EPI)NonAf (>60 ml/min/1.73 sqM) Glucose (74-99) mg/dL Calcium (8.4-10.2) mg/dL Total Bilirubin (0.2-1.3) mg/dL AST (17-59) U/L ALT (4-49) U/L Alkaline Phosphatase (38-126) U/L Total Protein (6.3-8.2) g/dL Albumin (3.5-5.0) g/dL Blood Type Blood Type Recheck Bld Type Recheck Status Antibody Screen Crossmatch See Detail Transfuse Platelets 12/06/2023 Spec Expiration Date Critical Care Time Critical Care Time: Yes (30 minutes) Disposition Clinical Impression: Epistaxis, Pancytopenia Disposition: ADMITTED IP TO THIS [facility] Condition: Fair Is patient prescribed a controlled substance at d/c from ED?: No
[2023-12-06] MEDS ORDERED: NALOXONE 0.4 MG/ML 1 ML VIAL IV PRN (08:03)
[2023-12-06] MEDS ORDERED: ONDANSETRON ODT 4 MG TAB PO PRN (08:06)
[2023-12-06] MEDS ORDERED: AMOXIC-POT CLAV 875-125MG 1 EACH TAB PO STA (08:37)
[2023-12-06] MEDS ORDERED: OXYMETAZOLINE 0.05% NASL SPRAY 1 SPRAY BOTTLE NASAL STA (08:38)
[2023-12-06] MEDS: ACYCLOVIR 200 MG CAP PO SCH ×2 (09:47→20:53)
[2023-12-06] MEDS: FLUCONAZOLE 100 MG TAB PO SCH (09:48)
[2023-12-06] MEDS: allopurinoL 300 MG TAB PO SCH (09:48)
[2023-12-06 10:17] LABS: Partial Thromboplastin Time 27.2 sec (22.0-30.0); Prothrombin Time 11.3 sec (10.0-12.5)
[2023-12-06] MEDS ORDERED: OCTREOTIDE 100 MCG/ML INJ IVP ONE (12:00)
[2023-12-06] MEDS ORDERED: AMINOCAPROIC ACID 500 MG TAB PO ONE (12:00)
[2023-12-06] MEDS ORDERED: OCTREOTIDE 500 MCG in SODIUM CHLORIDE 0.9% 250 ML IV SCH (12:30)
[2023-12-06] MEDS ORDERED: MORPHINE SULFATE 4 MG/ML SYRINGE IVP PRN (13:43)
[2023-12-06] MEDS ORDERED: HYDROcodone/APAP 5-325MG 1 EACH TAB PO PRN (13:43)
[2023-12-06] MEDS ORDERED: MELATONIN 3 MG TABLET PO PRN (13:43)
[2023-12-06] MEDS ORDERED: ONDANSETRON 4 MG/2 ML VIAL IVP PRN (13:43)
--- NOTE | 2023-12-06 13:43 | P.HPIM ---
History of Present Illness H&P Date: 12/06/23 Patient is a 43-year-old male with recently diagnosed with AML in September 2023 with recent admission 11/20- for salvage chemo in preparation for bone marrow transplant, recen strep bacteremia, and DVT despite being thrombocytopenic with IVC filter placement who presetned to the emergency depart ment for epistaxis. On arrival to the ER his vital signs within normal limits laboratory analysis was remarkable for white blood cell count 0.1, hemoglobin 6.3, hematocrit 17.2, and platelets of 3, sodium 131 AST 73, ALT 223, alkaline phosphatase of 233. Despite manual pressure and nasal clamping he continued to have significant bleeding. He was transfused 1 unit of platelets and 1 unit of packed blood cells. Arrangements were made for admission. After discussion with oncology desmopressin was ordered. Patient seen and examined at bedside. He reports that since his last discharge he has required multiple transfusions of both platelets and packed red blood cells due to persistent cytopenias. He was recently diagnosed with sinusitis and was started on Augmentin by Dr. [place]. He started having a nosebleed around 1 AM this morning that just would not stop and he therefore presented to the ER. He reports he has been using Afrin for 3 days at the direction of Dr. Montana. He denies any chest pain, lightheadness, shortness of breath, nuasea, vomiting, or diarrhea. He does not have a headache. He i frustrated that he is in the hospital again. Vital signs reviewed General: nontoxic, no distress, appears at stated age Derm: warm, dry Eyes: EOMI, no lid lag, anicteric sclera, pupils equal round reactive to light ENT: Nose and ears atraumatic, no thrush, + blood in the posterior pharynx, blood in the anterior naris cardiovascular: S1S2 reg, no murmur, positive posterior tibial pulse bilateral, no edema, capillary refill less than 2 seconds Lungs: clear to auscultation bilateral, no rhonchi, no rales, no wheeze, no accessory muscle use Abdominal: soft, nontender to palpation, no guarding Ext: no gross muscle atrophy, no contractures Neuro: CN II-XII grossly intact, no focal neurodeficits Psych: Alert, oriented, appropriate affect Assessment/Plan: Epistaxis, intractable in the setting of a patient with acute myelogenous leukemia and pancytopenia AML with chemo induced neutropenia, anemia, andthromboctypenia Transaminitis, increasing - s/p 1 unit of plt and 1 unit of blood - s/p desmopressin -1 additional unit of platelets, recheck CBC 2 hours later -Normal saline at 75 cc/h -Check coagulation studies, D-dimer, and fibrinogen to rule out DIC - case discusse kenroy Naranjo and will start sandostatin -Await ENT evaluation -Repeat CBC in a.m. Imaging: None new Data Review: above The patient is admitted with an anticipated greater than 2 midnight stay for evaluation of [epistaxis in the setting of pancytopenia]. DVT prophylaxis: SCD, IVC filter in place Anticipated discharge date: Pending clinical course Anticipated discharge place: Pending clinical course This dictation was prepared using [employer] voice recognition software. Though every attempt is made to correct errors during dictation some may still exist. Past Medical History Past Medical History: Cancer, Pulmonary Embolus (PE) Additional Past Medical History / Comment(s): Acute myeloid leukemia diagnosed in 2022 History of Any Multi-Drug Resistant Organisms: None Reported Past Surgical History: No Surgical Hx Reported Additional Past Surgical History / Comment(s): tooth extraction 11/15/23 Past Anesthesia/Blood Transfusion Reactions: No Reported Reaction Past Psychological History: No Psychological Hx Reported Smoking Status: Former smoker Past Alcohol Use History: None Reported Past Drug Use History: None Reported - Past Family History Mother Additional Family Medical History / Comment(s): bladder and stomach cancer Medications and Allergies Home Medications Medication Instructions Recorded Confirmed Type Ondansetron [Ondansetron Odt] 4 mg PO Q4H PRN #45 tab 10/15/23 12/06/23 Rx allopurinoL 300 mg PO DAILY #30 tab 10/15/23 12/06/23 Rx Acetaminophen Tab [Tylenol] 650 mg PO Q6HR PRN tab 10/29/23 12/06/23 Rx Fluconazole [Diflucan] 100 mg PO DAILY 10/30/23 12/06/23 History Acyclovir [Zovirax] 400 mg PO BID 11/20/23 12/06/23 History Ciprofloxacin HCl [Cipro] 500 mg PO BID 11/20/23 12/06/23 History Amoxic-Pot Clav 875-125Mg 1 tab PO Q12HR 12/06/23 12/06/23 History [Augmentin 325-125] Allergies Allergy/AdvReac Type Severity Reaction Status Date / Time No Known Allergies Allergy Verified 12/06/23 08:47 Physical Exam Osteopathic Statement: *. No significant issues noted on an osteopathic st ructural exam other than those noted in the History and Physical/Consult. Vitals: Vital Signs Temp Pulse Resp BP Pulse Ox 12/06/23 12:15 18 126/77 98 12/06/23 12:00 136/83 98 12/06/23 11:45 132/72 98 12/06/23 11:44 97 132/72 98 12/06/23 10:39 99.5 F 91 18 127/77 97 12/06/23 10:19 99.0 F 96 18 146/77 98 12/06/23 10:04 98.5 F 98 18 141/86 100 12/06/23 07:06 98 18 134/58 98 12/06/23 06:44 87 16 132/78 98 12/06/23 05:55 99.2 F 85 18 137/76 98 12/06/23 05:38 99.2 F 93 18 130/79 98 12/06/23 05:35 99.2 F 93 18 130/79 98 12/06/23 05:22 99.2 F 84 16 134/75 98 12/06/23 04:27 97.8 F 100 16 137/77 98 12/06/23 03:20 97.9 F 91 18 135/85 99 12/06/23 03:00 98.7 F 87 16 128/79 12/06/23 02:50 98.9 F 92 16 141/83 97 12/06/23 01:05 98.9 F 106 H 20 126/5 99 Intake and Output 12/05/23 12/06/23 12/06/23 22:59 06:59 14:59 Intake Total 0 275 Balance 0 275 Intake: Blood Product 0 275 Platelet Pheresis Pas 0 Psoralen Unit [id number] Platelet Pheresis Pas 275 Psoralen Unit [id number] Rc Irr As1 Unit 0 0 [id number] Other: Weight 88.451 kg Results CBC & Chem 7: 12/06/23 01:32 12/06/23 01:52 Labs: Abnormal Lab Results - Last 24 Hours (Table) 12/05/23 12/06/23 12/06/23 Range/Units 09:15 01:32 01:52 WBC 0.1 L* (3.8-10.6) k/uL RBC 2.10 L (4.30-5.90) m/uL Hgb 6.3 L* (13.0-17.5) gm/dL Hct 17.2 L* (39.0-53.0) % Plt Count 3 L* (150-450) k/uL Fibrinogen (200-500) mg/dL D-Dimer (<0.60) mg/L FEU Sodium 131 L (137-145) mmol/L Chloride 97 L (98-107) mmol/L Creatinine 0.56 L (0.66-1.25) mg/dL Glucose 116 H (74-99) mg/dL AST 73 H (17-59) U/L ALT 222 H (4-49) U/L Alkaline Phosphatase 233 H (38-126) U/L Total Protein 6.0 L (6.3-8.2) g/dL Albumin 2.9 L (3.5-5.0) g/dL Crossmatch See Detail 12/06/23 12/06/23 Range/Units 02:16 08:49 WBC (3.8-10.6) k/uL RBC (4.30-5.90) m/uL Hgb (13.0-17.5) gm/dL Hct (39.0-53.0) % Plt Count (150-450) k/uL Fibrinogen 1058 H (200-500) mg/dL D-Dimer 0.80 H (<0.60) mg/L FEU Sodium (137-145) mmol/L Chloride (98-107) mmol/L Creatinine (0.66-1.25) mg/dL Glucose (74-99) mg/dL AST (17-59) U/L ALT (4-49) U/L Alkaline Phosphatase (38-126) U/L Total Protein (6.3-8.2) g/dL Albumin (3.5-5.0) g/dL Crossmatch See Detail
[2023-12-06] MEDS: CIPROFLOXACIN HCL 500 MG TAB PO SCH ×2 (14:30→20:53)
[2023-12-06] MEDS: SODIUM CHLORIDE 0.9% 1,000 ML IV SCH (14:34)
[2023-12-06 15:11] LABS: MCH 30.1 pg (25.0-35.0); MCHC 35.7 g/dL (31.0-37.0); MCV 84.4 fL (80.0-100.0); Mean Platelet Volume 10.9; RBC 2.06 m/uL (4.30-5.90); RDW 12.5 % (11.5-15.5)
[2023-12-06 15:19] LABS: WBC 0.1 k/uL (3.8-10.6)
[2023-12-06 15:20] LABS: HGB 6.2 gm/dL (13.0-17.5)
[2023-12-06 15:21] LABS: HCT 17.4 % (39.0-53.0); Platelet Count 16 k/uL (150-450)
--- NOTE | 2023-12-06 19:28 | P.CONS ---
History of Present Illness - Reason for Consult Consult date: 12/06/23 AML, pancytopenia Requesting physician: Cachorro Murillo - Chief Complaint epistaxis - History of Present Illness Patient is 43-year-old male, with history of AML. He was as seen at the end of August 2023 on consult for pancytopenia. He was referred by his PCP for an abn ormal CBC on routine workup. Hemoglobin was 4.6. Patient had had a sinus infection and was treated with doxycycline, then Bactrim and steroids. He received hepatitis B vaccine in July for work. Patient had no acute constitutional symptoms, he did have a 30 pound weight loss over 2 years but reports he changed jobs that was very physical. He received transfusion with stabilization of hemoglobin, platelets 35,000, ANC 60, blast cells 45%, coags were within normal limits, peripheral smear was suspicious. High suspicions for an acute leukemia, bone marrow biopsy done 09/26. He was seen for results 10/[address] Naranjo, unfortunately confirmed acute myeloid leukemia. Patient received induction 7+3 regimen on 10/08/23. Unfortunately disease was refractory and repeat biopsy on 10/31/23 showed residual AML with approx 60-65% total cellularity replaced by blasts. He was referred to the transplant team at [facility], and case was discussed with Dr. Naranjo and it was recommended to start salvage therapy with Flag-SANCHEZ and then plans for bone marrow transplant. Patient has had two admits since completion of induction for neutropenic favor. He was admitted for salvage treatment with Flag-Sanchez on 11/20/23, completing 5 days of treatment. He has continued f/u for close monitoring of CBC and has upcoming f/u with Dr. Naranjo for repeat bone marrow biopsy before he will be referred back to bone marrow transplant team. Patient presented to the emergency room with complaints of epistaxis. Patient reports epistaxis started around midnight from his left nare. Patient denies any known nasal injury. He was recently diagnosed with sinusitis and was started on Augmentin by infectious disease. He denies fever and chills. Upon admission hemoglobin was noted at 6.3, platelets 3000. He was given 2 doses platelets, 1 unit PRBCs and DDAVP. At today's visit patient was still having active bleeding from left nare, nasal clamp in place. Also reporting petechiae on left lower extremity. DIC workup was negative. Coags normal Review of Systems 10 point ROS is negative except as stated in the HPI Past Medical History Past Medical History: Cancer, Pulmonary Embolus (PE) Additional Past Medical History / Comment(s): Acute myeloid leukemia diagnosed in 2022 History of Any Multi-Drug Resistant Organisms: None Reported Past Surgical History: No Surgical Hx Reported Additional Past Surgical History / Comment(s): tooth extraction 11/15/23 Past Anesthesia/Blood Transfusion Reactions: No Reported Reaction Past Psychological History: No Psychological Hx Reported Smoking Status: Former smoker Past Alcohol Use History: None Reported Past Drug Use History: None Reported - Past Family History Mother Additional Family Medical History / Comment(s): bladder and stomach cancer Medications and Allergies Home Medications Medication Instructions Recorded Confirmed Type Ondansetron [Ondansetron Odt] 4 mg PO Q4H PRN #45 tab 10/15/23 12/06/23 Rx allopurinoL 300 mg PO DAILY #30 tab 10/15/23 12/06/23 Rx Acetaminophen Tab [Tylenol] 650 mg PO Q6HR PRN tab 10/29/23 12/06/23 Rx Fluconazole [Diflucan] 100 mg PO DAILY 10/30/23 12/06/23 History Acyclovir [Zovirax] 400 mg PO BID 11/20/23 12/06/23 History Ciprofloxacin HCl [Cipro] 500 mg PO BID 11/20/23 12/06/23 History Amoxic-Pot Clav 875-125Mg 1 tab PO Q12HR 12/06/23 12/06/23 History [Augmentin 875-125] Allergies Allergy/AdvReac Type Severity Reaction Status Date / Time No Known Allergies Allergy Verified 12/06/23 08:47 Physical Exam Vitals: Vital Signs Temp Pulse Resp BP Pulse Ox 12/06/23 12:15 18 126/77 98 12/06/23 12:00 136/83 98 12/06/23 11:45 132/72 98 12/06/23 11:44 97 132/72 98 12/06/23 10:39 99.5 F 91 18 127/77 97 12/06/23 10:19 99.0 F 96 18 146/77 98 12/06/23 10:04 98.5 F 98 18 141/86 100 12/06/23 07:06 98 18 134/58 98 12/06/23 06:44 87 16 132/78 98 12/06/23 05:55 99.2 F 85 18 137/76 98 12/06/23 05:38 99.2 F 93 18 130/79 98 12/06/23 05:35 99.2 F 93 18 130/79 98 12/06/23 05:22 99.2 F 84 16 134/75 98 12/06/23 04:27 97.8 F 100 16 137/77 98 12/06/23 03:20 97.9 F 91 18 135/85 99 12/06/23 03:00 98.7 F 87 16 128/79 12/06/23 02:50 98.9 F 92 16 141/83 97 12/06/23 01:05 98.9 F 106 H 20 126/5 99 Intake and Output 12/06/23 12/06/23 12/06/23 06:59 14:59 22:59 Intake Total 0 275 Balance 0 275 Intake: Blood Product 0 275 Platelet Pheresis Pas 0 Psoralen Unit [id number] Platelet Pheresis Pas 275 Psoralen Unit [id number] Rc Irr As1 Unit 0 0 [id number] Other: Weight 88.451 kg - Constitutional General appearance: average body habitus, no acute distress - EENT epistaxis, nose clamp in place Eyes: anicteric sclerae, EOMI ENT: hearing grossly normal - Respiratory Respiratory: bilateral: CTA - Cardiovascular Rhythm: regular Heart sounds: normal: S1, S2 - Integumentary Integumentary: no cyanotic, pale - Neurologic Neurologic: CNII-XII intact - Musculoskeletal Musculoskeletal: strength equal bilaterally - Psychiatric Psychiatric: A&O x's 3 Results CBC & Chem 7: 12/06/23 14:51 12/06/23 01:52 Labs: Abnormal Lab Results - Last 24 Hours (Table) 12/05/23 12/06/23 12/06/23 Range/Units 09:15 01:32 01:52 WBC 0.1 L* (3.8-10.6) k/uL RBC 2.10 L (4.30-5.90) m/uL Hgb 6.3 L* (13.0-17.5) gm/dL Hct 17.2 L* (39.0-53.0) % Plt Count 3 L* (150-450) k/uL Fibrinogen (200-500) mg/dL D-Dimer (<0.60) mg/L FEU Sodium 131 L (137-145) mmol/L Chloride 97 L (98-107) mmol/L Creatinine 0.56 L (0.66-1.25) mg/dL Glucose 116 H (74-99) mg/dL AST 73 H (17-59) U/L ALT 222 H (4-49) U/L Alkaline Phosphatase 233 H (38-126) U/L Total Protein 6.0 L (6.3-8.2) g/dL Albumin 2.9 L (3.5-5.0) g/dL Crossmatch See Detail 12/06/23 12/06/23 12/06/23 Range/Units 02:16 08:49 14:51 WBC 0.1 L* (3.8-10.6) k/uL RBC 2.06 L (4.30-5.90) m/uL Hgb 6.2 L* (13.0-17.5) gm/dL Hct 17.4 L* (39.0-53.0) % Plt Count 16 L* D (150-450) k/uL Fibrinogen 1058 H (200-500) mg/dL D-Dimer 0.80 H (<0.60) mg/L FEU Sodium (137-145) mmol/L Chloride (98-107) mmol/L Creatinine (0.66-1.25) mg/dL Glucose (74-99) mg/dL AST (17-59) U/L ALT (4-49) U/L Alkaline Phosphatase (38-126) U/L Total Protein (6.3-8.2) g/dL Albumin (3.5-5.0) g/dL Crossmatch See Detail Assessment and Plan (1) Epistaxis Current Visit: Yes Status: Acute Priority: High Code(s): R04.0 - EPISTAXIS SNOMED Code(s): 891138904 (2) Pancytopenia Current Visit: Yes Status: Acute Priority: High Code(s): D61.818 - OTHER PANCYTOPENIA SNOMED Code(s): 631950115 (3) Acute myeloid leukemia, without mention of having achieved remission Current Visit: Yes Status: Acute Priority: High Code(s): C92.00 - ACUTE MYELOBLASTIC LEUKEMIA, NOT HAVING ACHIEVED REMISSION SNOMED Code(s): 12874964 Plan: Epistaxis: -Presented with complaints of left sided epistaxis. Denies any known nasal injury. He was recently diagnosed with sinusitis and was started on Augmentin by infectious disease. He denies fever and chills. -Upon admission hemoglobin was noted at 6.3, platelets 3000. He was given 2 doses platelets, 1 unit PRBCs and DDAVP. At today's visit patient was still having active bleeding from left nare, nasal clamp in place. -DIC workup was negative. Coags normal -Amicar and sandostatin ordered. After visit, spoke with primary RN, bleeding had resolved. Sandostatin held. Will continue to monitor -Discussed case with IM team AML -Full hx in HPI. Refractory disease on repeat bone marrow biopsy after receiving induction chemo 7+3 regimen. Completed salvage treatment with Flag-Sanchez on 11/25. -He has continued on f/u for close monitoring of CBC and has upcoming f/u with Dr. Naranjo for repeat bone marrow biopsy before he will be referred back to bone marrow transplant team Pancytopenia -Secondary to AML -Transfuse with irradiated blood products only -Upon admission hemoglobin was noted at 6.3, platelets 3,000. Received 2 doses platelets and 1 unit PRBCs and DDAVP. Repeat CBC revealed Hgb 6.2 and platelets 16,000, additional unit PRBCs ordered -Transfuse for hemoglobin less than 7 and platelets less than 10,000, unless patient is symptomatic attests: I have seen and examined pt, performed H&P, developed impression and plan of care. Discussed with dictator. Agree with documentation, dictated as a scribe.
[2023-12-06] MEDS: AMOXIC-POT CLAV 875-125MG 1 EACH TAB PO SCH (20:53)
[2023-12-07] MEDS: ACETAMINOPHEN TAB 325 MG TAB PO PRN ×2 (02:14→09:51)
[2023-12-07] MEDS: SODIUM CHLORIDE 0.9% 1,000 ML IV SCH (05:40)
[2023-12-07 07:08] LABS: MCH 29.7 pg (25.0-35.0); MCV 84.7 fL (80.0-100.0); Mean Platelet Volume 11.7; RBC 2.23 m/uL (4.30-5.90); RDW 12.6 % (11.5-15.5)
[2023-12-07 07:17] LABS: WBC 0.1 k/uL (3.8-10.6)
[2023-12-07 07:18] LABS: HCT 18.9 % (39.0-53.0); HGB 6.6 gm/dL (13.0-17.5); Platelet Count 15 k/uL (150-450)
[2023-12-07 07:32] LABS: INR 1.1 (<1.2)
[2023-12-07 07:51] LABS: ALT 196 U/L (4-49); AST 77 U/L (17-59); African American GFR (CKD) >90 (>60 ml/min/1.73 sqM); Albumin 2.7 g/dL (3.5-5.0); Albumin/Globulin Ratio 0.9; Alkaline Phosphatase 238 U/L (38-126); Anion Gap 12 mmol/L; Blood Urea Nitrogen 11 mg/dL (9-20); Calcium 8.3 mg/dL (8.4-10.2); Carbon Dioxide 23 mmol/L (22-30); Chloride 99 mmol/L (98-107); Globulin 3.1 g/dL; Glucose 111 mg/dL (74-99); Non-African American GFR(CKD) >90 (>60 ml/min/1.73 sqM); Potassium 4.1 mmol/L (3.5-5.1); Sodium 134 mmol/L (137-145); Total Bilirubin 0.7 mg/dL (0.2-1.3); Total Protein 5.8 g/dL (6.3-8.2)
[2023-12-07] MEDS: ACYCLOVIR 200 MG CAP PO SCH (09:37)
[2023-12-07] MEDS: AMOXIC-POT CLAV 875-125MG 1 EACH TAB PO SCH (09:37)
[2023-12-07] MEDS: CIPROFLOXACIN HCL 500 MG TAB PO SCH (09:37)
[2023-12-07] MEDS: allopurinoL 300 MG TAB PO SCH (09:37)
[2023-12-07] MEDS: FLUCONAZOLE 100 MG TAB PO SCH (09:37)
[2023-12-07 13:06] VITALS: BP 132/82; PULSE 88; RESP 16; TEMP 99
--- NOTE | 2023-12-07 13:56 | P.DS ---
Providers Date of admission: 12/06/23 08:03 Expected date of discharge: 12/07/23 Attending physician: Praveena Marshall DO Consults: 12/06/23 08:03 Consult Physician Routine Consulting Provider: Eusebio Naranjo Consult Reason/Comments: pancytopenia Do you want consulting provider notified?: Already Contacted Consult Physician Urgent Consulting Provider: Vidal Vora Consult Reason/Comments: epistaxis Do you want consulting provider notified?: Yes Primary care physician: Caio Patel Hospital Course: Discharge Diagnosis: Epistaxis, intractable in the setting of a patient with acute myelogenous leukemia and pancytopenia AML with chemo induced neutropenia, anemia, andthromboctypenia Transaminitis, increasing Hospital Course: Patient is a 43-year-old male with recently diagnosed with AML in September 2023 with recent admission 11/20- for salvage chemo in preparation for bone marrow transplant, recen strep bacteremia, and DVT despite being thrombocytopenic with IVC filter placement who presetned to the emergency department for epistaxis. On arrival to the ER his vital signs within normal limits laboratory analysis was remarkable for white blood cell count 0.1, hemoglobin 6.3, hematocrit 17.2, and platelets of 3, sodium 131 AST 73, ALT 223, alkaline phosphatase of 233. Despite manual pressure and nasal clamping he continued to have significant bleeding. He was transfused 1 unit of platelets and 1 unit of packed blood cells. Arrangements were made for admission. After discussion with oncology desmopressin was ordered. Patient received 1 additional unit of packed red blood cells for continued epistaxis. His nasal bleeding then resolved. He did require an additional 2 units of packed red blo od cells due to persistently low hemoglobin. He was monitored overnight and had no additional bleeding. He was determined stable for discharge home. Follow-up: He will be seen in the oncology office on 12/10/2023 for repeat blood work. He is due to have his bone marrow biopsy next week. He will continue on all of his prescription as prior. He is instructed not to use any nasal sprays, blow his nose, or do anything to dislodge the clot currently. He will also follow his fever trend closely. Patient seen and examined at bedside. Doing well. He does have nasal congestion. No headache. No chest pain no shortness of breath, no cough Vital signs reviewed and stable. General: Nontoxic, no distress, appears at stated age Cardiovascular: S1S2 reg, no murmur, positive posterior tibial pulse bilateral, Lungs: CTA bilateral, no rhonchi, no rales, no accessory muscle use Ext: No gross muscle atrophy, no edema b/l lower extremities, no contractures Neuro: CN II-XI grossly intact, no focal neuro deficits Psych: Alert, oriented, appropriate affect A total of 32 minutes of time were spent preparing this complex discharge summary. Patient was discharged on 12/07/23. This dictation was prepared using [employer] voice recognition software. Though every attempt is made to correct errors during dictation some may still exist. Patient Condition at Discharge: Fair Plan - Discharge Summary Discharge Rx Participant: Yes New Discharge Prescriptions: Continue allopurinoL 300 mg PO DAILY #30 tab Acetaminophen Tab [Tylenol] 650 mg PO Q6HR PRN tab PRN Reason: Mild Pain Or Fever > 100.5 Ciprofloxacin HCl [Cipro] 500 mg PO BID Amoxic-Pot Clav 875-125Mg [Augmentin 875-125] 1 tab PO Q12HR Ondansetron [Ondansetron Odt] 4 mg PO Q4H PRN #45 tab PRN Reason: Nausea Fluconazole [Diflucan] 100 mg PO DAILY Acyclovir [Zovirax] 400 mg PO BID Discharge Medication List Ondansetron [Ondansetron Odt] 4 mg PO Q4H PRN #45 tab 10/15/23 [Rx] allopurinoL 300 mg PO DAILY #30 tab 10/15/23 [Rx] Acetaminophen Tab [Tylenol] 650 mg PO Q6HR PRN tab 10/29/23 [Rx] Fluconazole [Diflucan] 100 mg PO DAILY 10/30/23 [History] Acyclovir [Zovirax] 400 mg PO BID 11/20/23 [History] Ciprofloxacin HCl [Cipro] 500 mg PO BID 11/20/23 [History] Amoxic-Pot Clav 875-125Mg [Augmentin 875-125] 1 tab PO Q12HR 12/06/23 [History] Follow up Appointment(s)/Referral(s): Eusebio Naranjo [STAFF PHYSICIAN] - 12/19/23 1:15 pm Caio Patel MD [Primary Care Provider] - 12/10/23 2:30 pm Patient Instructions/Handouts: Nosebleed (ED) Activity/Diet/Wound Care/Special Instructions: Activity: as tolerated Diet: regular, neutropenic precautions Special Instructions: No nasal spray. You can use over the counter zyrtec or claritin, mucinex, or benadryl. Monitor for fevers closely. Return to the emergency department if recurrent bleeding. Discharge Disposition: HOME SELF-CARE
--- NOTE | 2023-12-07 15:42 | P.PN ---
Subjective Progress Note Date: 12/07/23 Patient resting comfortably in bed. Epistaxis has resolved. Patient reports he is feeling well. Denies any acute episodes of bleeding. Patient is receiving 1 additional unit of PRBCs today for hgb 6.6, with plans for discharge after. Follow-up scheduled in clinic for Sunday for CBC recheck. Objective - Vital Signs Vital signs: Vital Signs Temp 99.0 F 12/07/23 12:57 Pulse 88 12/07/23 12:57 Resp 16 12/07/23 12:57 BP 132/82 12/07/23 12:57 Pulse Ox 98 12/07/23 12:57 FiO2 Intake & Output 12/06/23 12/07/23 12/07/23 18:59 06:59 18:59 Intake Total 1178 2120 310 Balance 1178 2120 310 Weight 88.451 kg Intake: IV 593 platelets 593 Intake, IV Titration 900 Amount Sodium Chloride 0.9% 1, 900 000 ml @ 75 mls/hr IV . [id number] [facility] Rx#:[id number] Oral 600 Blood Product 585 620 310 Platelet Pheresis Pas 275 Psoralen Unit [id number] Rc Irr As1 Unit 310 [id number] Rc Irr As1 Unit 0 [id number] Rc Irr As1 Unit 0 310 [id number] Other: Voiding Method Toilet # Voids 3 - Constitutional General appearance: Present: average body habitus, no acute distress - EENT Eyes: Present: anicteric sclerae, EOMI ENT: Present: hearing grossly normal - Respiratory Details: breathing is even and unlabored - Cardiovascular Details: skin warm and dry - Integumentary Integumentary: Present: pale. Absent: cyanotic - Neurologic Neurologic: Present: CNII-XII intact - Musculoskeletal Musculoskeletal: Present: strength equal bilaterally - Labs CBC & Chem 7: 12/07/23 05:38 12/07/23 05:38 Labs: Abnormal Lab Results - Last 24 Hours (Table) 12/05/23 12/06/23 12/07/23 Range/Units 09:15 14:51 05:38 WBC 0.1 L* (3.8-10.6) k/uL RBC 2.23 L (4.30-5.90) m/uL Hgb 6.6 L* (13.0-17.5) gm/dL Hct 18.9 L* (39.0-53.0) % Plt Count 15 L* (150-450) k/uL Haptoglobin 397.0 H (31.2-198.0) mg/dL Sodium (137-145) mmol/L Creatinine (0.66-1.25) mg/dL Glucose (74-99) mg/dL Calcium (8.4-10.2) mg/dL AST (17-59) U/L ALT (4-49) U/L Alkaline Phosphatase (38-126) U/L Total Protein (6.3-8.2) g/dL Albumin (3.5-5.0) g/dL Crossmatch See Detail 12/07/23 Range/Units 05:38 WBC (3.8-10.6) k/uL RBC (4.30-5.90) m/uL Hgb (13.0-17.5) gm/dL Hct (39.0-53.0) % Plt Count (150-450) k/uL Haptoglobin (31.2-198.0) mg/dL Sodium 134 L (137-145) mmol/L Creatinine 0.51 L (0.66-1.25) mg/dL Glucose 111 H (74-99) mg/dL Calcium 8.3 L (8.4-10.2) mg/dL AST 77 H (17-59) U/L ALT 196 H (4-49) U/L Alkaline Phosphatase 238 H (38-126) U/L Total Protein 5.8 L (6.3-8.2) g/dL Albumin 2.7 L (3.5-5.0) g/dL Crossmatch Assessment and Plan (1) Epistaxis Status: Acute Priority: High Code(s): R04.0 - EPISTAXIS SNOMED Code(s): 945440495 (2) Pancytopenia Status: Acute Priority: High Code(s): D61.818 - OTHER PANCYTOPENIA SNOMED Code(s): 507646746 (3) Acute myeloid leukemia, without mention of having achieved remission Status: Acute Priority: High Code(s): C92.00 - ACUTE MYELOBLASTIC LEUKEMIA, NOT HAVING ACHIEVED REMISSION SNOMED Code(s): 81180658 Plan: Epistaxis: -Presented with complaints of left sided epistaxis. Denies any known nasal injury. He was recently diagnosed with sinusitis and was started on Augmentin by infectious disease. He denies fever and chills. -Upon admission hemoglobin was noted at 6.3, platelets 3000. He was given 2 doses platelets, 1 unit PRBCs and DDAVP. Patient was still having active bleeding from left nare, nasal clamp in place. -DIC workup was negative. Coags normal -Amicar and sandostatin ordered. After visit, spoke with primary RN, bleeding had resolved. Sandostatin held. -No epistaxis noted since yesterday. Will receive additional unit PRBCs today for hgb 6.6 with plans for discharge after -Discussed case with IM team AML -Full hx in HPI. Refractory disease on repeat bone marrow biopsy after receiving induction chemo 7+3 regimen. Completed salvage treatment with Flag-Martina on 11/25. -He has continued on f/u for close monitoring of CBC and has upcoming f/u with Dr. Naranjo for repeat bone marrow biopsy before he will be referred back to bone marrow transplant team Pancytopenia -Secondary to AML -Transfuse with irradiated blood products only -Upon admission hemoglobin was noted at 6.3, platelets 3,000. Received 2 doses platelets and 2 unit PRBCs and DDAVP and 1 dose amicar. Epistaxis resolved. Hgb 6.6 today, additional unit PRBCs ordered. Platelets 15,000, no acute bleeding noted -Transfuse for hemoglobin less than 7 and platelets less than 10,000, unless patient is symptomatic -CBC recheck in clinic M, W, F attests: I have seen and examined pt, performed H&P, developed impression and plan of care. Discussed with dictator. Agree with documentation, dictated as a scribe.
== END 2023-12-07 14:12 | disposition home or self-care (01) | DRG 834 ==
LOC: EC 01:01 → 5NMEDONC 08:03
PROVIDERS: ADMIT Internal Medicine; ATTEND Internal Medicine
PROC: 30233R1 Transfusion of Nonautologous Platelets into Peripheral Vein, Percutaneous Approach (ICD-10-PCS; principal; 2023-12-06)
PROC: 30233N1 Transfusion of Nonautologous Red Blood Cells into Peripheral Vein, Percutaneous Approach (ICD-10-PCS; principal; 2023-12-06)
DX: C92.00 Acute myeloblastic leukemia, not having achieved remission (principal); D61.810 Antineoplastic chemotherapy induced pancytopenia; R04.0 Epistaxis; D70.1 Agranulocytosis secondary to cancer chemotherapy; T45.1X5A Adverse effect of antineoplastic and immunosuppressive drugs, initial encounter; Z95.828 Presence of other vascular implants and grafts; K08.409 Partial loss of teeth, unspecified cause, unspecified class; Z79.899 Other long term (current) drug therapy; Z80.0 Family history of malignant neoplasm of digestive organs; Z86.711 Personal history of pulmonary embolism; Z87.891 Personal history of nicotine dependence; Z86.718 Personal history of other venous thrombosis and embolism; Z28.310 Unvaccinated for COVID-19; Z28.21 Immunization not carried out because of patient refusal
CPT/HCPCS: 36415; 36430; 80053; 83010; 83615; 85025; 85027; 85379; 85384; 85610; 85730; 86850; 86900; 86901; 86920; 96361; 96365; 99285

== ENCOUNTER → 2023-12-14 | Outpatient (CLI) | payer BC ==
[2023-12-14 09:42] VITALS: BP 161/82; PULSE 111; RESP 16; TEMP 99
== END ==
LOC: PROCWHC3 09:21
PROVIDERS: ATTEND Internal Medicine Hematology & Oncology
DX: C92.Z0 Other myeloid leukemia not having achieved remission (principal)
CPT/HCPCS: 96523; 99211

== ENCOUNTER 2023-12-19 13:54 | Inpatient (IN) | payer BC ==
[2023-12-19] MEDS ORDERED: VANCOMYCIN IV PER PHARMACY 1 EACH MISC MISCELLANE PRN ×2 (14:11→18:00)
[2023-12-19] MEDS ORDERED: VANCOMYCIN 1,500 MG in SODIUM CHLORIDE 0.9% 500 ML 500 ML IVPB STA (14:15)
[2023-12-19] MEDS ORDERED: ACETAMINOPHEN TAB 325 MG TAB PO STA (15:39)
--- NOTE | 2023-12-19 16:02 | ED ---
General Adult HPI - General Chief complaint: Fever Stated complaint: fever Time Seen by Provider: 12/19/23 14:10 Source: patient, RN notes reviewed, old records reviewed Mode of arrival: ambulatory Limitations: no limitations - History of Present Illness Initial comments: 43-year-old male history of AML, currently on chemotherapy. Patient had laboratory testing performed yesterday and was pancytopenic. He was seen in the oncologist office today and was febrile. He was sent to the emergency department for treatment of neutropenic fever. - Related Data Home Medications Medication Instructions Recorded Confirmed Fluconazole [Diflucan] 100 mg PO DAILY 10/30/23 12/17/23 Acyclovir [Zovirax] 400 mg PO BID 11/20/23 12/17/23 Ciprofloxacin HCl [Cipro] 500 mg PO BID 11/20/23 12/17/23 Previous Rx's Medication Instructions Recorded allopurinoL 300 mg PO DAILY #30 tab 10/15/23 Acetaminophen Tab [Tylenol] 650 mg PO Q6HR PRN tab 10/29/23 Allergies Allergy/AdvReac Type Severity Reaction Status Date / Time amoxicillin [From Augmentin] Allergy Rash/Hives Verified 12/19/23 14:01 clavulanic acid Allergy Rash/Hives Verified 12/19/23 14:01 [From Augmentin] Review of Systems ROS Statement: Those systems with pertinent positive or pertinent negative responses have been documented in the HPI. ROS Other: All systems not noted in ROS Statement are negative. Past Medical History Past Medical History: Cancer, Pulmonary Embolus (PE) Additional Past Medical History / Comment(s): Acute myeloid leukemia diagnosed in 2022 History of Any Multi-Drug Resistant Organisms: None Reported Past Surgical History: No Surgical Hx Reported Additional Past Surgical History / Comment(s): tooth extraction 11/15/23 Past Anesthesia/Blood Transfusion Reactions: No Reported Reaction Past Psychological History: No Psychological Hx Reported Smoking Status: Former smoker - Past Family History Mother Additional Family Medical History / Comment(s): bladder and stomach cancer General Exam Limitations: no limitations General appearance: alert, in no apparent distress Head exam: Present: atraumatic, normocephalic Eye exam: Present: normal appearance, PERRL Respiratory exam: Absent: respiratory distress, wheezes, rales Cardiovascular Exam: Present: normal rhythm, tachycardia GI/Abdominal exam: Present: soft. Absent: distended, tenderness, guarding Neurological exam: Present: alert, oriented X3 Skin exam: Present: rash Course Vital Signs 12/19/23 12/19/23 12/19/23 13:58 16:18 17:16 Temperature 99.8 F H 102.2 F H 102.4 F H Pulse Rate 120 H 109 H 112 H Respiratory 18 18 20 Rate Blood Pressure 131/76 125/69 130/73 O2 Sat by Pulse 100 99 99 Oximetry Medical Decision Making - Medical Decision Making Was pt. sent in by a medical professional or institution (, [facility], PROCEDURE WRITER, urgent care, hospital, or senior living...) When possible be specific @ -No Did you speak to anyone other than the patient for history (EMS, parent, family, police, friend...)? What history was obtained from this source @ -No Did you review nursing and triage notes (agree or disagree)? Why? @ -I reviewed and agree with nursing and triage notes Were old charts reviewed (outside hosp., previous admission, EMS record, old EKG, old radiological studies, urgent care reports/EKG's, senior living records)? Report findings @ -No old charts were reviewed Differential Diagnosis (chest pain, altered mental status, abdominal pain women, abdominal pain men, vaginal bleeding, weakness, fever, dyspnea, syncope, headache, dizziness, GI bleed, back pain, seizure, CVA, palpatations, mental health, musculoskeletal)? @ -Not applicable EKG interpreted by me (3pts min.). @ -As above X-rays interpreted by me (1pt min.). @ -[Chest x-ray shows an opacity in the right mid lung field which is new compared to prior, developing pneumonia CT interpreted by me (1pt min.). @ -None done U/S interpreted by me (1pt. min.). @ -None done What testing was considered but not performed or refused? (CT, X-rays, U/S, labs)? Why? @ -None What meds were considered but not given or refused? Why? @ -None Did you discuss the management of the patient with other professionals (balbir velarde i.e. , [facility], PROCEDURE WRITER, lab, RT, psych nurse, social studies department chair, concrete placement equipment operator, teacher, medical laboratory technical officer, keycase assembler)? Give summary @Dr. Naranjo, and Dr. Quinn Was smoking cessation discussed for >3mins.? @ -No Was critical care preformed (if so, how long)? @ -No Were there social determinants of health that impacted care today? How? (Homelessness, low income, unemployed, alcoholism, drug addiction, trans portation, low edu. Level, literacy, decrease access to med. care, fci, rehab)? @ -No Was there de-escalation of care discussed even if they declined (Discuss DNR or withdrawal of care, Hospice)? DNR status @ -No What co-morbidities impacted this encounter? (DM, HTN, Smoking, COPD, CAD, Cancer, CVA, ARF, Chemo, Hep., AIDS, mental health diagnosis, sleep apnea, morbid obesity)? @ -AML on chemotherapy Was patient admitted / discharged? Hospital course, mention meds given and route, prescriptions, significant lab abnormalities, going to OR and other pertinent info. @ -43-year-old male with neutropenic fever, pancytopenic requiring transfusion. Patient started on cefepime and vancomycin admitted to internal medicine with oncology and infectious disease on consult. Undiagnosed new problem with uncertain prognosis? @ -No Drug Therapy requiring intensive monitoring for toxicity (Heparin, Nitro, Insulin, Cardizem)? @ -No Were any procedures done? @ -No Diagnosis/symptom? @ -Neutropenic fever, pneumonia Acute, or Chronic, or Acute on Chronic? @Acute Uncomplicated (without systemic symptoms) or Complicated (systemic symptoms)? @ -[Complicated Side effects of treatment? @ -No Exacerbation, Progression, or Severe Exacerbation? @ -No Poses a threat to life or bodily function? How? (Chest pain, USA, MT, pneumonia, PE, COPD, DKA, ARF, appy, cholecystitis, CVA, Diverticulitis, Homicidal, Suicidal, threat to staff... and all critical care pts) @Yes, sepsis - Lab Data Result diagrams: 12/19/23 15:49 12/19/23 15:49 Lab Results 12/19/23 12/19/23 12/19/23 Range/Units 15:49 15:49 15:49 WBC 0.3 L* (3.8-10.6) k/uL RBC 1.93 L (4.30-5.90) m/uL Hgb 6.0 L* (13.0-17.5) gm/dL Hct 16.1 L* (39.0-53.0) % MCV 83.9 (80.0-100.0) fL MCH 31.2 (25.0-35.0) pg MCHC 37.2 H (31.0-37.0) g/dL RDW 12.4 (11.5-15.5) % Plt Count 22 L (150-450) k/uL MPV 11.8 Neutrophils # PROCEDURE WRITER Manual Slide Review Perf Hypochromasia (manual) Present Sodium 131 L (137-145) mmol/L Potassium 3.9 (3.5-5.1) mmol/L Chloride 98 (98-107) mmol/L Carbon Dioxide 27 (22-30) mmol/L Anion Gap 6 mmol/L BUN 9 (9-20) mg/dL Creatinine 0.52 L (0.66-1.25) mg/dL Est GFR (CKD-EPI)AfAm >90 (>60 ml/min/1.73 sqM) Est GFR (CKD-EPI)NonAf >90 (>60 ml/min/1.73 sqM) Glucose 126 H (74-99) mg/dL Calcium 8.0 L (8.4-10.2) mg/dL Total Bilirubin 0.3 (0.2-1.3) mg/dL AST 56 (17-59) U/L ALT 135 H (4-49) U/L Alkaline Phosphatase 153 H (38-126) U/L Total Protein 5.5 L (6.3-8.2) g/dL Albumin 2.6 L (3.5-5.0) g/dL Urine Color Urine Appearance (Clear) Urine pH (5.0-8.0) Ur Specific [place] (1.001-1.035) Urine Protein (Negative) Urine Glucose (UA) (Negative) Urine Ketones (Negative) Urine Blood (Negative) Urine Nitrite (Negative) Urine Bilirubin (Negative) Urine Urobilinogen (<2.0) mg/dL Ur Leukocyte Esterase (Negative) Influenza Type A (PCR) Not Detected (Not Detectd) Influenza Type B (PCR) Not Detected (Not Detectd) RSV (PCR) Not Detected (Not Detectd) SARS-CoV-2 (PCR) Not Detected (Not Detectd) 01/24/24 Range/Units 15:49 WBC (3.8-10.6) k/uL RBC (4.30-5.90) m/uL Hgb (13.0-17.5) gm/dL Hct (39.0-53.0) % MCV (80.0-100.0) fL MCH (25.0-35.0) pg MCHC (31.0-37.0) g/dL RDW (11.5-15.5) % Plt Count (150-450) k/uL MPV Neutrophils # Manual Slide Review Hypochromasia (manual) Sodium (137-145) mmol/L Potassium (3.5-5.1) mmol/L Chloride (98-107) mmol/L Carbon Dioxide (22-30) mmol/L Anion Gap mmol/L BUN (9-20) mg/dL Creatinine (0.66-1.25) mg/dL Est GFR (CKD-EPI)AfAm (>60 ml/min/1.73 sqM) Est GFR (CKD-EPI)NonAf (>60 ml/min/1.73 sqM) Glucose (74-99) mg/dL Calcium (8.4-10.2) mg/dL Total Bilirubin (0.2-1.3) mg/dL AST (17-59) U/L ALT (4-49) U/L Alkaline Phosphatase (38-126) U/L Total Protein (6.3-8.2) g/dL Albumin (3.5-5.0) g/dL Urine Color Colorless Urine Appearance Clear (Clear) Urine pH 7.5 (5.0-8.0) Ur Specific [place] 1.004 (1.001-1.035) Urine Protein Negative (Negative) Urine Glucose (UA) Negative (Negative) Urine Ketones Negative (Negative) Urine Blood Negative (Negative) Urine Nitrite Negative (Negative) Urine Bilirubin Negative (Negative) Urine Urobilinogen <2.0 (<2.0) mg/dL Ur Leukocyte Esterase Negative (Negative) Influenza Type A (PCR) (Not Detectd) Influenza Type B (PCR) (Not Detectd) RSV (PCR) (Not Detectd) SARS-CoV-2 (PCR) (Not Detectd) Disposition Clinical Impression: Neutropenic fever, Pancytopenia, Pneumonia Disposition: ADMITTED IP TO THIS HOSP Condition: Serious Is patient prescribed a controlled substance at d/c from ED?: No Time of Disposition: 16:43
--- NOTE | 2023-12-19 16:25 | XR ---
EXAMINATION TYPE: XR chest 1V portable DATE OF EXAM: 12/19/2023 3:59 PM CLINICAL INDICATION:Male, 43 years old with history of fever; COMPARISON: Chest radiographs from 11/10/2023. TECHNIQUE: XR chest 1V portable Frontal view of the chest. FINDINGS: Lungs/Pleura: Right midlung airspace opacities. There is no evidence of pleural effusion, focal conso lidation, or pneumothorax. Pulmonary vascularity: Unremarkable. Heart/mediastinum: Cardiomediastinal silhouette is unremarkable. Musculoskeletal: No acute osseous pathology. IMPRESSION: Right midlung airspace opacities correlate for pneumonia.
[2023-12-19 16:57] LABS: MCH 31.2 pg (25.0-35.0); MCHC 37.2 g/dL (31.0-37.0); MCV 83.9 fL (80.0-100.0); Mean Platelet Volume 11.8; RBC 1.93 m/uL (4.30-5.90); RDW 12.4 % (11.5-15.5)
[2023-12-19] MEDS: SODIUM CHLORIDE 0.9% 1,000 ML IV SCH ×2 (17:05→23:41)
[2023-12-19 17:11] LABS: HCT 16.1 % (39.0-53.0)
[2023-12-19 17:12] LABS: Platelet Count 22 k/uL (150-450)
[2023-12-19] MEDS ORDERED: NALOXONE 0.4 MG/ML 1 ML VIAL IV PRN (17:15)
[2023-12-19 17:17] LABS: Appearance,Urine Clear (Clear); Bilirubin,Urine Negative (Negative); Blood,Urine Negative (Negative); Color,Urine Colorless; Glucose,Urine (UA) Negative (Negative); Ketones,Urine Negative (Negative); Leukocyte Esterase,Urine Negative (Negative); Nitrite,Urine Negative (Negative); PH, Urine 7.5 (5.0-8.0); Protein,Urine Negative (Negative); Specific Gravity,Urine 1.004 (1.001-1.035); Urobilinogen,Urine <2.0 mg/dL (<2.0)
[2023-12-19 17:28] LABS: ALT 135 U/L (4-49); AST 56 U/L (17-59); African American GFR (CKD) >90 (>60 ml/min/1.73 sqM); Albumin 2.6 g/dL (3.5-5.0); Alkaline Phosphatase 153 U/L (38-126); Blood Urea Nitrogen 9 mg/dL (9-20); Carbon Dioxide 27 mmol/L (22-30); Glucose 126 mg/dL (74-99); Non-African American GFR(CKD) >90 (>60 ml/min/1.73 sqM); Total Bilirubin 0.3 mg/dL (0.2-1.3); Total Protein 5.5 g/dL (6.3-8.2)
[2023-12-19 17:49] LABS: Anion Gap 6 mmol/L; Chloride 98 mmol/L (98-107); Potassium 3.9 mmol/L (3.5-5.1); Sodium 131 mmol/L (137-145)
[2023-12-19 17:54] LABS: WBC 0.3 k/uL (3.8-10.6)
[2023-12-19 17:55] LABS: Hypochromasia (M) Present
[2023-12-19] MEDS: CEFEPIME 2 GM in SODIUM CHLORIDE 0.9% 100 ML IVPB SCH ×2 (17:58→23:40)
--- NOTE | 2023-12-19 18:05 | P.HPIM ---
History of Present Illness H&P Date: 12/19/23 Chief Complaint: Neutropenic fever Patient is a 43-year-old male with a past medical history of AML, recent strep bacteremia and DVT despite being thrombocytopenic with IVC filter placement who was sent to the emergency department for fever. Patient was at his oncology appointment where he was found to have a fever. Patient is complaining of a dry cough that has been ongoing since he started chemotherapy on November 20, 2023. Since he completed his second round of chemotherapy patient has been requiring multiple blood transfusions for PRBC and platelets. Patient also admitted recently for epistaxis due to thrombocytopenia. Patient denies any dysuria, abdominal pain, diarrhea nausea and vomiting. In the ED patient's WBC was 0.3, hemoglobin 6.0, platelets 22, AST 56, ALT 135, alkaline phosphatase 153. Chest x-ray showed right midlung airspace opacity. ROS: 10 ROS reviewed and are negative except as noted in HPI Physical exam General: [Alert and oriented, well nourished, no acute distress]. Eye: [PERRL, EOMI, normal conjunctiva]. HENT: [Normocephalic, clear tympanic membranes, normal hearing, moist oral mucosa, no scleral icterus, no sinus tenderness]. Neck: [Supple, non-tender, no carotid bruits, no JVD, no lymphadenopathy]. Lungs: [Diminished breath sounds bilaterally, non-labored respiration]. Heart: [Normal rate, regular rhythm, no murmur, gallop or edema]. Abdomen: [Soft, non-tender, non-distended, normal bowel sounds, no masses]. Musculoskeletal: [Normal range of motion and strength, no tenderness or swelling]. Skin: [Rash on bilateral lower extremities and also bilateral upper extremities which patient states is improving and was due to drug allergy from Augmentin]. Neurologic: [Awake, alert, and oriented X3, CN II-XII intact]. Psychiatric: [Cooperative, appropriate mood and affect]. Assessment and plan Neutropenic fever Hospital-acquired pneumonia Will start the patient on vancomycin and cefepime Follow-up on blood culture Consult infectious disease AML Pancytopenia Sepsis on admission with fever and tachycardia Transfuse for hemoglobin less than 7 Transfuse platelets less than 10 or patient has active bleeding Continue with fluconazole, acyclovir and allopurinol Hold prophylactic dose of ciprofloxacin Unfortunately lactic acid was not done in the ED. Will check lactic acid History of DVT status post IVC filter Anticoagulation contraindicated due to thrombocytopenia Chronic transaminitis Improving compared to previous admission DVT prophylaxis: No anticoagulation due to thrombocytopenia Past Medical History Past Medical History: Cancer, Pulmonary Embolus (PE) Additional Past Medical History / Comment(s): Acute myeloid leukemia diagnosed in 2022 History of Any Multi-Drug Resistant Organisms: None Reported Past Surgical History: No Surgical Hx Reported Additional Past Surgical History / Comment(s): tooth extraction 11/15/23 Past Anesthesia/Blood Transfusion Reactions: No Reported Reaction Past Psychological History: No Psychological Hx Reported Smoking Status: Former smoker - Past Family History Mother Additional Family Medical History / Comment(s): bladder and stomach cancer Medications and Allergies Home Medications Medication Instructions Recorded Confirmed Type allopurinoL 300 mg PO DAILY #30 tab 10/15/23 12/17/23 Rx Acetaminophen Tab [Tylenol] 650 mg PO Q6HR PRN tab 10/29/23 12/17/23 Rx Fluconazole [Diflucan] 100 mg PO DAILY 10/30/23 12/17/23 History Acyclovir [Zovirax] 400 mg PO BID 11/20/23 12/17/23 History Ciprofloxacin HCl [Cipro] 500 mg PO BID 11/20/23 12/17/23 History Allergies Allergy/AdvReac Type Severity Reaction Status Date / Time amoxicillin [From Augmentin] Allergy Rash/Hives Verified 12/19/23 14:01 clavulanic acid Allergy Rash/Hives Verified 12/19/23 14:01 [From Augmentin] Physical Exam Osteopathic Statement: *. No significant issues noted on an osteopathic structural exam other than those noted in the History and Physical/Consult. Vitals: Vital Signs Temp Pulse Resp BP Pulse Ox 12/19/23 17:16 102.4 F H 112 H 20 130/73 99 12/19/23 16:18 102.2 F H 109 H 18 125/69 99 12/19/23 13:58 99.8 F H 120 H 18 131/76 100 Intake and Output 12/19/23 12/19/23 12/19/23 06:59 14:59 22:59 Other: Weight 90.265 kg Results CBC & Chem 7: 12/19/23 15:49 12/19/23 15:49 Labs: Abnormal Lab Results - Last 24 Hours (Table) 12/19/23 12/19/23 Range/Units 15:49 15:49 WBC 0.3 L* (3.8-10.6) k/uL RBC 1.93 L (4.30-5.90) m/uL Hgb 6.0 L* (13.0-17.5) gm/dL Hct 16.1 L* (39.0-53.0) % MCHC 37.2 H (31.0-37.0) g/dL Plt Count 22 L (150-450) k/uL Sodium 131 L (137-145) mmol/L Creatinine 0.52 L (0.66-1.25) mg/dL Glucose 126 H (74-99) mg/dL Calcium 8.0 L (8.4-10.2) mg/dL ALT 135 H (4-49) U/L Alkaline Phosphatase 153 H (38-126) U/L Total Protein 5.5 L (6.3-8.2) g/dL Albumin 2.6 L (3.5-5.0) g/dL
[2023-12-19] MEDS: ACYCLOVIR 200 MG CAP PO SCH (21:16)
[2023-12-19] MEDS: ACETAMINOPHEN TAB 325 MG TAB PO PRN (21:19)
[2023-12-19] MEDS: VANCOMYCIN 1,500 MG in SODIUM CHLORIDE 0.9% 500 ML 500 ML IVPB SCH (23:40)
[2023-12-20 00:09] LABS: MCH 30.4 pg (25.0-35.0); MCHC 35.1 g/dL (31.0-37.0); MCV 86.6 fL (80.0-100.0); Mean Platelet Volume 12.6; RBC 2.18 m/uL (4.30-5.90); RDW 12.7 % (11.5-15.5)
[2023-12-20 00:19] LABS: HCT 18.9 % (39.0-53.0); HGB 6.6 gm/dL (13.0-17.5); WBC 0.3 k/uL (3.8-10.6)
[2023-12-20 01:51] LABS: Platelet Count 23 k/uL (150-450); RBC Morphology Normal
[2023-12-20 03:41] LABS: MCH 30.5 pg (25.0-35.0); MCHC 35.6 g/dL (31.0-37.0); MCV 85.9 fL (80.0-100.0); Mean Platelet Volume 13.6; RBC 2.07 m/uL (4.30-5.90); RDW 12.7 % (11.5-15.5)
[2023-12-20 04:08] LABS: HCT 17.8 % (39.0-53.0); WBC 0.4 k/uL (3.8-10.6)
[2023-12-20] MEDS ORDERED: methylPREDNISolone SOD SUCCI 125 MG/2 ML VIAL IV STA (04:22)
[2023-12-20] MEDS ORDERED: FAMOTIDINE 20 MG/2 ML VIAL IV STA ×2 (04:22→20:19)
[2023-12-20] MEDS ORDERED: diphenhydrAMINE 50 MG/ML 1 ML VIAL IVP STA ×2 (04:22→20:19)
[2023-12-20] MEDS: ACETAMINOPHEN TAB 325 MG TAB PO PRN ×2 (04:39→14:48)
[2023-12-20] MEDS: CEFEPIME 2 GM in SODIUM CHLORIDE 0.9% 100 ML IVPB SCH ×2 (04:40→14:38)
[2023-12-20 04:46] LABS: HGB 6.3 gm/dL (13.0-17.5); Platelet Count 18 k/uL (150-450)
[2023-12-20 04:54] LABS: ALT 142 U/L (4-49); AST 72 U/L (17-59); African American GFR (CKD) >90 (>60 ml/min/1.73 sqM); Albumin 2.2 g/dL (3.5-5.0); Alkaline Phosphatase 158 U/L (38-126); Anion Gap 2 mmol/L; Blood Urea Nitrogen 11 mg/dL (9-20); Calcium 7.6 mg/dL (8.4-10.2); Carbon Dioxide 24 mmol/L (22-30); Chloride 106 mmol/L (98-107); Glucose 128 mg/dL (74-99); Non-African American GFR(CKD) >90 (>60 ml/min/1.73 sqM); Potassium 3.8 mmol/L (3.5-5.1); Sodium 132 mmol/L (137-145); Total Bilirubin 0.5 mg/dL (0.2-1.3)
[2023-12-20] MEDS: allopurinoL 300 MG TAB PO SCH (07:34)
[2023-12-20] MEDS: ACYCLOVIR 200 MG CAP PO SCH ×2 (07:34→19:45)
[2023-12-20] MEDS: FLUCONAZOLE 100 MG TAB PO SCH (07:34)
[2023-12-20] MEDS: VANCOMYCIN 1,500 MG in SODIUM CHLORIDE 0.9% 500 ML 500 ML IVPB SCH ×2 (07:35→16:23)
--- NOTE | 2023-12-20 11:39 | P.PN ---
Subjective Progress Note Date: 12/20/23 Hospital course Patient is a 43-year-old male with a past medical history of AML, recent strep bacteremia and DVT despite being thrombocytopenic with IVC filter placement who was sent to the emergency department for fever. Patient was at his oncology appointment where he was found to have a fever. Patient is complaining of a dry cough that has been ongoing since he started chemotherapy on November 20, 2023. Since he completed his second round of chemotherapy patient has been requiring multiple blood transfusions for PRBC and platelets. Patient also admitted recently for epistaxis due to thrombocytopenia. Patient denies any dysuria, abdominal pain, diarrhea nausea and vomiting. In the ED patient's WBC was 0.3, hemoglobin 6.0, platelets 22, AST 56, ALT 135, alkaline phosphatase 153. Chest x-ray showed right midlung airspace opacity. Today patient states that he is feeling slightly better. Physical exam General examination - Alert and Oriented 3 in NAD Heart - + S1S2 no murmurs Lungs - Clear to auscultation Abdomen soft NT ND +ve BS Extremities - No edema THERAPEUTIC RECREATION DIRECTOR - Moving all 4 extremities spontaneously Psych - Calm and cooperative. Assessment and plan Neutropenic fever Hospital-acquired pneumonia Will start the patient on vancomycin and cefepime Follow-up on blood culture Infectious disease on board Fevers have resolved AML Pancytopenia Sepsis on admission with fever and tachycardia Transfuse for hemoglobin less than 7 Hemoglobin this morning was 6.3. Patient transfused a total of 2 units of PRBC. Will repeat CBC after the second unit Transfuse platelets less than 10 or patient has active bleeding Platelets this morning are 18 which is downtrending. Continue with fluconazole, acyclovir and allopurinol Hold prophylactic dose of ciprofloxacin Lactic acid within normal limits and blood pressure normotensive so no need for fluid bolus History of DVT status post IVC filter Anticoagulation contraindicated due to thrombocytopenia Chronic transaminitis Stable DVT prophylaxis: No anticoagulation due to thrombocytopenia Objective - Vital Signs Vital signs: Vital Signs Temp 98 F 12/20/23 11:21 Pulse 91 12/20/23 11:21 Resp 16 12/20/23 11:21 BP 158/87 12/20/23 11:21 Pulse Ox 99 12/20/23 11:21 FiO2 Intake & Output 12/19/23 12/20/23 12/20/23 18:59 06:59 18:59 Intake Total 310 550 Balance 310 550 Weight 90.265 kg 70 kg Intake: Oral 240 Blood Product 310 310 Rc Irr As1 Unit 0 310 [id number] Rc Irr As1 Unit 310 [id number] Other: Voiding Method Toilet Toilet # Voids 1 1 - Labs CBC & Chem 7: 12/20/23 02:45 12/20/23 02:45 Labs: Abnormal Lab Results - Last 24 Hours (Table) 12/19/23 12/19/23 12/19/23 Range/Units 15:49 15:49 16:40 WBC 0.3 L* (3.8-10.6) k/uL RBC 1.93 L (4.30-5.90) m/uL Hgb 6.0 L* (13.0-17.5) gm/dL Hct 16.1 L* (39.0-53.0) % MCHC 37.2 H (31.0-37.0) g/dL Plt Count 22 L (150-450) k/uL Sodium 131 L (137-145) mmol/L Creatinine 0.52 L (0.66-1.25) mg/dL Glucose 126 H (74-99) mg/dL Calcium 8.0 L (8.4-10.2) mg/dL AST (17-59) U/L ALT 135 H (4-49) U/L Alkaline Phosphatase 153 H (38-126) U/L Total Protein 5.5 L (6.3-8.2) g/dL Albumin 2.6 L (3.5-5.0) g/dL Crossmatch See Detail 12/19/23 12/20/23 12/20/23 Range/Units 23:11 02:45 02:45 WBC 0.3 L* 0.4 L* (3.8-10.6) k/uL RBC 2.18 L 2.07 L (4.30-5.90) m/uL Hgb 6.6 L* 6.3 L* (13.0-17.5) gm/dL Hct 18.9 L* 17.8 L* (39.0-53.0) % MCHC (31.0-37.0) g/dL Plt Count 23 L 18 L* (150-450) k/uL Sodium 132 L (137-145) mmol/L Creatinine 0.55 L (0.66-1.25) mg/dL Glucose 128 H (74-99) mg/dL Calcium 7.6 L (8.4-10.2) mg/dL AST 72 H (17-59) U/L ALT 142 H (4-49) U/L Alkaline Phosphatase 158 H (38-126) U/L Total Protein 5.0 L (6.3-8.2) g/dL Albumin 2.2 L (3.5-5.0) g/dL Crossmatch
[2023-12-20 12:15] LABS: MCH 31.4 pg (25.0-35.0); MCHC 36.1 g/dL (31.0-37.0); MCV 86.8 fL (80.0-100.0); RDW 12.9 % (11.5-15.5)
[2023-12-20 12:41] LABS: HCT 18.2 % (39.0-53.0); HGB 6.6 gm/dL (13.0-17.5); Platelet Count 17 k/uL (150-450); WBC 0.3 k/uL (3.8-10.6)
[2023-12-20] MEDS: SODIUM CHLORIDE 0.9% 1,000 ML IV SCH (14:39)
--- NOTE | 2023-12-20 19:12 | P.CONS ---
History of Present Illness - Reason for Consult Consult date: 12/20/23 AML, neutropenic fever - Chief Complaint Fever - History of Present Illness Mr. Rudolph is a 43-year-old gentleman with a past medical history significant for AML status post induction chemotherapy initiated on 10/08/2023 with refractory disease status post salvage FLAG-SANCHEZ initiated on 11/20/2023 who presents with neutropenic fever. He was seen in clinic yesterday, when he was noted to have fever. WBC at that time was noted to be 0.2 with hemoglobin 6.1 and platelets 17. Given the fever and his neutropenia, he was advised to present to the ED for additional management recommendations. In the ED, he was noted to have Tmax of 102.4 F and was tachycardic from the 100s to 120s. CBC on presentation noted WBC 0.3, hemoglobin 6, platelets 22. UA and viral PCR were both negative. Chest x-ray noted concern for potential right midlung airspace opacity concerning for pneumonia. He was started on vancomycin and cefepime and given methylprednisolone 125 mg IV in addition to fluconazole and acyclovir and was admitted to internal medicine for additional management. Currently, he notes having intermittent cough. He is having swelling in the face and upper lip along with extensive lacy red rash in the lower extremities bilaterally, which she notes was the more extensive after taking amoxicillin prescribed by his PCP. He denies any bruising or bleeding diathesis currently. Review of Systems 14 point review of systems conducted with pertinent positives and negatives as noted per HPI Past Medical History Past Medical History: Cancer, Pulmonary Embolus (PE) Additional Past Medical History / Comment(s): Acute myeloid leukemia diagnosed in 2022 History of Any Multi-Drug Resistant Organisms: None Reported Past Surgical History: No Surgical Hx Reported Additional Past Surgical History / Comment(s): tooth extraction 11/15/23, LVD placed 2022. Last chemo 11/24/23. Past Anesthesia/Blood Transfusion Reactions: No Reported Reaction Past Psychological History: No Psychological Hx Reported Smoking Status: Never smoker Past Alcohol Use History: None Reported Past Drug Use History: None Reported - Past Family History Mother Additional Family Medical History / Comment(s): bladder and stomach cancer Medications and Allergies Home Medications Medication Instructions Recorded Confirmed Type allopurinoL 300 mg PO DAILY #30 tab 10/15/23 12/19/23 Rx Fluconazole [Diflucan] 100 mg PO DAILY 10/30/23 12/19/23 History Acyclovir [Zovirax] 400 mg PO BID 11/20/23 12/19/23 History Ciprofloxacin HCl [Cipro] 500 mg PO BID 11/20/23 12/19/23 History Acetaminophen Tab [Tylenol Tab] 1,000 mg PO Q6HR PRN 12/19/23 12/19/23 History Guaifenesin/Dextromethorphan 20 ml PO Q4H PRN 12/19/23 12/19/23 History [Robitussin Cough-Chest Dm Liq] Ondansetron Odt [Zofran Odt] 4 - 8 mg PO Q4H PRN 12/19/23 12/19/23 History Allergies Allergy/AdvReac Type Severity Reaction Status Date / Time amoxicillin [From Augmentin] Allergy Rash/Hives Verified 12/19/23 14:01 clavulanic acid Allergy Rash/Hives Verified 12/19/23 14:01 [From Augmentin] Penicillins Allergy Swelling Verified 12/20/23 07:18 Physical Exam Vitals: Vital Signs Temp Pulse Pulse Resp BP BP Pulse Ox 12/20/23 17:49 98 12/20/23 17:45 96.0 F L 94 16 151/83 12/20/23 16:20 97.8 F 90 16 138/80 98 12/20/23 15:10 98 F 103 H 18 165/81 99 12/20/23 14:44 98 F 103 H 18 165/81 99 12/20/23 14:24 98.1 F 103 H 16 145/86 100 12/20/23 14:14 98.2 F 99 18 147/79 100 12/20/23 11:51 98.1 F 91 18 142/77 99 12/20/23 11:21 98 F 91 16 158/87 99 12/20/23 08:00 97.9 F 95 18 129/72 99 12/20/23 07:06 98.8 F 91 16 137/73 99 12/20/23 05:52 98.3 F 106 H 18 138/78 97 12/20/23 05:32 98.5 F 106 H 18 136/76 98 12/20/23 05:22 99.1 F 108 H 18 133/71 97 12/20/23 04:00 100.0 F H 108 H 18 133/71 97 12/20/23 01:55 104 H 16 12/19/23 23:38 98.1 F 105 H 16 132/69 99 12/19/23 22:15 98.1 F 104 H 20 136/64 97 12/19/23 21:11 98.3 F 111 H 18 138/74 12/19/23 20:51 98.7 F 107 H 18 147/76 12/19/23 20:42 98.1 F 103 H 18 148/74 12/19/23 20:01 100.0 F H 109 H 20 129/72 99 12/19/23 20:00 116 H 12/19/23 19:28 100.4 F H Intake and Output 12/20/23 12/20/23 12/20/23 06:59 14:59 22:59 Intake Total 310 550 850 Balance 310 550 850 Intake: Oral 240 540 Blood Product 310 310 310 Rc Irr As1 Unit 0 310 [id number] Rc Irr As1 Unit 0 310 [id number] Rc Irr As1 Unit 310 [id number] Other: Voiding Method Toilet Toilet # Voids 1 1 2 Weight 70 kg - Constitutional General appearance: cooperative, no acute distress - EENT Periorbital edema along with swelling of the upper lip noted Eyes: EOMI - Neck Neck: no lymphadenopathy - Respiratory Respiratory: bilateral: CTA - Cardiovascular Warm and well-perfused - Gastrointestinal General gastrointestinal: no distended, soft - Integumentary Extensive lacy rash noted in the lower extremities bilaterally that is non- blanching - Neurologic Neurologic: CNII-XII intact Results CBC & Chem 7: 12/20/23 05:22 12/20/23 02:45 Labs: Abnormal Lab Results - Last 24 Hours (Table) 12/19/23 12/19/23 12/20/23 Range/Units 16:40 23:11 02:45 WBC 0.3 L* 0.4 L* (3.8-10.6) k/uL RBC 2.18 L 2.07 L (4.30-5.90) m/uL Hgb 6.6 L* 6.3 L* (13.0-17.5) gm/dL Hct 18.9 L* 17.8 L* (39.0-53.0) % Plt Count 23 L 18 L* (150-450) k/uL Sodium (137-145) mmol/L Creatinine (0.66-1.25) mg/dL Glucose (74-99) mg/dL Calcium (8.4-10.2) mg/dL AST (17-59) U/L ALT (4-49) U/L Alkaline Phosphatase (38-126) U/L Total Protein (6.3-8.2) g/dL Albumin (3.5-5.0) g/dL Crossmatch See Detail 12/20/23 12/20/23 Range/Units 02:45 05:22 WBC 0.3 L* (3.8-10.6) k/uL RBC 2.10 L (4.30-5.90) m/uL Hgb 6.6 L* (13.0-17.5) gm/dL Hct 18.2 L* (39.0-53.0) % Plt Count 17 L* (150-450) k/uL Sodium 132 L (137-145) mmol/L Creatinine 0.55 L (0.66-1.25) mg/dL Glucose 128 H (74-99) mg/dL Calcium 7.6 L (8.4-10.2) mg/dL AST 72 H (17-59) U/L ALT 142 H (4-49) U/L Alkaline Phosphatase 158 H (38-126) U/L Total Protein 5.0 L (6.3-8.2) g/dL Albumin 2.2 L (3.5-5.0) g/dL Crossmatch Assessment and Plan (1) Neutropenic fever Current Visit: Yes Status: Acute Priority: High Code(s): D70.9 - NEUTROPENIA, UNSPECIFIED; R50.81 - FEVER PRESENTING WITH CONDITIONS CLASSIFIED ELSEWHERE SNOMED Code(s): 817395061 (2) Pancytopenia Current Visit: Yes Status: Acute Priority: High Code(s): D61.818 - OTHER PANCYTOPENIA SNOMED Code(s): 168299541 (3) Acute myeloid leukemia, without mention of having achieved remission Current Visit: No Status: Acute Priority: High Code(s): C92.00 - ACUTE MYELOBLASTIC LEUKEMIA, NOT HAVING ACHIEVED REMISSION SNOMED Code(s): 14944224 (4) Penicillin allergy Current Visit: No Status: Acute Code(s): Z88.0 - ALLERGY STATUS TO PENICILLIN SNOMED Code(s): 76370455 Plan: #Neutropenic fever due to pneumonia -Presented with Tmax of 102.4 F and dry cough -Chest x-ray with concern for right midlung opacity potentially consistent with pneumonia -WBC noted to be 0.3 on presentation with negative UA and viral PCR -Started on vancomycin and cefepime in the ED with worsening swelling in the face -Methylprednisolone and Benadryl was subsequently given with improvement in swelling -Currently on vancomycin without any worsening of previous rash -Continue vancomycin at this time pending blood cultures obtained in the ED -Cefepime is currently on hold, will defer to ID for gram-negative coverage -Additional dose of IV hydrocortisone will be ordered to help with swelling in the upper lip #Pancytopenia -Secondary to FLAG-SANCHEZ salvage chemotherapy given for refractory AML from 11/20/2023 through 11/25/2023 -1 unit of packed red blood cells received on admission along with 1 additional unit of packed red blood cells ordered today -Given he is immunocompromised and on chemotherapy, irradiated products only should be used to prevent donor [id number] transfusion reaction -Transfuse for hemoglobin less than 7 and/or platelets less than 10,000 and/or bleeding #Refractory AML -Initiated on induction 7+3 chemotherapy on 10/08/2023 -Noted to have evidence of persistent blasts on repeat bone marrow biopsy on 10/31/2023 -FLAG-SANCHEZ salvage chemotherapy given from 11/20/2023 through 1280 2022 -Plan is to proceed with allogenic stem cell transplant at [facility] -Bone marrow biopsy was initially ordered by his primary director supply chain for 12/21/2023, but there is no distribution field technician available to help prepare samples -We will work with pathology department to schedule bone marrow biopsy, potentially before he is discharged # Penicillin allergy -Noted to have diffuse erythematous rash with swelling in the eyes and lips after amoxicillin -This has slowly improved over the past few weeks -Additional hydrocortisone IV dose as above Olivia Carpenter MD
[2023-12-20 22:00] LABS: HCT 22.7 % (39.0-53.0); MCH 30.3 pg (25.0-35.0); MCHC 35.6 g/dL (31.0-37.0); Mean Platelet Volume 12.8; RBC 2.66 m/uL (4.30-5.90); RDW 13.1 % (11.5-15.5)
[2023-12-20 22:23] LABS: HGB 8.1 gm/dL (13.0-17.5); Platelet Count 20 k/uL (150-450); WBC 0.3 k/uL (3.8-10.6)
--- NOTE | 2023-12-20 22:56 | CT ---
EXAM: CT Maxillofacial Sinuses With Intravenous Contrast CLINICAL HISTORY: ITS.REASON CT Reason: sinusitis/abscess , febrile neutropenia TECHNIQUE: Computed tomography images of the maxillofacial sinuses with intravenous contrast. CTDI is 17.3 mGy and DLP is 401.1 mGy-cm. This CT exam was performed using one or more of the following dose reduction techniques: automated exposure control, adjustment of the mA and/or kV according to patient size, and/or use of iterative reconstruction technique. COMPARISON: No relevant prior studies available. FINDINGS: Maxillary sinuses: Heavy mucosal thickening. Obstruction of the bilateral ostiomeatal units. No air-fluid levels. Sphenoid sinuses: Mild to moderate mucosal thickening of the right sphenoid sinus. No air-fluid levels. Frontal sinuses: Aplastic right frontal sinus. No air-fluid levels. Ethmoid air cells: Mild to moderate mucosal thickening. No air-fluid levels. Nasal cavity/septum: No acute findings. Bones/joints: No acute fracture. Soft tissues: Prominent cervical lymph nodes. IMPRESSION: Chronic maxillary, ethmoid and right sphenoid sinusitis with obstruction of the ostiomeatal units.
[2023-12-21] MEDS: AZTREONAM 2 GM in SODIUM CHLORIDE 0.9% 100 ML IVPB SCH ×4 (00:48→23:29)
[2023-12-21] MEDS: VANCOMYCIN 1,500 MG in SODIUM CHLORIDE 0.9% 500 ML 500 ML IVPB SCH ×4 (00:48→23:29)
--- NOTE | 2023-12-21 01:20 | P.CONS ---
History of Present Illness - Reason for Consult Consult date: 12/20/23 - History of Present Illness Patient is a 43-year-old male with a past medical history significant for AML s/p induction chemotherapy on 10/08/2023 subsequently was admitted to the hospital to have a febrile neutropenia which was related to the left lower jaw infected tooth and for the patient has completed his antibiotic therapy patient recently treated in the outpatient setting with Augmentin for a sinus infection subsequently developing a rash, patient was evaluated at oncology clinic on the day of admission to the hospital the patient was noticed to be febrile and tachycardic did have a low white count has the patient was advised to go to the hospital. On arrival to the hospital patient did have a fever of 102.2 F, patient was tachycardic but not hypotensive or hypoxic did have white count of 0.3 creatinine 0.55 influenza RSV COVID testing was negative urine was negative patient did have a chest x-ray right midlung airspace opacity correlate for pneumonia patient was started on cefepime and vancomycin patient mention he he did have problem with the lip swelling and itching after the cefepime infusion has it was discontinued infectious disease was consulted for further management of antibiotic therapy. Patient is currently complaining of fever with chills he denies having significant headache has been complaining of mostly swelling and discomfort to the sinus area mostly around his anterior nares, did not have any open wound or any drainage did have some dull aching pain to the sinus area mild in intensity denies having any nausea no vomiting no chest pain shortness with occasional cough no abdominal pain or diarrhea Past Medical History Past Medical History: Cancer, Pulmonary Embolus (PE) Additional Past Medical History / Comment(s): Acute myeloid leukemia diagnosed in 2022 History of Any Multi-Drug Resistant Organisms: None Reported Past Surgical History: No Surgical Hx Reported Additional Past Surgical History / Comment(s): tooth extraction 11/15/23, LVD placed 2022. Last chemo 11/24/23. Past Anesthesia/Blood Transfusion Reactions: No Reported Reaction Past Psychological History: No Psychological Hx Reported Smoking Status: Never smoker Past Alcohol Use History: None Reported Past Drug Use History: None Reported - Past Family History Mother Additional Family Medical History / Comment(s): bladder and stomach cancer Medications and Allergies Home Medications Medication Instructions Recorded Confirmed Type allopurinoL 300 mg PO DAILY #30 tab 10/15/23 12/19/23 Rx Fluconazole [Diflucan] 100 mg PO DAILY 10/30/23 12/19/23 History Acyclovir [Zovirax] 400 mg PO BID 11/20/23 12/19/23 History Ciprofloxacin HCl [Cipro] 500 mg PO BID 11/20/23 12/19/23 History Acetaminophen Tab [Tylenol Tab] 1,000 mg PO Q6HR PRN 12/19/23 12/19/23 History Guaifenesin/Dextromethorphan 20 ml PO Q4H PRN 12/19/23 12/19/23 History [Robitussin Cough-Chest Dm Liq] Ondansetron Odt [Zofran Odt] 4 - 8 mg PO Q4H PRN 12/19/23 12/19/23 History Allergies Allergy/AdvReac Type Severity Reaction Status Date / Time amoxicillin [From Augmentin] Allergy Rash/Hives Verified 12/19/23 14:01 clavulanic acid Allergy Rash/Hives Verified 12/19/23 14:01 [From Augmentin] Penicillins Allergy Swelling Verified 12/20/23 07:18 Physical Exam Vitals: Vital Signs Temp Pulse Pulse Resp BP BP Pulse Ox 12/20/23 17:49 98 12/20/23 17:45 96.0 F L 94 16 151/83 12/20/23 16:20 97.8 F 90 16 138/80 98 12/20/23 15:10 98 F 103 H 18 165/81 99 12/20/23 14:44 98 F 103 H 18 165/81 99 12/20/23 14:24 98.1 F 103 H 16 145/86 100 12/20/23 14:14 98.2 F 99 18 147/79 100 12/20/23 11:51 98.1 F 91 18 142/77 99 12/20/23 11:21 98 F 91 16 158/87 99 12/20/23 08:00 97.9 F 95 18 129/72 99 12/20/23 07:06 98.8 F 91 16 137/73 99 12/20/23 05:52 98.3 F 106 H 18 138/78 97 12/20/23 05:32 98.5 F 106 H 18 136/76 98 12/20/23 05:22 99.1 F 108 H 18 133/71 97 12/20/23 04:00 100.0 F H 108 H 18 133/71 97 12/20/23 01:55 104 H 16 12/19/23 23:38 98.1 F 105 H 16 132/69 99 12/19/23 22:15 98.1 F 104 H 20 136/64 97 12/19/23 21:11 98.3 F 111 H 18 138/74 Intake and Output 12/20/23 12/20/23 12/20/23 06:59 14:59 22:59 Intake Total 310 550 850 Balance 310 550 850 Intake: Oral 240 540 Blood Product 310 310 310 Rc Irr As1 Unit 0 310 [id number] Rc Irr As1 Unit 0 310 [id number] Rc Irr As1 Unit 310 [id number] Other: Voiding Method Toilet Toilet # Voids 1 1 2 Weight 70 kg Results CBC & Chem 7: 12/20/23 21:30 12/20/23 02:45 Labs: Abnormal Lab Results - Last 24 Hours (Table) 12/19/23 12/19/23 12/20/23 Range/Units 16:40 23:11 02:45 WBC 0.3 L* 0.4 L* (3.8-10.6) k/uL RBC 2.18 L 2.07 L (4.30-5.90) m/uL Hgb 6.6 L* 6.3 L* (13.0-17.5) gm/dL Hct 18.9 L* 17.8 L* (39.0-53.0) % Plt Count 23 L 18 L* (150-450) k/uL Sodium (137-145) mmol/L Creatinine (0.66-1.25) mg/dL Glucose (74-99) mg/dL Calcium (8.4-10.2) mg/dL AST (17-59) U/L ALT (4-49) U/L Alkaline Phosphatase (38-126) U/L Total Protein (6.3-8.2) g/dL Albumin (3.5-5.0) g/dL Crossmatch See Detail 12/20/23 12/20/23 Range/Units 02:45 05:22 WBC 0.3 L* (3.8-10.6) k/uL RBC 2.10 L (4.30-5.90) m/uL Hgb 6.6 L* (13.0-17.5) gm/dL Hct 18.2 L* (39.0-53.0) % Plt Count 17 L* (150-450) k/uL Sodium 132 L (137-145) mmol/L Creatinine 0.55 L (0.66-1.25) mg/dL Glucose 128 H (74-99) mg/dL Calcium 7.6 L (8.4-10.2) mg/dL AST 72 H (17-59) U/L ALT 142 H (4-49) U/L Alkaline Phosphatase 158 H (38-126) U/L Total Protein 5.0 L (6.3-8.2) g/dL Albumin 2.2 L (3.5-5.0) g/dL Crossmatch Assessment and Plan Plan: 1-patient presented to hospital with sepsis in this patient who did have a fever tachycardia low white count source is likely bacterial sinusitis with significant sinus symptoms chest x-ray also showing right midlung infiltrate and concern for possible component of pneumonia 2-patient with multiple antibiotic ALLERGIES that would limit the number of antibiotic safe to use 3-we will obtain a CT of the sinuses to see the extent of his disease and to make sure no evidence of any sinus destruction that may be pointing towards more aggressive infection such as Mucor 4-we will check his inflammatory markers including procalcitonin and try to obtain a sputum with possible 5-we will continue with the vancomycin however keeping in mind lip swelling and rash with cefepime we will discontinue cefepime start the patient on Azactam We will follow on clinical condition and cultures to further adjust medication if needed Thank you for this consultation we will follow the patient along with you Dictation was produced using [employer] dictation software. please excuse any grammatical, word or spelling errors. Time with Patient: Greater than 30
[2023-12-21] MEDS: ACETAMINOPHEN TAB 325 MG TAB PO PRN ×3 (04:26→15:43)
[2023-12-21] MEDS: SODIUM CHLORIDE 0.9% 1,000 ML IV SCH (05:09)
[2023-12-21] MEDS ORDERED: VANCOMYCIN TROUGH DUE 1 EACH MISC MISCELLANE ONE (07:00)
[2023-12-21] MEDS: FLUCONAZOLE 100 MG TAB PO SCH (08:16)
[2023-12-21] MEDS: ACYCLOVIR 200 MG CAP PO SCH ×2 (08:16→21:57)
[2023-12-21] MEDS: allopurinoL 300 MG TAB PO SCH (08:16)
[2023-12-21] MEDS ORDERED: OXYMETAZOLINE 0.05% NASL SPRAY 1 SPRAY BOTTLE NASAL SCH (09:30)
[2023-12-21 09:37] LABS: HCT 22.7 % (39.0-53.0); MCH 29.8 pg (25.0-35.0); MCV 85.1 fL (80.0-100.0); Mean Platelet Volume 12.2; RBC 2.67 m/uL (4.30-5.90); RDW 13.7 % (11.5-15.5)
[2023-12-21 09:40] LABS: WBC 0.3 k/uL (3.8-10.6)
[2023-12-21 10:04] LABS: ALT 149 U/L (4-49); AST 43 U/L (17-59); African American GFR (CKD) >90 (>60 ml/min/1.73 sqM); Albumin 2.4 g/dL (3.5-5.0); Alkaline Phosphatase 161 U/L (38-126); Anion Gap 6 mmol/L; Blood Urea Nitrogen 12 mg/dL (9-20); Calcium 8.2 mg/dL (8.4-10.2); Carbon Dioxide 25 mmol/L (22-30); Chloride 105 mmol/L (98-107); Glucose 161 mg/dL (74-99); Non-African American GFR(CKD) >90 (>60 ml/min/1.73 sqM); Potassium 3.5 mmol/L (3.5-5.1); Sodium 136 mmol/L (137-145); Total Bilirubin 0.5 mg/dL (0.2-1.3); Total Protein 5.3 g/dL (6.3-8.2)
[2023-12-21 10:06] LABS: Platelet Count 21 k/uL (150-450)
[2023-12-21 10:22] LABS: C Reactive Protein 19.8 mg/dL (<1.0)
--- NOTE | 2023-12-21 11:00 | P.PN ---
Subjective Progress Note Date: 12/21/23 Hospital course Patient is a 43-year-old male with a past medical history of AML, recent strep bacteremia and DVT despite being thrombocytopenic with IVC filter placement who was sent to the emergency department for fever. Patient was at his oncology appointment where he was found to have a fever. Patient is complaining of a dry cough that has been ongoing since he started chemotherapy on November 20, 2023. Since he completed his second round of chemotherapy patient has been requiring multiple blood transfusions for PRBC and platelets. Patient also admitted recently for epistaxis due to thrombocytopenia. Patient denies any dysuria, abdominal pain, diarrhea nausea and vomiting. In the ED patient's WBC was 0.3, hemoglobin 6.0, platelets 22, AST 56, ALT 135, alkaline phosphatase 153. Chest x-ray showed right midlung airspace opacity. Patient was [facility] the [facility] with hematology and infectious disease consult. Patient started on IV vancomycin and cefepime. The following day infectious disease changes antibiotics from cefepime to aztreonam due to recent drug allergy from taking Augmentin. Patient's fevers have resolved. Patient was also complaining of sinus pain. He had a CT sinus done that showed chronic sinusitis but no abscess was seen. During this hospitalization patient also did require multiple blood transfusions for hemoglobin less than 7. Today patient states that he feels fullness in his sinuses. Other than that he states that he is feeling better. He states that his rash on his arms and feet are improving. Physical exam General examination - Alert and Oriented 3 in NAD Heart - + S1S2 no murmurs Lungs - Clear to auscultation Abdomen soft NT ND +ve BS Extremities - No edema, rash on upper and lower extremity that appears to be improving [employer] - Moving all 4 extremities spontaneously Psych - Calm and cooperative. Assessment and plan Neutropenic fever Hospital-acquired pneumonia Patient on vancomycin and aztreonam as per infectious disease Blood cultures are negative to date Procalcitonin is pending Infectious disease on board Fevers have resolved AML Pancytopenia Sepsis on admission with fever and tachycardia Transfuse for hemoglobin less than 7 Hemoglobin this morning is stable Transfuse platelets less than 10 or patient has active bleeding Platelets this morning are stable Continue with fluconazole, acyclovir and allopurinol Hold prophylactic dose of ciprofloxacin Lactic acid within normal limits and blood pressure normotensive so no need for fluid bolus History of DVT status post IVC filter Anticoagulation contraindicated due to thrombocytopenia Chronic transaminitis Stable Recent drug allergy from Augmentin Patient on this hospitalization did receive IV cefepime and did not have any worsening drug rash Infectious disease did switch him from cefepime to aztreonam Hematology also ordered one-time dose of IV hydrocortisone DVT prophylaxis: No anticoagulation due to thrombocytopenia Objective - Vital Signs Vital signs: Vital Signs Temp 98 F 12/21/23 07:42 Pulse 88 12/21/23 08:00 Resp 18 12/21/23 08:00 BP 134/77 12/21/23 07:42 Pulse Ox 98 12/21/23 07:42 FiO2 Intake & Output 12/20/23 12/21/23 12/21/23 18:59 06:59 18:59 Intake Total 1400 240 Balance 1400 240 Intake: Oral 780 240 Blood Product 620 Rc Irr As1 Unit 310 [id number] Rc Irr As1 Unit 310 [id number] Other: Voiding Method Toilet Toilet Toilet # Voids 2 2 - Labs CBC & Chem 7: 12/21/23 08:09 12/21/23 08:09 Labs: Abnormal Lab Results - Last 24 Hours (Table) 12/19/23 12/20/23 12/20/23 Range/Units 16:40 05:22 21:30 WBC 0.3 L* 0.3 L* (3.8-10.6) k/uL RBC 2.10 L 2.66 L (4.30-5.90) m/uL Hgb 6.6 L* 8.1 L D (13.0-17.5) gm/dL Hct 18.2 L* 22.7 L (39.0-53.0) % Plt Count 17 L* 20 L (150-450) k/uL Sodium (137-145) mmol/L Creatinine (0.66-1.25) mg/dL Glucose (74-99) mg/dL Calcium (8.4-10.2) mg/dL ALT (4-49) U/L Alkaline Phosphatase (38-126) U/L C-Reactive Protein (<1.0) mg/dL Total Protein (6.3-8.2) g/dL Albumin (3.5-5.0) g/dL Crossmatch See Detail 12/21/23 12/21/23 Range/Units 08:09 08:09 WBC 0.3 L* (3.8-10.6) k/uL RBC 2.67 L (4.30-5.90) m/uL Hgb 8.0 L (13.0-17.5) gm/dL Hct 22.7 L (39.0-53.0) % Plt Count 21 L (150-450) k/uL Sodium 136 L (137-145) mmol/L Creatinine 0.51 L (0.66-1.25) mg/dL Glucose 161 H (74-99) mg/dL Calcium 8.2 L (8.4-10.2) mg/dL ALT 149 H (4-49) U/L Alkaline Phosphatase 161 H (38-126) U/L C-Reactive Protein 19.8 H (<1.0) mg/dL Total Protein 5.3 L (6.3-8.2) g/dL Albumin 2.4 L (3.5-5.0) g/dL Crossmatch Microbiology - Last 24 Hours (Table) 12/19/23 16:25 Blood Culture - Preliminary Blood 12/19/23 16:40 Blood Culture - Preliminary Blood
[2023-12-21] MEDS: DEXAMETHASONE SOD PHOSPHATE 10 MG/ML 1 ML VIAL IVP SCH ×2 (12:59→21:50)
[2023-12-21] MEDS: diphenhydrAMINE 50 MG/ML 1 ML VIAL IVP SCH ×2 (15:45→21:50)
--- NOTE | 2023-12-21 16:59 | P.PN ---
Subjective Progress Note Date: 12/21/23 At today's visit patient is resting comfortably in bed site chair. No acute events. Platelets and hemoglobin stable today, no transfusions needed. Patient afebrile today. Cultures negative at 24 hours. Continues on IV antibiotics Objective - Vital Signs Vital signs: Vital Signs Temp 98 F 12/21/23 07:42 Pulse 101 H 12/21/23 14:00 Resp 18 12/21/23 14:00 BP 144/86 12/21/23 12:00 Pulse Ox 99 12/21/23 12:00 FiO2 Intake & Output 12/20/23 12/21/23 12/21/23 18:59 06:59 18:59 Intake Total 1400 358 Balance 1400 358 Intake: Oral 780 358 Blood Product 620 Rc Irr As1 Unit 310 [id number] Rc Irr As1 Unit 310 [id number] Other: Voiding Method Toilet Toilet Toilet # Voids 2 2 1 - Constitutional General appearance: Present: no acute distress - EENT Eyes: Present: anicteric sclerae, EOMI ENT: Present: hearing grossly normal - Respiratory Details: breathing even and unlabored - Cardiovascular Details: skin warm and dry - Integumentary Integumentary Comment(s): diffuse rash, upper lip and nostril edema noted - Neurologic Neurologic Comment(s): grossly intact - Musculoskeletal Musculoskeletal: Present: strength equal bilaterally - Psychiatric Psychiatric: Present: A&O x's 3 - Labs CBC & Chem 7: 12/21/23 08:09 12/21/23 08:09 Labs: Abnormal Lab Results - Last 24 Hours (Table) 12/20/23 12/21/23 12/21/23 Range/Units 21:30 08:09 08:09 WBC 0.3 L* 0.3 L* (3.8-10.6) k/uL RBC 2.66 L 2.67 L (4.30-5.90) m/uL Hgb 8.1 L D 8.0 L (13.0-17.5) gm/dL Hct 22.7 L 22.7 L (39.0-53.0) % Plt Count 20 L 21 L (150-450) k/uL Sodium 136 L (137-145) mmol/L Creatinine 0.51 L (0.66-1.25) mg/dL Glucose 161 H (74-99) mg/dL Calcium 8.2 L (8.4-10.2) mg/dL ALT 149 H (4-49) U/L Alkaline Phosphatase 161 H (38-126) U/L C-Reactive Protein 19.8 H (<1.0) mg/dL Total Protein 5.3 L (6.3-8.2) g/dL Albumin 2.4 L (3.5-5.0) g/dL Procalcitonin (0.02-0.09) ng/mL 12/21/23 Range/Units 08:09 WBC (3.8-10.6) k/uL RBC (4.30-5.90) m/uL Hgb (13.0-17.5) gm/dL Hct (39.0-53.0) % Plt Count (150-450) k/uL Sodium (137-145) mmol/L Creatinine (0.66-1.25) mg/dL Glucose (74-99) mg/dL Calcium (8.4-10.2) mg/dL ALT (4-49) U/L Alkaline Phosphatase (38-126) U/L C-Reactive Protein (<1.0) mg/dL Total Protein (6.3-8.2) g/dL Albumin (3.5-5.0) g/dL Procalcitonin 0.38 H (0.02-0.09) ng/mL Microbiology - Last 24 Hours (Table) 12/19/23 16:25 Blood Culture - Preliminary Blood 12/19/23 16:40 Blood Culture - Preliminary Blood Assessment and Plan (1) Neutropenic fever Current Visit: Yes Status: Acute Priority: High Code(s): D70.9 - NEUTROPENIA, UNSPECIFIED; R50.81 - FEVER PRESENTING WITH CONDITIONS CLASSIFIED ELSEWHERE SNOMED Code(s): 444689174 (2) Pancytopenia Current Visit: Yes Status: Acute Priority: High Code(s): D61.818 - OTHER PANCYTOPENIA SNOMED Code(s): 259528580 (3) Pneumonia Current Visit: Yes Status: Acute Priority: High Code(s): J18.9 - PNEUMONIA, UNSPECIFIED ORGANISM SNOMED Code(s): 502466301 (4) Acute myeloid leukemia, without mention of having achieved remission Current Visit: Yes Status: Acute Priority: High Code(s): C92.00 - ACUTE MYELOBLASTIC LEUKEMIA, NOT HAVING ACHIEVED REMISSION SNOMED Code(s): 75876031 Plan: #Neutropenic fever due to pneumonia -Presented with Tmax of 102.4 F and dry cough. No fever noted today -Chest x-ray with concern for right midlung opacity potentially consistent with pneumonia -WBC noted to be 0.3 on presentation with negative UA and viral PCR -Started on vancomycin and cefepime in the ED with worsening swelling in the face -Methylprednisolone and Benadryl was subsequently given with improvement in swelling -Currently on vancomycin and aztreonam without any worsening of previous rash -Blood cultures currently negative at 24 hrs -Decadron ordered by ENT, with plans for steroid taper #Pancytopenia -Secondary to FLAG-SANCHEZ salvage chemotherapy given for refractory AML from 11/20/2023 through 11/25/2023 -1 unit of packed red blood cells received on admission along with 1 additional unit of packed red blood cells ordered today -Given he is immunocompromised and on chemotherapy, irradiated products only should be used to prevent donor [id number] transfusion reaction -Transfuse for hemoglobin less than 7 and/or platelets less than 10,000 and/or bleeding #Refractory AML -Initiated on induction 7+3 chemotherapy on 10/08/2023 -Noted to have evidence of persistent blasts on repeat bone marrow biopsy on 10/31/2023 -FLAG-SANCHEZ salvage chemotherapy given from 11/20/2023 through 1280 2022 -Plan is to proceed with allogenic stem cell transplant at [facility] -Bone marrow biopsy was initially ordered by his primary supervisor diagnostic for 12/21/2023, but there is no claim technician available to help prepare samples. Rescheduled for 12/27/23 # Penicillin allergy/rash -Noted to have diffuse erythematous rash with swelling in the eyes and lips after amoxicillin -This has slowly improved over the past few weeks Attests: I have seen and examined pt, performed H&P, developed impression and plan of care. Discussed with dictator. Agree with documentation, dictated as a scribe.
--- NOTE | 2023-12-21 22:10 | P.PN ---
Subjective Progress Note Date: 12/21/23 Principal diagnosis: Reason for follow-up is febrile neutropenia This is a telehealth visit Patient is a 43-year-old male with a past medical history significant for AML s/p induction chemotherapy on 10/08/2023 subsequently was admitted to the hospital to have a febrile neutropenia which was related to the left lower jaw infected tooth and for the patient has completed his antibiotic therapy now presented back to the hospital with a fever noticed to be septic and neutropenic predominantly sinus symptoms and also have infiltrate on the right lung concerning for pneumonia. On today's evaluation that is 12/21/2023, the patient did have resolution of his fever and is afebrile this morning, the patient is breathing comfortably on room air, the patient denies having any shortness of breath chest pain did have occasional cough symptoms has been predominantly dry irritated skin and some irritation around the anterior nares,Patient denies having any abdominal pain no nausea vomiting or any diarrhea. Patient white count of 0.3, creatinine 0.51 procalcitonin 0.38 Vanco trough is 10.0 cultures are currently pending CT of the sinuses chronic maxillary ethmoid and right sphenoid sinusitis with obstruction of the ostiomeatal units Objective - Vital Signs Vital signs: Vital Signs Temp 98 F 12/21/23 07:42 Pulse 88 12/21/23 07:42 Resp 18 12/21/23 07:42 BP 134/77 12/21/23 07:42 Pulse Ox 98 12/21/23 07:42 FiO2 Intake & Output 12/20/23 12/21/23 12/21/23 18:59 06:59 18:59 Intake Total 1400 Balance 1400 Intake: Oral 780 Blood Product 620 Rc Irr As1 Unit 310 [id number] Rc Irr As1 Unit 310 [id number] Other: Voiding Method Toilet Toilet # Voids 2 2 - Exam Middle-age male lying in bed in no distress HEENT: Did have some irritation around the anterior nares however no evidence of any blackish discoloration to the nasal cavity Respiratory system unlabored breathing decreased breath sound the base Heart S1-S2 regular Abdominal soft no tenderness Extremities no edema feet Exam completed with the help of VISCERA WASHER - Labs CBC & Chem 7: 12/21/23 08:09 12/21/23 08:09 Labs: Abnormal Lab Results - Last 24 Hours (Table) 12/19/23 12/20/23 12/20/23 Range/Units 16:40 05:22 21:30 WBC 0.3 L* 0.3 L* (3.8-10.6) k/uL RBC 2.10 L 2.66 L (4.30-5.90) m/uL Hgb 6.6 L* 8.1 L D (13.0-17.5) gm/dL Hct 18.2 L* 22.7 L (39.0-53.0) % Plt Count 17 L* 20 L (150-450) k/uL Crossmatch See Detail Microbiology - Last 24 Hours (Table) 12/19/23 16:25 Blood Culture - Preliminary Blood 12/19/23 16:40 Blood Culture - Preliminary Blood Assessment and Plan (1) Sinusitis Current Visit: Yes Status: Acute Code(s): J32.9 - CHRONIC SINUSITIS, UNSPECIFIED SNOMED Code(s): 78086704 (2) Allergy to multiple antibiotics Current Visit: Yes Status: Acute Code(s): Z88.1 - ALLERGY STATUS TO OTHER ANTIBIOTIC AGENTS SNOMED Code(s): 913570654 (3) Neutropenic fever Current Visit: Yes Status: Acute Priority: High Code(s): D70.9 - NEUTROPENIA, UNSPECIFIED; R50.81 - FEVER PRESENTING WITH CONDITIONS CLASSIFIED ELSEWHERE SNOMED Code(s): 480073852 Plan: 1-patient presented to hospital with sepsis in this patient who did have a fever tachycardia low white count source is likely bacterial sinusitis with significant sinus symptoms chest x-ray also showing right midlung infiltrate and concern for possible component of pneumonia 2-patient with multiple antibiotic ALLERGIES that would limit the number of antibiotic safe to use 3- CT of the sinuses tissues evidence of chronic sinusitis however no evidence of any sinus destruction 4-patient did have elevated inflammatory markers including procalcitonin and try to obtain a sputum with possible 5-patient will continue with the vancomycin and Azactam while waiting for the culture to finalize Dictation was produced using JIT Solaireation software. please excuse any grammatical, word or spelling errors. Time with Patient: Greater than 30
[2023-12-22] MEDS: DEXAMETHASONE SOD PHOSPHATE 10 MG/ML 1 ML VIAL IVP SCH ×3 (05:06→21:43)
[2023-12-22] MEDS: diphenhydrAMINE 50 MG/ML 1 ML VIAL IVP SCH ×4 (05:06→21:43)
[2023-12-22] MEDS: SODIUM CHLORIDE 0.9% 1,000 ML IV SCH ×2 (05:09→11:27)
[2023-12-22 09:20] LABS: HCT 24.4 % (39.0-53.0); HGB 8.5 gm/dL (13.0-17.5); MCH 29.9 pg (25.0-35.0); MCV 85.5 fL (80.0-100.0); Mean Platelet Volume 12.8; RBC 2.86 m/uL (4.30-5.90); RDW 13.8 % (11.5-15.5)
[2023-12-22 09:34] LABS: Platelet Count 23 k/uL (150-450); WBC 0.2 k/uL (3.8-10.6)
[2023-12-22] MEDS: VANCOMYCIN 1,500 MG in SODIUM CHLORIDE 0.9% 500 ML 500 ML IVPB SCH ×2 (09:39→16:57)
[2023-12-22] MEDS: FLUCONAZOLE 100 MG TAB PO SCH (09:39)
[2023-12-22] MEDS: allopurinoL 300 MG TAB PO SCH (09:39)
[2023-12-22] MEDS: AZTREONAM 2 GM in SODIUM CHLORIDE 0.9% 100 ML IVPB SCH ×3 (09:39→23:22)
[2023-12-22] MEDS: ACYCLOVIR 200 MG CAP PO SCH ×2 (09:49→21:42)
[2023-12-22 09:51] LABS: ALT 680 U/L (4-49); AST 243 U/L (17-59); African American GFR (CKD) >90 (>60 ml/min/1.73 sqM); Albumin 2.8 g/dL (3.5-5.0); Alkaline Phosphatase 279 U/L (38-126); Anion Gap 8 mmol/L; Blood Urea Nitrogen 14 mg/dL (9-20); Calcium 8.3 mg/dL (8.4-10.2); Carbon Dioxide 27 mmol/L (22-30); Chloride 105 mmol/L (98-107); Glucose 151 mg/dL (74-99); Non-African American GFR(CKD) >90 (>60 ml/min/1.73 sqM); Potassium 3.8 mmol/L (3.5-5.1); Sodium 140 mmol/L (137-145); Total Bilirubin 0.7 mg/dL (0.2-1.3); Total Protein 5.8 g/dL (6.3-8.2)
[2023-12-22] MEDS: ACETAMINOPHEN TAB 325 MG TAB PO PRN ×2 (10:43→21:42)
--- NOTE | 2023-12-22 14:02 | P.PN ---
Subjective Progress Note Date: 12/22/23 (delayed charting seen at approx 1015) Patient is a 43 Y old male with AML status post failed induction chemotherapy on salvage chemotherapy with last course starting on 11/20/2023 currently awai ting bone marrow transplant through [facility], recent DVT while thrombocytopenic status post IVC filter who presented to the emergency department with recurrent fevers. Patient has had recent complicated course with multiple neutropenic infections. Most recently he developed significant epistaxis due to his thrombocytopenia requiring multiple transfusions. On arrival to the ER here his temperature was 99.8 but quickly spiked to 102.2 he was tachycardic up to the 120s. Initial lab work showed white blood cell count 0.3, hemoglobin 6, platelets 22, sodium 131, ALT 135. Influenza A/B/RSV/COVID-19 testing was negative. Initial chest x-ray showed right midlung airspace opacities concerning for pneumonia. Patient was subsequently admitted for neutropenic sepsis with pneumonia. He was started on vancomycin and aztreonam secondary to recent reaction to Augmentin. Patient was concerned complaining of significant sinus pressure and noted to have facial swelling. On 12/[address] was com pleted which showed chronic maxillary, ethmoid, and right-sided sphenoid sinusitis with obstruction of the ostiomeatal units. ENT was consulted and they recommended starting dexamethasone and Benadryl. Patient was continued on his prophylactic acyclovir and fluconazole. Infectious disease and oncology were consulted. Patient seen and examined at bedside. He complains of continued facial press ure, it is better than yesterday. He continues to have some pressure behind his eyes. He denies any nausea, vomiting, or abdominal pain. We discussed that his liver enzymes are elevating. He denies any significant abdominal symptoms. Vital signs reviewed General: Nontoxic, no distress, appears at stated age, extraocular motion intact, swelling of the bilateral nasal labial area Cardiovascular: S1S2 reg, no murmur Lungs: CTA bilateral, no rhonchi, no rales, no accessory muscle use Abdominal: Soft, nontender to palpation, no guarding Ext: No gross muscle atrophy, no edema b/l lower extremities, no contractures Neuro: CN II-XI grossly intact, no focal neuro deficits Psych: Alert, oriented, appropriate affect Assessment/Plan: Neutropenic sepsis Pneumonia, health care associated, possible MRSA and Gram negative Chronic sinusitis without evidence of sinus destruction Chemotherapy-induced pancytopenia AML status post recent salvage therapy, preparing for bone marrow transplant -Continue with vancomycin 1500 mg IV every 8 hours, currently being dosed by pharmacy, day #3, aztreonam 2 g IV piggyback every 8 hours day #2 -Await further infectious disease recommendations -Await further oncology recommendations -Follow CBC. No indication for transfusion at this time. Patient must be transfused irradiated products if transfusion is needed -Status post 3 units of packed red blood cells Transaminitis -Unclear etiology -Will check liver ultrasound with Doppler to rule out portal venous thrombosis -May be secondary to medications Recent dermatitis related to amoxicillin use Imaging: None new Data Review: Labs reviewed from today include CBC and complete metabolic profile which are remarkable for white blood cell count of 0.2, hemoglobin 8.5, platelets 23, AST 12/29/1940, ALT 680, alkaline phosphatase 279. DVT prophylaxis: SCDs Anticipated discharge date: Pending clinical course Anticipated discharge place: Pending clinical course This dictation was prepared using Obvious voice recognition software. Though every attempt is made to correct errors during dictation some may still exist. Objective - Vital Signs Vital signs: Vital Signs Temp 98.9 F 12/22/23 03:30 Pulse 83 12/22/23 08:00 Resp 16 12/22/23 08:00 BP 165/72 12/22/23 08:00 Pulse Ox 97 12/22/23 08:00 FiO2 Intake & Output 12/21/23 12/22/23 12/22/23 18:59 06:59 18:59 Intake Total 580 118 Balance 580 118 Intake: Oral 580 118 Other: Voiding Method Toilet Toilet Toilet # Voids 1 4 - Labs CBC & Chem 7: 12/22/23 08:28 12/22/23 08:28 Labs: Abnormal Lab Results - Last 24 Hours (Table) 12/21/23 12/22/23 12/22/23 Range/Units 08:09 08:28 08:28 WBC 0.2 L* (3.8-10.6) k/uL RBC 2.86 L (4.30-5.90) m/uL Hgb 8.5 L (13.0-17.5) gm/dL Hct 24.4 L (39.0-53.0) % Plt Count 23 L (150-450) k/uL Creatinine 0.47 L (0.66-1.25) mg/dL Glucose 151 H (74-99) mg/dL Calcium 8.3 L (8.4-10.2) mg/dL AST 243 H (17-59) U/L ALT 680 H (4-49) U/L Alkaline Phosphatase 279 H (38-126) U/L Total Protein 5.8 L (6.3-8.2) g/dL Albumin 2.8 L (3.5-5.0) g/dL Procalcitonin 0.38 H (0.02-0.09) ng/mL Microbiology - Last 24 Hours (Table) 12/19/23 16:25 Blood Culture - Preliminary Blood 12/19/23 16:40 Blood Culture - Preliminary Blood
--- NOTE | 2023-12-22 14:09 | US ---
EXAMINATION TYPE: US liver DATE OF EXAM: 12/22/2023 COMPARISON: NONE CLINICAL INDICATION: Male, 43 years old with history of US doppler, concern liver mass v portal thr ombus; Elevated LFT's, pt in treatment for Leukemia TECHNIQUE: Multiple sonographic images of the right upper quadrant are obtained. FINDINGS: EXAM MEASUREMENTS: Liver Length: 19.9 cm Gallbladder Wall: 0.1 cm CBD: 0.4 cm Right Kidney: 14.9 x 5.2 x 6.7 cm PUBLIC HEALTH REPRESENTATIVE NOTES: Pancreas: wnl Liver: Enlarged, Portal vein appears patent with normal hepatopedal flow Gallbladder: wnl Evidence for sonographic De La Vega's sign: No CBD: wnl Right Kidney: Large in size, no evidence of hydro IMPRESSION: Hepatomegaly.
[2023-12-22] MEDS: VANCOMYCIN 1,750 MG in SODIUM CHLORIDE 0.9% 500 ML 500 ML IVPB SCH (23:27)
--- NOTE | 2023-12-23 02:52 | CONS ---
CONSULTATION REASON FOR CONSULTATION: Facial swelling and sinusitis. HISTORY OF PRESENT ILLNESS: This patient is a very pleasant 43-year-old male who was admitted through the emergency room department with a history of having AML and he was currently on chemotherapy. The patient was admitted because of pancytopenia and a neutropenic fever. In addition, x- ray suggested a possible pneumonia. The patient relates that approximately a week prior to coming to the emergency room, he had been treated for sinus infection with Augmentin and subsequently developed a full body rash and also facial swelling. The patient states he is allergic to amoxicillin, Augmentin, and penicillin. He was seen initially in the emergency room because of a nosebleed and was placed on 3 days of Afrin nasal spray. Shortly after finishing the Afrin nasal spray, the patient noticed even more swelling of his nose intranasally. The patient was seen by the Infectious Disease Department and was admitted and placed on vancomycin and also Azactam. He is currently awaiting a bone marrow transplant from [facility] in [place]. I saw this patient in his room on 12/22/2023. I had reviewed his CT scan, which showed evidence of chronic pansinusitis involving the maxillary, ethmoid, and sphenoid sinuses. Reviewing the x-ray, I did not see evidence of any air-fluid level, but there was definite thickening of the mucous membrane of all of his sinuses. In addition, there was obstruction of the ostiomeatal complex, most likely by the middle turbinates. There did not appear to be any evidence of any acute infectious process, that is to say these x-rays represent chronic pansinusitis. At the time that I was called, I advised the nurse to start the patient on a regimen of dexamethasone to reduce the facial swelling and this would also help with the sinus pressure. The patient has a history of seasonal allergies and takes Zyrtec on an as-needed basis. I have advised him that he should take Zyrtec on a daily basis and I may even recommend that he use one of the steroid nasal sprays such as Nasacort on a daily basis. 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 This of course exposes him to quite a bit of dust, mold, etc. I suggested that he wear a mask if he is working in a very dry area or very wet area. PAST MEDICAL HISTORY: Reveals he has allergies to amoxicillin, Augmentin and penicillin. HOME MEDICATIONS: Include Zofran, allopurinol, Diflucan, and Zovirax. PHYSICAL EXAMINATION: GENERAL: The patient is a very pleasant 43-year-old male who was alert, cooperative, and is in no acute distress at this time. His facial swelling seems to be resolving quite quickly. He does complain of some pressure in the sinus areas. He is afebrile at this time. Blood cultures are pending. HEENT: The patient is normocephalic. Tympanic membranes are normal. Middle ear spaces are free of any fluid or infections. Pupils are equal, round, reactive to light and accommodation. Extraocular movements are within normal limits. Intranasal examination reveals that there appears to be some inflammatory hypertrophy of the inferior turbinates (this may be related to a rebound effect of the 3 days use of Afrin nasal spray). There is thick mucus present on the mucous membranes, but there is no evidence of any obvious infection. The patient does have some tenderness at the area of the right and left naris near the floor of the nose. Palpation of this area does not reveal any areas of fluctuance, however. The area of tenderness is in the region of the nasal alar cartilages. Examination of oropharynx is unremarkable. Palpation of the neck is negative for any neck masses or lymphadenopathy. Cranial nerves 2 through 12, remainder of the head and neck exam is unremarkable. CHEST/CARDIOVASCULAR: Both lung brenner are clear to percussion and auscultation. The patient is in regular sinus rhythm. S1, S2 are present without any murmurs or S3. Peripheral pulses are bilaterally symmetrical. ABDOMEN: No evidence of any masses, megaly, or tenderness. The abdomen is soft. The remainder of physical exam is unremarkable. ASSESSMENT: 1. Facial edema secondary to allergic reaction to Augmentin. 2. Chronic pansinusitis. 3. Suspect rhinitis medicamentosa (rebound effect intranasally from the use of Afrin nasal spray). PLAN: I saw this patient on 12/22/2023, and I had previously given the nursing staff a regimen of dexamethasone for the next 24-48 hours, which should help to completely resolve the patient's facial edema. This will also help with his body rash and with some of the pressure that is filling in the sinuses. I do not see evidence of any sinus infection, but he does have chronic pansinusitis with evidence of thickening of the mucous membrane and blockage of the ostiomeatal complex. This is usually caused by bony obstruction of the maxillary sinus ostia in the region of the middle turbinates. Certainly at some point, once the patient's other medical problems are better, he probably would be a candidate for evaluation for endoscopic sinus surgery; however, I do not feel that this is warranted at this time. I have advised the patient not to use Q-Tips in his nose and not to place Vicks Vapo-rub on his upper lip. This is quite irritating to the facial skin. In addition, I recommended to him that he use Zyrtec tablets on a daily basis and that he purchase Nasacort nasal spray to use on a daily basis. The Nasacort is a topical nasal steroidal spray. This patient's allergies and his sinuses are aggravated unfortunately by his occupation. I will see this patient on a daily basis until I feel it is appropriate to sign off from this case. I will take this opportunity to thank you for allowing me to assist in the care of your patient. If I can be of any further assistance, please feel free to call my office. CHINGL / IJN: [id number] / RITA
[2023-12-23] MEDS: SODIUM CHLORIDE 0.9% 1,000 ML IV SCH ×2 (05:08→16:11)
[2023-12-23] MEDS: DEXAMETHASONE SOD PHOSPHATE 10 MG/ML 1 ML VIAL IVP SCH ×3 (05:10→21:09)
[2023-12-23] MEDS: diphenhydrAMINE 50 MG/ML 1 ML VIAL IVP SCH ×4 (05:10→21:09)
[2023-12-23] MEDS: CETIRIZINE PO SCH (07:51)
[2023-12-23] MEDS: allopurinoL 300 MG TAB PO SCH (07:51)
[2023-12-23] MEDS: ACYCLOVIR 200 MG CAP PO SCH ×2 (07:51→21:09)
[2023-12-23] MEDS: VANCOMYCIN 1,750 MG in SODIUM CHLORIDE 0.9% 500 ML 500 ML IVPB SCH ×3 (07:51→23:06)
[2023-12-23] MEDS: AZTREONAM 2 GM in SODIUM CHLORIDE 0.9% 100 ML IVPB SCH ×3 (07:51→23:06)
[2023-12-23] MEDS: FLUTICASONE 50MCG/SPRAY NASAL 16GM EA NOSTRIL SCH (07:51)
[2023-12-23] MEDS: FLUCONAZOLE 100 MG TAB PO SCH (07:51)
[2023-12-23 08:14] LABS: HCT 23.2 % (39.0-53.0); HGB 8.3 gm/dL (13.0-17.5); MCH 30.6 pg (25.0-35.0); MCHC 35.8 g/dL (31.0-37.0); MCV 85.5 fL (80.0-100.0); Mean Platelet Volume 11.1; RBC 2.71 m/uL (4.30-5.90); RDW 13.7 % (11.5-15.5)
[2023-12-23 08:15] LABS: WBC 0.2 k/uL (3.8-10.6)
[2023-12-23 08:17] LABS: Platelet Count 18 k/uL (150-450)
[2023-12-23] MEDS: ACETAMINOPHEN TAB 325 MG TAB PO PRN ×2 (09:30→18:26)
[2023-12-23 09:33] LABS: ALT 451 U/L (4-49); AST 83 U/L (17-59); African American GFR (CKD) >90 (>60 ml/min/1.73 sqM); Albumin 2.6 g/dL (3.5-5.0); Alkaline Phosphatase 243 U/L (38-126); Anion Gap 9 mmol/L; Blood Urea Nitrogen 15 mg/dL (9-20); Calcium 8.1 mg/dL (8.4-10.2); Carbon Dioxide 24 mmol/L (22-30); Chloride 104 mmol/L (98-107); Glucose 146 mg/dL (74-99); Non-African American GFR(CKD) >90 (>60 ml/min/1.73 sqM); Potassium 3.7 mmol/L (3.5-5.1); Sodium 137 mmol/L (137-145); Total Bilirubin 0.4 mg/dL (0.2-1.3); Total Protein 5.6 g/dL (6.3-8.2); Uric Acid 1.1 mg/dL (3.5-8.5)
--- NOTE | 2023-12-23 13:04 | P.PN ---
Subjective Progress Note Date: 12/23/23 (delayed charting seen at 1030) Patient is a 43 Y old male with AML status post failed induction chemotherapy on salvage chemotherapy with last course starting on 11/20/2023 currently awaiting bone marrow transplant through [facility], recent DVT while thrombocytopenic status post IVC filter who presented to the emergency department with recurrent fevers. Patient has had recent complicated course with multiple neutropenic infections. Most recently he developed significant epistaxis due to his thrombocytopenia requiring multiple transfusions. On arrival to the ER here his temperature was 99.8 but quickly spiked to 102.2 he was tachycardic up to the 120s. Initial lab work showed white blood cell count 0.3, hemoglobin 6, platelets 22, sodium 131, ALT 135. Influenza A/B/RSV/COVID- 19 testing was negative. Initial chest x-ray showed right midlung airspace opacities concerning for pneumonia. Patient was subsequently admitted for neutropenic sepsis with pneumonia. He was started on vancomycin and aztreonam secondary to recent reaction to Augmentin. Patient was concerned complaining of significant sinus pressure and noted to have facial swelling. On 12/[address] was completed which showed chronic maxillary, ethmoid, and right-sided sphenoid sinusitis with obstruction of the ostiomeatal units. ENT was consulted and they recommended starting dexamethasone and Benadryl. Patient was continued on his prophylactic acyclovir and fluconazole. Infectious disease and oncology were consulted. Patient seen and examined at bedside. He complains of continued pressure in his nose. His swelling is somewhat down from yesterday. He is eating and drinking well. present at bedside all questions answered. We discussed that he should limit things passing into his nasal passageway due to his severe pancytopenia and plan for bone marrow transplant soon. But again this is a double edge sword as continuing to have the clot obstruction in his nose could also lead to acute bacterial sinusitis. Vital signs reviewed General: Nontoxic, no distress, appears at stated age, extraocular motion intact, swelling of the bilateral nasal labial area Cardiovascular: S1S2 reg, no murmur Lungs: CTA bilateral, no rhonchi, no rales, no accessory muscle use Abdominal: Soft, nontender to palpation, no guarding Ext: No gross muscle atrophy, no edema b/l lower extremities, no contractures Neuro: CN II-XI grossly intact, no focal neuro deficits Psych: Alert, oriented, appropriate affect Assessment/Plan: Neutropenic sepsis Pneumonia, health care associated, possible MRSA and Gram negative Chronic sinusitis without evidence of sinus destruction Chemotherapy-induced pancytopenia AML status post recent salvage therapy, preparing for bone marrow transplant -Continue with vancomycin 1500 mg IV every 8 hours, currently being dosed by pharmacy, day #4, aztreonam 2 g IV piggyback every 8 hours day #3 -ENT consultation reviewed. Continue Decadron wean. They do recommend nasal steroids and avoiding Q-tips or Vicks vapor rub on his nose. Will follow on a daily basis. -Await further infectious disease recommendations -Await further oncology recommendations -Follow CBC. No indication for transfusion at this time. Patient must be transfused irradiated products if transfusion is needed -Status post 3 units of packed red blood cells -Decadron 5 mg every 8 hours -Repeat chest x-ray in a.m. Transaminitis -Unclear etiology, likely medication mediated - labs improved today - repeat CMP in AM Recent dermatitis related to amoxicillin use Imaging: Liver ultrasound reviewed: Hepatomegaly, portal vein appears patent with normal hepatopetal pedal flow Date Review: Labs reviewed from today include CBC and CMP which are remarkable for white blood cell count 0.2, hemoglobin 8.3, platelets 18, glucose 146, uric acid 1.1, AST 83, ALT 451. DVT prophylaxis: SCDs Anticipated discharge date: Pending clinical course Anticipated discharge place: Pending clinical course This dictation was prepared using [employer] voice recognition software. Though every attempt is made to correct errors during dictation some may still exist. Objective - Vital Signs Vital signs: Vital Signs Temp 98.3 F 12/23/23 08:00 Pulse 86 12/23/23 08:00 Resp 18 12/23/23 08:00 BP 151/83 12/23/23 08:00 Pulse Ox 96 12/23/23 08:00 FiO2 Intake & Output 12/22/23 12/23/23 12/23/23 18:59 06:59 18:59 Intake Total 118 480 472 Balance 118 480 472 Weight 87 kg Intake: Oral 118 480 472 Other: Voiding Method Toilet Toilet Toilet # Voids 4 4 3 - Labs CBC & Chem 7: 12/23/23 07:29 12/23/23 07:29 Labs: Abnormal Lab Results - Last 24 Hours (Table) 12/23/23 12/23/23 Range/Units 07:29 07:29 WBC 0.2 L* (3.8-10.6) k/uL RBC 2.71 L (4.30-5.90) m/uL Hgb 8.3 L (13.0-17.5) gm/dL Hct 23.2 L (39.0-53.0) % Plt Count 18 L* (150-450) k/uL Creatinine 0.44 L (0.66-1.25) mg/dL Glucose 146 H (74-99) mg/dL Uric Acid 1.1 L (3.5-8.5) mg/dL Calcium 8.1 L (8.4-10.2) mg/dL AST 83 H (17-59) U/L ALT 451 H (4-49) U/L Alkaline Phosphatase 243 H (38-126) U/L Total Protein 5.6 L (6.3-8.2) g/dL Albumin 2.6 L (3.5-5.0) g/dL Microbiology - Last 24 Hours (Table) 12/19/23 16:25 Blood Culture - Preliminary Blood 12/19/23 16:40 Blood Culture - Preliminary Blood
--- NOTE | 2023-12-23 13:32 | P.PN ---
Subjective Progress Note Date: 12/23/23 At today's visit patient is resting comfortably in bed. No acute events. Reporting improvement in rash and facial swelling. Denies SOB and dysphagia. Platelets and hemoglobin stable today, no transfusions needed. Patient afebrile > 72 hours. Blood cultures negative at 72 hours. Continues on IV antibiotics, repeat CXR in the morning Increase in LFTs yesterday, liver US obtained, revealing hepatomegaly, portal vein appeared patent with normal hepatopedal flow. LFTs have improved today Objective - Vital Signs Vital signs: Vital Signs Temp 98.3 F 12/23/23 08:00 Pulse 86 12/23/23 08:00 Resp 18 12/23/23 08:00 BP 151/83 12/23/23 08:00 Pulse Ox 96 12/23/23 08:00 FiO2 Intake & Output 12/22/23 12/23/23 12/23/23 18:59 06:59 18:59 Intake Total 118 480 472 Balance 118 480 472 Weight 87 kg Intake: Oral 118 480 472 Other: Voiding Method Toilet Toilet Toilet # Voids 4 4 - Constitutional General appearance: Present: average body habitus, no acute distress - EENT EENT Comment(s): facial swelling improved, bilateral nostril edema and erythema noted but improved Eyes: Present: anicteric sclerae, EOMI ENT: Present: hearing grossly normal - Respiratory Details: breathing is even and unlabored - Cardiovascular Details: well perfused - Gastrointestinal General gastrointestinal: Present: soft. Absent: tenderness - Integumentary Integumentary Comment(s): diffuse rash noted, improved Integumentary: Absent: cyanotic, jaundiced - Neurologic Neurologic: Present: CNII-XII intact - Musculoskeletal Musculoskeletal: Present: strength equal bilaterally - Psychiatric Psychiatric: Present: A&O x's 3 - Labs CBC & Chem 7: 12/23/23 07:29 12/23/23 07:29 Labs: Abnormal Lab Results - Last 24 Hours (Table) 12/23/23 12/23/23 Range/Units 07:29 07:29 WBC 0.2 L* (3.8-10.6) k/uL RBC 2.71 L (4.30-5.90) m/uL Hgb 8.3 L (13.0-17.5) gm/dL Hct 23.2 L (39.0-53.0) % Plt Count 18 L* (150-450) k/uL Creatinine 0.44 L (0.66-1.25) mg/dL Glucose 146 H (74-99) mg/dL Uric Acid 1.1 L (3.5-8.5) mg/dL Calcium 8.1 L (8.4-10.2) mg/dL AST 83 H (17-59) U/L ALT 451 H (4-49) U/L Alkaline Phosphatase 243 H (38-126) U/L Total Protein 5.6 L (6.3-8.2) g/dL Albumin 2.6 L (3.5-5.0) g/dL Microbiology - Last 24 Hours (Table) 12/19/23 16:25 Blood Culture - Preliminary Blood 12/19/23 16:40 Blood Culture - Preliminary Blood - Imaging and Cardiology Liver US reviewed Assessment and Plan (1) Neutropenic fever Current Visit: Yes Status: Acute Priority: High Code(s): D70.9 - NEUTROPENIA, UNSPECIFIED; R50.81 - FEVER PRESENTING WITH CONDITIONS CLASSIFIED ELSEWHERE SNOMED Code(s): 775209913 (2) Pancytopenia Current Visit: Yes Status: Acute Priority: High Code(s): D61.818 - OTHER PANCYTOPENIA SNOMED Code(s): 938654333 (3) Pneumonia Current Visit: Yes Status: Acute Priority: High Code(s): J18.9 - PNEUMONIA, UNSPECIFIED ORGANISM SNOMED Code(s): 463858321 (4) Acute myeloid leukemia, without mention of having achieved remission Current Visit: Yes Status: Acute Priority: High Code(s): C92.00 - ACUTE MYELOBLASTIC LEUKEMIA, NOT HAVING ACHIEVED REMISSION SNOMED Code(s): 34532779 Plan: #Neutropenic fever due to pneumonia -Presented with Tmax of 102.4 F and dry cough. No fever noted > 72 hours -Chest x-ray with concern for right midlung opacity potentially consistent with pneumonia. -WBC noted to be 0.3 on presentation with negative UA and viral PCR -Started on vancomycin and cefepime in the ED with worsening swelling in the face -Methylprednisolone and Benadryl was subsequently given with improvement in swelling -Currently on vancomycin and aztreonam without any worsening of previous rash -Blood cultures negative at 72 hrs -Repeat CXR ordered for the morning -CT sinus revealed right sphenoid sinusitis with obstruction of the ostiomeatal units. Decadron ordered by ENT, with plans for steroid taper. #Pancytopenia -Secondary to FLAG-SANCHEZ salvage chemotherapy given for refractory AML from 11/20/2023 through 11/25/2023 -1 unit of packed red blood cells received on admission along with 1 additional unit of packed red blood cells ordered today -Given he is immunocompromised and on chemotherapy, irradiated products only should be used to prevent donor [id number] transfusion reaction -Transfuse for hemoglobin less than 7 and/or platelets less than 10,000 and/or bleeding #Refractory AML -Initiated on induction 7+3 chemotherapy on 10/08/2023 -Noted to have evidence of persistent blasts on repeat bone marrow biopsy on 10/31/2023 -FLAG-SANCHEZ salvage chemotherapy given from 11/20/2023 through 1280 2022 -Plan is to proceed with allogenic stem cell transplant at [facility] -Bone marrow biopsy was initially ordered by his primary compensation advisor for 12/21/2023, but do to endo scheduling issue it has been rescheduled for 12/27/23 # Penicillin allergy/rash -Noted to have diffuse erythematous rash with swelling in the eyes and lips after amoxicillin -This has slowly improved over the past few weeks # Transaminitis -Increase in LFTs yesterday. Liver US obtained, revealing hepatomegaly, portal vein appeared patent with normal hepatopedal flow. LFTs have improved today. Denies abd pain and n/v. No jaundice noted -May be medication induced, pt has been treated with multiple antibiotic regimens -Will continue to monitor
[2023-12-23] MEDS: MUPIROCIN 2% OINT 22 GM TUBE TOPICAL SCH ×2 (16:22→21:18)
--- NOTE | 2023-12-23 17:19 | PN ---
PROGRESS NOTE SUBJECTIVE: Vital signs are stable. The patient states that he feels less pressure in the sinuses compared to his admission. He states that there is still some tenderness and swelling of the upper lip near the nostril. OBJECTIVE: HEENT: Patient is normocephalic. Tympanic membranes are normal. Intranasal examination reveals that the turbinates are starting to shrink down nicely. There is some bothersome tenderness located at the floor of the nose near the alar rims (nostrils) and the junction of the upper lip. Deep palpation of this area both externally and within the oropharynx reveals no areas of fluctuance. The area is somewhat firm, but is less tender than it was yesterday. Remainder of the head and neck exam and physical exam is unchanged since last visit. ASSESSMENT: 1. Resolving facial edema. 2. Chronic pansinusitis. PLAN: The patient is currently in the phase of taking his last couple of doses of dexamethasone IV. I do not feel he needs to have any more of that particular medication. Although I did not see evidence of any abscess near the patient's upper lip/nostrils, there is questionable cellulitis of the skin at the entrance of the nostrils. Therefore, we are going to order Bactroban ointment to be applied to the upper lip and the entrance of the nose with a Q-tip 3 times daily. I will examine the patient again tomorrow. ABHINAV / JULIANNN: [id number] / MTDD
[2023-12-23] MEDS: TEMAZEPAM 15 MG CAP PO PRN (23:06)
[2023-12-24] MEDS: SODIUM CHLORIDE 0.9% 1,000 ML IV SCH ×2 (04:50→13:27)
[2023-12-24] MEDS: DEXAMETHASONE SOD PHOSPHATE 10 MG/ML 1 ML VIAL IVP SCH (05:10)
[2023-12-24] MEDS: diphenhydrAMINE 50 MG/ML 1 ML VIAL IVP SCH ×4 (05:10→21:26)
[2023-12-24] MEDS ORDERED: VANCOMYCIN TROUGH DUE 1 EACH MISC MISCELLANE ONE (07:00)
[2023-12-24] MEDS: AZTREONAM 2 GM in SODIUM CHLORIDE 0.9% 100 ML IVPB SCH ×3 (07:54→23:19)
[2023-12-24] MEDS: ACYCLOVIR 200 MG CAP PO SCH ×2 (07:54→21:26)
[2023-12-24] MEDS: FLUCONAZOLE 100 MG TAB PO SCH (07:54)
[2023-12-24] MEDS: allopurinoL 300 MG TAB PO SCH (07:54)
[2023-12-24] MEDS: FLUTICASONE 50MCG/SPRAY NASAL 16GM EA NOSTRIL SCH (07:55)
[2023-12-24] MEDS: MUPIROCIN 2% OINT 22 GM TUBE TOPICAL SCH ×3 (07:55→21:26)
[2023-12-24] MEDS: ACETAMINOPHEN TAB 325 MG TAB PO PRN ×3 (07:55→23:20)
[2023-12-24] MEDS: CETIRIZINE PO SCH (07:56)
--- NOTE | 2023-12-24 08:34 | XR ---
EXAMINATION TYPE: XR chest 1V portable DATE OF EXAM: 12/24/2023 Comparison: 12/19/2023 Clinical History: 43-year-old male pneumonia Findings: Left PICC tip at the mid to lower SVC. Heart normal size. Ongoing focal opacity in the right midlung. No pleural effusion. Impression: Ongoing focal right midlung opacity/pneumonia.
--- NOTE | 2023-12-24 09:55 | P.PN ---
Subjective Progress Note Date: 12/23/23 Principal diagnosis: Reason for follow-up is febrile neutropenia This is a telehealth visit Patient is a 43-year-old male with a past medical history significant for AML s/p induction chemotherapy on 10/08/2023 subsequently was admitted to the hospital to have a febrile neutropenia which was related to the left lower jaw infected tooth and for the patient has completed his antibiotic therapy now presented back to the hospital with a fever noticed to be septic and neutropenic predominantly sinus symptoms and also have infiltrate on the right lung concerning for pneumonia. On today's evaluation that is 12/23/2023, the patient continues to be afebrile , the patient is breathing comfortably on room air , the patient denies having any chest pain, shortness of breath did have occasional cough the patient anterior nares and sinus congestion symptom has improved and denies having any purulent drainage Patient white count of 0.2, creatinine 0.44, procalcitonin 0.38 Vanco trough is 10.0 as of 12/21/2023, cultures are currently negative, CT of the sinuses chronic maxillary ethmoid and right sphenoid sinusitis with obstruction of the ostiomeatal units Objective - Vital Signs Vital signs: Vital Signs Temp 98.1 F 12/23/23 16:00 Pulse 72 12/23/23 16:00 Resp 16 12/23/23 16:00 BP 175/97 12/23/23 16:00 Pulse Ox 100 12/23/23 16:00 FiO2 Intake & Output 12/22/23 12/23/23 12/23/23 18:59 06:59 18:59 Intake Total 118 480 916 Balance 118 480 916 Weight 87 kg Intake: Oral 118 480 916 Other: Voiding Method Toilet Toilet Toilet # Voids 4 4 3 - Exam Middle-age male lying in bed in no distress HEENT: Did have some irritation around the anterior nares that has decreased in intensity Respiratory system unlabored breathing decreased breath sound the base Heart S1-S2 regular Abdominal soft no tenderness Extremities no edema feet Exam completed with the help of [employer]OURCE [employer]GRAM [employer]ER - Labs CBC & Chem 7: 12/23/23 07:29 12/23/23 07:29 Labs: Abnormal Lab Results - Last 24 Hours (Table) 12/23/23 12/23/23 Range/Units 07:29 07:29 WBC 0.2 L* (3.8-10.6) k/uL RBC 2.71 L (4.30-5.90) m/uL Hgb 8.3 L (13.0-17.5) gm/dL Hct 23.2 L (39.0-53.0) % Plt Count 18 L* (150-450) k/uL Creatinine 0.44 L (0.66-1.25) mg/dL Glucose 146 H (74-99) mg/dL Uric Acid 1.1 L (3.5-8.5) mg/dL Calcium 8.1 L (8.4-10.2) mg/dL AST 83 H (17-59) U/L ALT 451 H (4-49) U/L Alkaline Phosphatase 243 H (38-126) U/L Total Protein 5.6 L (6.3-8.2) g/dL Albumin 2.6 L (3.5-5.0) g/dL Microbiology - Last 24 Hours (Table) 12/19/23 16:25 Blood Culture - Preliminary Blood 12/19/23 16:40 Blood Culture - Preliminary Blood Assessment and Plan (1) Sinusitis Current Visit: Yes Status: Acute Code(s): J32.9 - CHRONIC SINUSITIS, UNSPECIFIED SNOMED Code(s): 15174508 (2) Allergy to multiple antibiotics Current Visit: Yes Status: Acute Code(s): Z88.1 - ALLERGY STATUS TO OTHER ANTIBIOTIC AGENTS SNOMED Code(s): 901817859 (3) Neutropenic fever Current Visit: Yes Status: Acute Priority: High Code(s): D70.9 - NEUTROPENIA, UNSPECIFIED; R50.81 - FEVER PRESENTING WITH CONDITIONS CLASSIFIED ELSEWHERE SNOMED Code(s): 934703037 Plan: 1-patient presented to hospital with sepsis in this patient who did have a fever tachycardia low white count source is likely bacterial sinusitis with significant sinus symptoms chest x-ray also showing right midlung infiltrate and concern for possible component of pneumonia 2-patient with multiple antibiotic ALLERGIES that would limit the number of antibiotic safe to use 3- CT of the sinuses tissues evidence of chronic sinusitis however no evidence of any sinus destruction, has been evaluated by ENT steroids were recommended to decrease inflammation 4-patient did have elevated inflammatory markers including procalcitonin and try to obtain a sputum with possible 5-patient did have clinical improvement and will continue with the vancomycin and Azactam, and monitor clinical course closely Dictation was produced using [employer] dictation software. please excuse any grammatical, word or spelling errors. Time with Patient: Less than 30
[2023-12-24 10:08] LABS: ALT 393 U/L (4-49); AST 66 U/L (17-59); African American GFR (CKD) >90 (>60 ml/min/1.73 sqM); Albumin 2.5 g/dL (3.5-5.0); Alkaline Phosphatase 234 U/L (38-126); Anion Gap 3 mmol/L; Blood Urea Nitrogen 12 mg/dL (9-20); Calcium 7.9 mg/dL (8.4-10.2); Carbon Dioxide 25 mmol/L (22-30); Chloride 103 mmol/L (98-107); Glucose 183 mg/dL (74-99); Non-African American GFR(CKD) >90 (>60 ml/min/1.73 sqM); Potassium 3.8 mmol/L (3.5-5.1); Sodium 131 mmol/L (137-145); Total Bilirubin 0.4 mg/dL (0.2-1.3); Total Protein 5.3 g/dL (6.3-8.2)
[2023-12-24 10:11] LABS: HCT 22.6 % (39.0-53.0); HGB 8.2 gm/dL (13.0-17.5); MCHC 36.1 g/dL (31.0-37.0); MCV 85.8 fL (80.0-100.0); Mean Platelet Volume 11.1; RBC 2.64 m/uL (4.30-5.90); RDW 13.7 % (11.5-15.5)
[2023-12-24 10:14] LABS: Platelet Count 14 k/uL (150-450); WBC 0.2 k/uL (3.8-10.6)
[2023-12-24] MEDS: VANCOMYCIN 1,750 MG in SODIUM CHLORIDE 0.9% 500 ML 500 ML IVPB SCH (10:53)
[2023-12-24] MEDS: VANCOMYCIN 2,000 MG in SODIUM CHLORIDE 0.9% 500 ML 500 ML IVPB SCH ×3 (12:13→23:19)
[2023-12-24 13:52] VITALS: BMI 24.6
[2023-12-24] MEDS ORDERED: RX INFO: IV CONTRAST WAS GIVEN 1 EACH MISC MISCELLANE PRN (14:51)
--- NOTE | 2023-12-24 14:57 | P.PN ---
Subjective Progress Note Date: 12/24/23 (delayed charting seen at 0955) Patient is a 43 Y old male with AML status post failed induction chemotherapy on salvage chemotherapy with last course starting on 11/20/2023 currently awaiting bone marrow transplant through [facility], recent DVT while thrombocytopenic status post IVC filter who presented to the emergency department with recurrent fevers. Patient has had recent complicated course with multiple neutropenic infections. Most recently he developed significant epistaxis due to his thrombocytopenia requiring multiple transfusions. On arrival to the ER here his temperature was 99.8 but quickly spiked to 102.2 he was tachycardic up to the 120s. Initial lab work showed white blood cell count 0.3, hemoglobin 6, platelets 22, sodium 131, ALT 135. Influenza A/B/RSV/COVID- 19 testing was negative. Initial chest x-ray showed right midlung airspace opacities concerning for pneumonia. Patient was subsequently admitted for neutropenic sepsis with pneumonia. He was started on vancomycin and aztreonam secondary to recent reaction to Augmentin. Patient was concerned complaining of significant sinus pressure and noted to have facial swelling. On 12/[address] was completed which showed chronic maxillary, ethmoid, and right-sided sphenoid sinusitis with obstruction of the ostiomeatal units. ENT was consulted and they recommended starting dexamethasone and Benadryl. Patient was continued on his prophylactic acyclovir and fluconazole. Infectious disease and oncology were consulted. His liver enzymes elevated and Liver ultrasound demonstrated Hepatomegaly, portal vein appears patent with normal hepatopetal pedal flowRpeat CXR without improvement. BM biopsy on 12/27/23. Patient seen and examined at bedside. He is doing okay today about the same as yesterday. He does have slight decrease in his nasal pressure. No other complaints at this time. Vital signs reviewed General: Nontoxic, no distress, appears at stated age, extraocular motion intact, swelling of the bilateral nasal labial area Cardiovascular: S1S2 reg, no murmur Lungs: CTA bilateral, no rhonchi, no rales, no accessory muscle use Abdominal: Soft, nontender to palpation, no guarding Ext: No gross muscle atrophy, no edema b/l lower extremities, no contractures Neuro: CN II-XI grossly intact, no focal neuro deficits Psych: Alert, oriented, appropriate affect Assessment/Plan: Neutropenic sepsis Pneumonia, health care associated, possible MRSA and Gram negative Chronic sinusitis without evidence of sinus destruction Chemotherapy-induced pancytopenia AML status post recent salvage therapy, preparing for bone marrow transplant -Continue with vancomycin 1500 mg IV every 8 hours, currently being dosed by pharmacy, day #5, aztreonam 2 g IV piggyback every 8 hours day #4 -Case discussed with Dr. [place]. Given no improvement in the chest x-ray we will proceed with CT chest to better characterize the pneumonia with concerns for possible some fungal infection given his degree of immunosuppression due to chemotherapy. Patient has been on Diflucan 100 mg daily. This has been for fungal prophylaxis. Will consider galactomannan test. Likely needs at least 48 hours more of Azactam. -Case discussed with Oralia mccray nurse practitioner with oncology. Patient will under go bone marrow biopsy on 12/27/2023 and could be discharged from their standpoint after this is achieved.s -Await further oncology recommendations -Follow CBC. No indication for transfusion at this time. Patient must be transfused irradiated products if transfusion is needed -Status post 3 units of packed red blood cells -Decadron wean completed Transaminitis -Unclear etiology, likely medication mediated - labs improveing - follow CMP Recent dermatitis related to amoxicillin use Imaging: None new Date Review: Labs reviewed from today include CBC and CMP which are remarkable for white blood cell count 0.2, sodium 131, BUN 12, AST 66, ALT 393, alkaline phosphatase 234 DVT prophylaxis: SCDs Anticipated discharge date: Pending clinical course Anticipated discharge place: Pending clinical course This dictation was prepared using [employer] voice recognition software. Though every attempt is made to correct errors during dictation some may still exist. Objective - Vital Signs Vital signs: Vital Signs Temp 98.5 F 12/24/23 11:26 Pulse 98 12/24/23 11:26 Resp 16 12/24/23 11:26 BP 133/87 12/24/23 11:26 Pulse Ox 98 12/24/23 11:26 FiO2 Intake & Output 12/23/23 12/24/23 12/24/23 18:59 06:59 18:59 Intake Total 916 20 Balance 916 20 Weight 87 kg Intake: IV 20 Invasive Line 1 20 Oral 916 0 Other: Voiding Method Toilet Toilet Toilet # Voids 3 1 - Labs CBC & Chem 7: 12/24/23 08:13 12/24/23 08:13 Labs: Abnormal Lab Results - Last 24 Hours (Table) 12/24/23 12/24/23 Range/Units 08:13 08:13 WBC 0.2 L* (3.8-10.6) k/uL RBC 2.64 L (4.30-5.90) m/uL Hgb 8.2 L (13.0-17.5) gm/dL Hct 22.6 L (39.0-53.0) % Plt Count 14 L* (150-450) k/uL Sodium 131 L (137-145) mmol/L Creatinine 0.44 L (0.66-1.25) mg/dL Glucose 183 H (74-99) mg/dL Calcium 7.9 L (8.4-10.2) mg/dL AST 66 H (17-59) U/L ALT 393 H (4-49) U/L Alkaline Phosphatase 234 H (38-126) U/L Total Protein 5.3 L (6.3-8.2) g/dL Albumin 2.5 L (3.5-5.0) g/dL
--- NOTE | 2023-12-24 17:12 | CT ---
EXAMINATION TYPE: CT chest w con DATE OF EXAM: 12/24/2023 COMPARISON: 10/23/2023 HISTORY: Pneumonia, concern for fungal infection, on chemo. CT DLP: 330.2 mGycm Automated exposure control for dose reduction was used. CONTRAST: CT scan of the chest is performed with IV Contrast, patient injected with 100 mL of Isovue 300. FINDINGS: LUNGS: Scattered masslike and nodular infiltrates throughout the right lung. The largest is seen with in the right upper lobe and is pleural-based measuring 4.7 x 3.9 cm. Additional nodular infiltrates s een within the right upper and right lower lobes measuring up to 2.0 cm. Total number of right-sided nodular infiltrates is estimated at 4. The left lung there is a nodular density identified within the left upper lobe measuring 1 cm seen on image 29 as well as an additional nodular density measuring 7 mm image 27. No evidence of pleural effusion. MEDIASTINUM: There are no greater than 1 cm hilar or mediastinal lymph nodes. No pericardial effusi on is seen. Thoracic aorta is of normal caliber. The heart is not enlarged. UPPER ABDOMEN: No significant abnormality appreciated. OTHER: No additional significant abnormality is seen. IMPRESSION: 1.Masslike infiltrate with air bronchograms right upper lobe anteriorly may reflect pneumonia. Neopla sm is not excluded. Clinical correlation and appropriate follow-up advised. 2. Scattered pulmonary nodules could reflect a fungal infection or atypical pneumonia over pulmonary nodules from metastatic disease are not excluded. Clinical correlation advised.
--- NOTE | 2023-12-24 20:41 | P.PN ---
Subjective Progress Note Date: 12/24/23 Principal diagnosis: Reason for follow-up is febrile neutropenia Patient is a 43-year-old male with a past medical history significant for AML s/p induction chemotherapy on 10/08/2023 subsequently was admitted to the hospital to have a febrile neutropenia which was related to the left lower jaw infected tooth and for the patient has completed his antibiotic therapy now presented back to the hospital with a fever noticed to be septic and neutropenic predominantly sinus symptoms and also have infiltrate on the right lung concerning for pneumonia. On today's evaluation that is 12/24/2023 the patient continues to be afebrile, the patient is breathing comfortably on room air denies any chest pain shortness of breath or cough no nausea vomiting no abdominal pain no diarrhea the patient pain to the sinus and anterior nasal area has decreased in intensity. Patient did have a white count of 0.2, creatinine 0.44 Objective - Vital Signs Vital signs: Vital Signs Temp 99.5 F 12/24/23 08:00 Pulse 98 12/24/23 08:00 Resp 18 12/24/23 08:00 BP 131/83 12/24/23 08:00 Pulse Ox 97 12/24/23 08:00 FiO2 Intake & Output 12/23/23 12/24/23 12/24/23 18:59 06:59 18:59 Intake Total 916 20 Balance 916 20 Intake: IV 20 Invasive Line 1 20 Oral 916 0 Other: Voiding Method Toilet Toilet Toilet # Voids 3 1 - Exam Middle-age male lying in bed in no distress HEENT: Did have some irritation around the anterior nares that has decreased in intensity Respiratory system unlabored breathing decreased breath sound the base Heart S1-S2 regular Abdominal soft no tenderness Extremities no edema feet Exam completed with the help of [employer] - Labs CBC & Chem 7: 12/24/23 08:13 12/24/23 08:13 Labs: Microbiology - Last 24 Hours (Table) 12/19/23 16:25 Blood Culture - Preliminary Blood 12/19/23 16:40 Blood Culture - Preliminary Blood Assessment and Plan (1) Sinusitis Current Visit: Yes Status: Acute Code(s): J32.9 - CHRONIC SINUSITIS, UNSPECIFIED SNOMED Code(s): 17175799 (2) Allergy to multiple antibiotics Current Visit: Yes Status: Acute Code(s): Z88.1 - ALLERGY STATUS TO OTHER ANTIBIOTIC AGENTS SNOMED Code(s): 223983598 (3) Neutropenic fever Current Visit: Yes Status: Acute Priority: High Code(s): D70.9 - NEUTROPENIA, UNSPECIFIED; R50.81 - FEVER PRESENTING WITH CONDITIONS CLASSIFIED ELSEWHERE SNOMED Code(s): 443097559 Plan: 1-patient presented to hospital with sepsis in this patient who did have a fever tachycardia low white count source is likely bacterial sinusitis with significant sinus symptoms chest x-ray also showing right midlung infiltrate and concern for possible component of pneumonia 2-patient with multiple antibiotic ALLERGIES that would limit the number of antibiotic safe to use 3- CT of the sinuses tissues evidence of chronic sinusitis however no evidence of any sinus destruction, has been evaluated by ENT steroids were recommended to decrease inflammation 4-patient did have elevated inflammatory markers including procalcitonin, repeat chest x-ray still showing right middle lobe pneumonia 5-patient did have clinical improvement and will continue with the vancomycin and Azactam, abnormality on the chest x-ray slightly concerning as the patient i s immunocompromised and did have prolonged neutropenia however do not have any respiratory symptoms CT of the chest has been suggested for better definition of the abnormality seen discussed with the admitting physician will check Aspergillus galactomannan with a.m. lab Dictation was produced using Fan[employer] dictation software. please excuse any grammatical, word or spelling errors. Time with Patient: Less than 30
--- NOTE | 2023-12-24 20:56 | P.PN ---
Subjective Progress Note Date: 12/24/23 Principal diagnosis: Neutropenic fever, AML status post reinduction In follow-up today patient reports some improvement in the facial swelling, he denies any recent fevers, dysphagia, oral irritation, chest pain, abdominal pain, the rash, extremities is much improved. He denies any bleeding. Objective - Vital Signs Vital signs: Vital Signs Temp 99.1 F 12/24/23 15:52 Pulse 103 H 12/24/23 15:52 Resp 16 12/24/23 15:52 BP 154/93 12/24/23 15:52 Pulse Ox 98 12/24/23 15:52 FiO2 Intake & Output 12/24/23 12/24/23 12/25/23 06:59 18:59 06:59 Intake Total 20 1500 Balance 20 1500 Weight 87 kg Intake: IV 20 Invasive Line 1 20 Oral 0 1500 Other: Voiding Method Toilet Toilet # Voids 1 3 - Constitutional General appearance: Present: average body habitus, cooperative, no acute distres s - EENT EENT Comment(s): Swelling of the nose, frontal sinuses and upper lip Eyes: Present: anicteric sclerae, EOMI ENT: Present: hearing grossly normal - Cardiovascular Rhythm: regular - Peripheral edema leg Peripheral Edema: bilateral: None - Neurologic Neurologic: Present: CNII-XII intact - Musculoskeletal Musculoskeletal: Present: strength equal bilaterally - Psychiatric Psychiatric: Present: A&O x's 3, appropriate affect, intact judgment & insight - Labs CBC & Chem 7: 12/24/23 08:13 12/24/23 08:13 Labs: Abnormal Lab Results - Last 24 Hours (Table) 12/24/23 12/24/23 Range/Units 08:13 08:13 WBC 0.2 L* (3.8-10.6) k/uL RBC 2.64 L (4.30-5.90) m/uL Hgb 8.2 L (13.0-17.5) gm/dL Hct 22.6 L (39.0-53.0) % Plt Count 14 L* (150-450) k/uL Sodium 131 L (137-145) mmol/L Creatinine 0.44 L (0.66-1.25) mg/dL Glucose 183 H (74-99) mg/dL Calcium 7.9 L (8.4-10.2) mg/dL AST 66 H (17-59) U/L ALT 393 H (4-49) U/L Alkaline Phosphatase 234 H (38-126) U/L Total Protein 5.3 L (6.3-8.2) g/dL Albumin 2.5 L (3.5-5.0) g/dL - Imaging and Cardiology Chest x-ray: report reviewed Assessment and Plan (1) Neutropenic fever Current Visit: Yes Status: Acute Priority: High Code(s): D70.9 - NEUTROPENIA, UNSPECIFIED; R50.81 - FEVER PRESENTING WITH CONDITIONS CLASSIFIED ELSEWHERE SNOMED Code(s): 086828537 (2) Antineoplastic chemotherapy induced pancytopenia Current Visit: Yes Status: Acute Code(s): D61.810 - ANTINEOPLASTIC CHEMOTHERAPY INDUCED PANCYTOPENIA; T45.1X5A - ADVERSE EFFECT OF ANTINEOPLASTIC AND IMMUNOSUP DRUGS, INIT SNOMED Code(s): 658702819576378 (3) Acute myeloid leukemia, without mention of having achieved remission Current Visit: Yes Status: Acute Priority: High Code(s): C92.00 - ACUTE MYELOBLASTIC LEUKEMIA, NOT HAVING ACHIEVED REMISSION SNOMED Code(s): 92106973 (4) Facial cellulitis Current Visit: No Status: Acute Code(s): L03.211 - CELLULITIS OF FACE SNOMED Code(s): 693360791 Plan: Neutropenic fever -Chest x-ray concern for right midlung opacity potentially consistent with pneumonia. -Pancultures ordered -ID consulted, antibiotics ordered -ENT following for facial/nasal swelling -Case discussed with IM. CT chest ordered to further assess the rt mid lung abnormality persistent on CXR Chemotherapy induced pancytopenia -Secondary to FLAG-SANCHEZ salvage chemotherapy given for refractory AML from 11/20/2023 through 11/25/2023 -Transfuse for hemoglobin less than 7, platelets less than 10,000 or if symptomatic. Irradiated blood products only -Status post 3 units of packed red blood cells. Hemoglobin 8.2 today, stable -Platelets 14,000 today no transfusion needed -WBC 0.2, no G-CSF, patient is not a confirmed remission. AML -Induction chemotherapy with 7+3 regimen given in September 2023 -Follow-up bone marrow biopsy and aspirate 10/31/2023 showed evidence of persistent blasts -SANCHEZ-FLAG salvage chemotherapy given from 11/20/2023 through 11/25/2023 -Patient reports that he was contacted by [facility] in [place], he does have a matched donor. Patient will need to be confirmed remission before he can proceed with allo BMT -Bone marrow biopsy is scheduled for at 8:30 AM. Obtain consent and n.p.o. orders placed. Penicillin allergy/rash -Diffuse erythematous rash with swelling in the eyes and lips after amoxicillin. The erythematous rash is now confined to the bilateral lower extremities Transaminitis -Liver US obtained, revealing hepatomegaly, no thrombus seen. -LFTs cont to improve, bilirubin normal -Suspect medication induced -CMP monitoring Attests: I have seen and examined pt, performed H&P, developed impression and plan of care. Discussed with dictator. Agree with documentation, dictated as a scribe.
--- NOTE | 2023-12-24 22:49 | PN ---
PROGRESS NOTE SUBJECTIVE: Vital signs are stable. The patient remains afebrile. The patient states that his upper lip is still somewhat sore. OBJECTIVE: Examination of the upper lip and lower nasal area reveals that the patient still has a previously noted firmness in this area, which is somewhat bothersome. This area is nonfluctuant to deep palpation, but is quite firm. In addition, this soft tissue swelling appears to extend up towards the nasolabial fold bilaterally, somewhat obliterating the definition of the lower nasolabial folds. The nursing staff has been applying Bactroban ointment to this area, although I am not sure whether this is having any significant effect. Remainder of the head and neck exam is unchanged since original examination. ASSESSMENT: Facial edema (cellulitis versus abscess of the canine fossa?), pansinusitis. PLAN: I am going to order a CT scan of the facial bones and soft tissues with and without contrast in an effort to evaluate the upper lip area for possible abscess or fluid cavity. Certainly with this gentleman's pancytopenia, it would be surprising that he would be able to mount any type of white cell response to an infection, however, I will review this CT scan and re-evaluate the patient tomorrow, 12/25/2023. MMODL / IJN: [id number] / MTDD
[2023-12-24] MEDS: TEMAZEPAM 15 MG CAP PO PRN (23:20)
[2023-12-25] MEDS: SODIUM CHLORIDE 0.9% 1,000 ML IV SCH ×2 (06:29→16:46)
[2023-12-25] MEDS: diphenhydrAMINE 50 MG/ML 1 ML VIAL IVP SCH ×3 (06:31→15:40)
[2023-12-25] MEDS: ACETAMINOPHEN TAB 325 MG TAB PO PRN ×2 (06:52→15:40)
--- NOTE | 2023-12-25 07:35 | CT ---
EXAMINATION TYPE: CT facial bones wo/w con DATE OF EXAM: 12/24/2023 COMPARISON: CT sinuses 12/20/2023 HISTORY: Facial swelling CT DLP: 1062.2 mGycm Automated exposure control for dose reduction was used. CONTRAST: CT scan of the facial bones is performed with IV Contrast, patient injected with 100 mL of Isovue 300 . TECHNIQUE: CT scan of the sinuses is performed without contrast, axial images are obtained, coronal r eformatted images are also reviewed. FINDINGS: There is collection noted adjacent to the nasal spine extending cranially with craniocaudal measurement of 3.0 cm, transverse measurement of 2.8 cm in AP measurement of 1.4 cm. There is osseou s irregularity noted. I cannot exclude underlying osteomyelitis with abscess. No additional collectio ns seen. There is facial swelling involving the upper lip extending into the nasion and suborbital re gions. There is moderate opacification of the maxillary sinuses with bilateral obstruction of the ostiomeata l units. Scattered ethmoidal sinusitis noted as well. Sphenoid sinus and frontal sinuses are well-aer ated IMPRESSION: 1. Findings felt to reflect abscess adjacent to the nasal spine extending cranially as discussed abov e. There is osseous irregularity suspicious for underlying osteomyelitis. 2. Chronic sinusitis. 3. Associated cellulitis
[2023-12-25] MEDS: VANCOMYCIN 2,000 MG in SODIUM CHLORIDE 0.9% 500 ML 500 ML IVPB SCH ×2 (07:47→15:40)
[2023-12-25] MEDS: AZTREONAM 2 GM in SODIUM CHLORIDE 0.9% 100 ML IVPB SCH ×2 (07:47→15:41)
[2023-12-25] MEDS: FLUCONAZOLE 100 MG TAB PO SCH (07:48)
[2023-12-25] MEDS: FLUTICASONE 50MCG/SPRAY NASAL 16GM EA NOSTRIL SCH (07:48)
[2023-12-25] MEDS: CETIRIZINE PO SCH (07:48)
[2023-12-25] MEDS: allopurinoL 300 MG TAB PO SCH (07:48)
[2023-12-25] MEDS: ACYCLOVIR 200 MG CAP PO SCH (07:48)
[2023-12-25] MEDS: MUPIROCIN 2% OINT 22 GM TUBE TOPICAL SCH ×2 (07:49→14:46)
[2023-12-25 08:00] LABS: HCT 24.2 % (39.0-53.0); HGB 8.5 gm/dL (13.0-17.5); MCH 30.4 pg (25.0-35.0); MCHC 34.9 g/dL (31.0-37.0); MCV 87.1 fL (80.0-100.0); Mean Platelet Volume 13.1; RBC 2.78 m/uL (4.30-5.90); RDW 13.9 % (11.5-15.5)
[2023-12-25 08:05] LABS: Platelet Count 17 k/uL (150-450); WBC 0.5 k/uL (3.8-10.6)
[2023-12-25] MEDS ORDERED: HYDROmorphone 1 MG/ML 1 ML SYRINGE IVP PRN (08:57)
[2023-12-25] MEDS ORDERED: HYDROmorphone 0.5 MG/0.5 ML SYRINGE IVP PRN (08:57)
[2023-12-25] MEDS ORDERED: WATER IV SCH ×2 (10:00)
[2023-12-25] MEDS ORDERED: AMPHOTERICIN B LIPOSOME IV SCH ×2 (10:00)
[2023-12-25] MEDS ORDERED: DEXTROSE 5% IV SCH ×2 (10:00)
[2023-12-25 10:06] LABS: ALT 284 U/L (4-49); AST 39 U/L (17-59); African American GFR (CKD) >90 (>60 ml/min/1.73 sqM); Albumin 2.5 g/dL (3.5-5.0); Alkaline Phosphatase 247 U/L (38-126); Anion Gap 6 mmol/L; Blood Urea Nitrogen 13 mg/dL (9-20); Calcium 7.9 mg/dL (8.4-10.2); Carbon Dioxide 22 mmol/L (22-30); Chloride 100 mmol/L (98-107); Glucose 148 mg/dL (74-99); Non-African American GFR(CKD) >90 (>60 ml/min/1.73 sqM); Potassium 3.5 mmol/L (3.5-5.1); Sodium 128 mmol/L (137-145); Total Bilirubin 0.6 mg/dL (0.2-1.3); Total Protein 5.5 g/dL (6.3-8.2)
[2023-12-25 10:18] LABS: C Reactive Protein 23.4 mg/dL (<1.0)
[2023-12-25 10:19] LABS: RBC Morphology Normal
--- NOTE | 2023-12-25 11:23 | P.DS ---
Providers Date of admission: 12/19/23 17:19 Expected date of discharge: 12/25/23 Attending physician: Wilmer Quinn MD Consults: 12/19/23 17:15 Consult Physician Routine Consulting Provider: Eusebio Naranjo Consult Reason/Comments: neutropenic fever Do you want consulting provider notified?: Yes Consult Physician Routine Consulting Provider: Thanh Montana Consult Reason/Comments: Neutropenic fever Do you want consulting provider notified?: Yes 12/21/23 11:42 Consult Physician Routine Consulting Provider: Vidal Vora Consult Reason/Comments: sinusitis Do you want consulting provider notified?: Yes Primary care physician: [facility] Course: Discharge Diagnosis: Nasal spine osteomyelitis and abscess formation, 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 Patient did tolerate Unasyn prior to this. Imaging: CT sinuses 12/20/2023: Chronic maxillary, ethmoid, and right sphenoid sinusitis with obstruction of the ostiomeatal units. No air-fluid levels CT chest 12/24/2023: Masslike infiltrate with air bronchograms right upper lobe, scattered pulmonary nodules could represent fungal infection or atypical pneumonia over pulmonary nodules for metastatic disease. CT facial bone 12/24/2023: Collection adjacent to the nasal spine extending cranially with craniocaudad measurements of 3 cm, transverse measurement of 2.8 cm and AP measurement of 1.4 cm with osseous irregularity noted concern for abscess and osteomyelitis, chronic sinusitis, cellulitis Hospital Course: Patient is a 43 Y old male with AML status post failed induction chemotherapy with salvage chemotherapy completed 11/20/2023- 11/25/23 currently awaiting bone marrow transplant through [facility], recent DVT while thrombocytopenic status post IVC filter who presented to the emergency department with recurrent fevers. Patient has had recent complicated course with multiple neutropenic infections. Most recently he developed significant epistaxis due to his thrombocytopenia requiring multiple transfusions. On arrival to the ER here his temperature was 99.8 but quickly spiked to 102.2 he was tachycardic up to the 120s. Initial lab work showed white blood cell count 0.3, hemoglobin 6, platelets 22, sodium 131, ALT 135. Influenza A/B/RSV/COVID-19 testing was negative. Initial chest x-ray showed right midlung airspace opacities concerning for pneumonia. Patient was subsequently admitted for neutropenic sepsis with pneumonia. He was started on vancomycin and aztreonam secondary to recent reaction to Augmentin. Patient was concerned complaining of significant sinus pressure and noted to have facial swelling. On 12/[address] was completed which showed chronic maxillary, ethmoid, and right-sided sphenoid sinusitis with obstruction of the ostiomeatal units. ENT was consulted and they recommended starting dexamethasone yesi completed on 12/24/23, flonase, and Benadryl. Patient was continued on his prophylactic acyclovir and fluconazole. Infectious disease and oncology were consulted. His liver enzymes elevated and Liver ultrasound demonstrated Hepatomegaly, portal vein appears patent with normal hepatopetal pedal flow. Repeat CXR on 12/24/[address] chest completed with right upper lobe air fluid levels and multiple pulmonary nodules. CT Facial bones ordered on 12/24 by ENT due to increased swelling was completedon 12/25/23 showed nasal spine abscess and possible osteomyelitis. Ugrent Ampho B ordered in conjunction with ID due to concerns for mucor. Repeat BM biopsy was scheduled for 12/27/23. Mutiple disciplinary team of hospitlist, Infectious disease, and oncology all recommended transfer to [facility] for dedicated treatment given patient AML and severe immuno supression. [facility] contacted and Patient was accepted by Dr. Joyce (hemeatology nurse liaison) and Dr. Marie (hospitalist). Patient transferred via EMS to [facility], room [address] [place] [address]. Prior Hospitalization information: Discharge 12/07/23: Epistaxis Discharged 11/12/2023 Left facial cellulitis, dental caries, neutropenic sepsis. Discharged home with IV Unasyn Discharge 10/29/2023: Pulmonary embolism status post IVC filter, febrile neutropenia with strep bacteremia Discharge 10/16/2023: Patient was admitted for induction chemotherapy for AML with 7+3 regimenient Patient seen and examined at bedside. Significantly increased swelling of anterior face, with significant swelling of upper lip. Deneis confusion/lethargy, no HAGER, nodouble vision, no loss of vision, no difficultly swallowing, no drooling. Vital signs reviewed and stable. General: Nontoxic, no distress, appears at stated age Cardiovascular: S1S2 reg, no murmur, positive posterior tibial pulse bilateral, Lungs: CTA bilateral, no rhonchi, no rales, no accessory muscle use Abdominal: Soft, nontender to palpation, no guarding, no appreciable organomegaly Ext: No gross muscle atrophy, no edema b/l lower extremities, no contractures Neuro: CN II-XI intact, swelling of upper lip bilateral, no loss of tongue protusion, no drooling, EOMI Psych: Alert, oriented, appropriate affect A total of 65 minutes of time were spent preparing this complex discharge summary. Patient was discharged on 12/25/23. This dictation was prepared using [employer] voice recognition software. Though every attempt is made to correct errors during dictation some may still exist. Patient Condition at Discharge: Serious Plan - Discharge Summary Discharge Rx Participant: Yes New Discharge Prescriptions: No Action allopurinoL 300 mg PO DAILY #30 tab Ciprofloxacin HCl [Cipro] 500 mg PO BID Ondansetron Odt [Zofran Odt] 4 - 8 mg PO Q4H PRN PRN Reason: Nausea Guaifenesin/Dextromethorphan [Robitussin Cough-Chest Dm Liq] 20 ml PO Q4H PRN PRN Reason: Cough Fluconazole [Diflucan] 100 mg PO DAILY Acyclovir [Zovirax] 400 mg PO BID Acetaminophen Tab [Tylenol Tab] 1,000 mg PO Q6HR PRN PRN Reason: Pain Or Fever > 100.5 Discharge Medication List allopurinoL 300 mg PO DAILY #30 tab 10/15/23 [Rx] Fluconazole [Diflucan] 100 mg PO DAILY 10/30/23 [History] Acyclovir [Zovirax] 400 mg PO BID 11/20/23 [History] Ciprofloxacin HCl [Cipro] 500 mg PO BID 11/20/23 [History] Acetaminophen Tab [Tylenol Tab] 1,000 mg PO Q6HR PRN 12/19/23 [History] Guaifenesin/Dextromethorphan [Robitussin Cough-Chest Dm Liq] 20 ml PO Q4H PRN 12/19/23 [History] Ondansetron Odt [Zofran Odt] 4 - 8 mg PO Q4H PRN 12/19/23 [History] Follow up Appointment(s)/Referral(s): Caio Patel MD [Primary Care Provider] - 1-2 days Discharge Disposition: OTHER INSTITUTION NOT DEFINED
--- NOTE | 2023-12-25 11:31 | PN ---
PROGRESS NOTE SUBJECTIVE: Vital signs stable. The patient is having more facial swelling at this time. I reviewed the patient's CAT scan last night personally because there was no dictated radiologist report. It showed evidence of an abscess cavity, which was located just anterior to the nasal spine(canine space) and measured approximately 2.5 to 3 cm. In addition, there is still evidence of soft tissue edema extending up into the infraorbital area. The abscess pocket was fairly well localized. I tried to check this morning to see if there was a radiology report at approximately 7:00 a.m. and even though the x- ray was done at about 4:00 p.m. yesterday on 12/24/2023, there was no report. Eventually, the report came through my office around mid morning and it confirmed the presence of an abscess present just anterior to the nasal spine(canine space) with surrounding soft tissue edema. OBJECTIVE: HEENT: The patient is normocephalic. The swelling of the patient's lip has increased, there is obliteration of both nasolabial folds and there is now beginning to show soft tissue edema bilaterally in the infraorbital area. ASSESSMENT: Canine space abscess. PLAN: I had originally scheduled this patient for surgery today 12/25/2023 under either local anesthetic or IV sedation. At that time, I had planned on performing a sublabial I and D of this abscess cavity. The wound would then be left open to drain. I explained all of this to the patient and to his . However, it has been decided to transfer the patient to [facility] and therefore, I will cancel the patient's surgery. It is interesting to note that this abscess cavity did not show on the patient's original CAT scan, which was done at the time of the patient's admission. This suggests that the abscess has developed since the patient has been in the hospital. This patient states that once he has his bone marrow transplant, he would like to contact my office for further evaluation and treatment of his sinus issues. I advised him that would be fine and I gave him one of my business cards. In the meantime, I have advised him that he should stay on his Zyrtec and Nasacort and that should help with his sinus/allergy issues. I want to take this opportunity again to thank you for allowing me to assist in the care of your patient. If I could be of any further assistance, please feel free to call my office. ABHINAV / IJN: [id number] / IRTA
--- NOTE | 2023-12-25 13:50 | P.PN ---
Subjective Progress Note Date: 12/25/23 At today's visit patient is resting comfortably in bed. Fever of 101.2 last night. Reporting persisting facial discomfort. Facial CT concern for abscess and osteomyelitits. CT chest concerning for atypical pneumonia vs fungal infection. ID has started IV antifungal. Spoke with IM team, recommend transfer to [facility] where he has already been established with transplant team Platelets and hemoglobin stable today, no transfusions needed. LFTs slowing improving Objective - Vital Signs Vital signs: Vital Signs Temp 98.6 F 12/25/23 11:42 Pulse 102 H 12/25/23 11:42 Resp 18 12/25/23 11:42 BP 141/84 12/25/23 11:42 Pulse Ox 98 12/25/23 11:42 FiO2 Intake & Output 12/24/23 12/25/23 12/25/23 18:59 06:59 18:59 Intake Total 1500 20 1020 Balance 1500 20 1020 Weight 87 kg Intake: IV 20 Invasive Line 1 20 Oral 1500 1020 Other: Voiding Method Toilet Toilet Toilet # Voids 3 2 1 - Constitutional General appearance: Present: no acute distress - EENT EENT Comment(s): facial edema noted Eyes: Present: anicteric sclerae, EOMI ENT: Present: hearing grossly normal - Respiratory Details: breathing even and unlabored - Cardiovascular Details: well-perfused - Integumentary Integumentary: Present: pale, rash - Neurologic Neurologic Comment(s): grossly intact - Musculoskeletal Musculoskeletal: Present: strength equal bilaterally - Psychiatric Psychiatric: Present: A&O x's 3 - Labs CBC & Chem 7: 12/25/23 07:37 12/25/23 07:37 Labs: Abnormal Lab Results - Last 24 Hours (Table) 12/25/23 12/25/23 Range/Units 07:37 07:37 WBC 0.5 L* (3.8-10.6) k/uL RBC 2.78 L (4.30-5.90) m/uL Hgb 8.5 L (13.0-17.5) gm/dL Hct 24.2 L (39.0-53.0) % Plt Count 17 L* (150-450) k/uL Sodium 128 L (137-145) mmol/L Creatinine 0.52 L (0.66-1.25) mg/dL Glucose 148 H (74-99) mg/dL Calcium 7.9 L (8.4-10.2) mg/dL ALT 284 H (4-49) U/L Alkaline Phosphatase 247 H (38-126) U/L C-Reactive Protein 23.4 H (<1.0) mg/dL Total Protein 5.5 L (6.3-8.2) g/dL Albumin 2.5 L (3.5-5.0) g/dL Microbiology - Last 24 Hours (Table) 12/19/23 16:25 Blood Culture - Final Blood 12/19/23 16:40 Blood Culture - Final Blood - Imaging and Cardiology CT face and CT chest reviewed Assessment and Plan (1) Neutropenic fever Current Visit: Yes Status: Acute Priority: High Code(s): D70.9 - NEUTROPENIA, UNSPECIFIED; R50.81 - FEVER PRESENTING WITH CONDITIONS CLASSIFIED ELSEWHERE SNOMED Code(s): 039732617 (2) Pancytopenia Current Visit: Yes Status: Acute Priority: High Code(s): D61.818 - OTHER PANCYTOPENIA SNOMED Code(s): 820850334 (3) Pneumonia Current Visit: Yes Status: Acute Priority: High Code(s): J18.9 - PNEUMONIA, UNSPECIFIED ORGANISM SNOMED Code(s): 039617230 (4) Acute myeloid leukemia, without mention of having achieved remission Current Visit: Yes Status: Acute Priority: High Code(s): C92.00 - ACUTE MYELOBLASTIC LEUKEMIA, NOT HAVING ACHIEVED REMISSION SNOMED Code(s): 88540750 (5) Facial cellulitis Current Visit: Yes Status: Acute Priority: High Code(s): L03.211 - CELLULITIS OF FACE SNOMED Code(s): 381126331 Plan: Neutropenic fever -Chest x-ray concern for right midlung opacity potentially consistent with pneumonia. -Pancultures ordered -ID consulted, antibiotics ordered -ENT following for facial/nasal swelling -Case discussed with IM. CT chest ordered to further assess the rt mid lung abnormality persistent on CXR. CT chest revealed masslike infiltrate with air bronchograms right upper lobe anteriorly may reflect a pneumonia. Scattered pulmonary nodules could reflect a fungal infection or atypical pneumonia. IV antifungal started, continues on IV antibiotics. -Facial CT obtained revealing abscess adjacent to the nasal spine extending cranially. Osseous irregularity suspicious for underlying osteomyelitis. Chronic sinusitis and associated cellulitis. Will need evalution by maxillofacial surgery. Spoke with IM team, recommend transfer to [facility] where he has already been established with transplant team. Case was also discussed with transplant team, Dr. 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 Irradiated blood products only -Status post 3 units of packed red blood cells. Hemoglobin 8.5 today, stable -Platelets 17,000 today no transfusion needed -WBC 0.2, no G-CSF, patient is not a confirmed remission. AML -Induction chemotherapy with 7+3 regimen given in September 2023 -Follow-up bone marrow biopsy and aspirate 10/31/2023 showed evidence of persiste nt blasts -SANCHEZ-FLAG salvage chemotherapy given from 11/20/2023 through 11/25/2023 -Patient reports that he was contacted by I in [place], he does have a matched donor. -Bone marrow biopsy is scheduled for at 8:30 AM, however this will be canceled due to transfer. Spoke with transplant team, Dr. Kingsley at [facility] who was updated on case and they will try to obtain while inpt. Penicillin allergy/rash -Diffuse erythematous rash with swelling in the eyes and lips after amoxicillin. The erythematous rash is now confined to the bilateral lower extremities Transaminitis -Liver US obtained, revealing hepatomegaly, no thrombus seen. -LFTs cont to improve, bilirubin normal -Suspect medication induced -CMP monitoring Time with Patient: Greater than 30
[2023-12-25 16:01] VITALS: BP 127/75; PULSE 109; RESP 16; TEMP 99.6
[2023-12-26] MEDS ORDERED: VANCOMYCIN TROUGH DUE 1 EACH MISC MISCELLANE ONE (07:00)
== END 2023-12-25 20:58 | disposition short-term general hospital (02) | DRG 871 ==
LOC: EC 13:54 → 3SCARD 17:19
PROVIDERS: ADMIT Student in an Organized Health Care Education/Training Program; ATTEND Student in an Organized Health Care Education/Training Program
PROC: 30233R1 Transfusion of Nonautologous Platelets into Peripheral Vein, Percutaneous Approach (ICD-10-PCS; principal; 2023-12-20)
PROC: 30233N1 Transfusion of Nonautologous Red Blood Cells into Peripheral Vein, Percutaneous Approach (ICD-10-PCS; 2023-12-20)
DX: A41.9 Sepsis, unspecified organism (principal); D61.810 Antineoplastic chemotherapy induced pancytopenia; J15.212 Pneumonia due to Methicillin resistant Staphylococcus aureus; C92.00 Acute myeloblastic leukemia, not having achieved remission; D84.821 Immunodeficiency due to drugs; E87.1 Hypo-osmolality and hyponatremia; L03.211 Cellulitis of face; L51.1 Stevens-Johnson syndrome; M86.8X8 Other osteomyelitis, other site; T36.0X5A Adverse effect of penicillins, initial encounter; T45.1X5A Adverse effect of antineoplastic and immunosuppressive drugs, initial encounter; T36.1X5A Adverse effect of cephalosporins and other beta-lactam antibiotics, initial encounter; K04.7 Periapical abscess without sinus; D70.2 Other drug-induced agranulocytosis; R50.81 Fever presenting with conditions classified elsewhere; Y95 Nosocomial condition; R04.0 Epistaxis; R16.0 Hepatomegaly, not elsewhere classified; L30.9 Dermatitis, unspecified; Z79.899 Other long term (current) drug therapy; Z86.711 Personal history of pulmonary embolism; Z86.718 Personal history of other venous thrombosis and embolism; Z95.828 Presence of other vascular implants and grafts; J30.2 Other seasonal allergic rhinitis; J32.4 Chronic pansinusitis; Z88.0 Allergy status to penicillin; Z88.1 Allergy status to other antibiotic agents; X58.XXXA Exposure to other specified factors, initial encounter
CPT/HCPCS: 36415; 70487; 70488; 71045; 71260; 76705; 80053; 80202; 81003; 83605; 83735; 84100; 84145; 84484; 84550; 85025; 85027; 86140; 86850; 86900; 86901; 86920; 87040; 87636; 93976; 96365; 96366; 96368; 99284